=== PATIENT | male | born 1945 | race Two or more races ===

== ENCOUNTER 2020-03-23 09:21 | Emergency (ER) | payer MEDICARE, SELFPAY ==
[2020-03-23 09:47] VITALS: BP 147/80; PULSE 92; RESP 18; TEMP 36.6; O2SAT 99; BMI 24.2
--- NOTE | 2020-03-23 10:11 | ED_ITS ---
HPI - Back Pain/Injury General Chief Complaint: Back Pain/Injury <MILA Sanders - Last Filed: 03/23/20 11:22> Stated Complaint: COVID SYMPTOMS <MILA Sadners - Last Filed: 03/23/20 11:22> Time Seen by Provider: 03/23/20 09:42 <MILA Sanders - Last Filed: 03/23/20 11:22> Source: patient <MILA Sanders Last Filed: 03/23/20 11:22> Mode of arrival: ambulatory <MILA Sanders - Last Filed: 03/23/20 11:22> Limitations: language barrier <MILA Sanders Last Filed: 03/23/20 11:22> History of Present Illness HPI Narrative: 74 y/o male with history of osteoarthritis and chronic low back pain presents to the ER with worsening low back pain and upper back pain on the right for the last 3-4 days. The pain in his upper back is making it hard for him to sleep at night. He was told a long time ago that he has a mass on his back that needs to be removed, however this was never followed up because he had prostate surgery instead. He has been taking Tylenol and aspirin without improvement. He denies injury, denies weakness, numbness, incontinence. <MILA Sanders - Last Filed: 03/23/20 11:22> MD elicited complaint: back pain <MILA Sanders - Last Filed: 03/23/20 11:22> Pertinent past history: prior back pain <MILA Sanders - Last Filed: 03/23/20 11:22> Onset (ago): day(s) (4) <MILA Sanders - Last Filed: 03/23/20 11:22> Timing: constant <MILA Sanders - Last Filed: 03/23/20 11:22> Severity: moderate <MILA Sanders - Last Filed: 03/23/20 11:22> Similar Symptoms Previously: Yes <MILA Sanders - Last Filed: 03/23/20 11:22> Quality: aching <MILA Sanders - Last Filed: 03/23/20 11:22> Location: right lower back, right upper back and left lower back <MILA Sanders - Last Filed: 03/23/20 11:22> Radiation: none <MILA Sanders - Last Filed: 03/23/20 11:22> Exacerbating factors: movement and supine positioning <MILA Sanders - Last Filed: 03/23/20 11:22> Relieving factors: sitting upright <MILA Sanders - Last Filed: 03/23/20 11:22> Associated symptoms: arthralgias (chronically due to OA) <MILA Sanders - Last Filed: 03/23/20 11:22> Treatments prior to arrival: acetaminophen and ASA <MILA Sanders - Last Filed: 03/23/20 11:22> Work related injury: No <MILA Sanders - Last Filed: 03/23/20 11:22> Related Data Home Medications: Home Medications Medication Instructions Recorded Confirmed albuterol sulfate 2.5 mg INHALATION Q4-6H PRN 04/09/20 amlodipine 10 mg tablet 10 mg PO DAILY 04/09/20 aspirin 81 mg tablet,delayed 81 mg PO DAILY 04/09/20 release blood-glucose meter #1 ea 04/09/20 clotrimazole 1 % topical cream 1 appl TOPICAL BID 04/09/20 fluticasone 250 mcg-salmeterol 50 1 inh INHALATION BID 04/09/20 mcg/dose blistr powdr for inhalation fluticasone propionate 50 1 spray INTRANASAL BID 04/09/20 mcg/actuation nasal spray,suspension gabapentin 600 mg tablet 600 mg PO TID 04/09/20 glipizide 5 mg tablet 2.5 mg PO DAILY 04/09/20 ipratropium 20 mcg-albuterol 100 1 puff INHALATION Q4H 04/09/20 mcg/actuation mist for inhalation lancets 28 gauge #100 ea 04/09/20 metformin 500 mg tablet 500 mg PO BID 04/09/20 nabumetone 750 mg tablet 750 mg PO BID 04/09/20 omeprazole 20 mg capsule,delayed 20 mg PO DAILY 04/09/20 release tizanidine 2 mg capsule 2 mg PO Q8H PRN 04/09/20 tramadol 50 mg tablet 50 mg PO DAILY 04/09/20 trazodone 50 mg tablet 25 mg PO BEDTIME PRN 04/09/20 Previous Rx's Medication Instructions Recorded cyclobenzaprine 5 mg PO TID PRN #14 tab 03/23/20 lidocaine [Lidoderm] 1 patch TOPICAL DAILY #15 ea 03/23/20 naproxen 500 mg PO BID PRN #10 tab 03/23/20 oxybutynin chloride 5 mg tablet 5 mg PO BID 30 Days #60 tab 04/02/20 <MILA Sanders - Last Filed: 03/23/20 11:22> Allergies/Adverse Reactions: Allergies Allergy/AdvReac Type Severity Reaction Status Date / Time ciprofloxacin [Ciprofloxacin] Allergy Mild RASH Unverified 01/05/20 15:51 <MILA Sanders Last Filed: 03/23/20 11:22> Review of Systems Review of Systems: Constitutional: No Fever, No Chills Cardiovascular: No Chest Pain, No SOB, No Orthopnea, No Edema Respiratory: No Cough, No Sputum, No Wheezing, No dyspnea Gastrointestinal: No Nausea, No Vomiting, No Diarrhea, No abdominal Pain Genitourinary: No Dysuria, No Urinary Frequency, No Hematuria Musculoskeletal: + joint pain, + Myalgias Skin: No Skin Lesions, No rash Neuro: No Weakness, No Numbness, No Dizziness, No Headache Heme/Lymph: No Bruising, No Lymphadenopathy <MILA Sanders Last Filed: 03/23/20 11:22> [facility] Past Medical History Attestation statement: The following information was validated with the patient. <MILA Sanders Last Filed: 03/23/20 11:22> Medical History: Medical History (Updated 04/09/20 @ 14:02 by J Carlos Khan MD) Arthralgia Diabetes Lipoma of back Lower back pain Prostate disease <MILA Sanders Last Filed: 03/23/20 11:22> Surgical History: Surgical History History of penile implant History of prostate surgery <MILA Sanders Last Filed: 03/23/20 11:22> Family History Family History: Family History Mother History of esophageal cancer <MILA Sanders - Last Filed: 03/23/20 11:22> Physical Exam Vital Signs: Vital Signs: Last Vital Signs Temp 97.9 F 03/23/20 09:47 Pulse 92 03/23/20 09:47 Resp 18 03/23/20 09:47 BP 147/80 H 03/23/20 09:47 Pulse Ox 99 03/23/20 09:47 Body Mass Index 24.2 Appearance: Alert. Oriented X3. No acute distress. HEENT: normal inspection Neck: Normal inspection. Neck supple. CVS: Normal heart rate and rhythm. Pulses normal. Respiratory: No respiratory distress. Back: large 7cm mobile, soft tissue mass over right scapula, mildly tender. No erythema or skin changes. Mild bilateral lumbar soft tissue tenderness, ROM n ormal, no spinal tenderness. Skin: Skin warm and dry. Normal skin color. Normal skin turgor. No rashes. Extremities: No lower extremity edema. Neuro: Oriented X 3. No motor deficit. No sensory deficit. Steady gait <MILA Sanedrs - Last Filed: 03/23/20 11:22> Vital Signs: Last Vital Signs Temp 97.9 F 03/23/20 09:47 Pulse 92 03/23/20 09:47 Resp 18 03/23/20 09:47 BP 147/80 H 03/23/20 09:47 Pulse Ox 99 03/23/20 09:47 Body Mass Index 24.2 <Len Pena MD - Last Filed: 04/13/20 08:38> Course Course Course Narrative: 74 y/o male presenting with acute on chronic LBP and upper back pain on the right due to known lipoma. It hurts to lay down on it. We discussed referral to surgery for removal. As for his low back pain, there are no red flag symptoms and he has normal mobility on exam. Will give short course of NSAID, muscle relaxer and topical lidoderm. He agrees to f/u with his PCP for possible PT referral. Stable for discharge. <MILA Sanders - Last Filed: 03/23/20 11:22> I have reviewed the chart <Len Pena MD - Last Filed: 04/13/20 08:38> MDM - Back Pain/Injury Differential Diagnosis Differential diagnosis: Likely lumbar radiculopathy, sciatica and strain of lumbar region <MILA Sanders - Last Filed: 03/23/20 11:22> Medical Records Attestation: I reviewed the patient's medical records. <MILA Sanders - Last Filed: 03/23/20 11:22> Critical Care Time Critical Care Time Critical Care Time: No <MILA Sanders - Last Filed: 03/23/20 11:22> Discharge Plan Discharge Clinical Impression: Strain of lumbar region, Lipoma of back <MILA Sanders - Last Filed: 03/23/20 11:22> Patient Disposition: Home, Self-Care <MILA aSnders - Last Filed: 03/23/20 11:22> Instructions: Low Back Strain (ED), Lower Back Exercises (ED), Lipoma (ED) <MILA Sanders - Last Filed: 03/23/20 11:22> Additional Instructions: You have a large lipoma (benign fatty tissue tumor) on your back that is causing you pain. Recommending following up with General Surgery for removal. For your chronic low back pain - use ice and/or heat several times per day. Limit bending, lifting >10 lbs, and twisting movements. If your pain worsens or if you develop numbness, weakness, or incontinence come back to the ER for further evaluation. Follow up with your doctor next week. <MILA Sanders - Last Filed: 03/23/20 11:22> Prescriptions: New lidocaine [Lidoderm] 5 % adhesive patch,medicated 1 patch topical DAILY Qty: 15 RF: 0 naproxen 500 mg tablet 500 mg PO BID PRN (Reason: pain) Qty: 10 RF: 0 cyclobenzaprine 5 mg tablet 5 mg PO TID PRN (Reason: muscle spasm) Qty: 14 RF: 0 No Action oxybutynin chloride 5 mg tablet 5 mg PO BID 30 Days Qty: 60 RF: 6 (DME) lancets [TRUEplus Lancets] 28 gauge misc See Rx Instructions .ROUTE .MEDSUPPLY Qty: 100 RF: 0 albuterol sulfate 2.5 mg /3 mL (0.083 %) solution for nebulization 2.5 mg inhalation Q4-6H PRNRF: 0 tizanidine 2 mg capsule 2 mg PO Q8H PRNRF: 0 trazodone 50 mg tablet 25 mg PO BEDTIME PRNRF: 0 gabapentin 600 mg tablet 600 mg PO TID RF: 0 nabumetone 750 mg tablet 750 mg PO BID RF: 0 aspirin 81 mg tablet,delayed release (DR/EC) 81 mg PO DAILY RF: 0 omeprazole 20 mg capsule,delayed release(DR/EC) 20 mg PO DAILY RF: 0 amlodipine 10 mg tablet 10 mg PO DAILY RF: 0 glipizide 5 mg tablet 2.5 mg PO DAILY RF: 0 (DME) blood-glucose meter Kit See Rx Instructions .ROUTE .MEDSUPPLY Qty: 1 RF: 0 Combivent Respimat 20-100 mcg/actuation mist 1 puff inhalation Q4H RF: 0 fluticasone propionate [Flonase Allergy Relief] 50 mcg/actuation spray,suspension 1 spray intranasal BID RF: 0 fluticasone propion-salmeterol [Advair Diskus] 250-50 mcg/dose blister with device 1 inh inhalation BID RF: 0 metformin 500 mg tablet 500 mg PO BID RF: 0 tramadol 50 mg tablet 50 mg PO DAILY RF: 0 clotrimazole [Antifungal (clotrimazole)] 1 % cream 1 appl topical BID RF: 0 <MILA Sanders - Last Filed: 03/23/20 11:22> Referrals: J Carlos Khan MD [Physician] - 2 days (lipoma removal ) <MILA Sanders - Last Filed: 03/23/20 11:22> Interventions: ED Discharge Assessment Last Done: 03/23/20 10:51 <MILA Sanders - Last Filed: 03/23/20 11:22> Discharge Date/Time: 03/23/20 10:52 <MILA Sanders - Last Filed: 03/23/20 11:22> Print Language: Namibian <MILA Sanders - Last Filed: 03/23/20 11:22>
== END 2020-03-23 10:52 | disposition home or self-care (01) ==
PROVIDERS: Emergency Provider Emergency Medicine; PCP Internal Medicine
DX: S39.012A Strain of muscle, fascia and tendon of lower back, initial encounter (principal); D17.1 Benign lipomatous neoplasm of skin and subcutaneous tissue of trunk; X58.XXXA Exposure to other specified factors, initial encounter; Y93.9 Activity, unspecified; Y92.9 Unspecified place or not applicable; Y99.9 Unspecified external cause status; Z79.899 Other long term (current) drug therapy
CPT/HCPCS: 99283

== ENCOUNTER → 2020-04-09 13:26 | Outpatient (BNVA) | payer MEDICARE, SELFPAY | PROVIDERS: PCP Internal Medicine; Visit Provider Surgery | DX: D17.1 Benign lipomatous neoplasm of skin and subcutaneous tissue of trunk (principal) | CPT/HCPCS: 99202 ==

== ENCOUNTER 2020-04-30 15:06 | Emergency (ER) | payer MEDICARE, SELFPAY ==
[2020-04-30 18:51] VITALS: BP 152/95; PULSE 99; RESP 18; TEMP 36.6; O2SAT 98; BMI 25.8
--- NOTE | 2020-04-30 19:02 | ED.GENADULT ---
HPI - General Adult General Chief complaint: General Medical Stated complaint: body aches Time Seen by Provider: 04/30/20 18:49 Source: patient Mode of arrival: ambulatory Limitations: no limitations History of Present Illness HPI narrative: Patient presents to ED for generalized body aches, runny nose, and sore throat. Patient denies any coughing, chest pain, shortness of breath. Patient states some chills and night sweats. Patient states having symptoms for 2 days. Related Data Home Medications Medication Instructions Recorded Confirmed albuterol sulfate 2.5 mg INHALATION Q4-6H PRN 04/09/20 amlodipine 10 mg tablet 10 mg PO DAILY 04/09/20 aspirin 81 mg tablet,delayed 81 mg PO DAILY 04/09/20 release blood-glucose meter #1 ea 04/09/20 clotrimazole 1 % topical cream 1 appl TOPICAL BID 04/09/20 fluticasone 250 mcg-salmeterol 50 1 inh INHALATION BID 04/09/20 mcg/dose blistr powdr for inhalation fluticasone propionate 50 1 spray INTRANASAL BID 04/09/20 mcg/actuation nasal spray,suspension gabapentin 600 mg tablet 600 mg PO TID 04/09/20 glipizide 5 mg tablet 2.5 mg PO DAILY 04/09/20 ipratropium 20 mcg-albuterol 100 1 puff INHALATION Q4H 04/09/20 mcg/actuation mist for inhalation lancets 28 gauge #100 ea 04/09/20 metformin 500 mg tablet 500 mg PO BID 04/09/20 nabumetone 750 mg tablet 750 mg PO BID 04/09/20 omeprazole 20 mg capsule,delayed 20 mg PO DAILY 04/09/20 release tizanidine 2 mg capsule 2 mg PO Q8H PRN 04/09/20 tramadol 50 mg tablet 50 mg PO DAILY 04/09/20 trazodone 50 mg tablet 25 mg PO BEDTIME PRN 04/09/20 Previous Rx's Medication Instructions Recorded cyclobenzaprine 5 mg PO TID PRN #14 tab 03/23/20 lidocaine [Lidoderm] 1 patch TOPICAL DAILY #15 ea 03/23/20 naproxen 500 mg PO BID PRN #10 tab 03/23/20 oxybutynin chloride 5 mg tablet 5 mg PO BID 30 Days #60 tab 04/02/20 Allergies Allergy/AdvReac Type Severity Reaction Status Date / Time ciprofloxacin [Ciprofloxacin] Allergy Mild RASH Verified 04/30/20 18:50 Review of Systems Review of Systems: Yes all other systems are reviewed and are negative Constitutional: Constitutional: Reports as per HPI, Reports no additional constitutional complaints, Reports body ache(s), Reports chills, Reports fatigue, Reports headache(s) and Reports malaise Eyes: Eyes: Reports as per HPI and Reports no additional eye complaints ENT: Reports system reviewed and no additional complaints, except as documented, Reports as per HPI, Reports headache(s) and Reports nasal congestion Cardiovascular: Cardiovascular: Reports as per HPI, Reports no additional cardiovascular complaints, Denies chest pain, Denies chest pain at rest, Denies lightheadedness, Denies dyspnea, Denies dyspnea on exertion and Denies orthopnea Respiratory: Respiratory: Reports as per HPI, Reports no additional respiratory complaints, Denies dyspnea and Denies dyspnea on exertion Gastrointestinal: Gastrointestinal: Reports as per HPI and Reports no additional gastrointestinal complaints Musculoskeletal: Musculoskeletal: Reports no additional musculoskeletal complaints and Reports as per HPI Neurologic: Reports system reviewed and no additional complaints, except as documented, Reports as per HPI and Reports headache(s) Psychiatric: Psychiatric: Reports no additional psychiatric complaints and Reports as per HPI Endocrine: Endocrine: Reports fatigue PMFSH Past Medical History Medical History (Updated 04/30/20 @ 20:36 by MILA Rodríguez) Arthralgia Diabetes Lipoma of back Lower back pain Prostate disease Surgical History History of penile implant History of prostate surgery Family History Family History Mother History of esophageal cancer Social History Social History Advance Directives: No Advance Directives Information Provided: Yes Physical Exam Vital Signs: Vital Signs: Last Vital Signs Temp 97.8 F 04/30/20 20:00 Pulse 102 H 04/30/20 20:00 Resp 16 04/30/20 20:00 BP 148/82 H 04/30/20 20:00 Pulse Ox 97 04/30/20 20:00 Body Mass Index 25.8 Const: General: cooperative, healthy appearing, comfortable, no acute distress, well developed, alert, awake and Physically active Orientation/consciousness: patient oriented x3 HENMT: Head: Yes normal to inspection, Yes No palpable skull fracture present, Yes normocephalic, Yes atraumatic and No abrasion Eyes: General: appearance normal, both eyes and all related structures Neck: Neck: Yes normal visual inspection, Yes full ROM, Yes no lymphadenopathy, Yes no meningeal signs, Yes trachea midline, Yes supple and No tender Chest: Chest palpation & inspection: normal inspection of the chest and normal palpation of entire chest wall Resp: Effort & Inspection: normal respiratory effort, able to speak in complete sentences, normal respiratory pattern, no audible wheezes, respiratory effort not decreased, no grunting, not labored, no nasal flaring, no paradoxical thoraco-abdom movements, no pursed lip breathing, no respiratory distress, no retractions, no segmental paradox chest wall movement, no stridor, not tachypneic, no tracheal deviation, no use of accessory muscles, No prolonged expiratory phase and No symmetric chest movement Auscultation: clear to auscultation bilaterally Cardio: Jugular venous distension: no JVD Heart sounds: S1 normal heart sound present and S2 normal heart sound present GI: Inspection: Yes normal to inspection and No abdominal wall ecchymosis Palpation (GI): Soft to palpation, not firm, nontender, no guarding and not rigid : General: No CVA tenderness and Yes no CVA tenderness Back/Spine/Pelvis: Back: no CVA tenderness, No CVA tenderness and No back tenderness Skin: Other: Positive for lipoma and right upper back posterior right shoulder. Patient scheduled for surgery for next week for lipoma Neuro: General: patient oriented x3, no meningeal signs and CN's II-XI intact bilaterally Cranial nerves: Yes CN's II-XII intact bilaterally Extrem: General: Yes normal to inspection and Yes full ROM Psych: Appearance: grossly normal, well kempt and not disheveled Course Course Course Narrative: Patient is not in any distress. Patient will be swabbed for COVID-19, and rapid strep. No indication for chest x-ray. Patient lungs are clear and denies any chest pain or shortness of breath. Not suspect any cardiac etiology patient has symptoms of a viral syndrome. Once again patient states he had runny nose, body aches, chills, sore throat Reevaluation(s) Reevaluation #1: Patient is positive for the COVID-19 virus. Patient educated on quarantine. Patient presently not in any respiratory distress. Patient is safe for discharge Time: 20:33 Medical Decision Making MDM Narrative Medical decision making narrative: COVID-19 Lab Data Labs: Lab Results 04/30/20 Range/Units 19:32 Coronavirus (PCR) POSITIVE A (Negative) Influenza Type A (PCR) NEGATIVE (Negative) Influenza Type B (PCR) NEGATIVE (Negative) RSV RNA Qual (PCR) NEGATIVE (Negative) Discharge Plan Discharge Clinical Impression: COVID-19 Patient Disposition: Home, Self-Care Instructions: COVID-19 (Coronavirus Disease 2019) (ED) Additional Instructions: Return to the ED immediately for any chest pain, shortness of breath, weakness, swelling of lower extremities, calf pain, coughing of blood, slurred speech, headache, paralysis of extremities, or any other concerning symptoms. Recommend 14 days self-isolation. Prescriptions: No Action oxybutynin chloride 5 mg tablet 5 mg PO BID 30 Days Qty: 60 RF: 6 lidocaine [Lidoderm] 5 % adhesive patch,medicated 1 patch topical DAILY Qty: 15 RF: 0 naproxen 500 mg tablet 500 mg PO BID PRN (Reason: pain) Qty: 10 RF: 0 cyclobenzaprine 5 mg tablet 5 mg PO TID PRN (Reason: muscle spasm) Qty: 14 RF: 0 (DME) lancets [TRUEplus Lancets] 28 gauge misc See Rx Instructions .ROUTE .MEDSUPPLY Qty: 100 RF: 0 albuterol sulfate 2.5 mg /3 mL (0.083 %) solution for nebulization 2.5 mg inhalation Q4-6H PRNRF: 0 tizanidine 2 mg capsule 2 mg PO Q8H PRNRF: 0 trazodone 50 mg tablet 25 mg PO BEDTIME PRNRF: 0 gabapentin 600 mg tablet 600 mg PO TID RF: 0 nabumetone 750 mg tablet 750 mg PO BID RF: 0 aspirin 81 mg tablet,delayed release (DR/EC) 81 mg PO DAILY RF: 0 omeprazole 20 mg capsule,delayed release(DR/EC) 20 mg PO DAILY RF: 0 amlodipine 10 mg tablet 10 mg PO DAILY RF: 0 glipizide 5 mg tablet 2.5 mg PO DAILY RF: 0 (DME) blood-glucose meter Kit See Rx Instructions .ROUTE .MEDSUPPLY Qty: 1 RF: 0 Combivent Respimat 20-100 mcg/actuation mist 1 puff inhalation Q4H RF: 0 fluticasone propionate [Flonase Allergy Relief] 50 mcg/actuation spray,suspension 1 spray intranasal BID RF: 0 fluticasone propion-salmeterol [Advair Diskus] 250-50 mcg/dose blister with device 1 inh inhalation BID RF: 0 metformin 500 mg tablet 500 mg PO BID RF: 0 tramadol 50 mg tablet 50 mg PO DAILY RF: 0 clotrimazole [Antifungal (clotrimazole)] 1 % cream 1 appl topical BID RF: 0 Referrals: Praful Fajardo MD [Primary Care Provider] - 2 days (Positive COVID-19) Interventions: ED Discharge Assessment Last Done: 04/30/20 20:42 Discharge Date/Time: 04/30/20 20:44 Print Language: Marshallese
[2020-04-30 20:00] VITALS: BP 148/82; PULSE 102; RESP 16; TEMP 36.6; O2SAT 97
[2020-04-30] MEDS: Ibuprofen 800 MG TABLET PO (20:19)
[2020-04-30 20:24] LABS: Influenza A PCR NEGATIVE (Negative); Influenza B PCR NEGATIVE (Negative); Resp Syncy Virus RNA Qual PCR NEGATIVE (Negative); SARS COV2 PCR INHOUSE POSITIVE (Negative)
== END 2020-04-30 20:44 | disposition home or self-care (01) ==
PROVIDERS: Physician Assistant; Emergency Provider Emergency Medicine; PCP Internal Medicine
DX: U07.1 COVID-19 (principal); E11.9 Type 2 diabetes mellitus without complications
CPT/HCPCS: 0241U; 36415; 87071; 87880; 99283

== ENCOUNTER 2020-05-15 09:20 | Outpatient (REF) | payer MEDICARE, SELFPAY | END 2020-05-15 09:21 | disposition home or self-care (01) | LOC: HO.LAB 09:20 | PROVIDERS: Visit Provider Internal Medicine | DX: Z20.822 Contact with and (suspected) exposure to COVID-19 (principal) | CPT/HCPCS: 36415; C9803; U0003 ==

== ENCOUNTER 2020-05-29 07:57 | Day surgery (SDC) | payer MEDICARE, SELFPAY ==
[2020-05-22 16:19] VITALS: BMI 26.6
--- NOTE | 2020-05-28 10:18 | HO.ANESPROP2 ---
Documented by User: Oanh Valdes 05/28/20 10:20 HPI - Anesthesia Eval Consult details Narrative: 74yo M for Excision Back Lipoma Covid + 04/30/20. [facility] Problems Active Problems: All Active Problems (Updated 05/22/20 @ 15:36 by Evangelina Pagan) COVID-19 (Acute) Lipoma of back (Acute) Prostate disease (Acute) Lower back pain (Acute) Diabetes (Acute) Arthralgia (Acute) Past Medical History Medical History Arthralgia Asthma Depression Diabetes GERD (gastroesophageal reflux disease) High cholesterol History of prostate cancer HTN (hypertension) Lipoma of back Lower back pain Prostate disease Family History Family History Mother History of esophageal cancer Surgical History Surgical History History of cataract extraction History of penile implant History of prostate surgery Hx of colonoscopy Hx of cystoscopy Social History Social History Smoking Status: Former smoker Meds Allergies Allergy/AdvReac Type Severity Reaction Status Date / Time ciprofloxacin [Ciprofloxacin] Allergy Mild RASH Verified 05/22/20 15:39 Home Medications Medication Instructions Recorded Confirmed Type albuterol sulfate 2.5 mg INHALATION Q4-6H PRN 04/09/20 05/22/20 History amlodipine 10 mg tablet 10 mg PO DAILY 04/09/20 05/22/20 History aspirin 81 mg tablet,delayed 81 mg PO DAILY 04/09/20 05/22/20 History release blood-glucose meter #1 ea 04/09/20 History clotrimazole 1 % topical cream 1 appl TOPICAL BID 04/09/20 05/22/20 History fluticasone 250 mcg-salmeterol 50 1 inh INHALATION BID 04/09/20 05/22/20 History mcg/dose blistr powdr for inhalation fluticasone propionate 50 1 spray INTRANASAL BID 04/09/20 05/22/20 History mcg/actuation nasal spray,suspension gabapentin 600 mg tablet 600 mg PO TID 04/09/20 05/22/20 History glipizide 5 mg tablet 2.5 mg PO DAILY 04/09/20 05/22/20 History ipratropium 20 mcg-albuterol 100 1 puff INHALATION Q4H 04/09/20 05/22/20 History mcg/actuation mist for inhalation lancets 28 gauge #100 ea 04/09/20 History metformin 500 mg tablet 500 mg PO BID 04/09/20 05/22/20 History nabumetone 750 mg tablet 750 mg PO BID 04/09/20 05/22/20 History omeprazole 20 mg capsule,delayed 20 mg PO DAILY 04/09/20 05/22/20 History release tizanidine 2 mg capsule 2 mg PO Q8H PRN 04/09/20 05/22/20 History tramadol 50 mg tablet 50 mg PO DAILY 04/09/20 05/22/20 History trazodone 50 mg tablet 25 mg PO BEDTIME PRN 04/09/20 05/22/20 History Exam Exam Date and Time: May 28, 2020 1018 Height,Weight and Vital Signs: Height 5 ft 6 in Weight 74.843 kg Documented by User: Shanita Toth 05/29/20 07:54 [facility] Past Medical History Medical History Arthralgia Asthma Depression Diabetes GERD (gastroesophageal reflux disease) High cholesterol History of prostate cancer HTN (hypertension) Lipoma of back Lower back pain Prostate disease Family History Family History Mother History of esophageal cancer Surgical History Surgical History History of cataract extraction History of penile implant History of prostate surgery Hx of colonoscopy Hx of cystoscopy Social History Social History Smoking Status: Former smoker Meds Allergies Allergy/AdvReac Type Severity Reaction Status Date / Time ciprofloxacin [Ciprofloxacin] Allergy Mild RASH Verified 05/22/20 15:39 Home Medications Medication Instructions Recorded Confirmed Type albuterol sulfate 2.5 mg INHALATION Q4-6H PRN 04/09/20 05/22/20 History amlodipine 10 mg tablet 10 mg PO DAILY 04/09/20 05/22/20 History aspirin 81 mg tablet,delayed 81 mg PO DAILY 04/09/20 05/22/20 History release blood-glucose meter #1 ea 04/09/20 History clotrimazole 1 % topical cream 1 appl TOPICAL BID 04/09/20 05/22/20 History fluticasone 250 mcg-salmeterol 50 1 inh INHALATION BID 04/09/20 05/22/20 History mcg/dose blistr powdr for inhalation fluticasone propionate 50 1 spray INTRANASAL BID 04/09/20 05/22/20 History mcg/actuation nasal spray,suspension gabapentin 600 mg tablet 600 mg PO TID 04/09/20 05/22/20 History glipizide 5 mg tablet 2.5 mg PO DAILY 04/09/20 05/22/20 History ipratropium 20 mcg-albuterol 100 1 puff INHALATION Q4H 04/09/20 05/22/20 History mcg/actuation mist for inhalation lancets 28 gauge #100 ea 04/09/20 History metformin 500 mg tablet 500 mg PO BID 04/09/20 05/22/20 History nabumetone 750 mg tablet 750 mg PO BID 04/09/20 05/22/20 History omeprazole 20 mg capsule,delayed 20 mg PO DAILY 04/09/20 05/22/20 History release tizanidine 2 mg capsule 2 mg PO Q8H PRN 04/09/20 05/22/20 History tramadol 50 mg tablet 50 mg PO DAILY 04/09/20 05/22/20 History trazodone 50 mg tablet 25 mg PO BEDTIME PRN 04/09/20 05/22/20 History Exam Airway Mallampati Class: II TM Dist: >3cm Neck ROM: Full Assessment and Plan Assessment Anesthesia Assessment: Anesthesia Plan Discussed and Chart Reviewed Final Anesthetic Review NPO: Yes ASA Class: III Final Preanesthetic Review: No Changes in Pt Med Stat, Meds/Allgs Chart Reviewed, Consent Obtained/Reviewed and Anes Risks/Benef Reviewed Patient Risk: Intermediate Procedure Risk: Low Assessment/Block/Sedation in SS: Assess/Block/Sedation-SS Anesthetic Plan Anesthetic Plan: GA and MAC: Disposition: Standard PACU
--- NOTE | 2020-05-29 08:16 | MHC.SHP ---
Pre-Procedural Eval Section B Chief Complaint: lipoma of back Details of Present Illness: has mass on the right upper back Relevant Family History (Specify if Yes): No Relevant Social History: None Present Medications: see Short Stay Collaborative assessment Medical History: Significant History (DM, arthralgia) History of Previous Operations: No relevant previous surgery Allergies: Allergies Allergy/AdvReac Type Severity Reaction Status Date / Time ciprofloxacin [Ciprofloxacin] Allergy Mild RASH Verified 05/22/20 15:39 Review of Systems Sugical H&P ROS: Negative: Constitution, Cardiovascular, Respiratory, Neurological, Psychiatric, Hem-Onc, Allergic/Immunologic, Gastrointestinal, Genitourinary, Musculoskeletal, Integumentary, Endocrine and Eyes/Ears/Nose/Throat Exam Surgical H&P Exam: Normal: HEENT, Normal: Heart, Normal: Lungs, Normal: Extremities, Normal: Abdomen, Normal: Skin and Normal: Neurological Exam Comment: lipoma on the right upper back Plan Diagnosis/Plan: Unchanged I have reviewed the history and physical and performed a pertinent physical examination on my patient. No changes have occurred unless specified.
[2020-05-29 08:17] LABS: Glucose, Whole Blood 112 mg/dL (60-115)
[2020-05-29 08:24] VITALS: BP 177/87; PULSE 81; RESP 16; TEMP 36; O2SAT 97
--- NOTE | 2020-05-29 08:30 | HO.ANESPROP2 ---
[facility] Active Problems Active Problems: All Active Problems (Updated 05/28/20 @ 10:19 by Oanh Valdes) COVID-19 (Acute) Lipoma of back (Acute) Prostate disease (Acute) Lower back pain (Acute) Diabetes (Acute) Arthralgia (Acute) Past Medical History Medical History Arthralgia Asthma Depression Diabetes GERD (gastroesophageal reflux disease) High cholesterol History of prostate cancer HTN (hypertension) Lipoma of back Lower back pain Prostate disease Family History Family History Mother History of esophageal cancer Surgical History Surgical History History of cataract extraction History of penile implant History of prostate surgery Hx of colonoscopy Hx of cystoscopy Social History Social History Smoking Status: Former smoker Smoking Quit Date: > 30 yrs ago Advance Directives: No Advance Directives Information Provided: No Advance Directives on File: No Meds Allergies Allergy/AdvReac Type Severity Reaction Status Date / Time ciprofloxacin [Ciprofloxacin] Allergy Mild RASH Verified 05/22/20 15:39 Home Medications Medication Instructions Recorded Confirmed Type albuterol sulfate 2.5 mg INHALATION Q4-6H PRN 04/09/20 05/22/20 History amlodipine 10 mg tablet 10 mg PO DAILY 04/09/20 05/22/20 History aspirin 81 mg tablet,delayed 81 mg PO DAILY 04/09/20 05/22/20 History release blood-glucose meter #1 ea 04/09/20 History clotrimazole 1 % topical cream 1 appl TOPICAL BID 04/09/20 05/22/20 History fluticasone 250 mcg-salmeterol 50 1 inh INHALATION BID 04/09/20 05/22/20 History mcg/dose blistr powdr for inhalation fluticasone propionate 50 1 spray INTRANASAL BID 04/09/20 05/22/20 History mcg/actuation nasal spray,suspension gabapentin 600 mg tablet 600 mg PO TID 04/09/20 05/22/20 History glipizide 5 mg tablet 2.5 mg PO DAILY 04/09/20 05/22/20 History ipratropium 20 mcg-albuterol 100 1 puff INHALATION Q4H 04/09/20 05/22/20 History mcg/actuation mist for inhalation lancets 28 gauge #100 ea 04/09/20 History metformin 500 mg tablet 500 mg PO BID 04/09/20 05/22/20 History nabumetone 750 mg tablet 750 mg PO BID 04/09/20 05/22/20 History omeprazole 20 mg capsule,delayed 20 mg PO DAILY 04/09/20 05/22/20 History release tizanidine 2 mg capsule 2 mg PO Q8H PRN 04/09/20 05/22/20 History tramadol 50 mg tablet 50 mg PO DAILY 04/09/20 05/22/20 History trazodone 50 mg tablet 25 mg PO BEDTIME PRN 04/09/20 05/22/20 History Exam Exam Date and Time: May 29, 2020 0830 Height,Weight and Vital Signs: Height 5 ft 6 in Weight 74.843 kg Last Vital Signs Temp 96.8 F 05/29/20 08:24 Pulse 81 05/29/20 08:24 Resp 16 05/29/20 08:24 BP 177/87 H 05/29/20 08:24 Pulse Ox 97 05/29/20 08:24 Pertinent Lab Results Pertinent Lab Results: Laboratory Tests 05/29/20 08:13 POC Glucose 112 Airway Denture: Upper and Lower Assessment and Plan Assessment Anesthesia Assessment: Anesthesia Plan Discussed and Chart Reviewed Final Anesthetic Review NPO: Yes ASA Class: III Final Preanesthetic Review: No Changes in Pt Med Stat, Meds/Allgs Chart Reviewed, Consent Obtained/Reviewed and Anes Risks/Benef Reviewed Patient Risk: Intermediate Procedure Risk: Low Assessment/Block/Sedation in SS: Assess/Block/Sedation-SS Anesthetic Plan Anesthetic Plan: MAC: Disposition: Standard PACU
[2020-05-29] MEDS: Lactated Ringers 1,000 ML 100 ML IVCONT (08:37)
--- NOTE | 2020-05-29 09:20 | P.OP_ITS ---
Operative Note Operative Note Date of Service: 05/29/20 Narrative: PREOP DIAGNOSIS: LIPOMA, RIGHT UPPER BACK POSTOP DIAGNOSIS: LIPOMA, RIGHT UPPER BACK, PARTLY INTRAMUSCULAR PROCEDURE: EXCISION OF A LARGE PARTLY INTRAMUSCULAR LIPOMA, RIGHT UPPER BACK SURGEON: KATELIN CALERO MD 1ST SENIOR PRODUCT CONSULTANT: Bharti LAKHANI The patient is 74-year-old male with a lipomatous mass on the right upper back. This measured about 7-8 cm on examination in the office. In view of increasing size, he wanted to proceed with excision. He understood the technique of excision under anesthesia. He was aware of the risks, benefits, and alternatives. The patient was brought to the operating room. He was placed in left lateral decubitus position, tilted forward to expose the lipoma on the right upper back. He was in monitored anesthesia care. The area of the lipoma was prepped and draped in the usual sterile fashion. A surgical time-out was done. The patient received cefazolin 2 g IV preoperatively. I then made an incision on the skin overlying the lipoma using a blade 15 after infiltration with lidocaine 1%. I carried down the incision through the full- thickness of the skin using electrocautery. This was then carried down to the subcutaneous layer until was able to visualize the lipomatous tissue. I applied Allis clamps on the subcutaneous layer and the skin to lift this up off of the lipoma. I proceeded to then sharply dissect fibrous adhesions surrounding the lipoma from the subcutaneous layer and defined a plane of dissection using electrocautery as well as Metzenbaum scissors. We continued to sharply dissect the rest of the subcutaneous carpet layer of the lipoma in this fashion. I proceeded to dissect posteriorly to shave off the lipoma from the underlying fascia with sharp dissection again. Part of the lipoma entered the fascia into the muscular layer. We had to therefore separate this from the fibers of the latissimus muscle. The muscle fibers were therefore split in this area. We continued to dissect with electrocautery until the entire lipoma was completely and this was sent as specimen. The lipoma measured about 8 cm by 7 cm. I reapposed the split layers of the muscle fibers with Dexon 3-0 interrupted sutures. The deep subcutaneous layer was then reapposed with Dexon 3-0 interrupted sutures as well. Irrigation had been done prior to closure. The skin incision was closed with a running subcuticular Dexon 4-0 stitch. The area of the incision was then infiltrated with Marcaine 0.5% for postop analgesia. Dressings were applied and procedure was completed. The patient tolerated well. There were no complication noted. Initial and final counts of sponges and instruments were correct. Estimated blood loss was about 5 cc. The patient was then transferred to the recovery room with stable vital signs.
[2020-05-29 09:32] VITALS: BP 119/81; PULSE 68; RESP 16; TEMP 37; O2SAT 95
--- NOTE | 2020-05-29 09:41 | P.BOP_ITS ---
Brief Operative Note Date of Service: 05/29/20 Pre-op diagnosis: LIPOMA RIGHT UPPER BACK Post-op diagnosis: same Procedure: EXC OF LIPOMA Surgeon: J Carlos Khan MD Anesthesia: MAC and local [employer]: Carine Carreon Estimated blood loss (mL): 5 Pathology: other (LIPOMA) Condition: stable Disposition: PACU
[2020-05-29 09:46] VITALS: BP 152/93; PULSE 65; RESP 18; TEMP 37; O2SAT 97
--- NOTE | 2020-05-29 10:49 | PC.NURSE ---
Discharge instructions with the assistance of [facility] [place] [employer]. Patient has a paper RX for Percocet, the Tramadol RX was cancelled by Dr Khan
--- NOTE | 2020-05-29 12:05 | HO.POSTANES ---
Post Anesthesia Evaluation Post Anesthesia Evaluation Vital Signs: Vital Signs Temp Pulse Resp BP Pulse Ox 05/29/20 09:46 98.6 F 65 18 152/93 H 97 05/29/20 09:32 98.6 F 68 16 119/81 95 05/29/20 08:24 96.8 F 81 16 177/87 H 97 Anesthesia: Monitored Mental Status: Awake Pain Control: Satisfactory Nausea/Vomiting: None Hydration: Adequate Anesthesia-Related Issues: No Anes. Related Issues
== END 2020-05-29 10:50 | disposition home or self-care (01) ==
PROVIDERS: PCP Internal Medicine; Visit Provider Surgery
PROC: (CPT 21933; principal; 2020-05-29 09:10)
DX: D17.1 Benign lipomatous neoplasm of skin and subcutaneous tissue of trunk (principal); E11.9 Type 2 diabetes mellitus without complications; Z79.84 Long term (current) use of oral hypoglycemic drugs
CPT/HCPCS: 21933; 82947; 88304; J0690; J2405; J3010

== ENCOUNTER 2020-06-04 20:49 | Emergency (ER) | payer MEDICARE, SELFPAY ==
--- NOTE | 2020-06-04 | ECG_ITS ---
Test Reason : CP Blood Pressure : / mmHG Vent. Rate : 084 BPM Atrial Rate : 084 BPM P-R Int : 136 ms QRS Dur : 078 ms QT Int : 362 ms P-R-T Axes : 070 -05 -23 degrees QTc Int : 427 ms Normal sinus rhythm Nonspecific ST and T wave abnormality Abnormal ECG When compared with ECG of 12-MAY-2019 08:04, Nonspecific T wave abnormality, worse in Lateral leads Referred By: Generic ED Physician Electronically Signed By:Westley Monet
--- NOTE | ~2020-06-04 | XR_ITS ---
EXAMINATION: XR CHEST CLINICAL INFORMATION: Cough COMPARISON: 05/12/2019 TECHNIQUE: Frontal view of the chest was obtained. FINDINGS: The lungs are well expanded. Minimal linear left basilar atelectasis. No dense consolidation. No pneumothorax. No pleural effusion. The cardiomediastinal silhouette is within normal limits. XR/XR chest 1V IMPRESSION: Minimal linear left basilar atelectasis.
[2020-06-04 21:35] VITALS: BP 159/85; PULSE 86; RESP 18; TEMP 36.8; O2SAT 96; BMI 24.0
[2020-06-04 21:51] LABS: MANUAL DIFF FLAG NO
[2020-06-04 21:53] LABS: Basophils Percent Auto 0.2 % (0-2); Eosinophils Absolute Auto 0.4 X10*3/uL (0.0-0.4); Hematocrit 36.8 % (42-52); Hemoglobin 11.9 g/dl (14.0-18.0); Imm Gran Abs Auto 0.01 X10*3/uL (0.00-0.03); Imm Gran Pct Auto 0.2 % (0.0-0.4); Lymphocytes Absolute Auto 2.1 X10*3/uL (1.2-4.9); Lymphocytes Percent Auto 34.8 % (20-40); Mean Corpuscular HGB Conc 32.3 g/dl (31.0-36.0); Mean Corpuscular Hemoglobin 28.9 pg (27.0-33.0); Mean Corpuscular Volume 89.3 fL (80-98); Mean Platelet Volume 10.8 fL (9.4-12.4); Monocytes Absolute Auto 0.5 X10*3/uL (0.1-1.2); Neutrophils Percent Auto 49.8 % (45-73); Platelet Count 194 X10*3/uL (160-400); Red Blood Count 4.12 X10*6/uL (4.60-5.80); Red Cell Distribution Width 14.7 % (11.0-16.0)
[2020-06-04 22:21] LABS: Anion Gap 14 (12-20); Blood Urea Nitrogen 21 mg/dL (9-16); Calcium 9.9 mg/dL (8.4-10.2); Carbon Dioxide 26 mmol/L (22-29); Chloride 107 mmol/L (96-108); Creatinine Clr Calc Pharmacy 46.4; Estimated Glomerular Filt Rate > 60; Glucose Random 93 mg/dL (60-115); Potassium 4.4 mmol/L (3.3-5.1); Sodium 143 mmol/L (135-145)
[2020-06-04 22:26] LABS: Troponin-I High Sensitivity < 3.5 ng/L (<3.5-35.0)
--- NOTE | 2020-06-04 23:44 | ED_ITS ---
HPI - Chest Pain General Chief Complaint: Chest Pain Stated Complaint: Chest pain/cough Time Seen by Provider: 06/04/20 23:44 Source: patient Mode of arrival: ambulatory Limitations: no limitations History of Present Illness HPI narrative: Patient complaining of diffuse chest pain bilateral when he coughs for last 3 days also has pain in the back at the site where he has I and D done for sebaceous cyst last week. Patient denies any shortness of breath no wheezing no fever patient complaining of dry cough for last few days Related Data Home Medications Medication Instructions Recorded Confirmed albuterol sulfate 2.5 mg INHALATION Q4-6H PRN 04/09/20 05/22/20 amlodipine 10 mg tablet 10 mg PO DAILY 04/09/20 05/22/20 aspirin 81 mg tablet,delayed 81 mg PO DAILY 04/09/20 05/22/20 release blood-glucose meter #1 ea 04/09/20 clotrimazole 1 % topical cream 1 appl TOPICAL BID 04/09/20 05/22/20 fluticasone 250 mcg-salmeterol 50 1 inh INHALATION BID 04/09/20 05/22/20 mcg/dose blistr powdr for inhalation fluticasone propionate 50 1 spray INTRANASAL BID 04/09/20 05/22/20 mcg/actuation nasal spray,suspension gabapentin 600 mg tablet 600 mg PO TID 04/09/20 05/22/20 glipizide 5 mg tablet 2.5 mg PO DAILY 04/09/20 05/22/20 ipratropium 20 mcg-albuterol 100 1 puff INHALATION Q4H 04/09/20 05/22/20 mcg/actuation mist for inhalation lancets 28 gauge #100 ea 04/09/20 metformin 500 mg tablet 500 mg PO BID 04/09/20 05/22/20 nabumetone 750 mg tablet 750 mg PO BID 04/09/20 05/22/20 omeprazole 20 mg capsule,delayed 20 mg PO DAILY 04/09/20 05/22/20 release tizanidine 2 mg capsule 2 mg PO Q8H PRN 04/09/20 05/22/20 tramadol 50 mg tablet 50 mg PO DAILY 04/09/20 05/22/20 trazodone 50 mg tablet 25 mg PO BEDTIME PRN 04/09/20 05/22/20 Previous Rx's Medication Instructions Recorded cyclobenzaprine 5 mg PO TID PRN #14 tab 03/23/20 lidocaine [Lidoderm] 1 patch TOPICAL DAILY #15 ea 03/23/20 naproxen 500 mg PO BID PRN #10 tab 03/23/20 oxybutynin chloride 5 mg tablet 5 mg PO BID 30 Days #60 tab 04/02/20 oxycodone-acetaminophen [Percocet] 1 - 2 tab PO Q4-6H PRN #30 tab 05/29/20 tramadol 50 mg PO Q6H PRN #30 tab 05/29/20 benzonatate [Tessalon Perles] 100 mg PO TID PRN #20 cap 06/05/20 diclofenac sodium 50 mg PO BID #20 tab 06/05/20 Allergies Allergy/AdvReac Type Severity Reaction Status Date / Time ciprofloxacin [Ciprofloxacin] Allergy Mild RASH Verified 05/22/20 15:39 Review of Systems Review of Systems: Constitutional : No Weight loss, No Fever, No Chills ENT/Mouth : No sore throat, No Rhinorrhea Eyes: No Eye Pain, No Swelling Cardiovascular : No Chest Pain, no palpitations Respiratory : + Cough, No Sputum, no shortness of breath Gastrointestinal : no Nausea, No Vomiting, No Diarrhea, No abdominal Pain, no black stools Genitourinary : No Dysuria, No Urinary Frequency Musculoskeletal : No joint pain, No Myalgias, No Joint Swelling Skin : No Skin Lesions, No rash Neuro : No Weakness, No Numbness, No Dizziness, No Headache Psych : No Anxiety/Panic, No Depression Heme/Lymph: No Bruising, No Lymphadenopathy Endocrine : No Polyuria, No Polydipsia All other systems reviewed and are negative [facility] Past Medical History Medical History Arthralgia Asthma Depression Diabetes GERD (gastroesophageal reflux disease) High cholesterol History of prostate cancer HTN (hypertension) Lipoma of back Lower back pain Prostate disease Surgical History History of cataract extraction History of penile implant History of prostate surgery Hx of colonoscopy Hx of cystoscopy Family History Family History Mother History of esophageal cancer Social History Social History Smoking Status: Former smoker Advance Directives: No Physical Exam Vital Signs: Vital Signs: Last Vital Signs Temp 98.2 F 06/04/20 21:35 Pulse 86 06/04/20 21:35 Resp 18 06/04/20 21:35 BP 159/85 H 06/04/20 21:35 Pulse Ox 96 06/04/20 21:35 Body Mass Index 24.0 Appearance: Alert. Oriented X3. No acute distress. Eyes: Pupils equal, round and reactive to light. ENT: Pharynx normal. Neck: Normal inspection. Neck supple. CVS: Normal heart rate and rhythm. Pulses normal. Respiratory: No respiratory distress. Breath sounds normal. Abdomen: Soft and nontender. Bowel sounds are present, no mass palpable, no CVA tenderness Skin: Skin warm and dry. Normal skin color. Normal skin turgor. Healing surgical scar on the right upper back with no signs of infection Extremities: No lower extremity edema. Neuro: Oriented X 3. No motor deficit. No sensory deficit. MDM - Chest Pain MDM Narrative Medical decision making narrative: Patient clinically musculoskeletal pain troponin negative for any acute cardiac etiology EKG also normal patient on pain medication at home will discharge him on Tessalon and diclofenac sodium Lab Data Attestation: I reviewed the patient's lab results. Result diagrams: 06/04/20 21:47 06/04/20 21:47 Labs: Lab Results 06/04/20 06/04/20 06/04/20 Range/Units 21:47 21:47 21:47 WBC 6.0 (4.8-10.8) X10*3/uL RBC 4.12 L (4.60-5.80) X10*6/uL Hgb 11.9 L (14.0-18.0) g/dl Hct 36.8 L (42-52) % MCV 89.3 (80-98) fL MCH 28.9 (27.0-33.0) pg MCHC 32.3 (31.0-36.0) g/dl RDW 14.7 (11.0-16.0) % Plt Count 194 (160-400) X10*3/uL MPV 10.8 (9.4-12.4) fL Immature Gran % (Auto) 0.2 (0.0-0.4) % Neut % (Auto) 49.8 (45-73) % Lymph % (Auto) 34.8 (20-40) % [place] % (Auto) 9.0 (2-11) % Eos % (Auto) 6.0 H (0-4) % Baso % (Auto) 0.2 (0-2) % Lymph # (Auto) 2.1 (1.2-4.9) X10*3/uL [place] # (Auto) 0.5 (0.1-1.2) X10*3/uL Eos # (Auto) 0.4 (0.0-0.4) X10*3/uL Baso # (Auto) 0.0 (0.0-0.2) X10*3/uL Abs Immat Gran (auto) 0.01 (0.00-0.03) X10*3/uL Absolute Neuts (auto) 3.0 (2.0-8.3) X10*3/uL Absolute Nucleated RBC 0.000 (0.0-0.012) X10*3/uL Nucleated RBC % (auto) 0.0 (0.0-0.2) /100WBC Sodium 143 (135-145) mmol/L Potassium 4.4 (3.3-5.1) mmol/L Chloride 107 (96-108) mmol/L Carbon Dioxide 26 (22-29) mmol/L Anion Gap 14 (12-20) BUN 21 H (9-16) mg/dL Creatinine 1.15 (0.5-1.4) mg/dL Estim Creat Clear Calc 46.4 Estimated GFR > 60 Random Glucose 93 (60-115) mg/dL Calcium 9.9 (8.4-10.2) mg/dL Troponin I High Sens < 3.5 (<3.5-35.0) ng/L ECG Data ECG #1: Attestation: I personally reviewed and interpreted this ECG as follows: Interpretation: Normal sinus rhythm heart rate 84 beats per minute nonspecific ST T wave changes normal interval no acute ischemia Discharge Plan Discharge Clinical Impression: Musculoskeletal chest pain Patient Disposition: Home, Self-Care Instructions: Musculoskeletal Pain (ED) Additional Instructions: Take pain medication as advised. Meds for cough as prescribed. Follow with PCP if not better Prescriptions: New benzonatate [Tessalon Perles] 100 mg capsule 100 mg PO TID PRN (Reason: cough) Qty: 20 RF: 0 diclofenac sodium 50 mg tablet,delayed release (DR/EC) 50 mg PO BID Qty: 20 RF: 0 No Action oxybutynin chloride 5 mg tablet 5 mg PO BID 30 Days Qty: 60 RF: 6 tramadol 50 mg tablet 50 mg PO Q6H PRN (Reason: pain) Qty: 30 RF: 0 oxycodone-acetaminophen [Percocet] 5-325 mg tablet 1 - 2 tab PO Q4-6H PRN (Reason: pain) Qty: 30 RF: 0 lidocaine [Lidoderm] 5 % adhesive patch,medicated 1 patch topical DAILY Qty: 15 RF: 0 naproxen 500 mg tablet 500 mg PO BID PRN (Reason: pain) Qty: 10 RF: 0 cyclobenzaprine 5 mg tablet 5 mg PO TID PRN (Reason: muscle spasm) Qty: 14 RF: 0 (DME) lancets [TRUEplus Lancets] 28 gauge misc See Rx Instructions .ROUTE .MEDSUPPLY Qty: 100 RF: 0 albuterol sulfate 2.5 mg /3 mL (0.083 %) solution for nebulization 2.5 mg inhalation Q4-6H PRN (Reason: Wheezing) RF: 0 tizanidine 2 mg capsule 2 mg PO Q8H PRN (Reason: Pain) RF: 0 trazodone 50 mg tablet 25 mg PO BEDTIME PRN (Reason: Sleep) RF: 0 gabapentin 600 mg tablet 600 mg PO TID RF: 0 nabumetone 750 mg tablet 750 mg PO BID RF: 0 aspirin 81 mg tablet,delayed release (DR/EC) 81 mg PO DAILY RF: 0 omeprazole 20 mg capsule,delayed release(DR/EC) 20 mg PO DAILY RF: 0 amlodipine 10 mg tablet 10 mg PO DAILY RF: 0 glipizide 5 mg tablet 2.5 mg PO DAILY RF: 0 (DME) blood-glucose meter Kit See Rx Instructions .ROUTE .MEDSUPPLY Qty: 1 RF: 0 Combivent Respimat 20-100 mcg/actuation mist 1 puff inhalation Q4H RF: 0 fluticasone propionate [Flonase Allergy Relief] 50 mcg/actuation spray,suspension 1 spray intranasal BID RF: 0 fluticasone propion-salmeterol [Advair Diskus] 250-50 mcg/dose blister with device 1 inh inhalation BID RF: 0 metformin 500 mg tablet 500 mg PO BID RF: 0 tramadol 50 mg tablet 50 mg PO DAILY RF: 0 clotrimazole [Antifungal (clotrimazole)] 1 % cream 1 appl topical BID RF: 0 Print Language: Kinyarwanda
--- NOTE | 2020-06-04 23:52 | PC.NURSE ---
Pt motions to pain from his upper body/shoulder on the right side. pt has a incision with steri stripes intact no drainage. seen by dr angeles. waiting for staffing and scheduling coordinator to arrive to get a complete assessment of the pt. pt skin is warm and dry no s/s of resp distrss sat 97% on room air,.
[2020-06-05] MEDS: oxyCODONE HCl Immed Release 5 MG TABLET 10 MG PO (01:10)
[2020-06-05] MEDS: Benzonatate 100 MG CAPSULE 200 MG PO (01:10)
[2020-06-05 01:15] VITALS: BP 136/80; PULSE 80; RESP 18; O2SAT 97
== END 2020-06-05 01:21 | disposition home or self-care (01) ==
PROVIDERS: Emergency Provider Internal Medicine; PCP Internal Medicine
DX: R07.89 Other chest pain (principal); J45.909 Unspecified asthma, uncomplicated; E11.9 Type 2 diabetes mellitus without complications; I10 Essential (primary) hypertension; Z85.46 Personal history of malignant neoplasm of prostate; Z86.16 Personal history of COVID-19; Z79.899 Other long term (current) drug therapy; Z79.84 Long term (current) use of oral hypoglycemic drugs
CPT/HCPCS: 36415; 71045; 80048; 84484; 85025; 93005; 99283; 99284

== ENCOUNTER → 2020-06-13 08:58 | Outpatient (BNVA) | payer MEDICARE, SELFPAY | PROVIDERS: PCP Internal Medicine; Visit Provider Surgery | DX: D17.1 Benign lipomatous neoplasm of skin and subcutaneous tissue of trunk (principal) | CPT/HCPCS: 99212 ==

== ENCOUNTER 2020-10-20 18:56 | Emergency (ER) | payer MEDICARE, SELFPAY ==
--- NOTE | 2020-10-20 | ECG_ITS ---
Test Reason : DIZZINESS Blood Pressure : / mmHG Vent. Rate : 075 BPM Atrial Rate : 075 BPM P-R Int : 126 ms QRS Dur : 094 ms QT Int : 400 ms P-R-T Axes : 071 -07 -17 degrees QTc Int : 446 ms Normal sinus rhythm Normal ECG When compared with ECG of 04-JUN-2020 21:37, Nonspecific T wave abnormality no longer evident in Lateral leads Referred By: Generic ED Physician Electronically Signed By:HARRIET BUCKNER MD
--- NOTE | ~2020-10-20 | CT_ITS ---
STUDY PERFORMED: CTA of the Chest, abdomen, pelvis with contrast CLINICAL INDICATION: Aneurysm. Abnormal ultrasound. The report of abdomen ultrasound indicates back pain DESCRIPTION: CT angiography of the chest, abdomen and pelvis using CTA protocol with contrast was performed. 85 mL of Omnipaque 350 was administered. The images were reviewed and postprocessed with maximum intensity projections. DLP: 521 mGy-cm. COMPARISON: Report of CT from 2012 suggests aneurysm 3.1 cm FINDINGS: CHEST: Thoracic aorta: There is motion artifact at the root of the aorta. There is no thoracic aortic aneurysm or dissection. There is mild to moderate atherosclerotic irregularity. Great vessels: The vertebral arteries are patent. The common carotid arteries are patent. The visualized subclavian arteries are patent. There is artifact limiting assessment at the origin of the great vessels. Coronaries: Limited assessment. There is [place] coronary calcification. Pulmonary arteries: There is no central pulmonary embolus. The main pulmonary artery is normal caliber. Abdomen/pelvis Vascular: Mild to moderate calcified atheromatous disease of the aorta and branching vessels. Abdominal aorta: Slightly irregular distal abdominal aortic aneurysm with a maximum external diameter of 6.5 cm. This arises below the origin of the renal arteries and extends to the origin of the common iliac arteries. I estimate the aneurysm begins 4.3 cm below the origin of the renal arteries. The length of the aneurysm is approximately 8.2 cm from superior to inferior. There is no definite acute retroperitoneal hemorrhage. There is no obvious discontinuity of the abdominal aortic wall. 1. Mesenteric Arteries: The celiac axis and superior mesenteric artery are patent. It is difficult to determine if there is a minimally patent inferior mesenteric artery. 2. Renal Arteries: There are 2 patent right renal arteries. There is atherosclerotic irregularity of both renal arteries. There is a single patent left renal artery. 3. Infrarenal Abdominal Aorta :The infrarenal aorta between the aneurysm and the renal arteries is irregular with extensive plaque. The visceral portion of the aorta is irregular with plaque. 4. Common iliac arteries: The right common iliac artery measures at least 1.9 cm. There is peripheral thrombus within a right common iliac artery aneurysm. The left common iliac artery measures at least 1.3 cm. There is atherosclerotic irregularity including some eccentric noncalcified plaque. 5. Internal iliac arteries: The internal iliac arteries are patent on each side. There is at least mild and possibly moderate narrowing of the right proximal internal iliac artery. There is at least moderate narrowing of the left internal iliac artery.. 5. Right Lower Extremity: External iliac artery: There is irregularity of the right external iliac artery which is patent. The right common femoral artery is patent. There is mild plaque in the visualized superficial femoral artery and the profunda femoral is patent on the right 6. Left lower extremity: External iliac artery: No hemodynamically significant stenosis. Common femoral artery: The left external iliac artery is patent with atherosclerotic irregularity. Superficial femoral artery: The left superficial femoral artery is patent.The profunda femoral artery appears patent. Nonvascular: CHEST: Lung: No abnormality the trachea or mainstem bronchi. There is paraseptal and centrilobular emphysema. There are some thickened interlobular septa. There are some probably unchanged. Fissural nodules in the right lower lung. There is a small unchanged juxtapleural nodule in the posteromedial left lower lung. There is no honeycomb formation. Pleura: No pleural effusion or pneumothorax. Mediastinum: There are no enlarged mediastinal or hilar lymph nodes. No suspicious abnormality of the esophagus. Vascular: Please see section on CTA Chest Wall/Axilla: No axillary or internal mammary lymphadenopathy. ABDOMEN/PELVIS: Liver, Gallbladder, And Biliary Tree: Probable fatty change. There is a circumscribed low attenuating area just above the confluence of the hepatic veins which measures 2.1 cm. This likely represents a cyst and appears unchanged since 07/24/17. The gallbladder is decompressed. No biliary dilation. Pancreas: No suspicious abnormality. Spleen: There is a slightly irregular 1.7 cm low attenuating abnormality in the upper medial aspect of the spleen. This is likely unchanged since 07/24/17. Adrenal Glands: Mild bilateral thickening. No discrete mass. Kidneys And Ureters: There is fullness of the intrarenal collecting system bilaterally. There are some renal cysts which do not requiring further evaluation. The prominence of the intrarenal collecting system and ureter on the right is visualized to the level of the iliac vessels. Gastrointestinal Tract: No definite colonic wall thickening. The appendix is within normal limits. No small bowel dilation. Abdominal Wall: Eventration of the midline abdominal wall musculature. There is tubing associated with a penile prosthesis. Lymphovascular Structures And Fluid: There are no enlarged lymph nodes. There is no fringe peritoneal fluid. Bladder: No suspicious abnormality. Pelvic Viscera: Surgical clips suggest previous prostatectomy. Musculoskeletal: No acute or suspicious osseous abnormality. CT/CT angio chest IMPRESSION: There is a 6.3 cm slightly irregular infrarenal abdominal aortic aneurysm which extends the origin the common iliac arteries. Aneurysms of this size have a high risk of rupture. At the time of the study there is no evidence of a surrounding retroperitoneal hemorrhage. Atherosclerotic irregularity. 2 right renal arteries. Right common iliac artery aneurysm. There is some underlying emphysema. This critical result was discussed with Zohreh ZARAGOZA at 2321 on 10/20/20 and it was ascertained that the content and urgency of the report was understood at the time of direct communication.
--- NOTE | ~2020-10-20 | US_ITS ---
EXAMINATION: US ABDOMEN COMPLETE CLINICAL INFORMATION: Right upper quadrant and right back pain. COMPARISON: CT abdomen 06/12/2011 report, images not available for comparison. TECHNIQUE: Real-time imaging of the abdominal viscera. FINDINGS: PANCREAS: Obscured by bowel gas. ABDOMINAL AORTA: Aneurysmal dilatation of the mid aorta measuring 5.7 x [address] abdomen report distal abdominal aorta size of 3 x 3.1 cm. INFERIOR VENA CAVA: Visualized portions are normal. LIVER: Appears unremarkable. The liver is normal in size. The liver contour is normal. Parenchymal echogenicity is normal. No focal hepatic lesion. There is no intrahepatic biliary duct dilatation seen. GALLBLADDER: Gallbladder is contracted markedly limiting evaluation. No obvious shadowing gallstone is seen. Limited evaluation of wall thickening and pericholecystic fluid. COMMON BILE DUCT: Normal in caliber measuring 0.5 cm in diameter. RIGHT KIDNEY: Midpole 3.7 cm peripelvic cyst. Tiny upper pole cortical cyst. Fullness of the renal pelvis versus additional peripelvic cyst. No renal calculi. The kidney measures 11.3 cm in maximum dimension. LEFT KIDNEY: Midpole 2 cm cyst. Upper/midpole 1.8 cm cyst. No hydronephrosis. No renal calculi. The kidney measures 11.7 cm in maximum dimension. SPLEEN: A 1.8 cm cystic lesion. The spleen measures 10.6 cm in maximum dimension. FREE FLUID: None. US/US abdomen complete IMPRESSION: 1. Aneurysmal dilatation of the mid aorta measuring 5.7 x 6.2 cm. This represents an interval change from previous, with the prior CT abdomen reports document distal abdominal aorta measurement of 3 x 3.1 cm. (Images not available for comparison). Recommend further evaluation with follow up abdomen CTA evaluation. 2. Pancreas obscured by bowel gas. 3. Gallbladder is contracted limiting evaluation. No obvious gallstone seen. Consider follow up fasting ultrasound for further evaluation. 4. Bilateral renal cysts as detailed above. 5. A 1.8 cm splenic cystic lesion.
--- NOTE | 2020-10-20 19:00 | PC.NURSE ---
waiting for interpretor services to triage
[2020-10-20 19:05] VITALS: BP 166/83; PULSE 78; RESP 18; TEMP 36.7; O2SAT 96; BMI 24.2
--- NOTE | 2020-10-20 19:49 | PC.NURSE ---
PT TO ROOM #8 WITH C/O FALLING AND NECK PAIN NOT RELATED TO FALL. +NAUSEA. PT ARRIVES ALERT, RESPIRATIONS EASY, N/L. SKIN W/D. PT CHG INTO GOWN AND AWAITING MD'S EVAL. FAMILY WITH PT.
--- NOTE | 2020-10-20 19:51 | ED.GENADULT ---
HPI - General Adult General Chief complaint: General Medical Stated complaint: Multiple complaints Time Seen by Provider: 10/20/20 19:45 Source: patient and family Mode of arrival: ambulatory Limitations: language barrier History of Present Illness HPI narrative: 75-year-old male with past medical history of arthralgia, asthma, depression, diabetes non-insulin dependent, GERD, hypertension, hyperlipidemia, and history of prostate cancer presents with several days of ripping aching pain to the right shoulder and back. States that he can not get comfortable no matter what position he is in. He does not report any chest pain or pressure, palpitations, shortness of breath, abdominal distention, dysuria, hematuria, nausea, vomiting, diarrhea, constipation, or edema. Onset (ago): day(s) Location: back Severity: severe Severity scale (1-10): 9 Quality: aching and other ( Ripping) Pain Consistency: constant Relieving factors: none Exacerbating factors: movement Associated symptoms: denies other symptoms Treatments prior to arrival: none Related Data Home Medications Medication Instructions Recorded Confirmed albuterol sulfate 2.5 mg INHALATION Q4-6H PRN 04/09/20 05/22/20 amlodipine 10 mg tablet 10 mg PO DAILY 04/09/20 05/22/20 aspirin 81 mg tablet,delayed 81 mg PO DAILY 04/09/20 05/22/20 release blood-glucose meter #1 ea 04/09/20 clotrimazole 1 % topical cream 1 appl TOPICAL BID 04/09/20 05/22/20 fluticasone 250 mcg-salmeterol 50 1 inh INHALATION BID 04/09/20 05/22/20 mcg/dose blistr powdr for inhalation fluticasone propionate 50 1 spray INTRANASAL BID 04/09/20 05/22/20 mcg/actuation nasal spray,suspension gabapentin 600 mg tablet 600 mg PO TID 04/09/20 05/22/20 glipizide 5 mg tablet 2.5 mg PO DAILY 04/09/20 05/22/20 ipratropium 20 mcg-albuterol 100 1 puff INHALATION Q4H 04/09/20 05/22/20 mcg/actuation mist for inhalation lancets 28 gauge #100 ea 04/09/20 metformin 500 mg tablet 500 mg PO BID 04/09/20 05/22/20 nabumetone 750 mg tablet 750 mg PO BID 04/09/20 05/22/20 omeprazole 20 mg capsule,delayed 20 mg PO DAILY 04/09/20 05/22/20 release tizanidine 2 mg capsule 2 mg PO Q8H PRN 04/09/20 05/22/20 tramadol 50 mg tablet 50 mg PO DAILY 04/09/20 05/22/20 trazodone 50 mg tablet 25 mg PO BEDTIME PRN 04/09/20 05/22/20 Previous Rx's Medication Instructions Recorded cyclobenzaprine 5 mg PO TID PRN #14 tab 03/23/20 lidocaine [Lidoderm] 1 patch TOPICAL DAILY #15 ea 03/23/20 naproxen 500 mg PO BID PRN #10 tab 03/23/20 oxybutynin chloride 5 mg tablet 5 mg PO BID 30 Days #60 tab 04/02/20 oxycodone-acetaminophen [Percocet] 1 - 2 tab PO Q4-6H PRN #30 tab 05/29/20 tramadol 50 mg PO Q6H PRN #30 tab 05/29/20 benzonatate [Tessalon Perles] 100 mg PO TID PRN #20 cap 06/05/20 diclofenac sodium 50 mg PO BID #20 tab 06/05/20 Allergies Allergy/AdvReac Type Severity Reaction Status Date / Time ciprofloxacin [Ciprofloxacin] Allergy Mild RASH Verified 10/20/20 19:01 Review of Systems Review of Systems: Constitutional: No Fever, No Chills ENT/Mouth: No Ear Pain, No Hoarseness, No sore throat Eyes: No Eye Pain, No Swelling, No Redness, No Foreign Body Cardiovascular: No Chest Pain, No SOB Respiratory: No Cough, No Dyspnea Gastrointestinal: No Nausea, No Vomiting, No Diarrhea, No abdominal Pain Genitourinary: No Dysuria, No Hematuria Musculoskeletal: positive right shoulder and back pain, No Myalgias, No Joint Swelling Skin: No Skin lacerations, No rash Neuro: No Weakness, No Numbness, No Paresthesias, No Loss of Consciousness, No Dizziness, No Headache Psych: No Anxiety/Panic, No Depression Heme/Lymph: no easy bruising, no Lymphadenopathy Endocrine: No Polyuria, No Polydipsia Yes all other systems are reviewed and are negative PMFSH Past Medical History Attestation statement: The following information was validated with the patient. Source: old records reviewed Medical History Arthralgia Asthma Depression Diabetes GERD (gastroesophageal reflux disease) High cholesterol History of prostate cancer HTN (hypertension) Lipoma of back Lower back pain Prostate disease Surgical History History of cataract extraction History of penile implant History of prostate surgery Hx of colonoscopy Hx of cystoscopy Family History Family History Mother History of esophageal cancer Social History Social History Advance Directives: No Advance Directives Information Provided: No Physical Exam Vital Signs: Vital Signs: Last Vital Signs Temp 98.0 F 10/20/20 19:05 Pulse 81 10/20/20 20:00 Resp 16 10/20/20 20:00 BP 170/89 H 10/20/20 20:00 Pulse Ox 97 10/20/20 20:00 Body Mass Index 24.2 Appearance: Alert. Oriented X3. No acute distress. Eyes: Pupils equal, round and reactive to light. ENT: Pharynx normal. Neck: Normal inspection. Neck supple. CVS: Normal heart rate and rhythm. Pulses normal. Respiratory: No respiratory distress. Breath sounds normal. Abdomen: Soft and nontender. Skin: Skin warm and dry. Normal skin color. Normal skin turgor. Extremities: No lower extremity edema. Neuro: No motor deficit. No sensory deficit. Course Course Course Narrative: 75-year-old male presents with a ripping aching shoulder and back pain for several days. States that no matter what position he gets into he cannot get comfortable. Order for abdominal ultrasound at bedside. Will order labs. Abdominal ultrasound positive for aneurysm. Patient hesitant about IV start, patient and patient family was present during discussion, and the importance of having IV contrast for the CT study as I suspect AAA based on patient's symptoms. Patient is now agreeable to IV start. 11:22 p.m. radiology called regarding abnormal, infrarenal abdominal aneurysm. no hemorrage 11:[address] Campuzano returned tiger text, discussed case, plan is to refer to [facility]. 11:32 p.m. discussion with [facility], patient's blood pressure noted to be 170/89 with a map of 116, will order labetalol 5 mg IV push , with plan to give 5 more if blood pressure does not improve. 11:59 p.m. discussion with ED at [facility], accepting physician Dr. Cardoza Medical Decision Making MDM Narrative Medical decision making narrative: acute abdomen Differential Diagnosis Differential Diagnosis: CVA, AAA, cholecystitis Medical Records Medical records reviewed: Yes I reviewed the patient's medical records. Lab Data Lab results reviewed: Yes I reviewed the patient's lab results. Result diagrams: 10/20/20 20:20 10/20/20 20:20 Labs: Lab Results 10/20/20 10/20/20 10/20/20 Range/Units 20:07 20:20 20:20 WBC 6.9 (4.8-10.8) X10*3/uL RBC 4.33 L (4.60-5.80) X10*6/uL Hgb 12.6 L (14.0-18.0) g/dl Hct 38.4 L (42-52) % MCV 88.7 (80-98) fL MCH 29.1 (27.0-33.0) pg MCHC 32.8 (31.0-36.0) g/dl RDW 13.8 (11.0-16.0) % Plt Count 187 (160-400) X10*3/uL MPV 11.4 (9.4-12.4) fL Immature Gran % (Auto) 0.3 (0.0-0.4) % Neut % (Auto) 55.9 (45-73) % Lymph % (Auto) 32.9 (20-40) % Divide % (Auto) 7.1 (2-11) % Eos % (Auto) 3.5 (0-4) % Baso % (Auto) 0.3 (0-2) % Lymph # (Auto) 2.3 (1.2-4.9) X10*3/uL Divide # (Auto) 0.5 (0.1-1.2) X10*3/uL Eos # (Auto) 0.2 (0.0-0.4) X10*3/uL Baso # (Auto) 0.0 (0.0-0.2) X10*3/uL Abs Immat Gran (auto) 0.02 (0.00-0.03) X10*3/uL Absolute Neuts (auto) 3.9 (2.0-8.3) X10*3/uL Absolute Nucleated RBC 0.000 (0.0-0.012) X10*3/uL Nucleated RBC % (auto) 0.0 (0.0-0.2) /100WBC Smear Tech's Comments VERIFIED PT (9.9-13.0) SEC INR (0.9-1.1) APTT (24.1-38.0) SEC Sodium 142 (135-145) mmol/L Potassium 4.6 (3.3-5.1) mmol/L Chloride 110 H (96-108) mmol/L Carbon Dioxide 19 L (22-29) mmol/L Anion Gap 18 (12-20) BUN 19 H (9-16) mg/dL Creatinine 1.21 (0.5-1.4) mg/dL Estim Creat Clear Calc 46.8 Estimated GFR 58 Random Glucose 85 (60-115) mg/dL Calcium 9.7 (8.4-10.2) mg/dL Magnesium 1.7 (1.6-2.6) mg/dL Total Bilirubin 0.3 (0.0-1.0) mg/dL Direct Bilirubin < 0.2 (0.0-0.5) mg/dL AST 29 (5-37) U/L ALT 18 (0-40) U/L Alkaline Phosphatase 105 (39-117) U/L Troponin I High Sens (<3.5-35.0) ng/L Total Protein 7.8 (6.5-8.0) g/dL Albumin 4.3 (3.5-5.0) g/dL Lipase 69 (8-78) U/L Urine Color YELLOW Urine Appearance CLEAR Urine pH 6.0 (5.0-8.0) Ur Specific [place] <= 1.005 (1.005-1.025) Urine Protein NEG (NEG-TRACE) MG/DL Urine Glucose (UA) NEG (NEG) MG/DL Urine Ketones NEG (NEG) MG/DL Urine Blood NEG (NEG) Urine Nitrite NEG (NEG) Ur Leukocyte Esterase NEG (NEG) 10/20/20 10/20/20 Range/Units 20:20 21:16 WBC (4.8-10.8) X10*3/uL RBC (4.60-5.80) X10*6/uL Hgb (14.0-18.0) g/dl Hct (42-52) % MCV (80-98) fL MCH (27.0-33.0) pg MCHC (31.0-36.0) g/dl RDW (11.0-16.0) % Plt Count (160-400) X10*3/uL MPV (9.4-12.4) fL Immature Gran % (Auto) (0.0-0.4) % Neut % (Auto) (45-73) % Lymph % (Auto) (20-40) % Divide % (Auto) (2-11) % Eos % (Auto) (0-4) % Baso % (Auto) (0-2) % Lymph # (Auto) (1.2-4.9) X10*3/uL Divide # (Auto) (0.1-1.2) X10*3/uL Eos # (Auto) (0.0-0.4) X10*3/uL Baso # (Auto) (0.0-0.2) X10*3/uL Abs Immat Gran (auto) (0.00-0.03) X10*3/uL Absolute Neuts (auto) (2.0-8.3) X10*3/uL Absolute Nucleated RBC (0.0-0.012) X10*3/uL Nucleated RBC % (auto) (0.0-0.2) /100WBC Smear Tech's Comments PT 10.7 (9.9-13.0) SEC INR 0.9 (0.9-1.1) APTT 33.2 (24.1-38.0) SEC Sodium (135-145) mmol/L Potassium (3.3-5.1) mmol/L Chloride (96-108) mmol/L Carbon Dioxide (22-29) mmol/L Anion Gap (12-20) BUN (9-16) mg/dL Creatinine (0.5-1.4) mg/dL Estim Creat Clear Calc Estimated GFR Random Glucose (60-115) mg/dL Calcium (8.4-10.2) mg/dL Magnesium (1.6-2.6) mg/dL Total Bilirubin (0.0-1.0) mg/dL Direct Bilirubin (0.0-0.5) mg/dL AST (5-37) U/L ALT (0-40) U/L Alkaline Phosphatase (39-117) U/L Troponin I High Sens < 3.5 (<3.5-35.0) ng/L Total Protein (6.5-8.0) g/dL Albumin (3.5-5.0) g/dL Lipase (8-78) U/L Urine Color Urine Appearance Urine pH (5.0-8.0) Ur Specific [place] (1.005-1.025) Urine Protein (NEG-TRACE) MG/DL Urine Glucose (UA) (NEG) MG/DL Urine Ketones (NEG) MG/DL Urine Blood (NEG) Urine Nitrite (NEG) Ur Leukocyte Esterase (NEG) Imaging Data abdominal ultrasound: Attestation: I personally reviewed and interpreted this imaging study as follows: Radiologist's impression: EXAMINATION: US ABDOMEN COMPLETE CLINICAL INFORMATION: Right upper quadrant and right back pain. COMPARISON: CT abdomen 06/12/2011 report, images not available for comparison. TECHNIQUE: Real-time imaging of the abdominal viscera. FINDINGS: PANCREAS: Obscured by bowel gas. ABDOMINAL AORTA: Aneurysmal dilatation of the mid aorta measuring 5.7 x [address] abdomen report distal abdominal aorta size of 3 x 3.1 cm. INFERIOR VENA CAVA: Visualized portions are normal. LIVER: Appears unremarkable. The liver is normal in size. The liver contour is normal. Parenchymal echogenicity is normal. No focal hepatic lesion. There is no intrahepatic biliary duct dilatation seen. GALLBLADDER: Gallbladder is contracted markedly limiting evaluation. No obvious shadowing gallstone is seen. Limited evaluation of wall thickening and pericholecystic fluid. COMMON BILE DUCT: Normal in caliber measuring 0.5 cm in diameter. RIGHT KIDNEY: Midpole 3.7 cm peripelvic cyst. Tiny upper pole cortical cyst. Fullness of the renal pelvis versus additional peripelvic cyst. No renal calculi. The kidney measures 11.3 cm in maximum dimension. LEFT KIDNEY: Midpole 2 cm cyst. Upper/midpole 1.8 cm cyst. No hydronephrosis. No renal calculi. The kidney measures 11.7 cm in maximum dimension. SPLEEN: A 1.8 cm cystic lesion. The spleen measures 10.6 cm in maximum dimension. FREE FLUID: None. US/US abdomen complete IMPRESSION: 1. Aneurysmal dilatation of the mid aorta measuring 5.7 x 6.2 cm. This represents an interval change from previous, with the prior CT abdomen reports document distal abdominal aorta measurement of 3 x 3.1 cm. (Images not available for comparison). Recommend further evaluation with follow up abdomen CTA evaluation. 2. Pancreas obscured by bowel gas. 3. Gallbladder is contracted limiting evaluation. No obvious gallstone seen. Consider follow up fasting ultrasound for further evaluation. 4. Bilateral renal cysts as detailed above. 5. A 1.8 [address] splenic cystic lesion. CT chest abdomen pelvis aneurysm study: Attestation: I personally reviewed and interpreted this imaging study as follows: Radiologist's impression: STUDY PERFORMED: CTA of the Chest, abdomen, pelvis with contrast CLINICAL INDICATION: Aneurysm. Abnormal ultrasound. The report of abdomen ultrasound indicates back pain DESCRIPTION: CT angiography of the chest, abdomen and pelvis using CTA protocol with contrast was performed. 85 mL of Omnipaque 350 was administered. The images were reviewed and postprocessed with maximum intensity projections. DLP: 521 mGy-cm. COMPARISON: Report of CT from 2012 suggests aneurysm 3.1 cm FINDINGS: CHEST: Thoracic aorta: There is motion artifact at the root of the aorta. There is no thoracic aortic aneurysm or dissection. There is mild to moderate atherosclerotic irregularity. Great vessels: The vertebral arteries are patent. The common carotid arteries are patent. The visualized subclavian arteries are patent. There is artifact limiting assessment at the origin of the great vessels. Coronaries: Limited assessment. There is [place] coronary calcification. Pulmonary arteries: There is no central pulmonary embolus. The main pulmonary artery is normal caliber. Abdomen/pelvis Vascular: Mild to moderate calcified atheromatous disease of the aorta and branching vessels. Abdominal aorta: Slightly irregular distal abdominal aortic aneurysm with a maximum external diameter of 6.5 cm. This arises below the origin of the renal arteries and extends to the origin of the common iliac arteries. I estimate the aneurysm begins 4.3 cm below the origin of the renal arteries. The length of the aneurysm is approximately 8.2 cm from superior to inferior. There is no definite acute retroperitoneal hemorrhage. There is no obvious discontinuity of the abdominal aortic wall. 1. Mesenteric Arteries: The celiac axis and superior mesenteric artery are patent. It is difficult to determine if there is a minimally patent inferior mesenteric artery. 2. Renal Arteries: There are 2 patent right renal arteries. There is atherosclerotic irregularity of both renal arteries. There is a single patent left renal artery. 3. Infrarenal Abdominal Aorta :The infrarenal aorta between the aneurysm and the renal arteries is irregular with extensive plaque. The visceral portion of the aorta is irregular with plaque. 4. Common iliac arteries: The right common iliac artery measures at least 1.9 cm. There is peripheral thrombus within a right common iliac artery aneurysm. The left common iliac artery measures at least 1.3 cm. There is atherosclerotic irregularity including some eccentric noncalcified plaque. 5. Internal iliac arteries: The internal iliac arteries are patent on each side. There is at least mild and possibly moderate narrowing of the right proximal internal iliac artery. There is at least moderate narrowing of the left internal iliac artery.. 5. Right Lower Extremity: External iliac artery: There is irregularity of the right external iliac artery which is patent. The right common femoral artery is patent. There is mild plaque in the visualized superficial femoral artery and the profunda femoral is patent on the right 6. Left lower extremity: External iliac artery: No hemodynamically significant stenosis. Common femoral artery: The left external iliac artery is patent with atherosclerotic irregularity. Superficial femoral artery: The left superficial femoral artery is patent.The profunda femoral artery appears patent. Nonvascular: CHEST: Lung: No abnormality the trachea or mainstem bronchi. There is paraseptal and centrilobular emphysema. There are some thickened interlobular septa. There are some probably unchanged. Fissural nodules in the right lower lung. There is a small unchanged juxtapleural nodule in the posteromedial left lower lung. There is no honeycomb formation. Pleura: No pleural effusion or pneumothorax. Mediastinum: There are no enlarged mediastinal or hilar lymph nodes. No suspicious abnormality of the esophagus. Vascular: Please see section on CTA Chest Wall/Axilla: No axillary or internal mammary lymphadenopathy. ABDOMEN/PELVIS: Liver, Gallbladder, And Biliary Tree: Probable fatty change. There is a circumscribed low attenuating area just above the confluence of the hepatic veins which measures 2.1 cm. This likely represents a cyst and appears unchanged since 07/24/17. The gallbladder is decompressed. No biliary dilation. Pancreas: No suspicious abnormality. Spleen: There is a slightly irregular 1.7 cm low attenuating abnormality in the upper medial aspect of the spleen. This is likely unchanged since 07/24/17. Adrenal Glands: Mild bilateral thickening. No discrete mass. Kidneys And Ureters: There is fullness of the intrarenal collecting system bilaterally. There are some renal cysts which do not requiring further evaluation. The prominence of the intrarenal collecting system and ureter on the right is visualized to the level of the iliac vessels. Gastrointestinal Tract: No definite colonic wall thickening. The appendix is within normal limits. No small bowel dilation. Abdominal Wall: Eventration of the midline abdominal wall musculature. There is tubing associated with a penile prosthesis. Lymphovascular Structures And Fluid: There are no enlarged lymph nodes. There is no fringe peritoneal fluid. Bladder: No suspicious abnormality. Pelvic Viscera: Surgical clips suggest previous prostatectomy. Musculoskeletal: No acute or suspicious osseous abnormality. CT/CT angio chest IMPRESSION: There is a 6.3 cm slightly irregular infrarenal abdominal aortic aneurysm which extends the origin the common iliac arteries. Aneurysms of this size have a high risk of rupture. At the time of the study there is no evidence of a surrounding retroperitoneal hemorrhage. Atherosclerotic irregularity. 2 right renal arteries. Right common iliac artery aneurysm. There is some underlying emphysema. This critical result was discussed with Zohreh ZARAGOZA at 2321 on 10/20/20 and it was ascertained that the content and urgency of the report was understood at the time of direct communication. ECG Data Attestation: I personally reviewed and interpreted this ECG as follows: Prior ECG tracings: available for review Interpretation: Vent. rate 75 BPM GA interval 126 ms QRS duration 94 ms QT/QTc 400/446 ms P-R-T axes 71 -7 -17 Normal sinus rhythm Normal ECG When compared with ECG of 04-JUN-2020 21:37, Nonspecific T wave abnormality no longer evident in Lateral leads Critical Care Time Critical Care Time Critical Care Time: Yes Total Critical Care Time: 65 Attestation: I have personally provided critical care time exclusive of time spent on separately billable procedures. Time includes review of laboratory data, radiology results, discussion with consultants, and monitoring for potential decompensation. Interventions were performed as documented. Discharge Plan Discharge Clinical Impression: Aneurysm of abdominal aorta Qualifiers: Presence of rupture: without rupture Qualified Code(s): I71.4 - Abdominal aortic aneurysm, without rupture [facility] Pres[facility]: No Action oxybutynin chloride 5 mg tablet 5 mg PO BID 30 Days Qty: 60 RF: 6 tramadol 50 mg tablet 50 mg PO Q6H PRN (Reason: pain) Qty: 30 RF: 0 oxycodone-acetaminophen [Percocet] 5-325 mg tablet 1 - 2 tab PO Q4-6H PRN (Reason: pain) Qty: 30 RF: 0 benzonatate [Tessalon Perles] 100 mg capsule 100 mg PO TID PRN (Reason: cough) Qty: 20 RF: 0 diclofenac sodium 50 mg tablet,delayed release (DR/EC) 50 mg PO BID Qty: 20 RF: 0 lidocaine [Lidoderm] 5 % adhesive patch,medicated 1 patch topical DAILY Qty: 15 RF: 0 naproxen 500 mg tablet 500 mg PO BID PRN (Reason: pain) Qty: 10 RF: 0 cyclobenzaprine 5 mg tablet 5 mg PO TID PRN (Reason: muscle spasm) Qty: 14 RF: 0 (DME) lancets [TRUEplus Lancets] 28 gauge misc See Rx Instructions .ROUTE .MEDSUPPLY Qty: 100 RF: 0 albuterol sulfate 2.5 mg /3 mL (0.083 %) solution for nebulization 2.5 mg inhalation Q4-6H PRN (Reason: Wheezing) RF: 0 tizanidine 2 mg capsule 2 mg PO Q8H PRN (Reason: Pain) RF: 0 trazodone 50 mg tablet 25 mg PO BEDTIME PRN (Reason: Sleep) RF: 0 gabapentin 600 mg tablet 600 mg PO TID RF: 0 nabumetone 750 mg tablet 750 mg PO BID RF: 0 aspirin 81 mg tablet,delayed release (DR/EC) 81 mg PO DAILY RF: 0 omeprazole 20 mg capsule,delayed release(DR/EC) 20 mg PO DAILY RF: 0 amlodipine 10 mg tablet 10 mg PO DAILY RF: 0 glipizide 5 mg tablet 2.5 mg PO DAILY RF: 0 (DME) blood-glucose meter Kit See Rx Instructions .ROUTE .MEDSUPPLY Qty: 1 RF: 0 Combivent Respimat 20-100 mcg/actuation mist 1 puff inhalation Q4H RF: 0 fluticasone propionate [Flonase Allergy Relief] 50 mcg/actuation spray,suspension 1 spray intranasal BID RF: 0 fluticasone propion-salmeterol [Advair Diskus] 250-50 mcg/dose blister with device 1 inh inhalation BID RF: 0 metformin 500 mg tablet 500 mg PO BID RF: 0 tramadol 50 mg tablet 50 mg PO DAILY RF: 0 clotrimazole [Antifungal (clotrimazole)] 1 % cream 1 appl topical BID RF: 0
[2020-10-20 20:00] VITALS: BP 170/89; PULSE 81; RESP 16; O2SAT 97
[2020-10-20 20:29] LABS: Basophils Percent Auto 0.3 % (0-2); Imm Gran Abs Auto 0.02 X10*3/uL (0.00-0.03); Imm Gran Pct Auto 0.3 % (0.0-0.4); MANUAL DIFF FLAG SCAN; Mean Corpuscular HGB Conc 32.8 g/dl (31.0-36.0); Mean Corpuscular Hemoglobin 29.1 pg (27.0-33.0); PLT CLUMP 1; Red Cell Distribution Width 13.8 % (11.0-16.0); SCAN SMEAR FLAG 1
[2020-10-20 20:30] LABS: Eosinophils Absolute Auto 0.2 X10*3/uL (0.0-0.4); Eosinophils Percent Auto 3.5 % (0-4); Hematocrit 38.4 % (42-52); Hemoglobin 12.6 g/dl (14.0-18.0); Lymphocytes Absolute Auto 2.3 X10*3/uL (1.2-4.9); Lymphocytes Percent Auto 32.9 % (20-40); Mean Corpuscular Volume 88.7 fL (80-98); Mean Platelet Volume 11.4 fL (9.4-12.4); Monocytes Absolute Auto 0.5 X10*3/uL (0.1-1.2); Monocytes Percent Auto 7.1 % (2-11); Neutrophils Absolute Auto 3.9 X10*3/uL (2.0-8.3); Neutrophils Percent Auto 55.9 % (45-73); Platelet Count 187 X10*3/uL (160-400); Red Blood Count 4.33 X10*6/uL (4.60-5.80); White Blood Count 6.9 X10*3/uL (4.8-10.8)
--- NOTE | 2020-10-20 20:53 | PC.NURSE ---
PT RESTING IN STRETCHER, PA IN ROOM FOR RE-EVAL. PT REMAINS ALERT, RESPIRATIONS EASY, N/L. SKIN W/D. PT ON MONITOR. VS OBTAINED. PT AWAITING FOR FURTHER ORDERS.
[2020-10-20 20:58] LABS: Troponin-I High Sensitivity < 3.5 ng/L (<3.5-35.0)
[2020-10-20 21:05] LABS: Glucose Urine UA NEG (NEG); Leukocyte Esterase Urine NEG (NEG); Nitrite Urine NEG (NEG); Specific Gravity - Urine <= 1.005 (1.005-1.025); Urine Blood NEG (NEG); Urine Ketones NEG (NEG); Urine Protein NEG (NEG-TRACE)
[2020-10-20 21:15] VITALS: BP 178/97; PULSE 93; RESP 18; O2SAT 96
[2020-10-20] MEDS: 0.9 % Sodium Chloride 1,000 ML 999 ML IVCONT (21:16)
--- NOTE | 2020-10-20 21:19 | PC.NURSE ---
tolerated u/s well, skin pwd awaits CXR. no ectopy on monitor
[2020-10-20 21:23] LABS: Appearance Urine CLEAR; Color Urine YELLOW
[2020-10-20 21:34] LABS: Alanine Aminotransferase 18 U/L (0-40); Albumin Level 4.3 g/dL (3.5-5.0); Alkaline Phosphatase 105 U/L (39-117); Anion Gap 18 (12-20); Aspartate Amino Transferase 29 U/L (5-37); Bilirubin Direct < 0.2 mg/dL (0.0-0.5); Bilirubin Total 0.3 mg/dL (0.0-1.0); Blood Urea Nitrogen 19 mg/dL (9-16); Calcium 9.7 mg/dL (8.4-10.2); Carbon Dioxide 19 mmol/L (22-29); Chloride 110 mmol/L (96-108); Creatinine Clr Calc Pharmacy 46.8; Estimated Glomerular Filt Rate 58; Glucose Random 85 mg/dL (60-115); Lipase 69 U/L (8-78); Magnesium 1.7 mg/dL (1.6-2.6); Potassium 4.6 mmol/L (3.3-5.1); Sodium 142 mmol/L (135-145); Total Protein 7.8 g/dL (6.5-8.0)
[2020-10-20 21:35] LABS: SLIDE REVIEW VERIFIED
[2020-10-20 21:41] LABS: INTERNATIONAL NORM RATIO 0.9 (0.9-1.1); Prothrombin Time 10.7 SEC (9.9-13.0)
[2020-10-20 21:44] LABS: Partial Thromboplastin Time 33.2 SEC (24.1-38.0)
--- NOTE | 2020-10-20 21:52 | PC.NURSE ---
MULTIPLE ATTEMPTS MADE BY NURSES FOR IV PLACEMENT, PT IS A DIFFICULT STICK AND AWAITING CT.
[2020-10-20] MEDS: iohexoL 350 MG/ML 100 ML INFUS..BTL IV (22:50)
--- NOTE | 2020-10-20 23:45 | PC.NURSE ---
2ND 18G TO RIGHT FA WITHOUT DIFFICULTY. SITE INTACT.
[2020-10-20 23:50] VITALS: BP 184/108; PULSE 92; RESP 16; O2SAT 97
[2020-10-20 23:57] VITALS: BP 184/108; PULSE 98
[2020-10-20] MEDS: Labetalol HCL 100 MG/20 ML VIAL IVPUSH (23:57)
--- NOTE | 2020-10-20 23:58 | PC.NURSE ---
PT MEDICATED PER EMAR FOR HIGH BLOOD PRESSURE.
--- NOTE | 2020-10-21 00:02 | PC.NURSE ---
EMS NOTIFIED FOR TRANSPORT TO [facility].
[2020-10-21 00:14] VITALS: BP 175/104; PULSE 82
[2020-10-21] MEDS: Labetalol HCL 100 MG/20 ML VIAL IVPUSH (00:14)
--- NOTE | 2020-10-21 00:19 | PC.NURSE ---
2ND DOSE OF LABETALOL GIVEN TO PT FOR HIGH B/P. EMS HERE TO TRANSPORT PT TO [facility]. REPORT GIVEN TO MEDIC. 2 ATTEMPTS MADE TO CALL [facility] IN ED FOR REPORT AND UNABLE TO SPEAK WITH NURSING. PT LEFT ED IN NAD. BELONGINGS WITH PT AND FAMILY IS DRIVING SEPARATELY FOLLOWING EMS.
--- NOTE | 2020-10-21 00:29 | PC.NURSE ---
REPORT CALLED TO [facility].
== END 2020-10-21 00:38 | disposition short-term general hospital (02) ==
PROVIDERS: Nurse Practitioner Family; Emergency Provider Internal Medicine; PCP Internal Medicine
DX: I71.4 Abdominal aortic aneurysm, without rupture (principal); E11.9 Type 2 diabetes mellitus without complications; I10 Essential (primary) hypertension; J45.909 Unspecified asthma, uncomplicated; Z79.82 Long term (current) use of aspirin; Z79.84 Long term (current) use of oral hypoglycemic drugs; Z79.899 Other long term (current) drug therapy
CPT/HCPCS: 36415; 71275; 74174; 76700; 80048; 80076; 81003; 83690; 83735; 84484; 85025; 85610; 85730; 93005; 96361; 96374; 99285; 99291; Q9967

== ENCOUNTER 2020-11-19 08:50 | Outpatient (REF) | payer MEDICARE, SELFPAY ==
[2020-11-19 11:26] LABS: PSA,Total (Free>4and<10) < 0.05 ng/mL (0.00-4.00)
== END 2020-11-19 08:51 | disposition home or self-care (01) ==
LOC: HO.LAB 08:50
PROVIDERS: PCP Internal Medicine; Visit Provider Urology
DX: Z12.5 Encounter for screening for malignant neoplasm of prostate (principal); R97.20 Elevated prostate specific antigen [PSA]; C61 Malignant neoplasm of prostate
CPT/HCPCS: 36415; 84153

== ENCOUNTER → 2020-11-20 08:53 | Outpatient (BNVA) | payer MEDICARE, SELFPAY | PROVIDERS: PCP Internal Medicine; Visit Provider Urology | DX: C61 Malignant neoplasm of prostate (principal); N32.81 Overactive bladder | CPT/HCPCS: 51798; 99212 ==

== ENCOUNTER → 2020-11-21 09:48 | Outpatient (BNVA) | payer MEDICARE, SELFPAY | PROVIDERS: PCP Internal Medicine; Visit Provider Nurse Practitioner Family | DX: Z12.11 Encounter for screening for malignant neoplasm of colon (principal); K21.9 Gastro-esophageal reflux disease without esophagitis; K59.00 Constipation, unspecified | CPT/HCPCS: 99202 ==

== ENCOUNTER 2021-02-04 10:17 | Emergency (ER) | payer MEDICARE, SELFPAY | END 2021-02-04 11:45 | disposition left against medical advice (07) | PROVIDERS: Emergency Provider Emergency Medicine | DX: R07.89 Other chest pain (principal) ==

== ENCOUNTER 2021-03-25 09:29 | Emergency (ER) | payer MEDICARE, SELFPAY ==
--- NOTE | ~2021-03-25 | XR_ITS ---
EXAMINATION: XR FINGER, LEFT CLINICAL INFORMATION: Hip nail into index finger COMPARISON: None TECHNIQUE: Three views of the left second finger. FINDINGS: Bone alignment is normal. No fracture or dislocation is seen. The joint spaces are normal. The soft tissues are normal. There is mild arthritis at the first RESIDENTIAL joint. XR/XR finger LT min 2V IMPRESSION: No fracture or foreign body seen.
[2021-03-25 10:22] VITALS: BP 154/82; PULSE 75; RESP 18; TEMP 36.7; O2SAT 96; BMI 27.4
--- NOTE | 2021-03-25 10:55 | ECG_ITS ---
Test Reason : WEAKNESS Blood Pressure : / mmHG Vent. Rate : 073 BPM Atrial Rate : 073 BPM P-R Int : 126 ms QRS Dur : 094 ms QT Int : 412 ms P-R-T Axes : 069 -09 -17 degrees QTc Int : 453 ms Normal sinus rhythm Normal ECG When compared with ECG of 20-OCT-2020 19:29, Nonspecific T wave abnormality now evident in Lateral leads Referred By: Mason Barrett Electronically Signed By:Westley Monet
--- NOTE | 2021-03-25 10:57 | ED.GENADULT ---
HPI - General Adult General Chief complaint: General Medical Stated complaint: lightheaded/finger inj Time Seen by Provider: 03/25/21 10:49 Source: patient Mode of arrival: ambulatory Limitations: no limitations History of Present Illness HPI narrative: This is a 75 years old male presented ambulatory to the emergency department with 2 complain, lightheadedness and rt indefinger nail injury Yesterday with rusted nail. He denies any fever, chills, chest pain, shortness of breath any other systemic symptoms Onset (ago): day(s) (1) Location: upper extremity (left index) Severity: mild Relieving factors: none Exacerbating factors: none Associated symptoms: denies other symptoms Related Data Home Medications Medication Instructions Recorded Confirmed albuterol sulfate 2.5 mg INHALATION Q4-6H PRN 04/09/20 12/17/20 amlodipine 10 mg tablet 10 mg PO DAILY 04/09/20 12/17/20 aspirin 81 mg tablet,delayed 81 mg PO DAILY 04/09/20 12/17/20 release blood-glucose meter #1 ea 04/09/20 clotrimazole 1 % topical cream 1 appl TOPICAL BID 04/09/20 05/22/20 (Antifungal (clotrimazole)) fluticasone 250 mcg-salmeterol 50 1 inh INHALATION BID 04/09/20 12/17/20 mcg/dose blistr powdr for inhalation (Advair Diskus) fluticasone propionate 50 1 spray INTRANASAL BID 04/09/20 12/17/20 mcg/actuation nasal spray,suspension (Flonase Allergy Relief) gabapentin 600 mg tablet 600 mg PO TID 04/09/20 12/17/20 glipizide 5 mg tablet 2.5 mg PO DAILY 04/09/20 12/17/20 ipratropium 20 mcg-albuterol 100 1 puff INHALATION Q4H 04/09/20 12/17/20 mcg/actuation mist for inhalation (Combivent Respimat) lancets 28 gauge (TRUEplus Lancets) #100 ea 04/09/20 metformin 500 mg tablet 500 mg PO BID 04/09/20 12/17/20 nabumetone 750 mg tablet 750 mg PO BID 04/09/20 05/22/20 omeprazole 20 mg capsule,delayed 20 mg PO DAILY 04/09/20 12/17/20 release tizanidine 2 mg capsule 2 mg PO Q8H PRN 04/09/20 05/22/20 trazodone 50 mg tablet 25 mg PO BEDTIME PRN 04/09/20 12/17/20 Previous Rx's Medication Instructions Recorded cyclobenzaprine 5 mg tablet 5 mg PO TID PRN #14 tab 03/23/20 lidocaine 5 % topical patch 1 patch TOPICAL DAILY #15 ea 03/23/20 (Lidoderm) naproxen 500 mg tablet 500 mg PO BID PRN #10 tab 03/23/20 tramadol 50 mg tablet 50 mg PO Q6H PRN #30 tab 05/29/20 diclofenac sodium 50 mg 50 mg PO BID #20 tab 06/05/20 tablet,delayed release oxybutynin chloride 5 mg tablet 5 mg PO BID 30 Days #60 tab 11/06/20 bisacodyl 5 mg tablet,delayed 10 mg PO ONCE 1 Days #2 tab 11/21/20 release (Dulcolax (bisacodyl)) docusate sodium 100 mg capsule 100 mg PO BEDTIME #30 cap 11/21/20 polyethylene glycol 3350 17 238 g PO ONCE #238 g 11/21/20 gram/dose oral powder (Miralax) psyllium husk 0.52 gram capsule 0.52 g PO DAILY #30 cap 11/21/20 (Metamucil) mirabegron 25 mg tablet,extended 25 mg PO DAILY 30 Days #30 tab 01/07/21 release 24 hr (Myrbetriq) Allergies Allergy/AdvReac Type Severity Reaction Status Date / Time ciprofloxacin [Ciprofloxacin] Allergy Mild RASH Verified 11/21/20 09:58 Review of Systems Review of Systems: Yes all other systems are reviewed and are negative Constitutional: Constitutional: Reports no additional constitutional complaints ENT: Reports system reviewed and no additional complaints, except as documented Cardiovascular: Cardiovascular: Denies chest pain, Denies chest pain at rest, Denies chest pain with activity, Denies Epigastric Pain, Denies epigastric discomfort, Denies diaphoresis and Denies rapid heart rate Respiratory: Respiratory: Denies cough Gastrointestinal: Gastrointestinal: Denies diarrhea, Denies nausea and Denies vomiting PMFSH Past Medical History Medical History AAA (abdominal aortic aneurysm) Arthralgia Asthma Depression Diabetes GERD (gastroesophageal reflux disease) High cholesterol History of COVID-19 History of prostate cancer HTN (hypertension) Lipoma of back Lower back pain Prostate disease Surgical History History of cataract extraction History of penile implant History of prostate surgery Hx of colonoscopy Hx of cystoscopy S/P AAA (abdominal aortic aneurysm) repair S/P excision of lipoma Family History Family History Mother History of esophageal cancer Social History Social History Patient Tobacco Use Status: Tobacco use Unknown Advance Directives: No Advance Directives Information Provided: Yes Physical Exam Vital Signs: Vital Signs: Last Vital Signs Temp 98.1 F 03/25/21 10:22 Pulse 85 03/25/21 11:37 Resp 18 03/25/21 10:22 BP 162/81 H 03/25/21 11:37 Pulse Ox 96 03/25/21 10:22 BMI result Body Mass Index 27.4 Const: Other: He looks well, he is not toxic-appearing, not acute distress, comfortable in the stretcher General: cooperative Orientation/consciousness: oriented to person and patient oriented x3 HENMT: Other: Examination the head eyes ears nose throat within normal limit Face and sinus: Yes normal facial exam Neck: Neck: Yes normal visual inspection, Yes full ROM and Yes no lymphadenopathy Chest: Chest palpation & inspection: normal inspection of the chest Resp: Effort & Inspection: normal respiratory effort Auscultation: clear to auscultation bilaterally Cardio: Jugular venous distension: no JVD Rate: regular rate Rhythm: regular rhythm GI: Inspection: Yes normal to inspection Palpation (GI): Soft to palpation, not firm, nontender and no guarding Skin: General skin exam: no rashes or lesions noted Neuro: General: oriented to person, patient oriented x3 and gait normal Cranial nerves: Yes CN's II-XII intact bilaterally Course Reevaluation(s) Reevaluation #1: reexamined at this time,feels much better labs wnl/ekg OK, xray ok Medical Decision Making Lab Data Result diagrams: 03/25/21 11:11 03/25/21 11:11 Labs: Lab Results 03/25/21 03/25/21 03/25/21 Range/Units 11:11 11:11 11:11 WBC 5.4 (4.8-10.8) X10*3/uL RBC 4.07 L (4.60-5.80) X10*6/uL Hgb 11.3 L (14.0-18.0) g/dl Hct 35.0 L (42.0-52.0) % MCV 86.0 (80.0-98.0) fL MCH 27.8 (27.0-33.0) pg MCHC 32.3 (31.0-36.0) g/dl RDW 15.9 (11.0-16.0) % Plt Count 210 (160-400) X10*3/uL MPV 11.1 (9.4-12.4) fL Immature Gran % (Auto) 0.2 (0.0-0.4) % Neut % (Auto) 53.3 (45-73) % Lymph % (Auto) 34.0 (20-40) % [place] % (Auto) 9.5 (2-11) % Eos % (Auto) 2.6 (0-4) % Baso % (Auto) 0.4 (0-2) % Lymph # (Auto) 1.8 (1.2-4.9) X10*3/uL [place] # (Auto) 0.5 (0.1-1.2) X10*3/uL Eos # (Auto) 0.1 (0.0-0.4) X10*3/uL Baso # (Auto) 0.0 (0.0-0.2) X10*3/uL Abs Immat Gran (auto) 0.01 (0.00-0.03) X10*3/uL Absolute Neuts (auto) 2.9 (2.0-8.3) x10*3/uL Absolute Nucleated RBC 0.000 (0.0-0.012) X10*3/uL Nucleated RBC % (auto) 0.0 (0.0-0.2) /100WBC Sodium 144 (135-145) mmol/L Potassium 4.2 (3.3-5.1) mmol/L Chloride 109 H (96-108) mmol/L Carbon Dioxide 28 (22-29) mmol/L Anion Gap 11 L (12-20) BUN 19 H (9-16) mg/dL Creatinine 1.19 (0.5-1.4) mg/dL Estim Creat Clear Calc 51.6 Estimated GFR 59 POC Glucose (60-115) mg/dL Random Glucose 77 (60-115) mg/dL Calcium 9.7 (8.4-10.2) mg/dL Total Bilirubin 0.4 (0.0-1.0) mg/dL AST 18 (5-37) U/L ALT 15 (0-40) U/L Alkaline Phosphatase 106 (39-117) U/L Troponin I High Sens < 3.5 (<3.5-35.0) ng/L Total Protein 7.2 (6.5-8.0) g/dL Albumin 4.3 (3.5-5.0) g/dL 03/25/21 Range/Units 11:21 WBC (4.8-10.8) X10*3/uL RBC (4.60-5.80) X10*6/uL Hgb (14.0-18.0) g/dl Hct (42.0-52.0) % MCV (80.0-98.0) fL MCH (27.0-33.0) pg MCHC (31.0-36.0) g/dl RDW (11.0-16.0) % Plt Count (160-400) X10*3/uL MPV (9.4-12.4) fL Immature Gran % (Auto) (0.0-0.4) % Neut % (Auto) (45-73) % Lymph % (Auto) (20-40) % [place] % (Auto) (2-11) % Eos % (Auto) (0-4) % Baso % (Auto) (0-2) % Lymph # (Auto) (1.2-4.9) X10*3/uL [place] # (Auto) (0.1-1.2) X10*3/uL Eos # (Auto) (0.0-0.4) X10*3/uL Baso # (Auto) (0.0-0.2) X10*3/uL Abs Immat Gran (auto) (0.00-0.03) X10*3/uL Absolute Neuts (auto) (2.0-8.3) x10*3/uL Absolute Nucleated RBC (0.0-0.012) X10*3/uL Nucleated RBC % (auto) (0.0-0.2) /100WBC Sodium (135-145) mmol/L Potassium (3.3-5.1) mmol/L Chloride (96-108) mmol/L Carbon Dioxide (22-29) mmol/L Anion Gap (12-20) BUN (9-16) mg/dL Creatinine (0.5-1.4) mg/dL Estim Creat Clear Calc Estimated GFR POC Glucose 67 (60-115) mg/dL Random Glucose (60-115) mg/dL Calcium (8.4-10.2) mg/dL Total Bilirubin (0.0-1.0) mg/dL AST (5-37) U/L ALT (0-40) U/L Alkaline Phosphatase (39-117) U/L Troponin I High Sens (<3.5-35.0) ng/L Total Protein (6.5-8.0) g/dL Albumin (3.5-5.0) g/dL Imaging Data hand left: Radiologist's impression: EXAMINATION: XR FINGER, LEFT CLINICAL INFORMATION: Hip nail into index finger? COMPARISON: None? TECHNIQUE: Three views of the left second finger. FINDINGS: Bone alignment is normal. No fracture or dislocation is seen. The joint spaces are normal. The soft tissues are normal. There is mild arthritis at the first CUSTODIAL joint.? XR/XR finger LT min 2V IMPRESSION: No fracture or foreign body seen. ? Dictated By: Shanda Henriquez MD Signed By: <Electronically signed by Shanda Henriquez MD in OV> 03/25/21 1057 DD/ 1045 TD/TT:? Assistant Center Manager: MARGY ECG Data Attestation: I personally reviewed and interpreted this ECG as follows: Pacemaker model: NSR 73 no ischemic changes Discharge Plan Discharge Clinical Impression: Finger pain, left, Light-headedness Patient Disposition: Home, Self-Care Additional Instructions: follow up with your Primary Care Doctor return if worse Prescriptions: No Action oxybutynin chloride 5 mg tablet 5 mg PO BID 30 Days Qty: 60 RF: 6 Myrbetriq 25 mg tablet extended release 24 hr 25 mg PO DAILY 30 Days Qty: 30 RF: 1 tramadol 50 mg tablet 50 mg PO Q6H PRN (Reason: pain) Qty: 30 RF: 0 diclofenac sodium 50 mg tablet,delayed release (DR/EC) 50 mg PO BID Qty: 20 RF: 0 lidocaine [Lidoderm] 5 % adhesive patch,medicated 1 patch topical DAILY Qty: 15 RF: 0 naproxen 500 mg tablet 500 mg PO BID PRN (Reason: pain) Qty: 10 RF: 0 cyclobenzaprine 5 mg tablet 5 mg PO TID PRN (Reason: muscle spasm) Qty: 14 RF: 0 (DME) lancets [TRUEplus Lancets] 28 gauge misc See Rx Instructions .ROUTE .MEDSUPPLY Qty: 100 RF: 0 albuterol sulfate 2.5 mg /3 mL (0.083 %) solution for nebulization 2.5 mg inhalation Q4-6H PRN (Reason: Wheezing) RF: 0 tizanidine 2 mg capsule 2 mg PO Q8H PRN (Reason: Pain) RF: 0 trazodone 50 mg tablet 25 mg PO BEDTIME PRN (Reason: Sleep) RF: 0 gabapentin 600 mg tablet 600 mg PO TID RF: 0 nabumetone 750 mg tablet 750 mg PO BID RF: 0 aspirin 81 mg tablet,delayed release (DR/EC) 81 mg PO DAILY RF: 0 omeprazole 20 mg capsule,delayed release(DR/EC) 20 mg PO DAILY RF: 0 amlodipine 10 mg tablet 10 mg PO DAILY RF: 0 glipizide 5 mg tablet 2.5 mg PO DAILY RF: 0 (DME) blood-glucose meter Kit See Rx Instructions .ROUTE .MEDSUPPLY Qty: 1 RF: 0 Combivent Respimat 20-100 mcg/actuation mist 1 puff inhalation Q4H RF: 0 fluticasone propionate [Flonase Allergy Relief] 50 mcg/actuation spray,suspension 1 spray intranasal BID RF: 0 fluticasone propion-salmeterol [Advair Diskus] 250-50 mcg/dose blister with device 1 inh inhalation BID RF: 0 metformin 500 mg tablet 500 mg PO BID RF: 0 clotrimazole [Antifungal (clotrimazole)] 1 % cream 1 appl topical BID RF: 0 bisacodyl [Dulcolax (bisacodyl)] 5 mg tablet,delayed release (DR/EC) 10 mg PO ONCE 1 Days Qty: 2 RF: 0 polyethylene glycol 3350 [Miralax] 17 gram/dose powder 238 g PO ONCE Qty: 238 RF: 0 docusate sodium 100 mg capsule 100 mg PO BEDTIME Qty: 30 RF: 3 psyllium husk [Metamucil] 0.52 gram capsule 0.52 g PO DAILY Qty: 30 RF: 4 Referrals: Praful Fajardo MD [Primary Care Provider] - 2 days
[2021-03-25 11:07] VITALS: BP 153/87; PULSE 75
[2021-03-25] MEDS: 0.9 % Sodium Chloride 1,000 ML 999 ML IVCONT (11:13)
[2021-03-25 11:17] LABS: MANUAL DIFF FLAG NO
[2021-03-25 11:18] LABS: Basophils Percent Auto 0.4 % (0-2); Eosinophils Absolute Auto 0.1 X10*3/uL (0.0-0.4); Eosinophils Percent Auto 2.6 % (0-4); Hemoglobin 11.3 g/dl (14.0-18.0); Imm Gran Abs Auto 0.01 X10*3/uL (0.00-0.03); Imm Gran Pct Auto 0.2 % (0.0-0.4); Lymphocytes Absolute Auto 1.8 X10*3/uL (1.2-4.9); Mean Corpuscular HGB Conc 32.3 g/dl (31.0-36.0); Mean Corpuscular Hemoglobin 27.8 pg (27.0-33.0); Mean Platelet Volume 11.1 fL (9.4-12.4); Monocytes Absolute Auto 0.5 X10*3/uL (0.1-1.2); Monocytes Percent Auto 9.5 % (2-11); Neutrophils Absolute Auto 2.9 x10*3/uL (2.0-8.3); Neutrophils Percent Auto 53.3 % (45-73); Platelet Count 210 X10*3/uL (160-400); Red Blood Count 4.07 X10*6/uL (4.60-5.80); Red Cell Distribution Width 15.9 % (11.0-16.0); White Blood Count 5.4 X10*3/uL (4.8-10.8)
[2021-03-25 11:24] LABS: Glucose, Whole Blood 67 mg/dL (60-115)
[2021-03-25 11:33] LABS: Alanine Aminotransferase 15 U/L (0-40); Albumin Level 4.3 g/dL (3.5-5.0); Alkaline Phosphatase 106 U/L (39-117); Anion Gap 11 (12-20); Aspartate Amino Transferase 18 U/L (5-37); Bilirubin Total 0.4 mg/dL (0.0-1.0); Blood Urea Nitrogen 19 mg/dL (9-16); Calcium 9.7 mg/dL (8.4-10.2); Carbon Dioxide 28 mmol/L (22-29); Chloride 109 mmol/L (96-108); Creatinine Clr Calc Pharmacy 51.6; Estimated Glomerular Filt Rate 59; Glucose Random 77 mg/dL (60-115); Potassium 4.2 mmol/L (3.3-5.1); Sodium 144 mmol/L (135-145); Total Protein 7.2 g/dL (6.5-8.0)
[2021-03-25 11:36] VITALS: BP 150/84; PULSE 78
[2021-03-25 11:37] VITALS: BP 153/83; BP 162/81; PULSE 80; PULSE 85
[2021-03-25 11:39] LABS: Troponin-I High Sensitivity < 3.5 ng/L (<3.5-35.0)
[2021-03-25] MEDS: Diphth,Pertus(ACell),Tet Adult 0.5 ML SYRINGE IM (12:42)
== END 2021-03-25 12:44 | disposition home or self-care (01) ==
PROVIDERS: Emergency Provider Emergency Medicine; PCP Internal Medicine
DX: R42 Dizziness and giddiness (principal); M79.645 Pain in left finger(s)
CPT/HCPCS: 36415; 73140; 80053; 82947; 84484; 85025; 90471; 90715; 93005; 96360; 99284

== ENCOUNTER → 2021-05-09 09:07 | Outpatient (BNVA) | payer MEDICARE, SELFPAY | PROVIDERS: PCP Internal Medicine; Visit Provider Surgery Vascular Surgery | DX: I71.4 Abdominal aortic aneurysm, without rupture (principal) | CPT/HCPCS: 99202 ==

== ENCOUNTER 2021-05-24 07:07 | Outpatient (REF) | payer MEDICARE, SELFPAY ==
--- NOTE | ~2021-05-24 | CT_ITS ---
EXAMINATION: CT ANGIOGRAM ABDOMEN AND PELVIS CLINICAL INFORMATION: Abdominal aortic aneurysm without rupture. COMPARISON: CTA chest abdomen and pelvis 10/20/2020. CTA chest 08/06/2013. TECHNIQUE: Multiple axial images were obtained through the abdomen and pelvis following the administration of 80 mL of Omnipaque 350 intravenous contrast. Images were reviewed on a dedicated 3-D workstation. This CT examination was performed using dose optimization techniques as appropriate, variously including the following: *Automated exposure control *Adjustment of mA and/or kV according to patient size (this includes techniques or standardized protocols for targeted exams where dose is matched to indication/reason for exam; i.e. extremities or head) *Use of iterative reconstruction technique DLP: 238 mGy-cm. FINDINGS: VASCULAR: The patient is status post aortobiiliac stent graft repair of the infrarenal abdominal aortic aneurysm. There is mild kinking of the stent graft just below the renal arteries where the opacified lumen measures approximately 1.8 x 1.0 cm (8, 266/790) with good opacification of the stent graft distally. There is no evidence of endoleak. The excluded aneurysm sac measures approximately 6.4 x 6.0 cm, measured at a similar level on the prior pre intervention exam, this is not significantly changed. The celiac artery, SMA and renal arteries arise via the superior fenestrated portion of the stent graft and appear to be patent. The SANDEE appears to fill via collaterals. The iliac limbs are patent. The left hypogastric artery is mildly aneurysmal proximally measuring up to 8 mm, similar to prior. The external iliac arteries are patent. Visualized common femoral arteries and visualized proximal profunda femoral arteries and suprafemoral arteries are patent. NONVASCULAR: LUNG BASES: Motion artifact degrades image quality in the lungs. Atelectasis and scarring in the lung bases. 5 mm pleural-based nodule in the right lower lobe and 2 adjacent nodules in the right middle lobe are stable dating back to 2013 suggesting benign etiology. LIVER, GALLBLADDER, AND BILIARY TREE: The liver is normal in size, shape, and attenuation. No focal hepatic lesion or biliary ductal dilatation is present. A cyst in the dome of the liver is changed dating back to 2013. The gallbladder is unremarkable with no evidence of radiopaque gallstones, gallbladder wall thickening, or obvious pericholecystic inflammatory changes. PANCREAS: Unremarkable. SPLEEN: A low-attenuation lesion in the spleen measures 1.8 cm is unchanged, likely benign. ADRENAL GLANDS: Mild thickening of the left adrenal gland is unchanged, no discrete nodularity. KIDNEYS AND URETERS: There is new mild renal cortical thinning and decreased attenuation in the lower pole of the right kidney. 3.2 cm parapelvic cyst on the right and an exophytic 2 cm cyst on the left. Prominent extrarenal pelvis on the right. No clear hydronephrosis. No renal calculi. BLADDER: Unremarkable. GASTROINTESTINAL TRACT: The small and large bowel are unremarkable. The appendix is unremarkable. ABDOMINAL WALL: No significant hernia is appreciated. LYMPH NODES: Normal. PELVIC VISCERA: Penile prosthesis with bulb and tubing in place. Postsurgical changes related to prior prostatectomy. OSSEOUS STRUCTURES: No destructive bony lesions. A sclerotic focus in the right L3 vertebral body is unchanged, likely representing a bone island. CT/CT angio abdomen pelvis IMPRESSION: Status post aortobiiliac stent graft repair of the infrarenal abdominal aortic aneurysm. No evidence of endoleak. The excluded aneurysm sac is stable in size compared with the preprocedure imaging. Mild kinking of the stent graft just below the renal arteries with the lumen measuring 1.8 x 1.0 cm on axial imaging. There is excellent opacification of the stent graft distally. New mild renal cortical thinning in the lower pole of the right kidney with decreased parenchymal enhancement, this may be due to occlusion of a small accessory renal artery. Small pulmonary nodules in the lung bases, these are stable dating back to 2013 suggesting benign etiology. Stable renal cysts, low-attenuation lesion in the spleen and hepatic cysts. Fleischner guidelines were followed.
--- NOTE | ~2021-05-24 | MR_ITS ---
EXAMINATION: MR BRAIN WITHOUT CONTRAST CLINICAL INFORMATION: 75-year-old with gait abnormalities. Ataxic gait. COMPARISON: 07/09/2018 CT angiogram. TECHNIQUE: Multiplanar multisequence MR imaging of the brain was done. FINDINGS: Brain Volume: [id number] generalized diffuse brain parenchymal volume loss is noted slightly more prominent than on the previous CT. Structural: No malformations. Brain and Meninges: There are numerous patchy and confluent regions of FLAIR/T2 signal hyperintensity within the subcortical and deeper white matter of both cerebral hemispheres with confluent periventricular T2 hyperintensity, likely reflecting chronic ischemic microangiopathy as suspected on the previous CT. Difficult to determine whether this is advanced since the previous CT due to differences in modalities. DWI sequence demonstrates no restricted diffusion. Specifically, there is no evidence for acute or subacute cerebral ischemia. No evidence for hemorrhage, hemosiderin staining or abnormal mineral deposition. No extra-axial fluid collections, space-occupying process or mass effect. Note is also made of a small zone of encephalomalacia involving the left temporal pole which is seen retrospectively on the previous CT, possibly reflecting remote trauma. Ventricles and Subarachnoid Spaces: The ventricular system and subarachnoid spaces are consistent with generalized volume loss, without hydrocephalus. This appears slightly more prominent than on the previous exam within the limitations of the comparison. Orbital Structures: Right-sided lens extraction noted. Otherwise, the visualized orbital structures are grossly unremarkable within the limitations of the study. Vascular: Signal voids are noted in the visualized major intracranial vessels. Sinuses and Osseous Structures: Minimal retained secretions in the right mastoid noted. Minor mucosal thickening in the ethmoid complex. Osseous marrow signal intensity appears within normal limits. MR/MR head/brain wo con IMPRESSION: 1. 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 2. Small focus of left temporal pole encephalomalacia unchanged from previous CT, possibly secondary to remote trauma. Correlate with patient's clinical history. 3. Cjdg-yo-[id number] generalized diffuse brain parenchymal volume loss somewhat progressed from previous CT with associated third and lateral ventriculomegaly without definite hydrocephalus. No disproportionate cerebellar volume loss.
[2021-05-24 07:59] LABS: Blood Urea Nitrogen 24 mg/dL (9-16); Estimated Glomerular Filt Rate 48
[2021-05-24] MEDS: iohexoL 350 MG/ML 100 ML INFUS..BTL IV (11:54)
== END 2021-05-24 07:08 | disposition home or self-care (01) ==
LOC: HO.MRI 07:07
PROVIDERS: Surgery Vascular Surgery; PCP Internal Medicine; Visit Provider Internal Medicine
DX: I71.4 Abdominal aortic aneurysm, without rupture (principal); R26.0 Ataxic gait; R26.89 Other abnormalities of gait and mobility
CPT/HCPCS: 36415; 70551; 74174; 82565; 84520; Q9967

== ENCOUNTER → 2021-06-06 09:33 | Outpatient (BNVA) | payer MEDICARE, SELFPAY | PROVIDERS: PCP Internal Medicine; Visit Provider Surgery Vascular Surgery | DX: I71.4 Abdominal aortic aneurysm, without rupture (principal); Z98.890 Other specified postprocedural states | CPT/HCPCS: 99212 ==

== ENCOUNTER 2021-07-20 10:57 | Emergency (ER) | payer MEDICARE, SELFPAY ==
[2021-07-20 11:01] VITALS: BP 137/92; PULSE 88; RESP 17; TEMP 36.7; O2SAT 95; BMI 24.2
--- NOTE | 2021-07-20 11:48 | ED.GENADULT ---
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 No new medications, products, lotions. No itching. Patient also noted several painful lesions in the mouth. Also c/o low back pain x several days. No radiation of pain. No numbness or tingling in the extremities with the exception of the patient's known diabetic neuropathy. No bowel or bladder incontinence. No urinary symptoms. No fevers or chills. No injury or trauma Related Data Home Medications Medication Instructions Recorded Confirmed albuterol sulfate 2.5 mg INHALATION Q4-6H PRN 04/09/20 12/17/20 amlodipine 10 mg tablet 10 mg PO DAILY 04/09/20 12/17/20 aspirin 81 mg tablet,delayed 81 mg PO DAILY 04/09/20 12/17/20 release blood-glucose meter #1 ea 04/09/20 clotrimazole 1 % topical cream 1 appl TOPICAL BID 04/09/20 05/22/20 (Antifungal (clotrimazole)) fluticasone 250 mcg-salmeterol 50 1 inh INHALATION BID 04/09/20 12/17/20 mcg/dose blistr powdr for inhalation (Advair Diskus) fluticasone propionate 50 1 spray INTRANASAL BID 04/09/20 12/17/20 mcg/actuation nasal spray,suspension (Flonase Allergy Relief) gabapentin 600 mg tablet 600 mg PO TID 04/09/20 12/17/20 glipizide 5 mg tablet 2.5 mg PO DAILY 04/09/20 12/17/20 ipratropium 20 mcg-albuterol 100 1 puff INHALATION Q4H 04/09/20 12/17/20 mcg/actuation mist for inhalation (Combivent Respimat) lancets 28 gauge (TRUEplus Lancets) #100 ea 04/09/20 metformin 500 mg tablet 500 mg PO BID 04/09/20 12/17/20 nabumetone 750 mg tablet 750 mg PO BID 04/09/20 05/22/20 omeprazole 20 mg capsule,delayed 20 mg PO DAILY 04/09/20 12/17/20 release tizanidine 2 mg capsule 2 mg PO Q8H PRN 04/09/20 05/22/20 trazodone 50 mg tablet 25 mg PO BEDTIME PRN 04/09/20 12/17/20 glipizide 5 mg tablet, extended 5 mg PO DAILY 05/09/21 release 24 hr metformin 500 mg tablet,extended 1,000 mg PO BID 05/09/21 release 24 hr blood sugar diagnostic (OneTouch #10 ea 06/06/21 Ultra Test) lancets ([employer]Touch UltraSoft #100 ea 06/06/21 Lancets) latanoprost 0.005 % eye drops 1 drp OPHTHALMIC (EYE) QPM 06/06/21 Previous Rx's Medication Instructions Recorded cyclobenzaprine 5 mg tablet 5 mg PO TID PRN #14 tab 03/23/20 lidocaine 5 % topical patch 1 patch TOPICAL DAILY #15 ea 03/23/20 (Lidoderm) naproxen 500 mg tablet 500 mg PO BID PRN #10 tab 03/23/20 tramadol 50 mg tablet 50 mg PO Q6H PRN #30 tab 05/29/20 diclofenac sodium 50 mg 50 mg PO BID #20 tab 06/05/20 tablet,delayed release bisacodyl 5 mg tablet,delayed 10 mg PO ONCE 1 Days #2 tab 11/21/20 release (Dulcolax (bisacodyl)) polyethylene glycol 3350 17 238 g PO ONCE #238 g 11/21/20 gram/dose oral powder (Miralax) psyllium husk 0.52 gram capsule 0.52 g PO DAILY #30 cap 11/21/20 (Metamucil) mirabegron 25 mg tablet,extended 25 mg PO DAILY 30 Days #30 tab 01/07/21 release 24 hr (Myrbetriq) docusate sodium 100 mg capsule 100 mg PO BEDTIME #30 cap 05/13/21 oxybutynin chloride 5 mg tablet 5 mg PO BID 30 Days #60 tab 06/11/21 tramadol 50 mg tablet 50 mg PO Q8H PRN #10 tab 07/20/21 valacyclovir 1 gram tablet 1,000 mg PO BID #14 tab 07/20/21 (Valtrex) Allergies Allergy/AdvReac Type Severity Reaction Status Date / Time ciprofloxacin [Ciprofloxacin] Allergy Mild RASH Verified 06/06/21 09:37 Review of Systems Review of Systems: Yes all other systems are reviewed and are negative Constitutional: Constitutional: Reports no additional constitutional complaints, Denies body ache(s), Denies chills, Denies fever(s), Denies headache(s) and Denies weakness Eyes: Eyes: Reports no additional eye complaints and Denies change in vision ENT: Reports system reviewed and no additional complaints, except as documented, Denies dizziness, Denies headache(s), Denies nasal congestion, Denies nasal discharge and Denies neck pain Cardiovascular: Cardiovascular: Reports no additional cardiovascular complaints, Denies chest pain, Denies leg edema and Denies dyspnea Respiratory: Respiratory: Reports no additional respiratory complaints, Denies cough and Denies dyspnea Gastrointestinal: Gastrointestinal: Reports no additional gastrointestinal complaints, Denies abdominal pain, Denies diarrhea, Denies nausea and Denies vomiting Genitourinary: Genitourinary: Denies urinary incontinence Musculoskeletal: Musculoskeletal: Reports no additional musculoskeletal complaints, Reports back pain, Denies arthralgias, Denies joint swelling, Denies neck pain, Denies numbness and Denies tingling Integumentary/Breasts: Skin/Breast: Reports system reviewed and no additional complaints, except as docu and Reports rash Neurologic: Reports system reviewed and no additional complaints, except as documented, Denies dizziness, Denies headache(s), Denies numbness, Denies tingling and Denies weakness PMFSH Past Medical History Attestation statement: The following information was validated with the patient. Source: old records reviewed and nursing notes reviewed Medical History AAA (abdominal aortic aneurysm) Arthralgia Asthma Depression Diabetes GERD (gastroesophageal reflux disease) High cholesterol History of COVID-19 History of prostate cancer HTN (hypertension) Lipoma of back Lower back pain Prostate disease Surgical History History of cataract extraction History of penile implant History of prostate surgery Hx of colonoscopy Hx of cystoscopy S/P AAA (abdominal aortic aneurysm) repair S/P excision of lipoma Family History Family History Mother History of esophageal cancer Social History Social History Patient Tobacco Use Status: Tobacco use Unknown Advance Directives: Yes Advance Directives Information Provided: No Advance Directives on File: No Physical Exam ED Vital Signs: Vital Signs - 24 hr 07/20/21 11:01 Temperature 98.1 F Pulse Rate 88 Respiratory Rate 17 Blood Pressure 137/92 H Pulse Oximetry 95 BMI result Body Mass Index 24.2 Const General: cooperative, healthy appearing and comfortable Orientation/consciousness: patient oriented x3 Limitations: language barrier HENMT Other: Head: Yes normal to inspection Ears: hearing grossly normal bilaterally General nose exam: Normal external nose present Face and sinus: Yes normal facial exam Mouth: Normal oral and palatal mucosa present Teeth and gingiva: dentition normal Throat: Yes posterior oropharynx normal and Yes tonsils normal Eyes General: appearance normal, both eyes and all related structures Pupils: Equal, round and reactive pupils present Neck Neck: Yes normal visual inspection, Yes full ROM and Yes no lymphadenopathy Chest Chest palpation & inspection: normal inspection of the chest Resp Effort & Inspection: normal respiratory effort Auscultation: clear to auscultation bilaterally Cardio Rate: regular rate Rhythm: regular rhythm Peripheral pulses: Peripheral pulses 2+ throughout General: Yes no CVA tenderness Back/Spine/Pelvis Other: Unable to elicit any tenderness on exam. No midline tenderness, step-offs deformities. Full range of motion. No pain with straight leg raise Back: no CVA tenderness Thoracic/Lumbar Spine: thoracic and lumbar spine normal to inspection Skin General skin exam: no rashes or lesions noted Neuro General: patient oriented x3 and moves all extremities Cranial nerves: Yes Equal, round and reactive pupils present Cognition (Neuro): normal cognition Gait exam (Neuro): Normal gait present Motor exam (neuro): 5/5 motor strength present throughout Sensory Exam: Normal double simultaneous stimulation for sensation Course Course Course Narrative: 75-year-old male here with reports of burning, painful rash noted around the mouth for the last 3 days with no new exposures. Patient also reports several lesions within the mouth. On exam there is some chelation noted around the corners of the mouth, erythema painful rash noted over the lower aspect of the face with no obvious lesions or urticarial appearance. Pinpoint lesions noted over the oropharynx and posterior pharynx. No evidence of strep pharyngitis. No lymphadenopathy. No weeping or drainage consistent with impetigo. ? Herpetic cause. Will treat with course of Valtrex. Recommend patient increase oral zinc intake. Patient also complaining of atraumatic low back pain for several days. Unable to elicit pain on exam. Normal neuro. No red flag symptoms or deficits. UA shows no signs of infection. Likely musculoskeletal. Recommend heat or ice, gentle stretching, follow-up with primary care for continued symptoms. Reviewed worrisome signs and symptoms of when to return to the emergency department. Comfortable discharge home. -patient requesting pain medication for home. He tells me he has taken tramadol before and he would like this. We discussed use of narcotics especially in elderly patients. Patient tells me he has tolerated it well before. Medical Decision Making Medical Records Medical records reviewed: Yes I reviewed the patient's medical records. Lab Data Lab results reviewed: Yes I reviewed the patient's lab results. Labs: Lab Results 07/20/21 Range/Units 11:49 Urine Color YELLOW Urine Appearance CLEAR Urine pH 6.0 (5.0-8.0) Ur Specific [place] >= 1.030 H (1.005-1.025) Urine Protein 1+ H (NEG-TRACE) MG/DL Urine Glucose (UA) NEG (NEG) MG/DL Urine Ketones 15 (NEG) MG/DL Urine Blood NEG (NEG) Urine Nitrite NEG (NEG) Ur Leukocyte Esterase NEG (NEG) Urine RBC 0 (0) /HPF Urine WBC 0 (0-4) /HPF Ur Squamous Epith Cells TRACE /LPF Urine Bacteria NONE /LPF Urine Mucus TRACE /LPF Discharge Plan Discharge Clinical Impression: Lower back pain, Facial rash, Oral lesion Patient Disposition: Home, Self-Care Instructions: Acute Rash (ED), Acute Low Back Pain (ED) Additional Instructions: Urine shows no signs of infection For the back please apply heat or ice. Gentle stretching. Continue medicated patches. We are concerned that the rash may be from a viral cause. Therefore we are starting oral Valtrex. Please follow-up with the primary care doctor next week for re-evaluation. Take an oral zinc tablet daily You also have a lesion on the roof of your mouth. This needs to be evaluated by the primary care doctor as soon as possible. Prescriptions: New valacyclovir [Valtrex] 1 gram tablet 1,000 mg PO BID Qty: 14 0RF tramadol 50 mg tablet 50 mg PO Q8H PRN (Reason: pain) Qty: 10 0RF No Action Myrbetriq 25 mg tablet extended release 24 hr 25 mg PO DAILY 30 Days Qty: 30 1RF docusate sodium 100 mg capsule 100 mg PO BEDTIME Qty: 30 3RF Rx Instructions: Gonzales 1 capsula todas las noches. oxybutynin chloride 5 mg tablet 5 mg PO BID 30 Days Qty: 60 6RF tramadol 50 mg tablet 50 mg PO Q6H PRN (Reason: pain) Qty: 30 0RF Rx Instructions: 1-2 tabs PO Q6 hours PRN for pain diclofenac sodium 50 mg tablet,delayed release (DR/EC) 50 mg PO BID Qty: 20 0RF lidocaine [Lidoderm] 5 % adhesive patch,medicated 1 patch topical DAILY Qty: 15 0RF Rx Instructions: leave on most painful area for up to 12 hrs naproxen 500 mg tablet 500 mg PO BID PRN (Reason: pain) Qty: 10 0RF cyclobenzaprine 5 mg tablet 5 mg PO TID PRN (Reason: muscle spasm) Qty: 14 0RF (DME) lancets [TRUEplus Lancets] 28 gauge misc See Rx Instructions .ROUTE .MEDSUPPLY Qty: 100 0RF Rx Instructions: As directed albuterol sulfate 2.5 mg /3 mL (0.083 %) solution for nebulization 2.5 mg inhalation Q4-6H PRN (Reason: Wheezing) 0RF tizanidine 2 mg capsule 2 mg PO Q8H PRN (Reason: Pain) 0RF trazodone 50 mg tablet 25 mg PO BEDTIME PRN (Reason: Sleep) 0RF gabapentin 600 mg tablet 600 mg PO TID 0RF nabumetone 750 mg tablet 750 mg PO BID 0RF aspirin 81 mg tablet,delayed release (DR/EC) 81 mg PO DAILY 0RF omeprazole 20 mg capsule,delayed release(DR/EC) 20 mg PO DAILY 0RF amlodipine 10 mg tablet 10 mg PO DAILY 0RF glipizide 5 mg tablet 2.5 mg PO DAILY 0RF (DME) blood-glucose meter Kit See Rx Instructions .ROUTE .MEDSUPPLY Qty: 1 0RF Rx Instructions: As directed Combivent Respimat 20-100 mcg/actuation mist 1 puff inhalation Q4H 0RF fluticasone propionate [Flonase Allergy Relief] 50 mcg/actuation spray,suspension 1 spray intranasal BID 0RF Rx Instructions: administer into each nostril fluticasone propion-salmeterol [Advair Diskus] 250-50 mcg/dose blister with device 1 inh inhalation BID 0RF metformin 500 mg tablet 500 mg PO BID 0RF clotrimazole [Antifungal (clotrimazole)] 1 % cream 1 appl topical BID 0RF bisacodyl [Dulcolax (bisacodyl)] 5 mg tablet,delayed release (DR/EC) 10 mg PO ONCE 1 Days Qty: 2 0RF Rx Instructions: take 2 tabs at noon the day before your colonoscopy polyethylene glycol 3350 [Miralax] 17 gram/dose powder 238 g PO ONCE Qty: 238 0RF Rx Instructions: As directed by gastroenterology department at [facility] psyllium husk [Metamucil] 0.52 gram capsule 0.52 g PO DAILY Qty: 30 4RF Rx Instructions: Gonzales 1 tableta al mediodia con un vaso de agua lleno. metformin 500 mg tablet extended release 24 hr 1,000 mg PO BID 0RF glipizide 5 mg tablet extended release 24hr 5 mg PO DAILY 0RF (DME) lancets [OneTouch UltraSoft Lancets] Misc See Rx Instructions ea Not Applicable TID Qty: 100 0RF Rx Instructions: As directed (DME) OneTouch Ultra Test Strip See Rx Instructions ea Not Applicable TID Qty: 10 0RF Rx Instructions: As directed latanoprost 0.005 % drops 1 drp ophthalmic (eye) QPM 0RF Referrals: Praful Fajardo MD [Primary Care Provider] - 1 week Print Language: Lithuanian
[2021-07-20 11:54] LABS: Appearance Urine CLEAR; Color Urine YELLOW; Glucose Urine UA NEG (NEG); Leukocyte Esterase Urine NEG (NEG); Nitrite Urine NEG (NEG); Specific Gravity - Urine >= 1.030 (1.005-1.025); UACC Culture Trigger NO; Urine Blood NEG (NEG); Urine Ketones 15 MG/DL (NEG); Urine Protein 1+ MG/DL (NEG-TRACE)
[2021-07-20 12:01] LABS: Mucus Urine TRACE /LPF; RBC Urine 0 /HPF (0); Squamous Epithelial Cell Urine TRACE /LPF; WBC Urine 0 /HPF (0-4)
== END 2021-07-20 12:29 | disposition home or self-care (01) ==
PROVIDERS: Nurse Practitioner Family; Emergency Provider Emergency Medicine; PCP Internal Medicine
DX: M54.50 Low back pain, unspecified (principal); R21 Rash and other nonspecific skin eruption; K13.70 Unspecified lesions of oral mucosa; I10 Essential (primary) hypertension; E11.9 Type 2 diabetes mellitus without complications
CPT/HCPCS: 81001; 99283

== ENCOUNTER 2021-10-03 00:56 | Emergency (ER) | payer MEDICARE, SELFPAY ==
[2021-10-03 01:26] VITALS: BP 168/87; PULSE 94; RESP 18; TEMP 36.7; O2SAT 94; BMI 22.6
--- NOTE | 2021-10-03 02:48 | ED_ITS ---
HPI - General Adult General Chief complaint: General Medical Stated complaint: neck pain x4 days Time Seen by Provider: 10/03/21 02:42 Source: patient Mode of arrival: ambulatory Limitations: no limitations History of Present Illness HPI narrative: Patient comes to the emergency room complaining of right shoulder pain, right neck pain. Patient states it has been going on for 4 days, taking ibuprofen with no relief. Patient states that whenever he turns his head towards the right it hurts quite a bit. Patient denies any injury. Patient denies neck stiffness or chest pain. No headache. Related Data Home Medications Medication Instructions Recorded Confirmed albuterol sulfate 2.5 mg inhalation Q4-6H PRN 04/09/20 12/17/20 Wheezing amlodipine 10 mg tablet 10 mg PO DAILY 04/09/20 12/17/20 aspirin 81 mg tablet,delayed 81 mg PO DAILY 04/09/20 12/17/20 release blood-glucose meter #1 ea 04/09/20 clotrimazole 1 % topical cream 1 appl topical BID 04/09/20 05/22/20 (Antifungal (clotrimazole)) fluticasone 250 mcg-salmeterol 50 1 inh inhalation BID 04/09/20 12/17/20 mcg/dose blistr powdr for inhalation (Advair Diskus) fluticasone propionate 50 1 spray intranasal BID 04/09/20 12/17/20 mcg/actuation nasal spray,suspension (Flonase Allergy Relief) gabapentin 600 mg tablet 600 mg PO TID 04/09/20 12/17/20 glipizide 5 mg tablet 2.5 mg PO DAILY 04/09/20 12/17/20 ipratropium 20 mcg-albuterol 100 1 puff inhalation Q4H 04/09/20 12/17/20 mcg/actuation mist for inhalation (Combivent Respimat) lancets 28 gauge (TRUEplus Lancets) #100 ea 04/09/20 metformin 500 mg tablet 500 mg PO BID 04/09/20 12/17/20 nabumetone 750 mg tablet 750 mg PO BID 04/09/20 05/22/20 omeprazole 20 mg capsule,delayed 20 mg PO DAILY 04/09/20 12/17/20 release tizanidine 2 mg capsule 2 mg PO Q8H PRN Pain 04/09/20 05/22/20 trazodone 50 mg tablet 25 mg PO BEDTIME PRN Sleep 04/09/20 12/17/20 glipizide 5 mg tablet, extended 5 mg PO DAILY 05/09/21 release 24 hr metformin 500 mg tablet,extended 1,000 mg PO BID 05/09/21 release 24 hr blood sugar diagnostic (OneTouch #10 ea 06/06/21 Ultra Test) lancets (OneTouch UltraSoft #100 ea 06/06/21 Lancets) latanoprost 0.005 % eye drops 1 drp ophthalmic (eye) QPM 06/06/21 Previous Rx's Medication Instructions Recorded cyclobenzaprine 5 mg tablet 5 mg PO TID PRN muscle spasm #14 03/23/20 tabs lidocaine 5 % topical patch 1 patch topical DAILY #15 ea 03/23/20 (Lidoderm) naproxen 500 mg tablet 500 mg PO BID PRN pain #10 tabs 03/23/20 tramadol 50 mg tablet 50 mg PO Q6H PRN pain #30 tabs 05/29/20 diclofenac sodium 50 mg 50 mg PO BID #20 tabs 06/05/20 tablet,delayed release bisacodyl 5 mg tablet,delayed 10 mg PO ONCE 1 day #2 tabs 11/21/20 release (Dulcolax (bisacodyl)) polyethylene glycol 3350 17 238 g PO ONCE #238 grams 11/21/20 gram/dose oral powder (Miralax) psyllium husk 0.52 gram capsule 0.52 g PO DAILY #30 caps 11/21/20 (Metamucil) mirabegron 25 mg tablet,extended 25 mg PO DAILY 30 days #30 tabs 01/07/21 release 24 hr (Myrbetriq) docusate sodium 100 mg capsule 100 mg PO BEDTIME #30 caps 05/13/21 oxybutynin chloride 5 mg tablet 5 mg PO BID 30 days #60 tabs 06/11/21 tramadol 50 mg tablet 50 mg PO Q8H PRN pain #10 tabs 07/20/21 valacyclovir 1 gram tablet 1,000 mg PO BID #14 tabs 07/20/21 (Valtrex) diazepam 2 mg tablet (Valium) 2 mg PO BID PRN muscle pain #5 tabs 10/03/21 Allergies Allergy/AdvReac Type Severity Reaction Status Date / Time ciprofloxacin [Ciprofloxacin] Allergy Mild RASH Verified 06/06/21 09:37 Review of Systems Review of Systems: Constitutional : No Weight loss, No Fever, No Chills, No Night Sweats, No Fatigue, No Malaise ENT/Mouth : No Hearing loss, No Ear Pain, No Nasal Congestion, No Sinus Pain, No Hoarseness, No sore throat, No Rhinorrhea, No Swallowing Difficulty Eyes: No Eye Pain, No Swelling, No Redness, No Foreign Body, No Discharge, No Vision Changes Cardiovascular : No Chest Pain, No SOB, No Dyspnea on Exertion, No Orthopnea, No Edema, No Palpitations Respiratory : No Cough, No Sputum, No Wheezing, No Smoke Exposure, No Dyspnea Gastrointestinal : No Nausea, No Vomiting, No Diarrhea, No Constipation, No abdominal Pain, No Hematochezia, No Melena Genitourinary : no irregular bleeding, No Dysuria, No Urinary Frequency, No Hematuria, No Urinary Incontinence, No Urgency, No Flank Pain, No Urinary Flow Changes, No Hesitancy Musculoskeletal : No joint pain, complaining right neck pain extending towards the right shoulder down to the scapula, worsened by movement Skin : No Skin Lesions, No rash Neuro : No Weakness, No Numbness, No Paresthesias, No Loss of Consciousness, No Dizziness, No Headache Psych : No Anxiety/Panic, No Depression, No SI/HI/AH/VH, No Social Issues, Heme/Lymph: No Bruising, No Bleeding,No Lymphadenopathy Endocrine : No Polyuria, No Polydipsia, No Temperature Intolerance PMFSH Past Medical History Medical History AAA (abdominal aortic aneurysm) Asthma Depression GERD (gastroesophageal reflux disease) High cholesterol History of COVID-19 History of prostate cancer HTN (hypertension) Surgical History History of cataract extraction History of penile implant History of prostate surgery Hx of colonoscopy Hx of cystoscopy S/P AAA (abdominal aortic aneurysm) repair S/P excision of lipoma Family History Family History Mother History of esophageal cancer Social History Social History Patient Tobacco Use Status: Tobacco use Unknown Advance Directives: No Advance Directives Information Provided: Yes Physical Exam ED Vital Signs: Vital Signs - 24 hr 10/03/21 01:26 10/03/21 03:08 Temperature 98.1 F Pulse Rate 94 Respiratory Rate 18 16 Blood Pressure 168/87 H Pulse Oximetry 94 Oxygen Delivery Method Room Air BMI result Body Mass Index 22.6 Const Other: Appearance: Alert. Oriented X3. No acute distress. Eyes: Pupils equal, round and reactive to light. ENT: Pharynx normal. Neck: Normal inspection. Neck supple. No lymph nodes noted. No crepitus, patient can flex and extend the neck, patient has trouble rotating the head towards the right due to pain on the right side of the neck CVS: Normal heart rate and rhythm. Pulses normal. Normal S1 and S2 Respiratory: No respiratory distress. Breath sounds normal. No Wheezing. No rales Abdomen: Soft and nontender. No rigidity. No distention. Musculoskeletal: Pain to palpation over the right sternocleidal mastoid muscle and trapezius muscle right side. Palpable spasms Skin: Skin warm and dry. Normal skin color. Normal skin turgor. Extremities: No lower extremity edema. No Lacerations. No Rash Neuro: Oriented X 3. No motor deficit. No sensory deficit. Moving all extremities. No slurred speech. CN 2 through 12 grossly intact Psych: calm, cooperative, normal affect Course Course Course Narrative: I discussed with the patient he has muscle spasms. Patient given IM Dilaudid 0.5 mg, patient has history of AAA, pain, in the meantime will avoid NSAIDs. Also, patient received 2 mg of Valium. After the medication, patient states that he feels much better. Patient now moving his head and neck in all directions with no pain. The ready for discharge. Patient instructed to light head/neck exercises Discharge Plan Discharge Clinical Impression: Acute torticollis Patient Disposition: Home, Self-Care Instructions: Spasmodic Torticollis (ED) Additional Instructions: Please follow-up with your primary care physician tomorrow. If you have any worsening or new symptoms, please return to the emergency room or call 911 Prescriptions: New diazepam [Valium] 2 mg tablet 2 mg PO BID PRN (Reason: muscle pain) Qty: 5 0RF No Action Myrbetriq 25 mg tablet extended release 24 hr 25 mg PO DAILY 30 Days Qty: 30 1RF docusate sodium 100 mg capsule 100 mg PO BEDTIME Qty: 30 3RF Rx Instructions: Gonzales 1 capsula todas las noches. oxybutynin chloride 5 mg tablet 5 mg PO BID 30 Days Qty: 60 6RF tramadol 50 mg tablet 50 mg PO Q6H PRN (Reason: pain) Qty: 30 0RF Rx Instructions: 1-2 tabs PO Q6 hours PRN for pain diclofenac sodium 50 mg tablet,delayed release (DR/EC) 50 mg PO BID Qty: 20 0RF lidocaine [Lidoderm] 5 % adhesive patch,medicated 1 patch topical DAILY Qty: 15 0RF Rx Instructions: leave on most painful area for up to 12 hrs naproxen 500 mg tablet 500 mg PO BID PRN (Reason: pain) Qty: 10 0RF cyclobenzaprine 5 mg tablet 5 mg PO TID PRN (Reason: muscle spasm) Qty: 14 0RF valacyclovir [Valtrex] 1 gram tablet 1,000 mg PO BID Qty: 14 0RF tramadol 50 mg tablet 50 mg PO Q8H PRN (Reason: pain) Qty: 10 0RF (DME) lancets [TRUEplus Lancets] 28 gauge misc See Rx Instructions .ROUTE .MEDSUPPLY Qty: 100 Rx Instructions: As directed albuterol sulfate 2.5 mg /3 mL (0.083 %) solution for nebulization 2.5 mg inhalation Q4-6H PRN (Reason: Wheezing) tizanidine 2 mg capsule 2 mg PO Q8H PRN (Reason: Pain) trazodone 50 mg tablet 25 mg PO BEDTIME PRN (Reason: Sleep) gabapentin 600 mg tablet 600 mg PO TID nabumetone 750 mg tablet 750 mg PO BID aspirin 81 mg tablet,delayed release (DR/EC) 81 mg PO DAILY omeprazole 20 mg capsule,delayed release(DR/EC) 20 mg PO DAILY amlodipine 10 mg tablet 10 mg PO DAILY glipizide 5 mg tablet 2.5 mg PO DAILY (DME) blood-glucose meter Kit See Rx Instructions .ROUTE .MEDSUPPLY Qty: 1 Rx Instructions: As directed Combivent Respimat 20-100 mcg/actuation mist 1 puff inhalation Q4H fluticasone propionate [Flonase Allergy Relief] 50 mcg/actuation spray,suspension 1 spray intranasal BID Rx Instructions: administer into each nostril fluticasone propion-salmeterol [Advair Diskus] 250-50 mcg/dose blister with device 1 inh inhalation BID metformin 500 mg tablet 500 mg PO BID clotrimazole [Antifungal (clotrimazole)] 1 % cream 1 appl topical BID bisacodyl [Dulcolax (bisacodyl)] 5 mg tablet,delayed release (DR/EC) 10 mg PO ONCE 1 Days Qty: 2 0RF Rx Instructions: take 2 tabs at noon the day before your colonoscopy polyethylene glycol 3350 [Miralax] 17 gram/dose powder 238 g PO ONCE Qty: 238 0RF Rx Instructions: As directed by gastroenterology department at [facility] psyllium husk [Metamucil] 0.52 gram capsule 0.52 g PO DAILY Qty: 30 4RF Rx Instructions: Gonzales 1 tableta al mediodia con un vaso de agua lleno. metformin 500 mg tablet extended release 24 hr 1,000 mg PO BID glipizide 5 mg tablet extended release 24hr 5 mg PO DAILY (DME) lancets [OneTouch UltraSoft Lancets] Misc See Rx Instructions Not Applicable TID Qty: 100 Rx Instructions: As directed (DME) OneTouch Ultra Test Strip See Rx Instructions Not Applicable TID Qty: 10 Rx Instructions: As directed latanoprost 0.005 % drops 1 drp ophthalmic (eye) QPM
[2021-10-03 03:08] VITALS: RESP 16
[2021-10-03] MEDS: HYDROmorphone HCl 0.5 MG/0.5 ML SYRINGE IM (03:08)
[2021-10-03] MEDS: diazePAM 2 MG TABLET PO (03:08)
[2021-10-03 04:00] VITALS: RESP 16
== END 2021-10-03 04:08 | disposition home or self-care (01) ==
PROVIDERS: Emergency Provider Emergency Medicine; PCP Internal Medicine
DX: M43.6 Torticollis (principal); M54.2 Cervicalgia; I10 Essential (primary) hypertension; E78.5 Hyperlipidemia, unspecified; Z85.46 Personal history of malignant neoplasm of prostate
CPT/HCPCS: 96372; 99283; 99284; J1170

== ENCOUNTER 2021-10-08 10:43 | Emergency (ER) | payer MEDICARE, SELFPAY ==
--- NOTE | ~2021-10-08 | CT_ITS ---
EXAMINATION: CT ABDOMEN AND PELVIS WITHOUT CONTRAST CLINICAL INFORMATION: Back pain. History of abdominal aortic aneurysm. COMPARISON: CT abdomen from 05/24/2021. TECHNIQUE: Multidetector volumetric imaging was performed from the superior aspect of the liver through the pubic symphysis. Sagittal and coronal reformatted images were obtained on the technologist's workstation. This CT examination was performed using dose optimization techniques as appropriate, variously including the following: *Automated exposure control *Adjustment of mA and/or kV according to patient size (this includes techniques or standardized protocols for targeted exams where dose is matched to indication/reason for exam; i.e. extremities or head) *Use of iterative reconstruction technique DLP: 648 mGy-cm FINDINGS: LUNG BASES: No acute findings in either lung base compared to 05/24/2021. No pulmonary consolidation or pleural effusion. LIVER: The liver has normal size, shape, and attenuation. Again noted is a cyst of the liver. No suspicious hepatic lesion. GALLBLADDER AND BILIARY TREE: Gallbladder is without radiopaque stones, wall thickening or pericholecystic fluid. No dilated bile ducts. PANCREAS: Normal. No edema, pancreatic ductal dilatation or mass. SPLEEN: Normal size. 1.7 cm simple cyst of the superior spleen is unchanged. ADRENAL GLANDS: Normal. KIDNEYS AND URETERS: No nephrolithiasis or hydronephrosis. Simple peripelvic cyst of the right kidney and simple cortical cysts of the left kidney. No renal imaging follow-up is recommended for simple cysts. The cortical atrophy of the lower pole of the right kidney was better depicted on the contrast-enhanced images from 05/24/2021. The ureters are unremarkable. BLADDER: Normal. No calculi or wall thickening. BOWEL AND PERITONEUM: Stomach is unremarkable. No dilated loops of bowel. The appendix is normal. No inflammatory change or obstruction along the gastrointestinal tract. No overt bowel wall thickening or mesenteric fat stranding. No ascites or pneumoperitoneum. ABDOMINAL WALL: No significant findings in the abdominal wall. A fluid-filled reservoir for a penile prosthesis projects just deep to the lower abdominal wall. VASCULATURE: Aortobiiliac stent graft in place. The excluded aneurysm sac of the abdominal aorta measures up to 6 cm transverse and 5.6 cm AP (6 x 6.4 cm on 05/24/2021). No evidence of inflammation in the surrounding para-aortic fat. No retroperitoneal hemorrhage. 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 LYMPH NODES: No pathologic sized lymph nodes in the abdomen or pelvis. No inguinal lymphadenopathy. PELVIC VISCERA: Surgical clips from prior prostatectomy in the lower pelvis. No pelvic free fluid. SKELETAL: No suspicious osseous lesions. Bone island of the L3 vertebral body. At L4-L5, there is disc bulge, facet arthropathy and chronic central canal stenosis and left worse than right neural foraminal stenosis. Mild osteoarthritis of the hips. CT/CT abdomen pelvis wo con IMPRESSION: * No acute imaging abnormalities in the abdomen or pelvis compared to 05/24/2021. * No noncontrast imaging findings of complications from aortobiiliac stent graft repair. The excluded aneurysm sac of the infrarenal aorta measures up to 6 x 5.6 cm (6 x 6.4 cm on 05/24/2021).
[2021-10-08 10:54] VITALS: BP 187/99; PULSE 83; RESP 20; TEMP 36.6; O2SAT 100; BMI 22.6
[2021-10-08 12:00] VITALS: BP 145/73; PULSE 81; RESP 18; TEMP 37.2; O2SAT 93
--- NOTE | 2021-10-08 12:04 | ED.GENADULT ---
HPI - General Adult General Chief complaint: Extremity Problem Stated complaint: shoulder pain, difficulty walking Time Seen by Provider: 10/08/21 10:53 Source: patient and sign language interpreter Mode of arrival: ambulatory History of Present Illness HPI narrative: 76-year-old male with significant past medical history of diabetes, hypertension, AAA, prostate disease who presents with complaints neck pain/right upper extremity pain as well entire back pain and complaints of the pain going into his lower legs without fevers denies nausea, vomiting, diarrhea states that he has urinary difficulty of baseline due to his prostate and otherwise denies shortness of breath, chest pain, palpitations. Related Data Home Medications Medication Instructions Recorded Confirmed albuterol sulfate 2.5 mg inhalation Q4-6H PRN 04/09/20 12/17/20 Wheezing amlodipine 10 mg tablet 10 mg PO DAILY 04/09/20 12/17/20 aspirin 81 mg tablet,delayed 81 mg PO DAILY 04/09/20 12/17/20 release blood-glucose meter #1 ea 04/09/20 clotrimazole 1 % topical cream 1 appl topical BID 04/09/20 05/22/20 (Antifungal (clotrimazole)) fluticasone 250 mcg-salmeterol 50 1 inh inhalation BID 04/09/20 12/17/20 mcg/dose blistr powdr for inhalation (Advair Diskus) fluticasone propionate 50 1 spray intranasal BID 04/09/20 12/17/20 mcg/actuation nasal spray,suspension (Flonase Allergy Relief) gabapentin 600 mg tablet 600 mg PO TID 04/09/20 12/17/20 glipizide 5 mg tablet 2.5 mg PO DAILY 04/09/20 12/17/20 ipratropium 20 mcg-albuterol 100 1 puff inhalation Q4H 04/09/20 12/17/20 mcg/actuation mist for inhalation (Combivent Respimat) lancets 28 gauge (TRUEplus Lancets) #100 ea 04/09/20 metformin 500 mg tablet 500 mg PO BID 04/09/20 12/17/20 nabumetone 750 mg tablet 750 mg PO BID 04/09/20 05/22/20 omeprazole 20 mg capsule,delayed 20 mg PO DAILY 04/09/20 12/17/20 release tizanidine 2 mg capsule 2 mg PO Q8H PRN Pain 04/09/20 05/22/20 trazodone 50 mg tablet 25 mg PO BEDTIME PRN Sleep 04/09/20 12/17/20 glipizide 5 mg tablet, extended 5 mg PO DAILY 05/09/21 release 24 hr metformin 500 mg tablet,extended 1,000 mg PO BID 05/09/21 release 24 hr blood sugar diagnostic (OneTouch #10 ea 06/06/21 Ultra Test) lancets (OneTouch UltraSoft #100 ea 06/06/21 Lancets) latanoprost 0.005 % eye drops 1 drp ophthalmic (eye) QPM 06/06/21 Previous Rx's Medication Instructions Recorded cyclobenzaprine 5 mg tablet 5 mg PO TID PRN muscle spasm #14 03/23/20 tabs lidocaine 5 % topical patch 1 patch topical DAILY #15 ea 03/23/20 (Lidoderm) naproxen 500 mg tablet 500 mg PO BID PRN pain #10 tabs 03/23/20 tramadol 50 mg tablet 50 mg PO Q6H PRN pain #30 tabs 05/29/20 diclofenac sodium 50 mg 50 mg PO BID #20 tabs 06/05/20 tablet,delayed release bisacodyl 5 mg tablet,delayed 10 mg PO ONCE 1 day #2 tabs 11/21/20 release (Dulcolax (bisacodyl)) polyethylene glycol 3350 17 238 g PO ONCE #238 grams 11/21/20 gram/dose oral powder (Miralax) psyllium husk 0.52 gram capsule 0.52 g PO DAILY #30 caps 11/21/20 (Metamucil) mirabegron 25 mg tablet,extended 25 mg PO DAILY 30 days #30 tabs 01/07/21 release 24 hr (Myrbetriq) docusate sodium 100 mg capsule 100 mg PO BEDTIME #30 caps 05/13/21 oxybutynin chloride 5 mg tablet 5 mg PO BID 30 days #60 tabs 06/11/21 tramadol 50 mg tablet 50 mg PO Q8H PRN pain #10 tabs 07/20/21 valacyclovir 1 gram tablet 1,000 mg PO BID #14 tabs 07/20/21 (Valtrex) diazepam 2 mg tablet (Valium) 2 mg PO BID PRN muscle pain #5 tabs 10/03/21 cyclobenzaprine 5 mg tablet 5 mg PO BEDTIME PRN muscle spasm 3 10/08/21 days #3 tabs Allergies Allergy/AdvReac Type Severity Reaction Status Date / Time ciprofloxacin [Ciprofloxacin] Allergy Mild RASH Verified 10/08/21 10:54 Review of Systems Review of Systems: Pertinent positives and negatives as stated in HPI 10 point review of systems is otherwise negative. [facility] Past Medical History Source: nursing notes reviewed Medical History AAA (abdominal aortic aneurysm) Asthma Depression GERD (gastroesophageal reflux disease) High cholesterol History of COVID-19 History of prostate cancer HTN (hypertension) Surgical History History of cataract extraction History of penile implant History of prostate surgery Hx of colonoscopy Hx of cystoscopy S/P AAA (abdominal aortic aneurysm) repair S/P excision of lipoma Family History Family History Mother History of esophageal cancer Social History Social History Patient Tobacco Use Status: Tobacco use Unknown Advance Directives: No Advance Directives Information Provided: No Physical Exam ED Vital Signs: Vital Signs - 24 hr 10/08/21 10:54 10/08/21 12:00 10/08/21 14:13 Temperature 97.9 F 99.0 F Pulse Rate 83 81 86 Respiratory Rate 20 18 16 Blood Pressure 187/99 H 145/73 H 157/80 H Pulse Oximetry 100 93 96 Oxygen Delivery Method Room Air Room Air Room Air BMI result Body Mass Index 22.6 VITAL SIGNS: Reviewed. GENERAL: Well developed, well nourished, in no acute distress. HEAD: Normocephalic/atraumatic EYES: PERRLA, EOMI EARS: Ext canals without abnormality OROPHARYNX: no oral lesions noted, posterior pharynx clear LUNGS: Normal breath sounds. No adventitious sounds or accessory muscle use. SpO2<100> CARDIOVASCULAR: Regular rate and rhythm without noted murmurs ABDOMEN: Soft, non-tender, non-distended with bowel sounds. BACK: no midline vertebral tenderness or step-offs noted. MUSCULOSKELETAL: No tenderness, deformities, or effusions noted on gross inspection. EXTREMITIES: No cyanosis, clubbing or edema. SKIN: Inspection of the skin reveals no rashes NEUROLOGIC: Alert and oriented x 4. Strength and sensation to light touch were grossly intact x 4 , symmetrical strength noted 5/5. Course Course Course Narrative: 76-year-old male with history and clinical presentation concerning for the more concerning possibilities spinal lesions given history of prostate cancer and/ or AAA complications but patient is otherwise hemodynamically stable. Will obtain basic labs as well as imaging studies. Review of all investigations otherwise without acute findings and CT scan does not reveal any concerning features of the abdominal aorta nor of the vertebral bodies. Patient was given all results and discharged home in stable condition with complete resolution of his discomfort. Medical Decision Making Lab Data Result diagrams: 10/08/21 12:54 10/08/21 12:54 Labs: Lab Results 10/08/21 10/08/21 Range/Units 12:54 12:54 WBC 10.1 (4.8-10.8) X10*3/uL RBC 4.24 L (4.60-5.80) X10*6/uL Hgb 12.0 L (14.0-18.0) g/dl Hct 37.4 L (42.0-52.0) % MCV 88.2 (80.0-98.0) fL MCH 28.3 (27.0-33.0) pg MCHC 32.1 (31.0-36.0) g/dl RDW 14.4 (11.0-16.0) % Plt Count 277 D (160-400) X10*3/uL MPV 10.6 (9.4-12.4) fL Immature Gran % (Auto) 0.3 (0.0-0.4) % Neut % (Auto) 73.8 H (45-73) % Lymph % (Auto) 17.4 L (20-40) % [place] % (Auto) 6.8 (2-11) % Eos % (Auto) 1.4 (0-4) % Baso % (Auto) 0.3 (0-2) % Lymph # (Auto) 1.8 (1.2-4.9) X10*3/uL [place] # (Auto) 0.7 (0.1-1.2) X10*3/uL Eos # (Auto) 0.1 (0.0-0.4) X10*3/uL Baso # (Auto) 0.0 (0.0-0.2) X10*3/uL Abs Immat Gran (auto) 0.03 (0.00-0.03) X10*3/uL Absolute Neuts (auto) 7.4 (2.0-8.3) x10*3/uL Absolute Nucleated RBC 0.000 (0.0-0.012) X10*3/uL Nucleated RBC % (auto) 0.0 (0.0-0.2) /100WBC Sodium 139 (135-145) mmol/L Potassium 4.8 (3.3-5.1) mmol/L Chloride 105 (96-108) mmol/L Carbon Dioxide 25 (22-29) mmol/L Anion Gap 14 (12-20) BUN 15 (9-16) mg/dL Creatinine 1.16 (0.5-1.4) mg/dL Estim Creat Clear Calc 47.9 Estimated GFR > 60 Random Glucose 102 (60-115) mg/dL Calcium 9.6 (8.4-10.2) mg/dL Total Bilirubin 0.3 (0.0-1.0) mg/dL AST 12 (5-37) U/L ALT 14 (0-40) U/L Alkaline Phosphatase 131 H D (39-117) U/L Total Protein 7.5 (6.5-8.0) g/dL Albumin 4.3 (3.5-5.0) g/dL Discharge Plan Discharge Clinical Impression: Arthralgia Patient Disposition: Home, Self-Care Instructions: Arthralgia (ED) Additional Instructions: 1. Tylenol 1000 mg, por v?a oral, cada 6 horas seg?n sea necesario para controlar el dolor. No exceda los 4000 mg dentro de las 24 horas. 2. Ibuprofeno 400 mg, por v?a oral con leche o alimentos, cada 6 horas seg?n sea necesario para controlar el dolor. 3. Parche de lidoca?na, se debe aplicar en el ?georgette de m?xima sensibilidad tabitha se indica en el empaque exterior. 4. Ravi un seguimiento con feliz proveedor de atenci?n primaria en los pr?ximos 2 a 3 d?as llamando al consultorio y solicitando antoine ruth. Regrese a la talia de emergencias si los s?ntomas empeoran. Prescriptions: New cyclobenzaprine 5 mg tablet 5 mg PO BEDTIME PRN (Reason: muscle spasm) 3 Days Qty: 3 0RF No Action Myrbetriq 25 mg tablet extended release 24 hr 25 mg PO DAILY 30 Days Qty: 30 1RF docusate sodium 100 mg capsule 100 mg PO BEDTIME Qty: 30 3RF Rx Instructions: Gonzales 1 capsula todas las noches. oxybutynin chloride 5 mg tablet 5 mg PO BID 30 Days Qty: 60 6RF tramadol 50 mg tablet 50 mg PO Q6H PRN (Reason: pain) Qty: 30 0RF Rx Instructions: 1-2 tabs PO Q6 hours PRN for pain diclofenac sodium 50 mg tablet,delayed release (DR/EC) 50 mg PO BID Qty: 20 0RF lidocaine [Lidoderm] 5 % adhesive patch,medicated 1 patch topical DAILY Qty: 15 0RF Rx Instructions: leave on most painful area for up to 12 hrs naproxen 500 mg tablet 500 mg PO BID PRN (Reason: pain) Qty: 10 0RF cyclobenzaprine 5 mg tablet 5 mg PO TID PRN (Reason: muscle spasm) Qty: 14 0RF valacyclovir [Valtrex] 1 gram tablet 1,000 mg PO BID Qty: 14 0RF tramadol 50 mg tablet 50 mg PO Q8H PRN (Reason: pain) Qty: 10 0RF diazepam [Valium] 2 mg tablet 2 mg PO BID PRN (Reason: muscle pain) Qty: 5 0RF (DME) lancets [TRUEplus Lancets] 28 gauge misc See Rx Instructions .ROUTE .MEDSUPPLY Qty: 100 Rx Instructions: As directed albuterol sulfate 2.5 mg /3 mL (0.083 %) solution for nebulization 2.5 mg inhalation Q4-6H PRN (Reason: Wheezing) tizanidine 2 mg capsule 2 mg PO Q8H PRN (Reason: Pain) trazodone 50 mg tablet 25 mg PO BEDTIME PRN (Reason: Sleep) gabapentin 600 mg tablet 600 mg PO TID nabumetone 750 mg tablet 750 mg PO BID aspirin 81 mg tablet,delayed release (DR/EC) 81 mg PO DAILY omeprazole 20 mg capsule,delayed release(DR/EC) 20 mg PO DAILY amlodipine 10 mg tablet 10 mg PO DAILY glipizide 5 mg tablet 2.5 mg PO DAILY (DME) blood-glucose meter Kit See Rx Instructions .ROUTE .MEDSUPPLY Qty: 1 Rx Instructions: As directed Combivent Respimat 20-100 mcg/actuation mist 1 puff inhalation Q4H fluticasone propionate [Flonase Allergy Relief] 50 mcg/actuation spray,suspension 1 spray intranasal BID Rx Instructions: administer into each nostril fluticasone propion-salmeterol [Advair Diskus] 250-50 mcg/dose blister with device 1 inh inhalation BID metformin 500 mg tablet 500 mg PO BID clotrimazole [Antifungal (clotrimazole)] 1 % cream 1 appl topical BID bisacodyl [Dulcolax (bisacodyl)] 5 mg tablet,delayed release (DR/EC) 10 mg PO ONCE 1 Days Qty: 2 0RF Rx Instructions: take 2 tabs at noon the day before your colonoscopy polyethylene glycol 3350 [Miralax] 17 gram/dose powder 238 g PO ONCE Qty: 238 0RF Rx Instructions: As directed by gastroenterology department at [facility] psyllium husk [Metamucil] 0.52 gram capsule 0.52 g PO DAILY Qty: 30 4RF Rx Instructions: Gonzales 1 tableta al mediodia con un vaso de agua lleno. metformin 500 mg tablet extended release 24 hr 1,000 mg PO BID glipizide 5 mg tablet extended release 24hr 5 mg PO DAILY (DME) lancets [OneTouch UltraSoft Lancets] Misc See Rx Instructions Not Applicable TID Qty: 100 Rx Instructions: As directed (DME) OneTouch Ultra Test Strip See Rx Instructions Not Applicable TID Qty: 10 Rx Instructions: As directed latanoprost 0.005 % drops 1 drp ophthalmic (eye) QPM Referrals: Praful Fajardo MD [Primary Care Provider] - Print Language: Malay
[2021-10-08] MEDS: Acetaminophen 325 MG TABLET 975 MG PO (12:37)
[2021-10-08] MEDS: Ketorolac Tromethamine 15 MG/ML VIAL IM (12:37)
[2021-10-08] MEDS: Lidocaine 4 % Patch ADH..PATCH 1 PATCH TRANSDERMA (12:38)
[2021-10-08 12:58] LABS: MANUAL DIFF FLAG NO
[2021-10-08 13:05] LABS: Basophils Percent Auto 0.3 % (0-2); Eosinophils Absolute Auto 0.1 X10*3/uL (0.0-0.4); Eosinophils Percent Auto 1.4 % (0-4); Hematocrit 37.4 % (42.0-52.0); Imm Gran Abs Auto 0.03 X10*3/uL (0.00-0.03); Imm Gran Pct Auto 0.3 % (0.0-0.4); Lymphocytes Absolute Auto 1.8 X10*3/uL (1.2-4.9); Lymphocytes Percent Auto 17.4 % (20-40); Mean Corpuscular HGB Conc 32.1 g/dl (31.0-36.0); Mean Corpuscular Hemoglobin 28.3 pg (27.0-33.0); Mean Corpuscular Volume 88.2 fL (80.0-98.0); Mean Platelet Volume 10.6 fL (9.4-12.4); Monocytes Absolute Auto 0.7 X10*3/uL (0.1-1.2); Monocytes Percent Auto 6.8 % (2-11); Neutrophils Absolute Auto 7.4 x10*3/uL (2.0-8.3); Neutrophils Percent Auto 73.8 % (45-73); Platelet Count 277 X10*3/uL (160-400); Red Blood Count 4.24 X10*6/uL (4.60-5.80); Red Cell Distribution Width 14.4 % (11.0-16.0); White Blood Count 10.1 X10*3/uL (4.8-10.8)
[2021-10-08 13:21] LABS: Alanine Aminotransferase 14 U/L (0-40); Albumin Level 4.3 g/dL (3.5-5.0); Alkaline Phosphatase 131 U/L (39-117); Anion Gap 14 (12-20); Aspartate Amino Transferase 12 U/L (5-37); Bilirubin Total 0.3 mg/dL (0.0-1.0); Blood Urea Nitrogen 15 mg/dL (9-16); Calcium 9.6 mg/dL (8.4-10.2); Carbon Dioxide 25 mmol/L (22-29); Chloride 105 mmol/L (96-108); Creatinine Clr Calc Pharmacy 47.9; Estimated Glomerular Filt Rate > 60; Glucose Random 102 mg/dL (60-115); Potassium 4.8 mmol/L (3.3-5.1); Sodium 139 mmol/L (135-145); Total Protein 7.5 g/dL (6.5-8.0)
[2021-10-08 14:13] VITALS: BP 157/80; PULSE 86; RESP 16; O2SAT 96
== END 2021-10-08 15:00 | disposition home or self-care (01) ==
PROVIDERS: Emergency Provider Student in an Organized Health Care Education/Training Program; PCP Internal Medicine
DX: M54.50 Low back pain, unspecified (principal); R10.9 Unspecified abdominal pain; R26.2 Difficulty in walking, not elsewhere classified; M25.511 Pain in right shoulder; Z79.899 Other long term (current) drug therapy
CPT/HCPCS: 36415; 74176; 80053; 85025; 96372; 99284; J1885

== ENCOUNTER 2021-11-05 10:11 | Emergency (ER) | payer MEDICARE, SELFPAY ==
[2021-11-05 12:44] VITALS: BP 118/79; PULSE 76; RESP 16; TEMP 36.4; O2SAT 95; BMI 25.0
--- NOTE | 2021-11-05 14:41 | ED_ITS ---
HPI - Ear Problem General Chief complaint: Ear Problems Stated complaint: ear pain/neck pain Time Seen by Provider: 11/05/21 14:29 Source: patient Mode of arrival: ambulatory Limitations: no limitations History of Present Illness MD Complaint: ear pain Location: left ear Duration: constant Severity: moderate Relieving factors: nothing Exacerbating factors: palpation Discharge from ear: no Associated symptoms ear: external ear tenderness Treatment prior to arrival: none Related Data Home Medications Medication Instructions Recorded Confirmed albuterol sulfate 2.5 mg/3 mL 2.5 mg inhalation Q4-6H PRN 04/09/20 12/17/20 (0.083 %) solution for nebulization Wheezing amlodipine 10 mg tablet 10 mg PO DAILY 04/09/20 12/17/20 aspirin 81 mg tablet,delayed 81 mg PO DAILY 04/09/20 12/17/20 release blood-glucose meter #1 ea 04/09/20 clotrimazole 1 % topical cream 1 appl topical BID 04/09/20 05/22/20 (Antifungal (clotrimazole)) fluticasone 250 mcg-salmeterol 50 1 inh inhalation BID 04/09/20 12/17/20 mcg/dose blistr powdr for inhalation (Advair Diskus) fluticasone propionate 50 1 spray intranasal BID 04/09/20 12/17/20 mcg/actuation nasal spray,suspension (Flonase Allergy Relief) gabapentin 600 mg tablet 600 mg PO TID 04/09/20 12/17/20 glipizide 5 mg tablet 2.5 mg PO DAILY 04/09/20 12/17/20 ipratropium 20 mcg-albuterol 100 1 puff inhalation Q4H 04/09/20 12/17/20 mcg/actuation mist for inhalation (Combivent Respimat) lancets 28 gauge (TRUEplus Lancets) #100 ea 04/09/20 metformin 500 mg tablet 500 mg PO BID 04/09/20 12/17/20 nabumetone 750 mg tablet 750 mg PO BID 04/09/20 05/22/20 omeprazole 20 mg capsule,delayed 20 mg PO DAILY 04/09/20 12/17/20 release tizanidine 2 mg capsule 2 mg PO Q8H PRN Pain 04/09/20 05/22/20 trazodone 50 mg tablet 25 mg PO BEDTIME PRN Sleep 04/09/20 12/17/20 glipizide 5 mg tablet, extended 5 mg PO DAILY 05/09/21 release 24 hr metformin 500 mg tablet,extended 1,000 mg PO BID 05/09/21 release 24 hr blood sugar diagnostic (OneTouch #10 ea 06/06/21 Ultra Test strips) lancets (OneTouch UltraSoft #100 ea 06/06/21 Lancets) latanoprost 0.005 % eye drops 1 drp ophthalmic (eye) QPM 06/06/21 Previous Rx's Medication Instructions Recorded cyclobenzaprine 5 mg tablet 5 mg PO TID PRN muscle spasm #14 03/23/20 tabs lidocaine 5 % topical patch 1 patch topical DAILY #15 ea 03/23/20 (Lidoderm) naproxen 500 mg tablet 500 mg PO BID PRN pain #10 tabs 03/23/20 tramadol 50 mg tablet 50 mg PO Q6H PRN pain #30 tabs 05/29/20 diclofenac sodium 50 mg 50 mg PO BID #20 tabs 06/05/20 tablet,delayed release bisacodyl 5 mg tablet,delayed 10 mg PO ONCE 1 day #2 tabs 11/21/20 release (Dulcolax (bisacodyl)) polyethylene glycol 3350 17 238 g PO ONCE #238 grams 11/21/20 gram/dose oral powder (Miralax) psyllium husk 0.52 gram capsule 0.52 g PO DAILY #30 caps 11/21/20 (Metamucil) mirabegron 25 mg tablet,extended 25 mg PO DAILY 30 days #30 tabs 01/07/21 release 24 hr (Myrbetriq) docusate sodium 100 mg capsule 100 mg PO BEDTIME #30 caps 05/13/21 oxybutynin chloride 5 mg tablet 5 mg PO BID 30 days #60 tabs 06/11/21 tramadol 50 mg tablet 50 mg PO Q8H PRN pain #10 tabs 07/20/21 valacyclovir 1 gram tablet 1,000 mg PO BID #14 tabs 07/20/21 (Valtrex) diazepam 2 mg tablet (Valium) 2 mg PO BID PRN muscle pain #5 tabs 10/03/21 cyclobenzaprine 5 mg tablet 5 mg PO BEDTIME PRN muscle spasm 3 10/08/21 days #3 tabs [id number] 3.5 4 drp otic (ear) left Q8H Otitis 11/05/21 mg/mL-10,000 unit/mL-1 % ear externa 10 days #10 mL solution Allergies Allergy/AdvReac Type Severity Reaction Status Date / Time ciprofloxacin [Ciprofloxacin] Allergy Mild RASH Verified 10/08/21 10:54 Review of Systems Review of Systems: Constitutional : No Weight loss, No Fever, No Chills, No Night Sweats, No Fatigue, No Malaise ENT/Mouth : No Hearing loss, + Ear Pain, No Nasal Congestion, No Sinus Pain, No Hoarseness, No sore throat, No Rhinorrhea, No Swallowing Difficulty Eyes: No Eye Pain, No Swelling, No Redness, No Foreign Body, No Discharge, No Vision Changes Cardiovascular : No Chest Pain, No SOB, No Dyspnea on Exertion, No Orthopnea, No Edema, No Palpitations Respiratory : No Cough, No Sputum, No Wheezing, No Smoke Exposure, No Dyspnea Gastrointestinal : No Nausea, No Vomiting, No Diarrhea, No Constipation, No abdominal Pain, No Hematochezia, No Melena Genitourinary : no irregular bleeding, No Dysuria, No Urinary Frequency, No Hematuria, No Urinary Incontinence, No Urgency, No Flank Pain, No Urinary Flow Changes, No Hesitancy Musculoskeletal : No joint pain, No Myalgias, No Joint Swelling Skin : No Skin Lesions, No rash Neuro : No Weakness, No Numbness, No Paresthesias, No Loss of Consciousness, No Dizziness, No Headache Psych : No Anxiety/Panic, No Depression, No SI/HI/AH/VH, No Social Issues, Heme/Lymph: No Bruising, No Bleeding,No Lymphadenopathy Endocrine : No Polyuria, No Polydipsia, No Temperature Intolerance Yes all other systems are reviewed and are negative PMFSH Past Medical History Attestation statement: The following information was validated with the patient. Source: old records reviewed and nursing notes reviewed Medical History AAA (abdominal aortic aneurysm) Arthralgia Asthma Depression Diabetes GERD (gastroesophageal reflux disease) High cholesterol History of COVID-19 History of prostate cancer HTN (hypertension) Lipoma of back Lower back pain Prostate disease Surgical History History of cataract extraction History of penile implant History of prostate surgery Hx of colonoscopy Hx of cystoscopy S/P AAA (abdominal aortic aneurysm) repair S/P excision of lipoma Family History Family History Mother History of esophageal cancer Social History Social History Patient Tobacco Use Status: Tobacco use Unknown Advance Directives: No Advance Directives Information Provided: Yes Physical Exam Vital Signs: Vital Signs: Last Vital Signs Temp 97.6 F 11/05/21 12:44 Pulse 76 11/05/21 12:44 Resp 16 11/05/21 12:44 BP 118/79 11/05/21 12:44 Pulse Ox 95 11/05/21 12:44 O2 Del Method 11/05/21 12:44 BMI result Body Mass Index 25.0 vital signs have been reviewed as normal and appeared to be correct. Blood pressure normal. Heart rate normal. Respiration rate normal. Temperature normal. Oxygen saturation normal. Appearance: Alert. Oriented X3. No acute distress. Head: Normal external exam. Normocephalic. Atraumatic. Eyes: PERRLA. EOMI. Conjunctiva and sclera normal. Eyelids normal. ENT: Right external ear canal within normal limits. Left external ear canal erythematous with scratch newell consistent with otitis externa. Tenderness to palpation to the left pinna and tragus on manipulation. Tympanic membranes are intact not perforated. TM's Normal. Pharynx normal. Uvula midline. Moist mucous membranes. No lesions/ulcerations or masses noted on the tongue. Normal voice. No trismus noted. No drooling noted. No muffled voice noted. Neck: Normal inspection. Neck supple. FROM. No adenopathy. Thyroid Normal. No meningeal signs. CVS: Normal heart rate and rhythm. Heart sound normal. Pulses normal throughout. No murmurs/rales/gallops. Respiratory: No respiratory distress. Painless inspiration. Breath sounds normal. No wheezes/rales/rhonchi noted. Chest nontender. No accessory muscle usage noted or decreased air movement noted. No signs of trauma. Back: Full range of motion noted. Nontender. Skin: Skin warm and dry. Normal skin color. Normal skin turgor. No rashes/lesions/lacerations noted. Extremities: Extremities exhibit normal range of motion and nontender. Neuro: Oriented X 3. No motor deficit. No sensory deficit. Reflexes normal. Normal steady gait. No focal neuro deficits noted. CN's II-XII intact bilaterally? Vascular: + radial pulses/+ 2 distal pedal pulses/+2 dorsalis pedis b/l. Normal cap refill. No cyanosis noted to upper extremity nails and lower extremity toes nails. Course Course Course Narrative: Patient left-sided otitis externa. Tympanic membranes are intact not perforated. No otitis media noted. Not consistent with mastoiditis. Will DC home with antibiotics and symptomatic treatment instructions return if any new or worsening symptoms follow up with primary care provider. [facility] - Ear Medical Records Attestation: I reviewed the patient's medical records. Discharge Plan Discharge Clinical Impression: Otitis externa Patient Disposition: Home, Self-Care Instructions: Otitis Externa (ED) Prescriptions: New lgzyeodc-mnvsdzqvo-RR 3.5-10,000-1 mg/mL-unit/mL-% solution 4 drp otic (ear) left Q8H 10 Days Qty: 10 1RF No Action Myrbetriq 25 mg tablet extended release 24 hr 25 mg PO DAILY 30 Days Qty: 30 1RF docusate sodium 100 mg capsule 100 mg PO BEDTIME Qty: 30 3RF Rx Instructions: Gonzales 1 capsula todas las noches. oxybutynin chloride 5 mg tablet 5 mg PO BID 30 Days Qty: 60 6RF tramadol 50 mg tablet 50 mg PO Q6H PRN (Reason: pain) Qty: 30 0RF Rx Instructions: 1-2 tabs PO Q6 hours PRN for pain diclofenac sodium 50 mg tablet,delayed release (DR/EC) 50 mg PO BID Qty: 20 0RF lidocaine [Lidoderm] 5 % adhesive patch,medicated 1 patch topical DAILY Qty: 15 0RF Rx Instructions: leave on most painful area for up to 12 hrs naproxen 500 mg tablet 500 mg PO BID PRN (Reason: pain) Qty: 10 0RF cyclobenzaprine 5 mg tablet 5 mg PO TID PRN (Reason: muscle spasm) Qty: 14 0RF valacyclovir [Valtrex] 1 gram tablet 1,000 mg PO BID Qty: 14 0RF tramadol 50 mg tablet 50 mg PO Q8H PRN (Reason: pain) Qty: 10 0RF diazepam [Valium] 2 mg tablet 2 mg PO BID PRN (Reason: muscle pain) Qty: 5 0RF cyclobenzaprine 5 mg tablet 5 mg PO BEDTIME PRN (Reason: muscle spasm) 3 Days Qty: 3 0RF (DME) lancets [TRUEplus Lancets] 28 gauge misc See Rx Instructions .ROUTE .MEDSUPPLY Qty: 100 Rx Instructions: As directed albuterol sulfate 2.5 mg /3 mL (0.083 %) solution for nebulization 2.5 mg inhalation Q4-6H PRN (Reason: Wheezing) tizanidine 2 mg capsule 2 mg PO Q8H PRN (Reason: Pain) trazodone 50 mg tablet 25 mg PO BEDTIME PRN (Reason: Sleep) gabapentin 600 mg tablet 600 mg PO TID nabumetone 750 mg tablet 750 mg PO BID aspirin 81 mg tablet,delayed release (DR/EC) 81 mg PO DAILY omeprazole 20 mg capsule,delayed release(DR/EC) 20 mg PO DAILY amlodipine 10 mg tablet 10 mg PO DAILY glipizide 5 mg tablet 2.5 mg PO DAILY (DME) blood-glucose meter Kit See Rx Instructions .ROUTE .MEDSUPPLY Qty: 1 Rx Instructions: As directed Combivent Respimat 20-100 mcg/actuation mist 1 puff inhalation Q4H fluticasone propionate [Flonase Allergy Relief] 50 mcg/actuation spray,suspension 1 spray intranasal BID Rx Instructions: administer into each nostril fluticasone propion-salmeterol [Advair Diskus] 250-50 mcg/dose blister with device 1 inh inhalation BID metformin 500 mg tablet 500 mg PO BID clotrimazole [Antifungal (clotrimazole)] 1 % cream 1 appl topical BID bisacodyl [Dulcolax (bisacodyl)] 5 mg tablet,delayed release (DR/EC) 10 mg PO ONCE 1 Days Qty: 2 0RF Rx Instructions: take 2 tabs at noon the day before your colonoscopy polyethylene glycol 3350 [Miralax] 17 gram/dose powder 238 g PO ONCE Qty: 238 0RF Rx Instructions: As directed by gastroenterology department at [facility] psyllium husk [Metamucil] 0.52 gram capsule 0.52 g PO DAILY Qty: 30 4RF Rx Instructions: Gonzales 1 tableta al mediodia con un vaso de agua lleno. metformin 500 mg tablet extended release 24 hr 1,000 mg PO BID glipizide 5 mg tablet extended release 24hr 5 mg PO DAILY (DME) lancets [OneTouch UltraSoft Lancets] Misc See Rx Instructions Not Applicable TID Qty: 100 Rx Instructions: As directed (DME) OneTouch Ultra Test Strip See Rx Instructions Not Applicable TID Qty: 10 Rx Instructions: As directed latanoprost 0.005 % drops 1 drp ophthalmic (eye) QPM Referrals: Praful Fajardo MD [Primary Care Provider] - 1 week Print Language: [place]
== END 2021-11-05 15:36 | disposition home or self-care (01) ==
PROVIDERS: Emergency Provider Emergency Medicine; PCP Internal Medicine
DX: H60.92 Unspecified otitis externa, left ear (principal); H92.02 Otalgia, left ear; E11.9 Type 2 diabetes mellitus without complications; I10 Essential (primary) hypertension; E78.5 Hyperlipidemia, unspecified; Z79.84 Long term (current) use of oral hypoglycemic drugs
CPT/HCPCS: 99282; 99283

== ENCOUNTER 2022-02-12 09:33 | Outpatient (REF) | payer MEDICARE, SELFPAY ==
[2022-02-12 11:03] LABS: PSA,Total (Free>4and<10) < 0.05 ng/mL (0.00-4.00)
== END 2022-02-12 09:34 | disposition home or self-care (01) ==
LOC: HO.LAB 09:33
PROVIDERS: PCP Internal Medicine; Visit Provider Urology
DX: C61 Malignant neoplasm of prostate (principal); N52.9 Male erectile dysfunction, unspecified; N32.81 Overactive bladder; Z12.5 Encounter for screening for malignant neoplasm of prostate; Z79.899 Other long term (current) drug therapy
CPT/HCPCS: 36415; 51798; 84153; 99212

== ENCOUNTER 2022-02-26 10:19 | Emergency (ER) | payer MEDICARE, SELFPAY ==
--- NOTE | ~2022-02-26 | CT_ITS ---
EXAMINATION: CT ABDOMEN AND PELVIS WITHOUT CONTRAST CLINICAL INFORMATION: Back pain/flank pain. Rule out mass, aortic enlargement COMPARISON: 10/08/2021 TECHNIQUE: Multidetector volumetric imaging was performed from the lung bases through the pubic symphysis. Sagittal and coronal reformatted images were obtained on the technologist workstation. This CT examination was performed using dose optimization techniques as appropriate, variously including the following: *Automated exposure control *Adjustment of mA and/or kV according to patient size (this includes techniques or standardized protocols for targeted exams where dose is matched to indication/reason for exam; i.e. extremities or head) *Use of iterative reconstruction technique FINDINGS: The lack of intravenous contrast limits evaluation of the solid visceral organs including the liver, spleen, pancreas, and kidneys. LUNG BASES: Coronary artery calcifications are present. Normal heart size. Atelectasis at the lung bases. LIVER, GALLBLADDER, AND BILIARY TREE: Unchanged cyst centrally in the liver near the dome. No suspicious or concerning liver lesion. Gallbladder and biliary tree are normal. PANCREAS: Limited non-contrast evaluation is normal. No rosemarie-pancreatic fluid. SPLEEN: Unchanged low-density lesion posteriorly in the spleen. ADRENAL GLANDS: Diffuse adrenal thickening unchanged. KIDNEYS AND URETERS: Again seen is a right renal parapelvic cyst. Water density left renal cysts are present as well. GASTROINTESTINAL TRACT: Small bowel and colon are non-dilated. No bowel wall thickening. No pericolonic inflammatory changes to suggest colitis or diverticulitis. ABDOMINAL WALL: Diastases of the rectus abdominis and a small fat-containing umbilical hernia. LYMPH NODES: No pathologically enlarged lymph nodes in the abdomen or pelvis. VASCULAR: There is an infrarenal abdominal aortic aneurysm with an aortobiiliac stent graft in place. The aorta measures 5 x 5.7 cm smaller than on the prior study 10/08/2021. No IV contrast was administered to assess for opacification or endoleak. BLADDER: Unremarkable. PELVIC VISCERA: Prostate surgically absent. There is a reservoir from a penile prosthesis in the left anterior pelvis. OSSEOUS STRUCTURES: No acute or suspicious osseous abnormalities. CT/CT abdomen pelvis wo IV con IMPRESSION: No acute CT findings. Decreased size of infrarenal abdominal aortic aneurysm status post aortobiiliac stent graft.
--- NOTE | ~2022-02-26 | XR_ITS ---
EXAMINATION: XR CHEST CLINICAL INFORMATION: Cough. Difficulty breathing COMPARISON: None TECHNIQUE: 2 views of the chest were obtained. FINDINGS: Lungs hyperaerated but grossly clear. Heart and pulmonary vessels normal. No congestive change. Kyphosis of the thoracic spine with mild spondylitic change. There is degenerative change in both shoulder joints. XR/XR chest 2V IMPRESSION: No active disease.
--- NOTE | ~2022-02-26 | XR_ITS ---
EXAMINATION: XR LUMBOSACRAL SPINE CLINICAL INFORMATION: Back pain COMPARISON: None TECHNIQUE: Three views of the lumbosacral spine. FINDINGS: No fracture or destructive process. There is mild spondylitic change in the upper and mid lumbar spine. There is facet degenerative change L5-S1. There is an aortoiliac stent graft noted. There are metallic clips overlying the prostate. Apparent penile prosthesis. Proximal aortic stent. XR/XR lumbar spine 2-3V IMPRESSION: No acute findings in the lumbar spine.
[2022-02-26 11:56] VITALS: BP 163/93; PULSE 73; RESP 16; TEMP 36.6; O2SAT 97; BMI 24.2
--- NOTE | 2022-02-26 11:59 | ED_ITS ---
HPI - General Adult General Chief complaint: Back Pain/Injury <MILA Rodríguez - Last Filed: 03/03/22 15:17> Stated complaint: Back Pain No Injury <MILA Rodríguez - Last Filed: 03/03/22 15:17> Time Seen by Provider: 02/26/22 12:25 <MILA Rodríguez - Last Filed: 03/03/22 15:17> History of Present Illness HPI narrative: Patient complains of left-sided back pain radiating down the left leg that became worse when he was bending and lifting to move a tire, this happened several days ago and he now is experiencing pain shooting down the left leg with some tingling all the way to his toes, there is no change to bowel or bladder there is no incontinence no dysuria no constipation, there is no muscle weakness no problem walking and no loss of sensation <MILA Khan - Last Filed: 02/26/22 16:49> Related Data Home medications: Home Medications Medication Instructions Recorded Confirmed albuterol sulfate 2.5 mg/3 mL 2.5 mg inhalation Q4-6H PRN 04/09/20 12/17/20 (0.083 %) solution for nebulization Wheezing amlodipine 10 mg tablet 10 mg PO DAILY 04/09/20 12/17/20 aspirin 81 mg tablet,delayed 81 mg PO DAILY 04/09/20 12/17/20 release blood-glucose meter #1 ea 04/09/20 clotrimazole 1 % topical cream 1 appl topical BID 04/09/20 05/22/20 (Antifungal (clotrimazole)) fluticasone 250 mcg-salmeterol 50 1 inh inhalation BID 04/09/20 12/17/20 mcg/dose blistr powdr for inhalation (Advair Diskus) fluticasone propionate 50 1 spray intranasal BID 04/09/20 12/17/20 mcg/actuation nasal spray,suspension (Flonase Allergy Relief) gabapentin 600 mg tablet 600 mg PO TID 04/09/20 12/17/20 glipizide 5 mg tablet 2.5 mg PO DAILY 04/09/20 12/17/20 ipratropium 20 mcg-albuterol 100 1 puff inhalation Q4H 04/09/20 12/17/20 mcg/actuation mist for inhalation (Combivent Respimat) lancets 28 gauge (TRUEplus Lancets) #100 ea 04/09/20 metformin 500 mg tablet 500 mg PO BID 04/09/20 12/17/20 nabumetone 750 mg tablet 750 mg PO BID 04/09/20 05/22/20 omeprazole 20 mg capsule,delayed 20 mg PO DAILY 04/09/20 12/17/20 release tizanidine 2 mg capsule 2 mg PO Q8H PRN Pain 04/09/20 05/22/20 trazodone 50 mg tablet 25 mg PO BEDTIME PRN Sleep 04/09/20 12/17/20 glipizide 5 mg tablet, extended 5 mg PO DAILY 05/09/21 release 24 hr metformin 500 mg tablet,extended 1,000 mg PO BID 05/09/21 release 24 hr blood sugar diagnostic (OneTouch #10 ea 06/06/21 Ultra Test strips) lancets (OneTouch UltraSoft #100 ea 06/06/21 Lancets) latanoprost 0.005 % eye drops 1 drp ophthalmic (eye) QPM 06/06/21 clotrimazole-betamethasone 1 appl topical Q12H PRN 02/12/22 %-0.05 % topical cream trazodone 100 mg tablet 100 mg PO QPM 02/12/22 Previous Rx's Medication Instructions Recorded cyclobenzaprine 5 mg tablet 5 mg PO TID PRN muscle spasm #14 03/23/20 tabs lidocaine 5 % topical patch 1 patch topical DAILY #15 ea 03/23/20 (Lidoderm) naproxen 500 mg tablet 500 mg PO BID PRN pain #10 tabs 03/23/20 tramadol 50 mg tablet 50 mg PO Q6H PRN pain #30 tabs 05/29/20 diclofenac sodium 50 mg 50 mg PO BID #20 tabs 06/05/20 tablet,delayed release psyllium husk 0.52 gram capsule 0.52 g PO DAILY #30 caps 11/21/20 (Metamucil) mirabegron 25 mg tablet,extended 25 mg PO DAILY 30 days #30 tabs 01/07/21 release 24 hr (Myrbetriq) docusate sodium 100 mg capsule 100 mg PO BEDTIME #30 caps 05/13/21 oxybutynin chloride 5 mg tablet 5 mg PO BID 30 days #60 tabs 06/11/21 tramadol 50 mg tablet 50 mg PO Q8H PRN pain #10 tabs 07/20/21 valacyclovir 1 gram tablet 1,000 mg PO BID #14 tabs 07/20/21 (Valtrex) diazepam 2 mg tablet (Valium) 2 mg PO BID PRN muscle pain #5 tabs 10/03/21 cyclobenzaprine 5 mg tablet 5 mg PO BEDTIME PRN muscle spasm 3 10/08/21 days #3 tabs hgaubszj-himxovumj-horvisnuq 3.5 4 drp otic (ear) left Q8H Otitis 11/05/21 mg/mL-10,000 unit/mL-1 % ear externa 10 days #10 mL solution bisacodyl 5 mg tablet,delayed 10 mg PO ONCE 1 day #2 tabs 01/30/22 release (Dulcolax (bisacodyl)) polyethylene glycol 3350 17 238 g PO ONCE #238 grams 01/30/22 gram/dose oral powder (Miralax) acetaminophen 500 mg tablet 1,000 mg PO QID PRN pain #30 tabs 02/26/22 oxycodone 5 mg tablet 5 mg PO Q6H PRN pain #14 tabs 02/26/22 <MIAL Rodríguez - Last Filed: 03/03/22 15:17> Allergies/adverse reactions: Allergies Allergy/AdvReac Type Severity Reaction Status Date / Time ciprofloxacin [Ciprofloxacin] Allergy Mild RASH Verified 02/12/22 15:41 <MILA Rodríguez - Last Filed: 03/03/22 15:17> Review of Systems Review of Systems: Positive for for back pain after lifting Negatives are no fever no chills no dizziness no weakness no headache no head injury no neck pain no numbness weakness or tingling no chest pain no shortness of breath abdominal pain no nausea vomiting or diarrhea no changes to bowel or bladder no incontinence no constipation no burning with urination no frequency no skin rashes no extremity injuries <MILA Khan - Last Filed: 02/26/22 16:49> Yes all other systems are reviewed and are negative <MILA Khan - Last Filed: 02/26/22 16:49> PMFSH Past Medical History Source: nursing notes reviewed <MILA Khan - Last Filed: 02/26/22 16:49> Medical History: Medical History AAA (abdominal aortic aneurysm) Arthralgia Asthma Depression Diabetes GERD (gastroesophageal reflux disease) High cholesterol History of COVID-19 History of prostate cancer HTN (hypertension) Lipoma of back Lower back pain Prostate disease <MILA Rodríguez - Last Filed: 03/03/22 15:17> Surgical History: Surgical History History of cataract extraction History of penile implant History of prostate surgery Hx of colonoscopy Hx of cystoscopy S/P AAA (abdominal aortic aneurysm) repair S/P excision of lipoma <MILA Rodríguez - Last Filed: 03/03/22 15:17> Family History Family History: Family History Mother History of esophageal cancer <MILA Rodríguez - Last Filed: 03/03/22 15:17> Social History Social History: Social History Patient Tobacco Use Status: Tobacco use Unknown Advance Directives: No <MILA Rodríguez - Last Filed: 03/03/22 15:17> Physical Exam ED Vital Signs: Vital Signs - 24 hr 02/26/22 11:56 Temperature 97.9 F Pulse Rate 73 Respiratory Rate 16 Blood Pressure 163/93 H Pulse Oximetry 97 Oxygen Delivery Method Room Air BMI result Body Mass Index 24.2 <MILA Rodríguez - Last Filed: 03/03/22 15:17> Vital Signs - 24 hr 02/26/22 11:56 Temperature 97.9 F Pulse Rate 73 Respiratory Rate 16 Blood Pressure 163/93 H Pulse Oximetry 97 Oxygen Delivery Method Room Air BMI result Body Mass Index 24.2 <MILA Khan - Last Filed: 02/26/22 16:49> General appearance no distress seated comfortably in the chair Head is normocephalic atraumatic Neck is supple nontender Chest clear to auscultation bilateral full symmetric breath sounds Heart no murmur Abdomen soft nontender The back had left-sided lower lumbar tenderness, pain is easily reproduced with moving and changing position, skin is normal no redness no rash no wounds no swelling, no CVA tenderness and no focal bony tenderness Extremities is full range of motion x4 Neuro gait and balance are normal, interaction both comprehension and expression are normal, motor is 5/5 x4 and sensation in both feet is intact and symmetrical <MILA Khan - Last Filed: 02/26/22 16:49> Course Course Course Narrative: rapid medical screening done. Patient presents for left-sided lower back pain radiating down leg without any urinary symptoms. Patient denies any abdominal pain nausea vomiting fever or chills. UA and lumbar spine ordered. Vital signs stabl Was neot. <MILA Rodríguez Last Filed: 03/03/22 15:17> rapid medical screening done. Patient presents for left-sided lower back pain radiating down leg without any urinary symptoms. Patient denies any abdominal pain nausea vomiting fever or chills. UA and lumbar spine ordered. Vital signs stabl Was neot. Patient was evaluated for his back pain which included a CT scan to make sure no compression fracture, no aortic abnormality, no mass The CT scan did show a stent in place in the aorta from a prior repair and it was smaller in size than prior to the repair Chest x-ray was normal, no acute findings on lumbar spine x-ray Patient ambulated easily and was discharged home diagnosis back strain <MILA Khan - Last Filed: 02/26/22 16:49> Medical Decision Making Lab Data Labs: Lab Results 02/26/22 Range/Units 12:15 Urine Color Yellow Urine Appearance Clear Urine pH 5.0 (5.0-9.0) Ur Specific [place] >= 1.030 H (1.005-1.025) Urine Protein 100 (2+) H (Neg-Trace) mg/dL Urine Glucose (UA) Negative (Negative) mg/dL Urine Ketones Trace (Negative) mg/dL Urine Blood Negative (Negative) Urine Nitrite Negative (Negative) Ur Leukocyte Esterase Negative (Negative) Urine RBC 0-2 (0-2) /HPF Urine WBC 0-5 (0-5) /HPF Ur Squamous Epith Cells 0-2 (0-2) /HPF Urine Bacteria None Seen (None Seen) Hyaline Casts 0-2 (0-2) /LPF <MILA Rodríguez Last Filed: 03/03/22 15:17> Lab Results 02/26/22 Range/Units 12:15 Urine Color Yellow Urine Appearance Clear Urine pH 5.0 (5.0-9.0) Ur Specific [place] >= 1.030 H (1.005-1.025) Urine Protein 100 (2+) H (Neg-Trace) mg/dL Urine Glucose (UA) Negative (Negative) mg/dL Urine Ketones Trace (Negative) mg/dL Urine Blood Negative (Negative) Urine Nitrite Negative (Negative) Ur Leukocyte Esterase Negative (Negative) Urine RBC 0-2 (0-2) /HPF Urine WBC 0-5 (0-5) /HPF Ur Squamous Epith Cells 0-2 (0-2) /HPF Urine Bacteria None Seen (None Seen) Hyaline Casts 0-2 (0-2) /LPF <MILA Khan - Last Filed: 02/26/22 16:49> Discharge Plan Discharge Clinical Impression: Back pain <MILA Rodríguez - Last Filed: 03/03/22 15:17> Patient Disposition: Home, Self-Care <MILA Rodríguez - Last Filed: 03/03/22 15:17> Additional Instructions: Chest x-ray normal, CT scan with no dangerous findings, no cancer We will treat pain with Tylenol and Motrin Follow with primary doctor <MILA Rodríguez - Last Filed: 03/03/22 15:17> Prescriptions: New oxycodone 5 mg tablet 5 mg PO Q6H PRN (Reason: pain) Qty: 14 0RF Rx Instructions: Partial Fill upon patient request. acetaminophen 500 mg tablet 1,000 mg PO QID PRN (Reason: pain) Qty: 30 0RF No Action Myrbetriq 25 mg tablet extended release 24 hr 25 mg PO DAILY 30 Days Qty: 30 1RF docusate sodium 100 mg capsule 100 mg PO BEDTIME Qty: 30 3RF Rx Instructions: [place] 1 capsula todas las noches. oxybutynin chloride 5 mg tablet 5 mg PO BID 30 Days Qty: 60 6RF bisacodyl [Dulcolax (bisacodyl)] 5 mg tablet,delayed release (DR/EC) 10 mg PO ONCE 1 Days Qty: 2 0RF Rx Instructions: take 2 tabs at noon the day before your colonoscopy polyethylene glycol 3350 [Miralax] 17 gram/dose powder 238 g PO ONCE Qty: 238 0RF Rx Instructions: As directed by gastroenterology department at [facility] tramadol 50 mg tablet 50 mg PO Q6H PRN (Reason: pain) Qty: 30 0RF Rx Instructions: 1-2 tabs PO Q6 hours PRN for pain diclofenac sodium 50 mg tablet,delayed release (DR/EC) 50 mg PO BID Qty: 20 0RF lidocaine [Lidoderm] 5 % adhesive patch,medicated 1 patch topical DAILY Qty: 15 0RF Rx Instructions: leave on most painful area for up to 12 hrs naproxen 500 mg tablet 500 mg PO BID PRN (Reason: pain) Qty: 10 0RF cyclobenzaprine 5 mg tablet 5 mg PO TID PRN (Reason: muscle spasm) Qty: 14 0RF valacyclovir [Valtrex] 1 gram tablet 1,000 mg PO BID Qty: 14 0RF tramadol 50 mg tablet 50 mg PO Q8H PRN (Reason: pain) Qty: 10 0RF diazepam [Valium] 2 mg tablet 2 mg PO BID PRN (Reason: muscle pain) Qty: 5 0RF cyclobenzaprine 5 mg tablet 5 mg PO BEDTIME PRN (Reason: muscle spasm) 3 Days Qty: 3 0RF ncuqruap-ezmalruhw-RM 3.5-10,000-1 mg/mL-unit/mL-% solution 4 drp otic (ear) left Q8H 10 Days Qty: 10 1RF (DME) lancets [TRUEplus Lancets] 28 gauge misc See Rx Instructions .ROUTE .MEDSUPPLY Qty: 100 Rx Instructions: As directed albuterol sulfate 2.5 mg /3 mL (0.083 %) solution for nebulization 2.5 mg inhalation Q4-6H PRN (Reason: Wheezing) tizanidine 2 mg capsule 2 mg PO Q8H PRN (Reason: Pain) trazodone 50 mg tablet 25 mg PO BEDTIME PRN (Reason: Sleep) gabapentin 600 mg tablet 600 mg PO TID nabumetone 750 mg tablet 750 mg PO BID aspirin 81 mg tablet,delayed release (DR/EC) 81 mg PO DAILY omeprazole 20 mg capsule,delayed release(DR/EC) 20 mg PO DAILY amlodipine 10 mg tablet 10 mg PO DAILY glipizide 5 mg tablet 2.5 mg PO DAILY (DME) blood-glucose meter Kit See Rx Instructions .ROUTE .MEDSUPPLY Qty: 1 Rx Instructions: As directed Combivent Respimat 20-100 mcg/actuation mist 1 puff inhalation Q4H fluticasone propionate [Flonase Allergy Relief] 50 mcg/actuation spray,suspension 1 spray intranasal BID Rx Instructions: administer into each nostril fluticasone propion-salmeterol [Advair Diskus] 250-50 mcg/dose blister with device 1 inh inhalation BID metformin 500 mg tablet 500 mg PO BID clotrimazole [Antifungal (clotrimazole)] 1 % cream 1 appl topical BID psyllium husk [Metamucil] 0.52 gram capsule 0.52 g PO DAILY Qty: 30 4RF Rx Instructions: [place] 1 tableta al mediodia con un vaso de agua lleno. metformin 500 mg tablet extended release 24 hr 1,000 mg PO BID glipizide 5 mg tablet extended release 24hr 5 mg PO DAILY (DME) lancets [OneTouch UltraSoft Lancets] Misc See Rx Instructions Not Applicable TID Qty: 100 Rx Instructions: As directed (DME) OneTouch Ultra Test Strip See Rx Instructions Not Applicable TID Qty: 10 Rx Instructions: As directed latanoprost 0.005 % drops 1 drp ophthalmic (eye) QPM clotrimazole-betamethasone 1-0.05 % cream topical Q12H PRN trazodone 100 mg tablet 100 mg PO QPM <MILA Rodríguez - Last Filed: 03/03/22 15:17> Interventions: ED Discharge Assessment Last Done: 02/26/22 16:56 <MILA Rodríguez - Last Filed: 03/03/22 15:17> Discharge Date/Time: 02/26/22 16:58 <MILA Rodríguez - Last Filed: 03/03/22 15:17>
[2022-02-26 12:22] LABS: Appearance Urine Clear; Color Urine Yellow; Glucose Urine UA Negative (Negative); Leukocyte Esterase Urine Negative (Negative); Nitrite Urine Negative (Negative); Specific Gravity - Urine >= 1.030 (1.005-1.025); UMIC TRIGGER UACC YES; Urine Blood Negative (Negative); Urine Ketones Trace mg/dL (Negative); Urine Protein 100 (2+) mg/dL (Neg-Trace)
[2022-02-26 12:26] LABS: Bacteria Urine None Seen (None Seen); Hyaline Casts Urine 0-2 /LPF (0-2); RBC Urine 0-2 /HPF (0-2); Squamous Epithelial Cell Urine 0-2 /HPF (0-2); WBC Urine 0-5 /HPF (0-5)
== END 2022-02-26 16:58 | disposition home or self-care (01) ==
PROVIDERS: Physician Assistant; Emergency Provider Emergency Medicine; PCP Internal Medicine
DX: M54.50 Low back pain, unspecified (principal); M79.605 Pain in left leg; R07.89 Other chest pain; Z79.899 Other long term (current) drug therapy
CPT/HCPCS: 71046; 72100; 74176; 81001; 99283; 99284

== ENCOUNTER 2022-04-15 23:52 | Emergency (ER) | payer MEDICARE, SELFPAY ==
--- NOTE | 2022-04-15 | ECG_ITS ---
Test Reason : CHEST PAIN Blood Pressure : / mmHG Vent. Rate : 076 BPM Atrial Rate : 076 BPM P-R Int : 136 ms QRS Dur : 080 ms QT Int : 402 ms P-R-T Axes : 078 001 -41 degrees QTc Int : 452 ms Normal sinus rhythm Nonspecific T wave abnormality Abnormal ECG When compared with ECG of 25-MAR-2021 11:30, No significant change was found Referred By: Generic ED Physician Electronically Signed By:HARRIET BUCKNER MD
--- NOTE | ~2022-04-15 | XR_ITS ---
EXAMINATION: XR CHEST CLINICAL INFORMATION: Chest pain COMPARISON: 02/26/2022 TECHNIQUE: Frontal view of the chest was obtained. FINDINGS: Lung volumes are symmetric. No focal consolidation is seen. No evidence of pneumothorax, pleural effusion, or pulmonary edema. The cardiomediastinal contour is unremarkable. No acute osseous findings are seen. XR/XR chest 1V IMPRESSION: No acute cardiopulmonary findings.
[2022-04-15 23:56] VITALS: BP 177/102; PULSE 83; RESP 18; TEMP 36.4; O2SAT 98; BMI 24.2
[2022-04-16 00:16] LABS: MANUAL DIFF FLAG NO
[2022-04-16 00:18] LABS: Basophils Percent Auto 0.4 % (0-2); Eosinophils Absolute Auto 0.3 X10*3/uL (0.0-0.4); Eosinophils Percent Auto 4.4 % (0-4); Hematocrit 39.3 % (42.0-52.0); Hemoglobin 12.7 g/dl (14.0-18.0); Imm Gran Abs Auto 0.02 X10*3/uL (0.00-0.03); Imm Gran Pct Auto 0.3 % (0.0-0.4); Lymphocytes Absolute Auto 2.8 X10*3/uL (1.2-4.9); Lymphocytes Percent Auto 36.6 % (20-40); Mean Corpuscular HGB Conc 32.3 g/dl (31.0-36.0); Mean Corpuscular Hemoglobin 28.4 pg (27.0-33.0); Mean Corpuscular Volume 87.9 fL (80.0-98.0); Mean Platelet Volume 11.1 fL (9.4-12.4); Monocytes Absolute Auto 0.5 X10*3/uL (0.1-1.2); Monocytes Percent Auto 6.8 % (2-11); Neutrophils Absolute Auto 3.9 x10*3/uL (2.0-8.3); Neutrophils Percent Auto 51.5 % (45-73); Platelet Count 196 X10*3/uL (160-400); Red Blood Count 4.47 X10*6/uL (4.60-5.80); Red Cell Distribution Width 14.6 % (11.0-16.0); White Blood Count 7.5 X10*3/uL (4.8-10.8)
--- NOTE | 2022-04-16 00:18 | MHC.EDTECH ---
pt placed on night monitor. ekg and labs done and sent in triage.
--- NOTE | 2022-04-16 00:32 | ED_ITS ---
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 Pain is localized to the mid chest and both rib sides pain was described as dull aching pain started 2 days ago since 09:00 o'clock about 2 hours ago pain is becoming more intense and more constant, pain is moderate is about 5/10 now, no relieving factor, no aggravating factor, no shortness of breath, no fever, no chills. Patient had a history of ACS that require stent placed in the past. Related Data Home Medications Medication Instructions Recorded Confirmed albuterol sulfate 2.5 mg/3 mL 2.5 mg inhalation Q4-6H PRN 04/09/20 12/17/20 (0.083 %) solution for nebulization Wheezing amlodipine 10 mg tablet 10 mg PO DAILY 04/09/20 12/17/20 aspirin 81 mg tablet,delayed 81 mg PO DAILY 04/09/20 12/17/20 release blood-glucose meter #1 ea 04/09/20 clotrimazole 1 % topical cream 1 appl topical BID 04/09/20 05/22/20 (Antifungal (clotrimazole)) fluticasone 250 mcg-salmeterol 50 1 inh inhalation BID 04/09/20 12/17/20 mcg/dose blistr powdr for inhalation (Advair Diskus) fluticasone propionate 50 1 spray intranasal BID 04/09/20 12/17/20 mcg/actuation nasal spray,suspension (Flonase Allergy Relief) gabapentin 600 mg tablet 600 mg PO TID 04/09/20 12/17/20 glipizide 5 mg tablet 2.5 mg PO DAILY 04/09/20 12/17/20 ipratropium 20 mcg-albuterol 100 1 puff inhalation Q4H 04/09/20 12/17/20 mcg/actuation mist for inhalation (Combivent Respimat) lancets 28 gauge (TRUEplus Lancets) #100 ea 04/09/20 metformin 500 mg tablet 500 mg PO BID 04/09/20 12/17/20 nabumetone 750 mg tablet 750 mg PO BID 04/09/20 05/22/20 omeprazole 20 mg capsule,delayed 20 mg PO DAILY 04/09/20 12/17/20 release tizanidine 2 mg capsule 2 mg PO Q8H PRN Pain 04/09/20 05/22/20 trazodone 50 mg tablet 25 mg PO BEDTIME PRN Sleep 04/09/20 12/17/20 glipizide 5 mg tablet, extended 5 mg PO DAILY 05/09/21 release 24 hr metformin 500 mg tablet,extended 1,000 mg PO BID 05/09/21 release 24 hr blood sugar diagnostic (OneTouch #10 ea 06/06/21 Ultra Test strips) lancets (OneTouch UltraSoft #100 ea 06/06/21 Lancets) latanoprost 0.005 % eye drops 1 drp ophthalmic (eye) QPM 06/06/21 clotrimazole-betamethasone 1 appl topical Q12H PRN 02/12/22 %-0.05 % topical cream trazodone 100 mg tablet 100 mg PO QPM 02/12/22 Previous Rx's Medication Instructions Recorded cyclobenzaprine 5 mg tablet 5 mg PO TID PRN muscle spasm #14 03/23/20 tabs lidocaine 5 % topical patch 1 patch topical DAILY #15 ea 03/23/20 (Lidoderm) naproxen 500 mg tablet 500 mg PO BID PRN pain #10 tabs 03/23/20 tramadol 50 mg tablet 50 mg PO Q6H PRN pain #30 tabs 05/29/20 diclofenac sodium 50 mg 50 mg PO BID #20 tabs 06/05/20 tablet,delayed release psyllium husk 0.52 gram capsule 0.52 g PO DAILY #30 caps 11/21/20 (Metamucil) mirabegron 25 mg tablet,extended 25 mg PO DAILY 30 days #30 tabs 01/07/21 release 24 hr (Myrbetriq) docusate sodium 100 mg capsule 100 mg PO BEDTIME #30 caps 05/13/21 oxybutynin chloride 5 mg tablet 5 mg PO BID 30 days #60 tabs 06/11/21 tramadol 50 mg tablet 50 mg PO Q8H PRN pain #10 tabs 07/20/21 valacyclovir 1 gram tablet 1,000 mg PO BID #14 tabs 07/20/21 (Valtrex) diazepam 2 mg tablet (Valium) 2 mg PO BID PRN muscle pain #5 tabs 10/03/21 cyclobenzaprine 5 mg tablet 5 mg PO BEDTIME PRN muscle spasm 3 10/08/21 days #3 tabs qxssbohu-xipvnhjiu-pfhvdugmj 3.5 4 drp otic (ear) left Q8H Otitis 11/05/21 mg/mL-10,000 unit/mL-1 % ear externa 10 days #10 mL solution bisacodyl 5 mg tablet,delayed 10 mg PO ONCE 1 day #2 tabs 01/30/22 release (Dulcolax (bisacodyl)) polyethylene glycol 3350 17 238 g PO ONCE #238 grams 01/30/22 gram/dose oral powder (Miralax) acetaminophen 500 mg tablet 1,000 mg PO QID PRN pain #30 tabs 02/26/22 oxycodone 5 mg tablet 5 mg PO Q6H PRN pain #14 tabs 02/26/22 Allergies Allergy/AdvReac Type Severity Reaction Status Date / Time ciprofloxacin [Ciprofloxacin] Allergy Mild RASH Verified 02/12/22 15:41 Review of Systems Review of Systems: all other systems are reviewed and are negative Constitutional: Reports as per HPI and Reports no additional constitutional complaints Eyes: Reports as per HPI and Reports no additional eye complaints Reports system reviewed and no additional complaints, except as documented Cardiovascular: Reports as per HPI and Reports no additional cardiovascular co mplaints Respiratory: Reports as per HPI and Reports no additional respiratory complaints Gastrointestinal: Reports as per HPI and Reports no additional gastrointestinal complaints Genitourinary: Reports no additional female genitourinary complaints Musculoskeletal: Reports no additional musculoskeletal complaints Skin/Breast: Reports system reviewed and no additional complaints, except as docu Psychiatric: Reports no additional psychiatric complaints Endocrine: Reports no additional endocrine complaints Hematologic/Lymphatic: Reports no additional hematologic/lymphatic complaints Allergic/Immunologic: Reports no additional allergic/immunologic complaints Reports system reviewed and no additional complaints, except as documented and Reports Abnormal speech present [facility] Past Medical History Medical History AAA (abdominal aortic aneurysm) Arthralgia Asthma Depression Diabetes GERD (gastroesophageal reflux disease) High cholesterol History of COVID-19 History of prostate cancer HTN (hypertension) Lipoma of back Lower back pain Prostate disease Surgical History History of cataract extraction History of penile implant History of prostate surgery Hx of colonoscopy Hx of cystoscopy S/P AAA (abdominal aortic aneurysm) repair S/P excision of lipoma Family History Family History Mother History of esophageal cancer Social History Social History Patient Tobacco Use Status: Tobacco use Unknown Advance Directives: No Advance Directives Information Provided: Yes Physical Exam Vital Signs: Vital Signs: Last Vital Signs Temp 98.6 F 04/16/22 04:18 Pulse 81 04/16/22 04:18 Resp 12 04/16/22 04:18 BP 167/93 H 04/16/22 04:18 Pulse Ox 95 04/16/22 04:18 O2 Del Method 04/16/22 04:18 BMI result Body Mass Index 24.2 vital signs have been reviewed as appeared to be correct. Blood pressure normal. Heart rate normal. Respiration rate normal. Temperature normal. Oxygen saturation normal. Appearance: Alert. Oriented X3. No acute distress. Head: Normal external exam. Normocephalic. Atraumatic. No Cisneros signs noted. No raccoon eyes noted Eyes: PERRLA. EOMI. Conjunctiva and sclera normal. Eyelids normal. ENT: TM's Normal. Pharynx normal. Uvula midline. Moist mucous membranes. No trismus noted. No drooling noted. No muffled voice noted. Neck: Normal inspection. Neck supple. FROM. No adenopathy. Thyroid Normal. No meningeal signs. No neck mass noted. CVS: Normal heart rate and rhythm. Heart sound normal. No murmurs noted. Pulses normal throughout. Respiratory: No respiratory distress. Painless inspiration. Breath sounds normal. No wheezes/rales/rhonchi noted. Chest nontender. No accessory muscle usage noted or decreased air movement noted. Abdomen: Soft and nontender. Bowel sounds normal in all 4 quadrants. No distention noted. No organomegaly noted. No visible injury noted. Back: No CVA tenderness. Full range of motion noted. Skin: Skin warm and dry. Normal skin color. Normal skin turgor. No rashes/lesions/lacerations noted. Extremities: No lower extremity edema. Extremities exhibit normal range of motion. Extremities nontender. Neuro: Oriented X 3. Cranial nerve exam: II-XII are grossly intact No motor deficit. No sensory deficit. Reflexes normal. Course Course Course Narrative: 76-year-old male came in for evaluation of chest pain for 3 days that started to get worse 3 hours before arrival, patient had elevated troponin with delta change confirming non-STEMI, EKG nonspecific ST-T changes and flattening of the T-wave in the lateral leads. patient still feels bilateral ribs pain and mid chest burning sensation, the case discussed with Dr. Dunne at [facility] who accepted the patient at [facility] for transfer. Patient was given aspirin, nitroglycerin, metoprolol, heparin drip. Will arrange for transportation to [facility]. aspirin/ nitro/metoprolol/ heparin drip /Transfer to cardiac floor at [facility]. Medications Administered Discontinued Medications Generic Name Dose Route Start Last Admin Trade Name Freq PRN Reason Stop Dose Admin Acetaminophen 650 mg 04/16/22 00:37 04/16/22 01:09 Acetaminophen 325 Mg Tablet PO 04/16/22 00:38 650 mg ONCE ONE Administration Aspirin 81 mg 04/16/22 01:04 04/16/22 01:09 Aspirin Enteric Coated 81 Mg Tablet. PO 04/16/22 01:05 81 mg ONCE ONE Administration Nitroglycerin 0.5 inch 04/16/22 01:04 04/16/22 01:09 Nitroglycerin 2 % Oint 1 Gm Packet TRANSDERMA 04/16/22 01:05 0.5 inch ONCE ONE Administration Medical Decision Making Differential Diagnosis Differential Diagnoses: The differential diagnosis associated with the presentation includes ( ST elevation SD, non STEMI, gastritis.) Lab Data MDM Lab Attestation statement: I reviewed the patient's lab results. Result Diagrams: 04/16/22 00:11 04/16/22 00:11 Labs: Lab Results 04/16/22 04/16/22 04/16/22 Range/Units 00:11 00:11 00:11 WBC 7.5 (4.8-10.8) X10*3/uL RBC 4.47 L (4.60-5.80) X10*6/uL Hgb 12.7 L (14.0-18.0) g/dl Hct 39.3 L (42.0-52.0) % MCV 87.9 (80.0-98.0) fL MCH 28.4 (27.0-33.0) pg MCHC 32.3 (31.0-36.0) g/dl RDW 14.6 (11.0-16.0) % Plt Count 196 D (160-400) X10*3/uL MPV 11.1 (9.4-12.4) fL Immature Gran % (Auto) 0.3 (0.0-0.4) % Neut % (Auto) 51.5 (45-73) % Lymph % (Auto) 36.6 (20-40) % [place] % (Auto) 6.8 (2-11) % Eos % (Auto) 4.4 H (0-4) % Baso % (Auto) 0.4 (0-2) % Lymph # (Auto) 2.8 (1.2-4.9) X10*3/uL [place] # (Auto) 0.5 (0.1-1.2) X10*3/uL Eos # (Auto) 0.3 (0.0-0.4) X10*3/uL Baso # (Auto) 0.0 (0.0-0.2) X10*3/uL Abs Immat Gran (auto) 0.02 (0.00-0.03) X10*3/uL Absolute Neuts (auto) 3.9 (2.0-8.3) x10*3/uL Absolute Nucleated RBC 0.000 (0.0-0.012) X10*3/uL Nucleated RBC % (auto) 0.0 (0.0-0.2) /100WBC Sodium 140 (135-145) mmol/L Potassium 3.9 (3.3-5.1) mmol/L Chloride 105 (96-108) mmol/L Carbon Dioxide 24 (22-29) mmol/L Anion Gap 15 (12-20) BUN 18 H (9-16) mg/dL Creatinine 1.29 (0.5-1.4) mg/dL Estim Creat Clear Calc 43.2 Estimated GFR 54 Random Glucose 156 H D (60-115) mg/dL Calcium 10.1 (8.4-10.2) mg/dL Total Bilirubin 0.4 (0.0-1.0) mg/dL AST 17 D (5-37) U/L ALT 14 (0-40) U/L Alkaline Phosphatase 110 (39-117) U/L Troponin I High Sens 333.9 H* D (<3.5-35.0) ng/L Total Protein 7.9 (6.5-8.0) g/dL Albumin 4.5 (3.5-5.0) g/dL Influenza Type A (PCR) (Negative) Influenza Type B (PCR) (Negative) RSV RNA Qual (PCR) (Negative) SARS-CoV-2 RNA (RT-PCR) (Negative) 04/16/22 04/16/22 Range/Units 00:11 03:16 WBC (4.8-10.8) X10*3/uL RBC (4.60-5.80) X10*6/uL Hgb (14.0-18.0) g/dl Hct (42.0-52.0) % MCV (80.0-98.0) fL MCH (27.0-33.0) pg MCHC (31.0-36.0) g/dl RDW (11.0-16.0) % Plt Count (160-400) X10*3/uL MPV (9.4-12.4) fL Immature Gran % (Auto) (0.0-0.4) % Neut % (Auto) (45-73) % Lymph % (Auto) (20-40) % [place] % (Auto) (2-11) % Eos % (Auto) (0-4) % Baso % (Auto) (0-2) % Lymph # (Auto) (1.2-4.9) X10*3/uL [place] # (Auto) (0.1-1.2) X10*3/uL Eos # (Auto) (0.0-0.4) X10*3/uL Baso # (Auto) (0.0-0.2) X10*3/uL Abs Immat Gran (auto) (0.00-0.03) X10*3/uL Absolute Neuts (auto) (2.0-8.3) x10*3/uL Absolute Nucleated RBC (0.0-0.012) X10*3/uL Nucleated RBC % (auto) (0.0-0.2) /100WBC Sodium (135-145) mmol/L Potassium (3.3-5.1) mmol/L Chloride (96-108) mmol/L Carbon Dioxide (22-29) mmol/L Anion Gap (12-20) BUN (9-16) mg/dL Creatinine (0.5-1.4) mg/dL Estim Creat Clear Calc Estimated GFR Random Glucose (60-115) mg/dL Calcium (8.4-10.2) mg/dL Total Bilirubin (0.0-1.0) mg/dL AST (5-37) U/L ALT (0-40) U/L Alkaline Phosphatase (39-117) U/L Troponin I High Sens 487.6 H* (<3.5-35.0) ng/L Total Protein (6.5-8.0) g/dL Albumin (3.5-5.0) g/dL Influenza Type A (PCR) NEGATIVE (Negative) Influenza Type B (PCR) NEGATIVE (Negative) RSV RNA Qual (PCR) NEGATIVE (Negative) SARS-CoV-2 RNA (RT-PCR) NEGATIVE (Negative) Independent Interpretation I performed an independent interpretation of an: EKG ( normal sinus rhythm at 76 beats per minutes, normal intervals, nonspecific ST-T changes.) and Plain X-Ray ( No acute pathology.) Radiology Impression Discussion of test interpretation with radiology: I have reviewed the radiologist's reading. Critical Care Time Critical Care Time Critical Care Time: Yes Total Critical Care Time: 60 Attestation: I spent 60 minutes providing critical care service to the patient, this including time spent at the bedside to evaluate the patient, reassess the patient, monitoring vital signs, review labs, and radiographic studies, counseling the patient/family, discussing the case with consultants, disposition the patient. Discharge Plan Discharge Clinical Impression: Acute non-ST elevation myocardial infarction (NSTEMI) Patient Disposition: [facility] Hospital Transfer Details: [facility] Prescriptions: No Action Myrbetriq 25 mg tablet extended release 24 hr 25 mg PO DAILY 30 Days Qty: 30 1RF docusate sodium 100 mg capsule 100 mg PO BEDTIME Qty: 30 3RF Rx Instructions: Gonzales 1 capsula todas las noches. oxybutynin chloride 5 mg tablet 5 mg PO BID 30 Days Qty: 60 6RF bisacodyl [Dulcolax (bisacodyl)] 5 mg tablet,delayed release (DR/EC) 10 mg PO ONCE 1 Days Qty: 2 0RF Rx Instructions: take 2 tabs at noon the day before your colonoscopy polyethylene glycol 3350 [Miralax] 17 gram/dose powder 238 g PO ONCE Qty: 238 0RF Rx Instructions: As directed by gastroenterology department at [facility] tramadol 50 mg tablet 50 mg PO Q6H PRN (Reason: pain) Qty: 30 0RF Rx Instructions: 1-2 tabs PO Q6 hours PRN for pain diclofenac sodium 50 mg tablet,delayed release (DR/EC) 50 mg PO BID Qty: 20 0RF lidocaine [Lidoderm] 5 % adhesive patch,medicated 1 patch topical DAILY Qty: 15 0RF Rx Instructions: leave on most painful area for up to 12 hrs naproxen 500 mg tablet 500 mg PO BID PRN (Reason: pain) Qty: 10 0RF cyclobenzaprine 5 mg tablet 5 mg PO TID PRN (Reason: muscle spasm) Qty: 14 0RF valacyclovir [Valtrex] 1 gram tablet 1,000 mg PO BID Qty: 14 0RF tramadol 50 mg tablet 50 mg PO Q8H PRN (Reason: pain) Qty: 10 0RF diazepam [Valium] 2 mg tablet 2 mg PO BID PRN (Reason: muscle pain) Qty: 5 0RF cyclobenzaprine 5 mg tablet 5 mg PO BEDTIME PRN (Reason: muscle spasm) 3 Days Qty: 3 0RF qbwhurmo-oalwvfxvh-NL 3.5-10,000-1 mg/mL-unit/mL-% solution 4 drp otic (ear) left Q8H 10 Days Qty: 10 1RF oxycodone 5 mg tablet 5 mg PO Q6H PRN (Reason: pain) Qty: 14 0RF Rx Instructions: Partial Fill upon patient request. acetaminophen 500 mg tablet 1,000 mg PO QID PRN (Reason: pain) Qty: 30 0RF (DME) lancets [TRUEplus Lancets] 28 gauge misc See Rx Instructions .ROUTE .MEDSUPPLY Qty: 100 Rx Instructions: As directed albuterol sulfate 2.5 mg /3 mL (0.083 %) solution for nebulization 2.5 mg inhalation Q4-6H PRN (Reason: Wheezing) tizanidine 2 mg capsule 2 mg PO Q8H PRN (Reason: Pain) trazodone 50 mg tablet 25 mg PO BEDTIME PRN (Reason: Sleep) gabapentin 600 mg tablet 600 mg PO TID nabumetone 750 mg tablet 750 mg PO BID aspirin 81 mg tablet,delayed release (DR/EC) 81 mg PO DAILY omeprazole 20 mg capsule,delayed release(DR/EC) 20 mg PO DAILY amlodipine 10 mg tablet 10 mg PO DAILY glipizide 5 mg tablet 2.5 mg PO DAILY (DME) blood-glucose meter Kit See Rx Instructions .ROUTE .MEDSUPPLY Qty: 1 Rx Instructions: As directed Combivent Respimat 20-100 mcg/actuation mist 1 puff inhalation Q4H fluticasone propionate [Flonase Allergy Relief] 50 mcg/actuation spray,suspension 1 spray intranasal BID Rx Instructions: administer into each nostril fluticasone propion-salmeterol [Advair Diskus] 250-50 mcg/dose blister with d evice 1 inh inhalation BID metformin 500 mg tablet 500 mg PO BID clotrimazole [Antifungal (clotrimazole)] 1 % cream 1 appl topical BID psyllium husk [Metamucil] 0.52 gram capsule 0.52 g PO DAILY Qty: 30 4RF Rx Instructions: Gonzales 1 tableta al mediodia con un vaso de agua lleno. metformin 500 mg tablet extended release 24 hr 1,000 mg PO BID glipizide 5 mg tablet extended release 24hr 5 mg PO DAILY (DME) lancets [OneTouch UltraSoft Lancets] Misc See Rx Instructions Not Applicable TID Qty: 100 Rx Instructions: As directed (DME) OneTouch Ultra Test Strip See Rx Instructions Not Applicable TID Qty: 10 Rx Instructions: As directed latanoprost 0.005 % drops 1 drp ophthalmic (eye) QPM clotrimazole-betamethasone 1-0.05 % cream topical Q12H PRN trazodone 100 mg tablet 100 mg PO QPM
--- NOTE | 2022-04-16 00:35 | PC.NURSE ---
Pt placed on quality assurance monitor final, states he has 8/10 chest pain. MD at bedside
[2022-04-16 00:37] LABS: Alanine Aminotransferase 14 U/L (0-40); Albumin Level 4.5 g/dL (3.5-5.0); Alkaline Phosphatase 110 U/L (39-117); Anion Gap 15 (12-20); Aspartate Amino Transferase 17 U/L (5-37); Bilirubin Total 0.4 mg/dL (0.0-1.0); Blood Urea Nitrogen 18 mg/dL (9-16); Calcium 10.1 mg/dL (8.4-10.2); Carbon Dioxide 24 mmol/L (22-29); Chloride 105 mmol/L (96-108); Creatinine Clr Calc Pharmacy 43.2; Estimated Glomerular Filt Rate 54; Glucose Random 156 mg/dL (60-115); Potassium 3.9 mmol/L (3.3-5.1); Sodium 140 mmol/L (135-145); Total Protein 7.9 g/dL (6.5-8.0)
[2022-04-16 00:53] LABS: Influenza A PCR NEGATIVE (Negative); Influenza B PCR NEGATIVE (Negative); Resp Syncy Virus RNA Qual PCR NEGATIVE (Negative); SARS COV2 PCR INHOUSE NEGATIVE (Negative)
[2022-04-16 00:54] LABS: Troponin-I High Sensitivity 333.9 ng/L (<3.5-35.0)
[2022-04-16 01:00] VITALS: BP 160/88; PULSE 78; RESP 17; TEMP 37; O2SAT 95
[2022-04-16] MEDS: Nitroglycerin 2 % Oint 1 GM Packet 0.5 INCH TRANSDERMA (01:09)
[2022-04-16] MEDS: Aspirin Enteric Coated 81 MG TABLET.DR PO (01:09)
[2022-04-16] MEDS: Acetaminophen 325 MG TABLET 650 MG PO (01:09)
[2022-04-16 02:04] VITALS: BP 155/92; PULSE 67; RESP 18; O2SAT 95
[2022-04-16 03:51] LABS: Troponin-I High Sensitivity 487.6 ng/L (<3.5-35.0)
--- NOTE | 2022-04-16 04:10 | MHC.EDTECH ---
Call out to [facility] transfer line @[phone]
[2022-04-16 04:18] VITALS: BP 167/93; PULSE 81; RESP 12; TEMP 37; O2SAT 95
--- NOTE | 2022-04-16 04:29 | MHC.EDTECH ---
[facility] room assignment M5 ROOM 110 Nurse to Nurse to Nurse [phone] Accepting
[2022-04-16] MEDS: Metoprolol Tartrate 25 MG TABLET PO (04:31)
[2022-04-16 04:39] LABS: INTERNATIONAL NORM RATIO 0.9 (0.9-1.1); Prothrombin Time 10.8 SEC (10.0-13.1)
[2022-04-16 04:42] LABS: PTT Heparin Drip 30.1 SEC (53-77.9)
[2022-04-16] MEDS: Heparin Sodium,Porcine/1/2NS 25,000 UNIT/250 ML IV.SOLN 8.17 UNIT IVCONT (04:59)
[2022-04-16 05:23] VITALS: BP 165/96; PULSE 70; RESP 18; TEMP 36.9; O2SAT 95
== END 2022-04-16 05:44 | disposition short-term general hospital (02) ==
PROVIDERS: Emergency Provider Emergency Medicine; PCP Internal Medicine
DX: I21.4 Non-ST elevation (NSTEMI) myocardial infarction (principal); R07.89 Other chest pain; Z20.822 Contact with and (suspected) exposure to COVID-19; Z79.899 Other long term (current) drug therapy
CPT/HCPCS: 0241U; 36415; 71045; 80053; 84484; 85025; 85610; 85730; 93005; 96365; 99285

== ENCOUNTER 2022-05-21 10:22 | Outpatient (REF) | payer OTHER, SELFPAY ==
--- NOTE | ~2022-05-21 | CT_ITS ---
EXAMINATION: CT ANGIOGRAM ABDOMEN AND PELVIS CLINICAL INFORMATION: Abdominal aortic aneurysm without rupture. COMPARISON: CT abdomen/pelvis 02/26/2022 and 10/08/[address] angiogram abdomen 05/24/2021. TECHNIQUE: Multiple axial images were obtained through the abdomen and pelvis both before as well as following the administration of 100 mL of Omnipaque 350 intravenous contrast. Delayed scanning to detect an endoleak was not performed. Additional 2-D coronal and sagittal reformatted images and axial 3-D maximum intensity projection MIP images are generated on the CT workstation. This CT examination was performed using dose optimization techniques as appropriate, variously including the following: *Automated exposure control *Adjustment of mA and/or kV according to patient size (this includes techniques or standardized protocols for targeted exams where dose is matched to indication/reason for exam; i.e. extremities or head) *Use of iterative reconstruction technique DLP: 332 mGy-cm VASCULAR FINDINGS: Again seen is an aortobi-iliac stent graft for treatment of an abdominal aortic aneurysm. Since the prior study, maximal sac diameters have decreased from 5.8 x 5.3 cm to 5.3 x 5.6 cm. No endoleak is seen on the arterial phase images. Delayed images for better evaluation of an endoleak were not obtained. The celiac and SMA are patent. Single renal arteries are present bilaterally with a left origin renal artery stenosis present with a mild area of stenosis at the origin of the right renal artery. The SANDEE origin is not patent but branches fill via collaterals. On the right, the stented common iliac artery appears normal measuring 1.1 cm. 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 The external iliac artery shows minimal disease without stenosis. The common femoral artery demonstrates posterior plaque. The femoral bifurcation is patent. On the left, the stent ends in the common iliac artery which measures 1.4 cm. The internal iliac origin is stenotic with poststenotic dilatation. The proximal portion of the internal iliac artery has an unusual appearance that could be secondary to a dissection. Appearances are unchanged when compared to the prior CT angiogram on 05/24/2021. NONVASCULAR FINDINGS: LUNG BASES: Coronary artery calcification not well appreciated on this study. Normal heart size. Minimal atelectasis at the lung bases. LIVER, GALLBLADDER, AND BILIARY TREE: Unchanged cyst centrally in the liver near the dome. No suspicious or concerning liver lesion. Gallbladder and biliary tree are normal. PANCREAS: No significant abnormality is seen. SPLEEN: Unchanged low-density lesion posteriorly in the spleen. ADRENAL GLANDS: Diffuse adrenal thickening unchanged. KIDNEYS AND URETERS: Again bilateral Bosniak class I renal cysts, both parapelvic and cortical. These need no additional imaging or follow-up GASTROINTESTINAL TRACT: Small bowel and colon are non-dilated. No bowel wall thickening. No pericolonic inflammatory changes to suggest colitis or diverticulitis. The appendix is normal. ABDOMINAL WALL: Diastasis of the rectus abdominis and a small fat-containing umbilical hernia. LYMPH NODES: No pathologically enlarged lymph nodes in the abdomen or pelvis. BLADDER: Almost empty. No stones seen. PELVIC VISCERA: Prostate surgically absent. There is a reservoir from a penile prosthesis in the left anterior pelvis again seen. OSSEOUS STRUCTURES: No acute or suspicious osseous abnormalities. Some minimal degenerative changes are seen in the lower thoracic spine. CT/CT angio abdomen pelvis IMPRESSION: 1. Infrarenal abdominal aortic aneurysm treated with aortobiiliac stent graft. No endoleak is seen. Aneurysm sac has decreased in size slightly. 2. Incidental note made of bilateral renal artery stenoses, benign hepatic cyst, prostatectomy changes and penile prosthesis reservoir.
[2022-05-21 15:49] LABS: Creatinine POC 0.9 mg/dL (0.5-1.4); GFR POC 60
== END 2022-05-21 10:23 | disposition home or self-care (01) ==
LOC: HO.CT 10:22
PROVIDERS: PCP Internal Medicine; Visit Provider Surgery Vascular Surgery
DX: I71.40 Abdominal aortic aneurysm, without rupture, unspecified (principal)
CPT/HCPCS: 74174; 82565

== ENCOUNTER → 2022-06-12 09:20 | Outpatient (BNVA) | payer OTHER, SELFPAY | PROVIDERS: PCP Internal Medicine; Visit Provider Surgery Vascular Surgery | DX: I71.40 Abdominal aortic aneurysm, without rupture, unspecified (principal) | CPT/HCPCS: 99212 ==

== ENCOUNTER 2022-08-07 09:02 | Outpatient (REF) | payer OTHER, SELFPAY ==
[2022-08-07 15:43] LABS: Prostate Specific Antigen < 0.10 ng/mL (<0.05-4.0)
== END 2022-08-07 09:03 | disposition home or self-care (01) ==
LOC: HO.LAB 09:02
PROVIDERS: PCP Internal Medicine; Visit Provider Urology
DX: Z12.5 Encounter for screening for malignant neoplasm of prostate (principal); C61 Malignant neoplasm of prostate
CPT/HCPCS: 36415; 84153

== ENCOUNTER 2022-08-11 21:39 | Emergency (ER) | payer OTHER, SELFPAY ==
--- NOTE | 2022-08-11 | ECG_ITS ---
Test Reason : CHEST PAIN Blood Pressure : / mmHG Vent. Rate : 077 BPM Atrial Rate : 077 BPM P-R Int : 120 ms QRS Dur : 092 ms QT Int : 388 ms P-R-T Axes : 075 006 -67 degrees QTc Int : 439 ms Normal sinus rhythm Septal infarct , age undetermined ST & T wave abnormality, consider inferior ischemia Abnormal ECG When compared with ECG of 16-APR-2022 00:00, No significant changes seen Referred By: Generic ED Physician Electronically Signed By:Westley Monet
[2022-08-11 21:53] VITALS: BP 165/97; PULSE 83; RESP 20; TEMP 36.8; O2SAT 99; BMI 23.1
[2022-08-11 22:25] LABS: MANUAL DIFF FLAG NO
[2022-08-11 22:26] LABS: Basophils Percent Auto 0.1 % (0-2); Eosinophils Absolute Auto 0.2 X10*3/uL (0.0-0.4); Eosinophils Percent Auto 2.1 % (0-4); Hemoglobin 11.8 g/dl (14.0-18.0); Imm Gran Abs Auto 0.02 X10*3/uL (0.00-0.03); Imm Gran Pct Auto 0.2 % (0.0-0.4); Lymphocytes Absolute Auto 1.5 X10*3/uL (1.2-4.9); Lymphocytes Percent Auto 16.8 % (20-40); Mean Corpuscular HGB Conc 31.9 g/dl (31.0-36.0); Mean Corpuscular Volume 87.7 fL (80.0-98.0); Mean Platelet Volume 11.3 fL (9.4-12.4); Monocytes Absolute Auto 0.6 X10*3/uL (0.1-1.2); Monocytes Percent Auto 7.1 % (2-11); Neutrophils Absolute Auto 6.4 x10*3/uL (2.0-8.3); Neutrophils Percent Auto 73.7 % (45-73); Platelet Count 202 X10*3/uL (160-400); Red Blood Count 4.22 X10*6/uL (4.60-5.80); Red Cell Distribution Width 16.6 % (11.0-16.0); White Blood Count 8.6 X10*3/uL (4.8-10.8)
[2022-08-11 22:41] LABS: Anion Gap 14 (12-20); Blood Urea Nitrogen 17 mg/dL (9-16); Calcium 9.9 mg/dL (8.4-10.2); Carbon Dioxide 22 mmol/L (22-29); Chloride 110 mmol/L (96-108); Creatinine Clr Calc Pharmacy 46.9; Estimated Glomerular Filt Rate 59; Glucose Random 90 mg/dL (60-115); Sodium 142 mmol/L (135-145)
[2022-08-12 02:17] VITALS: BP 149/84; PULSE 82; RESP 17; TEMP 37.2; O2SAT 95
--- NOTE | 2022-08-12 02:46 | ED_ITS ---
HPI - Nausea/Vomiting/Diarrhea General Chief complaint: Nausea/Vomiting/Diarrhea Stated complaint: diarrhea,body aches Time Seen by Provider: 08/12/22 02:45 Source: patient Mode of arrival: ambulatory Limitations: no limitations History of Present Illness HPI Narrative: Patient presents with diarrhea for 5 days, no fever, no blood. No one else sick at home, no recent exposures, patient had diarrhea after eating [place] fried rice. MD elicited complaint: diarrhea Onset (ago): day(s) Exacerbating factors: eating Related Data Home Medications Medication Instructions Recorded Confirmed albuterol sulfate 2.5 mg/3 mL 2.5 mg inhalation Q4-6H PRN 04/09/20 12/17/20 (0.083 %) solution for nebulization Wheezing amlodipine 10 mg tablet 10 mg PO DAILY 04/09/20 12/17/20 aspirin 81 mg tablet,delayed 81 mg PO DAILY 04/09/20 12/17/20 release blood-glucose meter #1 ea 04/09/20 clotrimazole 1 % topical cream 1 appl topical BID 04/09/20 05/22/20 (Antifungal (clotrimazole)) fluticasone 250 mcg-salmeterol 50 1 inh inhalation BID 04/09/20 12/17/20 mcg/dose blistr powdr for inhalation (Advair Diskus) fluticasone propionate 50 1 spray intranasal BID 04/09/20 12/17/20 mcg/actuation nasal spray,suspension (Flonase Allergy Relief) gabapentin 600 mg tablet 600 mg PO TID 04/09/20 12/17/20 glipizide 5 mg tablet 2.5 mg PO DAILY 04/09/20 12/17/20 ipratropium 20 mcg-albuterol 100 1 puff inhalation Q4H 04/09/20 12/17/20 mcg/actuation mist for inhalation (Combivent Respimat) lancets 28 gauge (TRUEplus Lancets) #100 ea 04/09/20 metformin 500 mg tablet 500 mg PO BID 04/09/20 12/17/20 nabumetone 750 mg tablet 750 mg PO BID 04/09/20 05/22/20 omeprazole 20 mg capsule,delayed 20 mg PO DAILY 04/09/20 12/17/20 release tizanidine 2 mg capsule 2 mg PO Q8H PRN Pain 04/09/20 05/22/20 trazodone 50 mg tablet 25 mg PO BEDTIME PRN Sleep 04/09/20 12/17/20 glipizide 5 mg tablet, extended 5 mg PO DAILY 05/09/21 release 24 hr metformin 500 mg tablet,extended 1,000 mg PO BID 05/09/21 release 24 hr blood sugar diagnostic (OneTouch #10 ea 06/06/21 Ultra Test strips) lancets (OneTouch UltraSoft #100 ea 06/06/21 Lancets) latanoprost 0.005 % eye drops 1 drp ophthalmic (eye) QPM 06/06/21 clotrimazole-betamethasone 1 appl topical Q12H PRN 02/12/22 %-0.05 % topical cream trazodone 100 mg tablet 100 mg PO QPM 02/12/22 Previous Rx's Medication Instructions Recorded cyclobenzaprine 5 mg tablet 5 mg PO TID PRN muscle spasm #14 03/23/20 tabs lidocaine 5 % topical patch 1 patch topical DAILY #15 ea 03/23/20 (Lidoderm) naproxen 500 mg tablet 500 mg PO BID PRN pain #10 tabs 03/23/20 tramadol 50 mg tablet 50 mg PO Q6H PRN pain #30 tabs 05/29/20 diclofenac sodium 50 mg 50 mg PO BID #20 tabs 06/05/20 tablet,delayed release psyllium husk 0.52 gram capsule 0.52 g PO DAILY #30 caps 11/21/20 (Metamucil) mirabegron 25 mg tablet,extended 25 mg PO DAILY 30 days #30 tabs 01/07/21 release 24 hr (Myrbetriq) docusate sodium 100 mg capsule 100 mg PO BEDTIME #30 caps 05/13/21 oxybutynin chloride 5 mg tablet 5 mg PO BID 30 days #60 tabs 06/11/21 tramadol 50 mg tablet 50 mg PO Q8H PRN pain #10 tabs 07/20/21 valacyclovir 1 gram tablet 1,000 mg PO BID #14 tabs 07/20/21 (Valtrex) diazepam 2 mg tablet (Valium) 2 mg PO BID PRN muscle pain #5 tabs 10/03/21 cyclobenzaprine 5 mg tablet 5 mg PO BEDTIME PRN muscle spasm 3 10/08/21 days #3 tabs tedfufhw-eiklqvhhd-rzswtzoxy 3.5 4 drp otic (ear) left Q8H Otitis 11/05/21 mg/mL-10,000 unit/mL-1 % ear externa 10 days #10 mL solution bisacodyl 5 mg tablet,delayed 10 mg PO ONCE 1 day #2 tabs 01/30/22 release (Dulcolax (bisacodyl)) polyethylene glycol 3350 17 238 g PO ONCE #238 grams 01/30/22 gram/dose oral powder (Miralax) acetaminophen 500 mg tablet 1,000 mg PO QID PRN pain #30 tabs 02/26/22 oxycodone 5 mg tablet 5 mg PO Q6H PRN pain #14 tabs 02/26/22 loperamide 2 mg capsule 2 mg PO QID PRN loose stool #14 08/12/22 caps Allergies Allergy/AdvReac Type Severity Reaction Status Date / Time ciprofloxacin [Ciprofloxacin] Allergy Mild RASH Verified 06/12/22 09:28 Review of Systems Review of Systems: Yes all other systems are reviewed and are negative Gastrointestinal: Gastrointestinal: Reports diarrhea Neurologic: Denies Sensory deficit (Neuro) [facility] Past Medical History Medical History AAA (abdominal aortic aneurysm) Arthralgia Asthma Depression Diabetes GERD (gastroesophageal reflux disease) High cholesterol History of COVID-19 History of prostate cancer HTN (hypertension) Lipoma of back Lower back pain Prostate disease Surgical History History of cataract extraction History of penile implant History of prostate surgery Hx of colonoscopy Hx of cystoscopy S/P AAA (abdominal aortic aneurysm) repair S/P excision of lipoma Family History Family History Mother History of esophageal cancer Social History Social History Patient Tobacco Use Status: Tobacco use Unknown Advance Directives: No Advance Directives Information Provided: Yes Physical Exam Vital Signs: Vital Signs: Last Vital Signs Temp 98.2 F 08/12/22 03:28 Pulse 83 08/12/22 03:28 Resp 13 08/12/22 03:28 BP 152/77 H 08/12/22 03:28 Pulse Ox 98 08/12/22 03:28 O2 Del Method Room Air 08/12/22 03:28 BMI result Body Mass Index 23.1 Const: General: healthy appearing Nutritional Appearance: average body habitus Orientation/consciousness: oriented to person and patient oriented x3 Limitations: no limitations HEENT: Head: Yes normal to inspection Ears: external ears normal General nose exam: Normal external nose present Mouth: Normal oral and palatal mucosa present and oropharynx normal Throat: Yes posterior oropharynx normal Eyes: General: appearance normal, both eyes and all related structures Neck: Other: supple Neck: Yes normal visual inspection Chest: Chest palpation & inspection: normal inspection of the chest Resp: Auscultation: clear to auscultation bilaterally Cardio: Jugular venous distension: no JVD Rate: regular rate Rhythm: regular rhythm Heart sounds: S1 normal heart sound present and S2 normal heart sound present GI: Inspection: Yes normal to inspection Palpation (GI): Soft to palpation, nontender and No hepatosplenomegaly present Auscultation: normal bowel so unds : General: Yes no CVA tenderness Back/Spine/Pelvis: Back: no CVA tenderness Skin: General skin exam: no rashes or lesions noted Neuro: General: oriented to person and patient oriented x3 Cranial nerves: Yes CN's II-XII intact bilaterally Motor exam (neuro): 5/5 motor strength present throughout Sensory Exam: No Sensory deficit (Neuro) Extrem: General: Yes normal to inspection Psych: Appearance: grossly normal Course Reevaluation(s) Reevaluation #1: patient well appearing with normal labs will dc home on loperamide Time: 04:28 Medications Administered Discontinued Medications Generic Name Dose Route Start Last Admin Trade Name Freq PRN Reason Stop Dose Admin Loperamide HCl 2 mg 08/12/22 02:53 08/12/22 03:30 Loperamide Hcl 2 Mg Capsule PO 08/12/22 02:54 2 mg ONCE ONE Administration Medical Decision Making Differential Diagnosis Differential Diagnoses: The differential diagnosis associated with the presentation includes (diarrhea, enteritis, dehydration) Admission/Observation Consideration of admission/observation: Escalation of care including admission/observation considered (In a 76yo with severe diarrhea and abdominal pain, admission was considered upon arrival) Lab Data MDM Lab Attestation statement: I reviewed the patient's lab results. 08/11/22 22:21 04/24/23 22:21 Labs: Lab Results 08/11/22 08/11/22 Range/Units 22:21 22:21 WBC 8.6 (4.8-10.8) X10*3/uL RBC 4.22 L (4.60-5.80) X10*6/uL Hgb 11.8 L (14.0-18.0) g/dl Hct 37.0 L (42.0-52.0) % MCV 87.7 (80.0-98.0) fL MCH 28.0 (27.0-33.0) pg MCHC 31.9 (31.0-36.0) g/dl RDW 16.6 H (11.0-16.0) % Plt Count 202 (160-400) X10*3/uL MPV 11.3 (9.4-12.4) fL Immature Gran % (Auto) 0.2 (0.0-0.4) % Neut % (Auto) 73.7 H (45-73) % Lymph % (Auto) 16.8 L (20-40) % [place] % (Auto) 7.1 (2-11) % Eos % (Auto) 2.1 (0-4) % Baso % (Auto) 0.1 (0-2) % Lymph # (Auto) 1.5 (1.2-4.9) X10*3/uL [place] # (Auto) 0.6 (0.1-1.2) X10*3/uL Eos # (Auto) 0.2 (0.0-0.4) X10*3/uL Baso # (Auto) 0.0 (0.0-0.2) X10*3/uL Abs Immat Gran (auto) 0.02 (0.00-0.03) X10*3/uL Absolute Neuts (auto) 6.4 (2.0-8.3) x10*3/uL Absolute Nucleated RBC 0.000 (0.0-0.012) X10*3/uL Nucleated RBC % (auto) 0.0 (0.0-0.2) /100WBC Sodium 142 (135-145) mmol/L Potassium 4.0 (3.3-5.1) mmol/L Chloride 110 H (96-108) mmol/L Carbon Dioxide 22 (22-29) mmol/L Anion Gap 14 (12-20) BUN 17 H (9-16) mg/dL Creatinine 1.19 (0.5-1.4) mg/dL Estim Creat Clear Calc 46.9 Estimated GFR 59 Random Glucose 90 (60-115) mg/dL Calcium 9.9 (8.4-10.2) mg/dL Discharge Plan Discharge Clinical Impression: Diarrhea, Enteritis Patient Disposition: Home, Self-Care Instructions: Acute Diarrhea (ED), Enteritis (ED) Prescriptions: New loperamide 2 mg capsule 2 mg PO QID PRN (Reason: loose stool) Qty: 14 0RF No Action Myrbetriq 25 mg tablet extended release 24 hr 25 mg PO DAILY 30 Days Qty: 30 1RF docusate sodium 100 mg capsule 100 mg PO BEDTIME Qty: 30 3RF Rx Instructions: Gonzales 1 capsula todas las noches. oxybutynin chloride 5 mg tablet 5 mg PO BID 30 Days Qty: 60 6RF bisacodyl [Dulcolax (bisacodyl)] 5 mg tablet,delayed release (DR/EC) 10 mg PO ONCE 1 Days Qty: 2 0RF Rx Instructions: take 2 tabs at noon the day before your colonoscopy polyethylene glycol 3350 [Miralax] 17 gram/dose powder 238 g PO ONCE Qty: 238 0RF Rx Instructions: As directed by gastroenterology department at [facility] tramadol 50 mg tablet 50 mg PO Q6H PRN (Reason: pain) Qty: 30 0RF Rx Instructions: 1-2 tabs PO Q6 hours PRN for pain diclofenac sodium 50 mg tablet,delayed release (DR/EC) 50 mg PO BID Qty: 20 0RF lidocaine [Lidoderm] 5 % adhesive patch,medicated 1 patch topical DAILY Qty: 15 0RF Rx Instructions: leave on most painful area for up to 12 hrs naproxen 500 mg tablet 500 mg PO BID PRN (Reason: pain) Qty: 10 0RF cyclobenzaprine 5 mg tablet 5 mg PO TID PRN (Reason: muscle spasm) Qty: 14 0RF valacyclovir [Valtrex] 1 gram tablet 1,000 mg PO BID Qty: 14 0RF tramadol 50 mg tablet 50 mg PO Q8H PRN (Reason: pain) Qty: 10 0RF diazepam [Valium] 2 mg tablet 2 mg PO BID PRN (Reason: muscle pain) Qty: 5 0RF cyclobenzaprine 5 mg tablet 5 mg PO BEDTIME PRN (Reason: muscle spasm) 3 Days Qty: 3 0RF rtoicxus-kdlkpewmt-BR 3.5-10,000-1 mg/mL-unit/mL-% solution 4 drp otic (ear) left Q8H 10 Days Qty: 10 1RF oxycodone 5 mg tablet 5 mg PO Q6H PRN (Reason: pain) Qty: 14 0RF Rx Instructions: Partial Fill upon patient request. acetaminophen 500 mg tablet 1,000 mg PO QID PRN (Reason: pain) Qty: 30 0RF (DME) lancets [TRUEplus Lancets] 28 gauge misc See Rx Instructions .ROUTE .MEDSUPPLY Qty: 100 Rx Instructions: As directed albuterol sulfate 2.5 mg /3 mL (0.083 %) solution for nebulization 2.5 mg inhalation Q4-6H PRN (Reason: Wheezing) tizanidine 2 mg capsule 2 mg PO Q8H PRN (Reason: Pain) trazodone 50 mg tablet 25 mg PO BEDTIME PRN (Reason: Sleep) gabapentin 600 mg tablet 600 mg PO TID nabumetone 750 mg tablet 750 mg PO BID aspirin 81 mg tablet,delayed release (DR/EC) 81 mg PO DAILY omeprazole 20 mg capsule,delayed release(DR/EC) 20 mg PO DAILY amlodipine 10 mg tablet 10 mg PO DAILY glipizide 5 mg tablet 2.5 mg PO DAILY (DME) blood-glucose meter Kit See Rx Instructions .ROUTE .MEDSUPPLY Qty: 1 Rx Instructions: As directed Combivent Respimat 20-100 mcg/actuation mist 1 puff inhalation Q4H fluticasone propionate [Flonase Allergy Relief] 50 mcg/actuation spray,suspension 1 spray intranasal BID Rx Instructions: administer into each nostril fluticasone propion-salmeterol [Advair Diskus] 250-50 mcg/dose blister with device 1 inh inhalation BID metformin 500 mg tablet 500 mg PO BID clotrimazole [Antifungal (clotrimazole)] 1 % cream 1 appl topical BID psyllium husk [Metamucil] 0.52 gram capsule 0.52 g PO DAILY Qty: 30 4RF Rx Instructions: Gonzales 1 tableta al mediodia con un vaso de agua l[place]o. metformin 500 mg tablet extended release 24 hr 1,000 mg PO BID glipizide 5 mg tablet extended release 24hr 5 mg PO DAILY (DME) lancets [OneTouch UltraSoft Lancets] Misc See Rx Instructions Not Applicable TID Qty: 100 Rx Instructions: As directed (DME) OneTouch Ultra Test Strip See Rx Instructions Not Applicable TID Qty: 10 Rx Instructions: As directed latanoprost 0.005 % drops 1 drp ophthalmic (eye) QPM clotrimazole-betamethasone 1-0.05 % cream topical Q12H PRN trazodone 100 mg tablet 100 mg PO QPM Referrals: Praful Fajardo MD [Primary Care Provider] - 5 days
[2022-08-12 03:28] VITALS: BP 152/77; PULSE 83; RESP 13; TEMP 36.8; O2SAT 98
[2022-08-12] MEDS: Loperamide HCl 2 MG CAPSULE PO (03:30)
--- NOTE | 2022-08-12 03:33 | PC.NURSE ---
pt medicated per mar, pt reposition in bed and urinal placed at bedside. Will continue to monitor.
--- NOTE | 2022-08-12 05:52 | PC.NURSE ---
pt a&o, no sob or chest pain, provider into assess pt, pt medicated per mar, pt no longer have any episodes of diarrhea, reviewed discharge instructions, pt verbalized understanding, pt escorted to lobby to await ride home, son is picking him up
== END 2022-08-12 06:00 | disposition home or self-care (01) ==
PROVIDERS: Emergency Provider Emergency Medicine; PCP Internal Medicine
DX: K52.9 Noninfective gastroenteritis and colitis, unspecified (principal); R11.2 Nausea with vomiting, unspecified; E11.9 Type 2 diabetes mellitus without complications; Z79.84 Long term (current) use of oral hypoglycemic drugs; Z79.899 Other long term (current) drug therapy
CPT/HCPCS: 36415; 80048; 85025; 93005; 99283; 99285

== ENCOUNTER → 2022-08-13 15:43 | Outpatient (BNVA) | payer OTHER, SELFPAY | PROVIDERS: PCP Internal Medicine; Visit Provider Urology | DX: N52.9 Male erectile dysfunction, unspecified (principal); N32.81 Overactive bladder; C61 Malignant neoplasm of prostate | CPT/HCPCS: 99212 ==

== ENCOUNTER 2022-09-11 20:05 | Emergency (ER) | payer OTHER, SELFPAY ==
--- NOTE | ~2022-09-11 | CT_ITS ---
EXAMINATION: CT ANGIOGRAM OF THE CHEST WITH AND WITHOUT CONTRAST (CT PULMONARY ANGIOGRAM FOR PE) CLINICAL INFORMATION: Reason for Exam cp + dimer COMPARISON: CTA chest 10/20/2020. TECHNIQUE: Prior to contrast administration, noncontrast localization images were obtained. Subsequently, multidetector volumetric imaging was performed from the thoracic inlet to below the diaphragms following the administration of 80 mL Omnipaque 350 intravenous contrast. No contrast reaction reported Sagittal, coronal, and MIP oblique sagittal reformatted images were obtained on the CT workstation, uploaded to PACS, and reviewed. This CT examination was performed using dose optimization techniques as appropriate, variously including the following: *Automated exposure control *Adjustment of mA and/or kV according to patient size (this includes techniques or standardized protocols for targeted exams where dose is matched to indication/reason for exam; i.e. extremities or head) *Use of iterative reconstruction technique Total exam dose-length product 197 mGy-cm FINDINGS: QUALITY OF STUDY/CONTRAST BOLUS: Satisfactory. PULMONARY ARTERIES: No pulmonary emboli. THORACIC AORTA: Motion artifact at the root of the aorta. No aneurysm. Atherosclerotic disease. LUNG: Emphysematous changes, more prominent in the right apex. No focal consolidation or groundglass disease. Central airways are patent. Platelike opacities in the left lung base, favored to represent subsegmental atelectasis or scarring. A cluster of pulmonary nodules in the left upper lobe measuring up to 0.6 cm (7:150) are new compared to 10/20/2020. Multiple additional solid pulmonary nodules are not convincingly changed compared to 10/20/2020, for example a 0.4 cm pulmonary nodule in the right upper lobe (7:126), a 0.4 cm pulmonary nodule in the right middle lobe (7:302), and a 0.8 cm pulmonary nodule in the left upper lobe (7:192). PLEURA: No pleural effusion or pneumothorax. MEDIASTINUM: Mild cardiomegaly, unchanged. No pericardial effusion. No hilar or mediastinal lymphadenopathy. No evidence of septal bowing or right heart strain. CORONARY ARTERY CALCIFICATION: Coronary artery calcifications are noted. CHEST WALL/AXILLA: No axillary or internal mammary lymphadenopathy. OSSEOUS STRUCTURES: No acute or suspicious osseous abnormality. UPPER ABDOMEN: Nonspecific focal hypoattenuation in the upper right kidney, measuring higher than simple fluid in attenuation. Simple cyst in the hepatic dome (5:45). Stable water density cyst in the upper spleen. Partially imaged abdominal aortic stent graft. Redemonstration of the small intrapancreatic lipoma in the tail (8:45). No reflux of contrast into the hepatic veins to suggest elevated right heart pressures. CT/CT angio chest PE protocol IMPRESSION: 1. No evidence of pulmonary embolism or increased right-sided heart pressures. 2. New cluster of pulmonary nodules in the left upper lobe, could be infectious/inflammatory in nature. Recommend a short-term follow-up chest CT to rule out malignancy. 3. Multiple additional pulmonary nodules are not convincingly changed compared to 10/20/2020. 4. Nonspecific focal hypoattenuation in the upper pole of the right kidney, measuring higher than simple fluid in attenuation. Further evaluation with a dedicated renal ultrasound is recommended. VTE: negative
--- NOTE | ~2022-09-11 | XR_ITS ---
EXAMINATION: XR CHEST CLINICAL INFORMATION: Chest pain COMPARISON: Chest x-ray 04/16/2022 TECHNIQUE: 2 views of the chest were obtained. FINDINGS: No significant abnormality is noted involving the heart, lungs, mediastinum, bony thorax or soft tissues. Stents in the coronary artery. Surgical clips in the upper abdomen. XR/XR chest 2V IMPRESSION: Unremarkable examination.
--- NOTE | 2022-09-11 20:14 | ECG_ITS ---
Test Reason : chest pain Blood Pressure : / mmHG Vent. Rate : 073 BPM Atrial Rate : 073 BPM P-R Int : 132 ms QRS Dur : 086 ms QT Int : 398 ms P-R-T Axes : 059 -12 -37 degrees QTc Int : 438 ms Normal sinus rhythm Nonspecific ST abnormality Abnormal ECG When compared with ECG of 11-AUG-2022 22:13, No significant changes seen Referred By: Denia Shearer Electronically Signed By:LEO GARCIA
--- NOTE | 2022-09-11 20:17 | ED.CHESTPAIN ---
HPI - Chest Pain General Chief Complaint: Chest Pain Stated Complaint: chest pain left shoulder pain Time Seen by Provider: 09/11/22 22:32 Source: patient Mode of arrival: ambulatory Limitations: no limitations History of Present Illness HPI narrative: 77-year-old male history of aortic abdominal aneurysm with repair, diabetes, hypertension, hyperlipidemia, overactive bladder and prostate cancer presenting to the emergency department for evaluation of chest pain for the past 2 days, tells me feels like he may have lump on his chest however, denies trauma. Patient reports chest pain is intermittent in nature, substernal, with radiation to left upper extremity. He tells me that nothing makes it better or worse. He reports he has had heart issues in the past and he is worried that he is having heart issues. Describes the pain as dull and aching. Patient denies fevers, chills, shortness of breath, nausea, vomiting, abdominal pain, headache, vision changes, dizziness and weakness. Related Data Home Medications Medication Instructions Recorded Confirmed albuterol sulfate 2.5 mg/3 mL 2.5 mg inhalation Q4-6H PRN 04/09/20 08/13/22 (0.083 %) solution for nebulization Wheezing amlodipine 10 mg tablet 10 mg PO DAILY 04/09/20 08/13/22 aspirin 81 mg tablet,delayed 81 mg PO DAILY 04/09/20 08/13/22 release blood-glucose meter #1 ea 04/09/20 08/13/22 clotrimazole 1 % topical cream 1 appl topical BID 04/09/20 08/13/22 (Antifungal (clotrimazole)) fluticasone 250 mcg-salmeterol 50 1 inh inhalation BID 04/09/20 08/13/22 mcg/dose blistr powdr for inhalation (Advair Diskus) fluticasone propionate 50 1 spray intranasal BID 04/09/20 08/13/22 mcg/actuation nasal spray,suspension (Flonase Allergy Relief) gabapentin 600 mg tablet 600 mg PO TID 04/09/20 08/13/22 glipizide 5 mg tablet 2.5 mg PO DAILY 04/09/20 08/13/22 ipratropium 20 mcg-albuterol 100 1 puff inhalation Q4H 04/09/20 08/13/22 mcg/actuation mist for inhalation (Combivent Respimat) lancets 28 gauge (TRUEplus Lancets) #100 ea 04/09/20 08/13/22 metformin 500 mg tablet 500 mg PO BID 04/09/20 08/13/22 nabumetone 750 mg tablet 750 mg PO BID 04/09/20 08/13/22 omeprazole 20 mg capsule,delayed 20 mg PO DAILY 04/09/20 08/13/22 release tizanidine 2 mg capsule 2 mg PO Q8H PRN Pain 04/09/20 08/13/22 trazodone 50 mg tablet 25 mg PO BEDTIME PRN Sleep 04/09/20 08/13/22 glipizide 5 mg tablet, extended 5 mg PO DAILY 05/09/21 08/13/22 release 24 hr metformin 500 mg tablet,extended 1,000 mg PO BID 05/09/21 08/13/22 release 24 hr blood sugar diagnostic (OneTouch #10 ea 06/06/21 08/13/22 Ultra Test strips) lancets (RapidMinerTouch UltraSoft #100 ea 06/06/21 08/13/22 Lancets) latanoprost 0.005 % eye drops 1 drp ophthalmic (eye) QPM 06/06/21 08/13/22 clotrimazole-betamethasone 1 appl topical Q12H PRN 02/12/22 08/13/22 %-0.05 % topical cream Previous Rx's Medication Instructions Recorded cyclobenzaprine 5 mg tablet 5 mg PO TID PRN muscle spasm #14 03/23/20 tabs lidocaine 5 % topical patch 1 patch topical DAILY #15 ea 03/23/20 (Lidoderm) naproxen 500 mg tablet 500 mg PO BID PRN pain #10 tabs 03/23/20 diclofenac sodium 50 mg 50 mg PO BID #20 tabs 06/05/20 tablet,delayed release psyllium husk 0.52 gram capsule 0.52 g PO DAILY #30 caps 11/21/20 (Metamucil) docusate sodium 100 mg capsule 100 mg PO BEDTIME #30 caps 05/13/21 tramadol 50 mg tablet 50 mg PO Q8H PRN pain #10 tabs 07/20/21 valacyclovir 1 gram tablet 1,000 mg PO BID #14 tabs 07/20/21 (Valtrex) diazepam 2 mg tablet (Valium) 2 mg PO BID PRN muscle pain #5 tabs 10/03/21 cyclobenzaprine 5 mg tablet 5 mg PO BEDTIME PRN muscle spasm 3 10/08/21 days #3 tabs pmesxyju-vhdqnjhno-dfftrlkvy 3.5 4 drp otic (ear) left Q8H Otitis 11/05/21 mg/mL-10,000 unit/mL-1 % ear externa 10 days #10 mL solution bisacodyl 5 mg tablet,delayed 10 mg PO ONCE 1 day #2 tabs 01/30/22 release (Dulcolax (bisacodyl)) polyethylene glycol 3350 17 238 g PO ONCE #238 grams 01/30/22 gram/dose oral powder (Miralax) acetaminophen 500 mg tablet 1,000 mg PO QID PRN pain #30 tabs 02/26/22 oxycodone 5 mg tablet 5 mg PO Q6H PRN pain #14 tabs 02/26/22 loperamide 2 mg capsule 2 mg PO QID PRN loose stool #14 08/12/22 caps mirabegron 50 mg tablet,extended 50 mg PO DAILY 30 days #30 tabs 08/13/22 release 24 hr acetaminophen 325 mg tablet 650 mg PO Q6H PRN fever or pain 09/12/22 (Tylenol) #14 tabs Allergies Allergy/AdvReac Type Severity Reaction Status Date / Time ciprofloxacin [Ciprofloxacin] Allergy Mild RASH Verified 06/12/22 09:28 Review of Systems Review of Systems: Constitutional : No Weight loss, No Fever, No Chills, No Fatigue, No Malaise ENT/Mouth : No sore throat, No Rhinorrhea Eyes: No Eye Pain, No Swelling, No Redness Cardiovascular : + Chest Pain, No SOB, No Dyspnea on Exertion, No Orthopnea, No Edema, No Palpitations Respiratory : No Cough, No Sputum, No Wheezing Gastrointestinal : No Nausea, No Vomiting, No Diarrhea, No Constipation, No abdominal Pain, No Hematochezia, No Melena Genitourinary : No Dysuria, No Urinary Frequency, No Hematuria, Musculoskeletal : No joint pain, No Myalgias, No Joint Swelling Skin : No Skin Lesions, No rash Neuro : No Weakness, No Numbness, No Dizziness, No Headache Psych : No Anxiety/Panic, No Depression All other systems reviewed and are negative Yes all other systems are reviewed and are negative [facility] Past Medical History Attestation statement: The following information was validated with the patient. Source: old records reviewed and nursing notes reviewed Medical History AAA (abdominal aortic aneurysm) Arthralgia Asthma Depression Diabetes GERD (gastroesophageal reflux disease) High cholesterol History of COVID-19 History of prostate cancer HTN (hypertension) Lipoma of back Lower back pain Prostate disease Surgical History History of cataract extraction History of penile implant History of prostate surgery Hx of colonoscopy Hx of cystoscopy S/P AAA (abdominal aortic aneurysm) repair S/P excision of lipoma Family History Family History Mother History of esophageal cancer Social History Social History Alcohol intake: never Patient Tobacco Use Status: Tobacco use Unknown Smoked in Last 30 Days: No Use of substances other than those prescribed or required for medical reasons: No Advance Directives: No Advance Directives Information Provided: No Physical Exam Vital Signs: Vital Signs: Last Vital Signs Temp 99.9 F 09/11/22 22:55 Pulse 75 09/11/22 22:55 Resp 14 09/11/22 22:55 BP 153/78 H 09/11/22 22:55 Pulse Ox 98 09/11/22 22:55 O2 Del Method Room Air 09/11/22 22:55 BMI result Body Mass Index 20.7 vss Appearance: Alert.? Oriented X3.? No acute distress.? Head: Normocephalic, atraumatic, no step-offs or deformities Eyes: Pupils equal, round and reactive to light.? ENT: Pharynx normal.? Neck: Normal inspection.? Neck supple.? CVS: Normal heart rate and rhythm.? Pulses normal.? Tenderness to palpation to anterior chest wall Respiratory: No respiratory distress.? Breath sounds normal.? Abdomen: Soft and nontender.? Skin: Skin warm and dry.? Normal skin color.? Normal skin turgor.? Extremities: No lower extremity edema.? No calf ttp. 5/5 strength to bilateral upper and lower extremities Neuro: Oriented X 3.? No motor deficit.? No sensory deficit. CN 2-12 intact Course Course Course Narrative: This is a rapid medical exam. Defer additional HPI, ROS, PE eat prior provider. 77-year-old male with history of AAA with repair, diabetes, HTN presents to the ER with complaints of central chest pain with radiation down left arm which began 2 days ago. Will check EKG, labs, CXR VSS Reevaluation(s) Reevaluation #1: Patient's CBC unremarkable and appears to be at baseline. Chemistry with slightly elevated potassium 5.2 will give 5 gm of Lokelma. No other electrolyte abnormalities requiring intervention. Although patient's BUN is slightly elevated at 24 this is likely secondary to poor p.o. intake and dehydration and he is tolerating p.o. fluids encourage hydration. Patient's troponin negative x2 within nonischemic EKG. D-dimer was elevated which prompted me to order CTA of the chest which was unremarkable the MARÍA negative no evidence of pulmonary embolism or increased right heart strain. New cluster of pulmonary nodules in the left upper lobe. Likely inflammatory, I do not suspect infection. Multiple additional pulmonary nodules are noted. Patient educated on these findings peer at this time patient to be discharged home he is feeling much better. Educated patient on diagnosis and treatment plan, answered all question, patient verbalizes understanding. At this time patient will be discharged home, advised to return with new or worsening symptoms. Educated on worrisome signs and symptoms and when to return. At this time I feel comfortable discharge home. Time: 01:14 Medications Administered Discontinued Medications Generic Name Dose Route Start Last Admin Trade Name Ana Laura PRN Reason Stop Dose Admin Iohexol 65 ml 09/12/22 00:32 09/12/22 00:32 Iohexol 350 Mg/Ml 100 Ml Infus..Btl IV 09/12/22 00:33 65 ml ONCE ONE Administration Medical Decision Making Medical Decision Making [facility] Narrative: 2233 77-year-old male presents with complaints of substernal chest pain, with radiation down left arm which began 2 days ago. Physical exam benign. Likely noncardiac related chest pain likely costochondritis. Low suspicion for ACS. Unlikely that this is PE, pneumonia, dissection, aortic aneurysm rupture Plan labs, urine, imaging, EKG. Differential Diagnosis Differential Diagnoses: The differential diagnosis associated with the presentation includes Likely noncardiac related chest pain likely costochondritis. Low suspicion for ACS. Unlikely that this is PE, pneumonia, dissection, aortic aneurysm rupture Admission/Observation Consideration of admission/observation: Escalation of care including admission/observation considered Unlikely Lab Data MDM Lab Attestation statement: I reviewed the patient's lab results. 09/11/22 20:30 09/11/22 20:27 Labs: Lab Results 09/11/22 09/11/22 09/11/22 Range/Units 20:27 20:27 20:30 WBC 7.9 (4.8-10.8) X10*3/uL RBC 3.73 L (4.60-5.80) X10*6/uL Hgb 10.5 L (14.0-18.0) g/dl Hct 33.0 L (42.0-52.0) % MCV 88.5 (80.0-98.0) fL MCH 28.2 (27.0-33.0) pg MCHC 31.8 (31.0-36.0) g/dl RDW 16.1 H (11.0-16.0) % Plt Count 194 (160-400) X10*3/uL MPV 11.7 (9.4-12.4) fL Immature Gran % (Auto) 0.1 (0.0-0.4) % Neut % (Auto) 53.9 (45-73) % Lymph % (Auto) 32.5 (20-40) % [place] % (Auto) 9.3 (2-11) % Eos % (Auto) 3.8 (0-4) % Baso % (Auto) 0.4 (0-2) % Lymph # (Auto) 2.6 (1.2-4.9) X10*3/uL [place] # (Auto) 0.7 (0.1-1.2) X10*3/uL Eos # (Auto) 0.3 (0.0-0.4) X10*3/uL Baso # (Auto) 0.0 (0.0-0.2) X10*3/uL Abs Immat Gran (auto) 0.01 (0.00-0.03) X10*3/uL Absolute Neuts (auto) 4.3 (2.0-8.3) x10*3/uL Absolute Nucleated RBC 0.000 (0.0-0.012) X10*3/uL Nucleated RBC % (auto) 0.0 (0.0-0.2) /100WBC PT 11.2 (10.0-13.1) SEC INR 1.0 (0.9-1.1) D-Dimer High Sensitivty 440 NG/ML Sodium 144 (135-145) mmol/L Potassium 5.2 H D (3.3-5.1) mmol/L Chloride 110 H (96-108) mmol/L Carbon Dioxide 25 (22-29) mmol/L Anion Gap 14 (12-20) BUN 24 H (9-16) mg/dL Creatinine 1.36 (0.5-1.4) mg/dL Estim Creat Clear Calc 36.7 Estimated GFR 51 Random Glucose 78 (60-115) mg/dL Calcium 9.9 (8.4-10.2) mg/dL Total Bilirubin 0.3 (0.0-1.0) mg/dL Direct Bilirubin 0.1 (0.0-0.5) mg/dL AST 14 (5-37) U/L ALT 15 (0-40) U/L Alkaline Phosphatase 111 (39-117) U/L Troponin I High Sens (<3.5-35.0) ng/L Total Protein 6.9 (6.5-8.0) g/dL Albumin 4.1 (3.5-5.0) g/dL 09/11/09/11/ Range/Units 20:30 23:01 WBC (4.8-10.8) X10*3/uL RBC (4.60-5.80) X10*6/uL Hgb (14.0-18.0) g/dl Hct (42.0-52.0) % MCV (80.0-98.0) fL MCH (27.0-33.0) pg MCHC (31.0-36.0) g/dl RDW (11.0-16.0) % Plt Count (160-400) X10*3/uL MPV (9.4-12.4) fL Immature Gran % (Auto) (0.0-0.4) % Neut % (Auto) (45-73) % Lymph % (Auto) (20-40) % [place] % (Auto) (2-11) % Eos % (Auto) (0-4) % Baso % (Auto) (0-2) % Lymph # (Auto) (1.2-4.9) X10*3/uL [place] # (Auto) (0.1-1.2) X10*3/uL Eos # (Auto) (0.0-0.4) X10*3/uL Baso # (Auto) (0.0-0.2) X10*3/uL Abs Immat Gran (auto) (0.00-0.03) X10*3/uL Absolute Neuts (auto) (2.0-8.3) x10*3/uL Absolute Nucleated RBC (0.0-0.012) X10*3/uL Nucleated RBC % (auto) (0.0-0.2) /100WBC PT (10.0-13.1) SEC INR (0.9-1.1) D-Dimer High Sensitivty NG/ML Sodium (135-145) mmol/L Potassium (3.3-5.1) mmol/L Chloride (96-108) mmol/L Carbon Dioxide (22-29) mmol/L Anion Gap (12-20) BUN (9-16) mg/dL Creatinine (0.5-1.4) mg/dL Estim Creat Clear Calc Estimated GFR Random Glucose (60-115) mg/dL Calcium (8.4-10.2) mg/dL Total Bilirubin (0.0-1.0) mg/dL Direct Bilirubin (0.0-0.5) mg/dL AST (5-37) U/L ALT (0-40) U/L Alkaline Phosphatase (39-117) U/L Troponin I High Sens 3.6 3.7 (<3.5-35.0) ng/L Total Protein (6.5-8.0) g/dL Albumin (3.5-5.0) g/dL Independent Interpretation I performed an independent interpretation of an: EKG (Ventricular rate of 73, WI normal, QRS normal, QT/QTC normal. EKG with normal sinus rhythm ST elevations or inversions concerning for ischemia.), Plain X-Ray (XR/XR chest 2V IMPRESSION: Unremarkable examination.) and CT Scan ( CT/CT angio chest PE protocol IMPRESSION: 1. No evidence of pulmonary embolism or increased right-sided heart pressures. 2. New cluster of pulmonary nodules in the left upper lobe, could be infectious/inflammatory in nature. Recommend a short-term follow-up chest CT to rule out malignancy. 3. Mu) Radiology Impression Discussion of test interpretation with radiology: I have reviewed the radiologist's reading. Core Measures AMI core measures followed: Yes Measure exclusions: not indicated Critical Care Time Critical Care Time Critical Care Time: No Discharge Plan Discharge Clinical Impression: Costochondritis, Chest pain Patient Disposition: Home, Self-Care Instructions: Costochondritis (ED) Additional Instructions: Take your medications as prescribed. If you were prescribed antibiotics today, it is important that you take your medication to their entirety, do not skip any doses, do not finish them early. Follow-up with your primary care provider this week. Return to the emergency department with new or worsening symptoms. Such as fevers, chills, chest pain, shortness of breath, nausea, vomiting, dizziness, headache, vision changes, lethargy In case of emergency call 911 CT/CT angio chest PE protocol IMPRESSION: 1.? No evidence of pulmonary embolism or increased right-sided heart pressures. 2.? New cluster of pulmonary nodules in the left upper lobe, could be infectious/inflammatory in nature. Recommend a short-term follow-up chest CT to rule out malignancy. 3.? Multiple additional pulmonary nodules are not convincingly changed compared to 10/20/2020. 4.? Nonspecific focal hypoattenuation in the upper pole of the right kidney, measuring higher than simple fluid in attenuation. Further evaluation with a dedicated renal ultrasound is recommended. ? VTE: negative Prescriptions: New acetaminophen [Tylenol] 325 mg tablet 650 mg PO Q6H PRN (Reason: fever or pain) Qty: 14 0RF No Action docusate sodium 100 mg capsule 100 mg PO BEDTIME Qty: 30 3RF Rx Instructions: Gonzales 1 capsula todas las noches. bisacodyl [Dulcolax (bisacodyl)] 5 mg tablet,delayed release (DR/EC) 10 mg PO ONCE 1 Days Qty: 2 0RF Rx Instructions: take 2 tabs at noon the day before your colonoscopy polyethylene glycol 3350 [Miralax] 17 gram/dose powder 238 g PO ONCE Qty: 238 0RF Rx Instructions: As directed by gastroenterology department at [facility] diclofenac sodium 50 mg tablet,delayed release (DR/EC) 50 mg PO BID Qty: 20 0RF lidocaine [Lidoderm] 5 % adhesive patch,medicated 1 patch topical DAILY Qty: 15 0RF Rx Instructions: leave on most painful area for up to 12 hrs naproxen 500 mg tablet 500 mg PO BID PRN (Reason: pain) Qty: 10 0RF cyclobenzaprine 5 mg tablet 5 mg PO TID PRN (Reason: muscle spasm) Qty: 14 0RF valacyclovir [Valtrex] 1 gram tablet 1,000 mg PO BID Qty: 14 0RF tramadol 50 mg tablet 50 mg PO Q8H PRN (Reason: pain) Qty: 10 0RF diazepam [Valium] 2 mg tablet 2 mg PO BID PRN (Reason: muscle pain) Qty: 5 0RF cyclobenzaprine 5 mg tablet 5 mg PO BEDTIME PRN (Reason: muscle spasm) 3 Days Qty: 3 0RF [id number] 3.5-10,000-1 mg/mL-unit/mL-% solution 4 drp otic (ear) left Q8H 10 Days Qty: 10 1RF oxycodone 5 mg tablet 5 mg PO Q6H PRN (Reason: pain) Qty: 14 0RF Rx Instructions: Partial Fill upon patient request. acetaminophen 500 mg tablet 1,000 mg PO QID PRN (Reason: pain) Qty: 30 0RF loperamide 2 mg capsule 2 mg PO QID PRN (Reason: loose stool) Qty: 14 0RF (DME) lancets [TRUEplus Lancets] 28 gauge misc See Rx Instructions .ROUTE .MEDSUPPLY Qty: 100 Rx Instructions: As directed albuterol sulfate 2.5 mg /3 mL (0.083 %) solution for nebulization 2.5 mg inhalation Q4-6H PRN (Reason: Wheezing) tizanidine 2 mg capsule 2 mg PO Q8H PRN (Reason: Pain) trazodone 50 mg tablet 25 mg PO BEDTIME PRN (Reason: Sleep) gabapentin 600 mg tablet 600 mg PO TID nabumetone 750 mg tablet 750 mg PO BID aspirin 81 mg tablet,delayed release (DR/EC) 81 mg PO DAILY omeprazole 20 mg capsule,delayed release(DR/EC) 20 mg PO DAILY amlodipine 10 mg tablet 10 mg PO DAILY glipizide 5 mg tablet 2.5 mg PO DAILY (DME) blood-glucose meter Kit See Rx Instructions .ROUTE .MEDSUPPLY Qty: 1 Rx Instructions: As directed Combivent Respimat 20-100 mcg/actuation mist 1 puff inhalation Q4H fluticasone propionate [Flonase Allergy Relief] 50 mcg/actuation spray,suspension 1 spray intranasal BID Rx Instructions: administer into each nostril fluticasone propion-salmeterol [Advair Diskus] 250-50 mcg/dose blister with device 1 inh inhalation BID metformin 500 mg tablet 500 mg PO BID clotrimazole [Antifungal (clotrimazole)] 1 % cream 1 appl topical BID psyllium husk [Metamucil] 0.52 gram capsule 0.52 g PO DAILY Qty: 30 4RF Rx Instructions: Gonzales 1 tableta al mediodia con un vaso de agua lleno. metformin 500 mg tablet extended release 24 hr 1,000 mg PO BID glipizide 5 mg tablet extended release 24hr 5 mg PO DAILY (DME) lancets [OneTouch UltraSoft Lancets] Misc See Rx Instructions Not Applicable TID Qty: 100 Rx Instructions: As directed (DME) OneTouch Ultra Test Strip See Rx Instructions Not Applicable TID Qty: 10 Rx Instructions: As directed latanoprost 0.005 % drops 1 drp ophthalmic (eye) QPM Myrbetriq 50 mg tablet extended release 24 hr 50 mg PO DAILY 30 Days Qty: 30 1RF clotrimazole-betamethasone 1-0.05 % cream topical Q12H PRN Referrals: Praful Fajardo MD [Primary Care Provider] - 2 days [facility] [place]Provider Group] - 2 days Stand Alone Forms: Work/School Release
[2022-09-11 20:18] VITALS: BP 165/86; PULSE 77; RESP 18; TEMP 36.8; O2SAT 98; BMI 20.7
[2022-09-11 20:39] LABS: MANUAL DIFF FLAG NO
[2022-09-11 20:43] LABS: Basophils Percent Auto 0.4 % (0-2); Eosinophils Absolute Auto 0.3 X10*3/uL (0.0-0.4); Eosinophils Percent Auto 3.8 % (0-4); Hemoglobin 10.5 g/dl (14.0-18.0); Imm Gran Abs Auto 0.01 X10*3/uL (0.00-0.03); Imm Gran Pct Auto 0.1 % (0.0-0.4); Lymphocytes Absolute Auto 2.6 X10*3/uL (1.2-4.9); Lymphocytes Percent Auto 32.5 % (20-40); Mean Corpuscular HGB Conc 31.8 g/dl (31.0-36.0); Mean Corpuscular Hemoglobin 28.2 pg (27.0-33.0); Mean Corpuscular Volume 88.5 fL (80.0-98.0); Mean Platelet Volume 11.7 fL (9.4-12.4); Monocytes Absolute Auto 0.7 X10*3/uL (0.1-1.2); Monocytes Percent Auto 9.3 % (2-11); Neutrophils Absolute Auto 4.3 x10*3/uL (2.0-8.3); Neutrophils Percent Auto 53.9 % (45-73); Platelet Count 194 X10*3/uL (160-400); Red Blood Count 3.73 X10*6/uL (4.60-5.80); Red Cell Distribution Width 16.1 % (11.0-16.0); White Blood Count 7.9 X10*3/uL (4.8-10.8)
[2022-09-11 20:57] LABS: Alanine Aminotransferase 15 U/L (0-40); Albumin Level 4.1 g/dL (3.5-5.0); Alkaline Phosphatase 111 U/L (39-117); Anion Gap 14 (12-20); Aspartate Amino Transferase 14 U/L (5-37); Bilirubin Direct 0.1 mg/dL (0.0-0.5); Bilirubin Total 0.3 mg/dL (0.0-1.0); Blood Urea Nitrogen 24 mg/dL (9-16); Calcium 9.9 mg/dL (8.4-10.2); Carbon Dioxide 25 mmol/L (22-29); Chloride 110 mmol/L (96-108); Creatinine Clr Calc Pharmacy 36.7; Estimated Glomerular Filt Rate 51; Glucose Random 78 mg/dL (60-115); Potassium 5.2 mmol/L (3.3-5.1); Sodium 144 mmol/L (135-145); Total Protein 6.9 g/dL (6.5-8.0)
[2022-09-11 20:59] LABS: Prothrombin Time 11.2 SEC (10.0-13.1)
[2022-09-11 21:05] LABS: Troponin-I High Sensitivity 3.6 ng/L (<3.5-35.0)
[2022-09-11 22:55] VITALS: BP 153/78; PULSE 75; RESP 14; TEMP 37.7; O2SAT 98
[2022-09-11 22:59] LABS: D Dimer High Sensitivity 440 NG/ML
[2022-09-11 23:32] LABS: Troponin-I High Sensitivity 3.7 ng/L (<3.5-35.0)
[2022-09-12] MEDS: iohexoL 350 MG/ML 100 ML INFUS..BTL 65 ML IV (00:32)
--- NOTE | 2022-09-12 00:33 | PC.NURSE ---
pt assessed, denies any chest pain. vss
[2022-09-12] MEDS: Sodium Zirconium Cyclosilicate 5 GM POWD.PACK PO (01:26)
== END 2022-09-12 01:43 | disposition home or self-care (01) ==
PROVIDERS: Nurse Practitioner Family; Physician Assistant; Emergency Provider Emergency Medicine; PCP Internal Medicine
DX: R07.89 Other chest pain (principal); M94.0 Chondrocostal junction syndrome [Tietze]; M79.602 Pain in left arm; Z79.899 Other long term (current) drug therapy
CPT/HCPCS: 36415; 71046; 71275; 80048; 80076; 84484; 85025; 85379; 85610; 93005; 99284; Q9967

== ENCOUNTER → 2022-10-14 08:29 | Outpatient (BNVA) | payer OTHER, SELFPAY | PROVIDERS: Visit Provider Urology | DX: C61 Malignant neoplasm of prostate (principal); N32.81 Overactive bladder; N52.9 Male erectile dysfunction, unspecified | CPT/HCPCS: 51798; 99212 ==

== ENCOUNTER 2022-10-16 09:12 | Outpatient (REF) | payer OTHER, SELFPAY ==
--- NOTE | ~2022-10-16 | US_ITS ---
EXAMINATION: US RETROPERITONEAL LIMITED (RENAL ONLY) CLINICAL INFORMATION: Abnormal CT of kidney. COMPARISON: CT angiogram abdomen and pelvis 05/21/2022. Ultrasound abdomen complete 10/20/2020. X-ray abdomen KUB 07/12/2012. TECHNIQUE: Real-time imaging of the kidneys. FINDINGS: RIGHT KIDNEY: 10.6 x 5.0 x 6.0 cm (SAG x AP x TRV). The kidney is normal in size, contour, and echogenicity. Renal cortical thickness is normal. No renal calculi or hydronephrosis. Midpole parapelvic cyst measures 4.3 x 2.9 x 2.3 cm. Midpole cyst measures 0.8 x 0.6 x 0.6 cm. LEFT KIDNEY: 10.8 x 5.8 x 5.1 cm (SAG x AP x TRV). The kidney is normal in size, contour, and echogenicity. Renal cortical thickness is normal. No hydronephrosis. Upper to midpole cyst measures 2.4 x 2.0 x 2.1 cm. Lower pole cyst measures 2.2 x 1.4 x 1.8 cm. Lower pole nonobstructing calculus measures 3 mm. Midpole nonobstructing calculus measures 3 mm. US/US renal BI IMPRESSION: Bilateral renal cysts. No suspicious features. Nonobstructing left renal calculi. No hydronephrosis.
== END 2022-10-16 09:13 | disposition home or self-care (01) ==
LOC: HO.US 09:12
PROVIDERS: PCP Internal Medicine; Visit Provider Internal Medicine
DX: R93.429 Abnormal radiologic findings on diagnostic imaging of unspecified kidney (principal)
CPT/HCPCS: 76775

== ENCOUNTER 2022-10-31 10:44 | Outpatient (AMB) | payer OTHER, SELFPAY ==
--- NOTE | 2022-10-31 10:49 | A.OFFVIS_ITS ---
Intake Vital Signs 10/31/22 10:51 Height 5 ft 6 in BP 130/72 Blood Pressure Location Rt brachial Position Sitting Pulse 60 Pulse Source Pulse Oximeter Pulse Oximetry (%) 99 Oxygen Delivery Method Room Air Intake Visit Reasons: Pulmonary Nodules Intake Note: Álvaro is a new pt who presents today to discuss a stain on his lungs. Chest CTA 09/11/22 and chest x-ray 05/21/22. Pt denies coughing and wheezing. Pt used to smoke cigars but quit about 40 years ago. Allergies ciprofloxacin [Ciprofloxacin] Allergy (Mild, Verified 10/31/22 10:54) RASH HPI Pulmonary Nodules HPI Details 77-year-old gentleman, former 30 pack-year smoker, quit 40 years prior with underlying pulmonary nodules initially not on CT scan from 2020 referred for follow-up on his pulmonary nodules. Patient did have a follow-up CT chest in August of 2022 showing minimal changes from his prior CT chest, but group of new nodules that appear to be inflammatory infectious in etiology. Patient denies dyspnea on exertion. He has been using Combivent as needed less than once a day. Patient does have remote history of asthma. He is supposed bone Advair, however he has not required to use it. He denies family history of lung disease. [facility]LY [facility] Medical History AAA (abdominal aortic aneurysm) Arthralgia Asthma Depression Diabetes GERD (gastroesophageal reflux disease) High cholesterol History of COVID-19 History of prostate cancer HTN (hypertension) Lipoma of back Lower back pain Prostate disease Surgical History History of cataract extraction History of penile implant History of prostate surgery Hx of colonoscopy Hx of cystoscopy S/P AAA (abdominal aortic aneurysm) repair S/P excision of lipoma Family History Mother History of esophageal cancer Social History (Updated 10/31/22 @ 11:03 by Dahlia Mcnulty [facility]) Alcohol intake: never Patient Tobacco Use Status: Former Tobacco user Tobacco use type: Cigar Review of Systems Const Denies daytime sleepiness, Denies excessive sweating, Denies fatigue, Denies fever(s), Denies lethargy, Denies malaise, Denies night sweats, Denies snoring and Denies weight loss Eyes Denies blurry vision and Denies itchy eyes ENT Denies nasal congestion, Denies post nasal drip, Denies sinus pain, Denies sinus pressure and Denies other ( Thrush) Card Denies chest pain, Denies pedal edema, Denies dyspnea, Denies orthopnea and Denies paroxysmal nocturnal dyspnea Resp Denies cough, Denies hemoptysis, Denies excessive phlegm production, Denies dyspnea, Denies snoring and Denies wheezing GI Denies abdominal pain and Denies heartburn Musc Denies myalgias, Denies arthralgias and Denies joint swelling Skin/Breast Denies rash Neuro Denies memory loss and Denies seizure-like activity Psych Denies abnormal sleep pattern, Denies anxiety and Denies memory loss Endo Denies excessive sweating, Denies fatigue and Denies heat intolerance Andrew/Lymph Denies easy bruising Aller/Immun Denies itchy eyes, Denies seasonal rhinorrhea and Denies wheezing Physical Exam Vital Signs: Last Vital Signs Pulse 60 10/31/22 10:51 BP 130/72 10/31/22 10:51 Pulse Ox 99 10/31/22 10:51 Oxygen Delivery Method Room Air 10/31/22 10:51 Const General: no acute distress and alert Nutritional Appearance: not obese Orientation/consciousness: Other orientation findings ( oriented) HEENT Head: Yes atraumatic Eyes General: appearance normal, both eyes and all related structures Sclerae: sclerae normal EOM: EOMs intact bilaterally Neck Neck: Yes supple Lymphatic: no lymphadenopathy noted Resp Effort & Inspection: normal respiratory effort and no use of accessory muscles Auscultation: clear to auscultation bilaterally Cardio Rate: regular rate Rhythm: regular rhythm Heart sounds: no gallops, no murmurs and no rubs Skin General skin exam: other ( warm) Extrem General: No clubbing, No cyanosis and No edema Assessment & Plan Assessment & Plan (1) Asthma-COPD overlap syndrome: Code(s): J44.9 - Chronic obstructive pulmonary disease, unspecified Plan: Likely underlying asthma/COPD overlap syndrome now with reasonable control on as needed Combivent. Will continue current regimen and obtain full PFT for further evaluation. (2) Pulmonary nodules: Code(s): R91.8 - Other nonspecific abnormal finding of lung field Plan: Pulmonary nodules stable on follow-up CT chest for approximately 24 months, but with new nodules noted. Will repeat CT chest in 6 months. Orders: Orders CT chest wo IV con 05/03/23 R91.8 - Other nonspecific abnormal finding of lung field PFT pulmonary function test Today J44.9 - Chronic obstructive pulmonary disease, unspecified Coding Level of Care Code New Pt Level 4 (32042) Diagnoses Asthma-COPD overlap syndrome J44.9 Pulmonary nodules R91.8
[2022-10-31 10:51] VITALS: BP 130/72; PULSE 60; O2SAT 99
== END 2022-10-31 11:19 | disposition home or self-care (01) ==
PROVIDERS: PCP Internal Medicine; Visit Provider Internal Medicine Pulmonary Disease
DX: J44.9 Chronic obstructive pulmonary disease, unspecified (principal); R91.8 Other nonspecific abnormal finding of lung field
CPT/HCPCS: 99204

== ENCOUNTER → 2022-10-31 10:44 | Outpatient (BNVA) | payer OTHER, SELFPAY | PROVIDERS: PCP Internal Medicine; Visit Provider Internal Medicine Pulmonary Disease | DX: R91.8 Other nonspecific abnormal finding of lung field (principal); J44.9 Chronic obstructive pulmonary disease, unspecified | CPT/HCPCS: 99202 ==

== ENCOUNTER 2022-11-06 08:03 | Outpatient (REF) | payer OTHER, SELFPAY ==
--- NOTE | 2022-11-06 09:01 | PFT_ITS ---
FLOWS: 1. FEV1 65% of predicted at 1.68 L. 2. FVC 80% of predicted at 2.76 L. 3. FEV1 to FVC ratio of 0.61. 4. Positive bronchodilator response. LUNG VOLUMES: 1. Total lung capacity 77% of predicted at 4.87 L. 2. Residual volume 91% of predicted at 2.19 L. 3. Slow vital capacity 69% of predicted at 2.67 L. 4. Expiratory reserve volume 79% of predicted at 0.73 L. 5. Diffusion capacity is moderately decreased, diffusion capacity at just to be in mildly decreased after correction for alveolar ventilation. IMPRESSION: Moderate obstructive ventilatory defect with positive bronchodilator response. Decreased diffusion capacity suggests emphysema. MD FRANSISCA Paniagua/MODL / [phone]
== END 2022-11-06 08:04 | disposition home or self-care (01) ==
LOC: HO.RESP 08:03
PROVIDERS: PCP Internal Medicine; Referring Provider Internal Medicine; Visit Provider Internal Medicine
DX: J44.9 Chronic obstructive pulmonary disease, unspecified (principal)
CPT/HCPCS: 94010; 94727; 94729

== ENCOUNTER → 2022-11-06 09:01 | Outpatient (BNV) | payer OTHER, SELFPAY | PROVIDERS: PCP Internal Medicine; Visit Provider Internal Medicine Pulmonary Disease | DX: J44.9 Chronic obstructive pulmonary disease, unspecified (principal); R91.8 Other nonspecific abnormal finding of lung field | CPT/HCPCS: 94060; 94727; 94729 ==

== ENCOUNTER → 2022-12-24 08:57 | Outpatient (BNV) | payer OTHER, SELFPAY | PROVIDERS: PCP Internal Medicine; Visit Provider Internal Medicine Medical Oncology | DX: D64.9 Anemia, unspecified (principal); N18.30 Chronic kidney disease, stage 3 unspecified | CPT/HCPCS: 99204; 99213 ==

== ENCOUNTER 2023-02-03 09:49 | Outpatient (REF) | payer OTHER, SELFPAY ==
--- NOTE | ~2023-02-03 | CT_ITS ---
EXAMINATION: CT ABDOMEN AND PELVIS WITHOUT AND WITH CONTRAST CLINICAL INFORMATION: Weight loss. COMPARISON: CTA abdomen and pelvis dated 05/21/2022. TECHNIQUE: Multidetector volumetric imaging was performed of the abdomen and pelvis before and after the IV administration of 85 mL of Omnipaque 350 intravenous contrast. Sagittal and coronal reformatted images were obtained on the technologist's workstation. This CT examination was performed using dose optimization techniques as appropriate, variously including the following: *Automated exposure control *Adjustment of mA and/or kV according to patient size (this includes techniques or standardized protocols for targeted exams where dose is matched to indication/reason for exam; i.e. extremities or head) *Use of iterative reconstruction technique DLP: 563 mGy-cm FINDINGS: LUNG BASES: Within the right middle lobe (9:327), there are 5 mm and 4 mm noncalcified nodules. These are stable from 07/24/2017, and they are considered benign. There is bibasilar focal linear scar/subsegmental atelectasis. There are marked coronary artery atherosclerotic calcifications. LIVER, GALLBLADDER, AND BILIARY TREE: The liver is normal in size, shape, and attenuation. Within hepatic segment 4A (8:30), a 2.6 cm cyst is seen, with postcontrast Hounsfield value of 15.8 units. No focal hepatic lesion or biliary ductal dilatation is present. There are minimal layering gallstones, with no evidence of radiopaque gallstones, gallbladder wall thickening, or obvious pericholecystic inflammatory changes. PANCREAS: Unremarkable SPLEEN: Unremarkable ADRENAL GLANDS: Unremarkable KIDNEYS AND URETERS: The kidneys are normal in size, shape, and attenuation. No hydronephrosis, hydroureter, or calculi seen. There are benign, simple low-attenuation bilateral renal cysts, which require no imaging follow-up. No perinephric stranding. BLADDER: Unremarkable. GASTROINTESTINAL TRACT: The small and large bowel are unremarkable. The appendix is unremarkable. ABDOMINAL WALL: No significant hernia is appreciated. LYMPH NODES: Normal VASCULAR: There is an abdominal aortic aneurysm measuring 5.9 x 5.6 cm (8:99). This is mildly increased from dimensions of 5.6 x 5.2 cm on 05/21/2022 (11:38). There are aortic and bilateral iliac stent grafts. A type I endoleak is suspected adjacent to the proximal iliac graft margins (8:83). PELVIC VISCERA: The prostate gland and seminal vesicles are normal. OSSEOUS STRUCTURES: There is a sclerotic bone island within the L3 vertebral body, unchanged from 10/20/2020. There is multi-level thoracolumbar spondylosis. No acute or aggressive osseous finding is noted. CT/CT abdomen pelvis wo/w IV con IMPRESSION: 1. There is minimal cholelithiasis. 2. No abdominopelvic mass, free fluid or lymphadenopathy is seen. 3. There is no bowel obstruction, free intraperitoneal air or abscess. No appendicitis or diverticulitis is seen. 4. No urinary calculus or obstruction is seen. 5. A type I endoleak is suspected adjacent to the proximal iliac graft margins. There is mild interim increase in the patient's abdominal aortic aneurysm by 4 mm. Continued imaging surveillance may be indicated. 6. No acute or aggressive osseous finding is noted. Fleischner guidelines were followed.
[2023-02-04 07:10] LABS: Creatinine POC 0.8 mg/dL (0.5-1.4); GFR POC 60
== END 2023-02-03 09:50 | disposition home or self-care (01) ==
LOC: HO.CT 09:49
PROVIDERS: PCP Internal Medicine; Visit Provider Internal Medicine
DX: R63.4 Abnormal weight loss (principal); R70.0 Elevated erythrocyte sedimentation rate
CPT/HCPCS: 74178; 82565

== ENCOUNTER 2023-02-26 10:37 | Outpatient (REF) | payer OTHER, SELFPAY ==
[2023-02-26 11:57] LABS: Alanine Aminotransferase 12 U/L (0-40); Albumin Level 4.1 g/dL (3.5-5.0); Alkaline Phosphatase 100 U/L (39-117); Anion Gap 13 (12-20); Aspartate Amino Transferase 14 U/L (5-37); Bilirubin Direct 0.1 mg/dL (0.0-0.5); Bilirubin Total 0.3 mg/dL (0.0-1.0); Blood Urea Nitrogen 22 mg/dL (9-16); Calcium 9.9 mg/dL (8.4-10.2); Carbon Dioxide 27 mmol/L (22-29); Chloride 110 mmol/L (96-108); Estimated Glomerular Filt Rate 51; Glucose Random 105 mg/dL (60-115); Potassium 4.7 mmol/L (3.3-5.1); Sodium 145 mmol/L (135-145); Total Protein 7.3 g/dL (6.5-8.0)
[2023-02-26 11:58] LABS: Cholesterol 113 mg/dL (<200); HDL Cholesterol 43 mg/dL (>40); LDL Cholesterol Calculated 57 mg/dL (<100); Triglycerides 68 mg/dL (<150)
[2023-02-26 13:08] LABS: Reflex LDLD? No
== END 2023-02-26 10:38 | disposition home or self-care (01) ==
LOC: HO.HHCL 10:37
PROVIDERS: Visit Provider Internal Medicine
DX: I10 Essential (primary) hypertension (principal)
CPT/HCPCS: 36415; 80048; 80061; 80076

== ENCOUNTER 2023-03-19 10:19 | Outpatient (AMB) | payer OTHER, SELFPAY ==
--- NOTE | 2023-03-19 10:15 | MHC.OFFVIS ---
Intake Vital Signs 03/19/23 10:17 Height 5 ft 6 in Weight 147 lb BMI 23.7 Intake Visit Reasons: 1 year CTA fu 05/21/22 Intake Note: pt here for 1 year CTA fu 02/03/2023 Financial Adviser Required: Yes Financial Adviser Name: arsen ames Information Interpreted: non-clinical & clinical Allergies ciprofloxacin [Ciprofloxacin] Allergy (Mild, Verified 03/19/23 10:18) RASH HPI 1 year CTA fu 05/21/22 HPI Details Very pleasant 77-year-old gentleman presents for routine surveillance follow-up regarding aortic aneurysm. He had undergone endovascular repair at [facility]. He reports no significant interval changes. He continues to do is surveillance follow-up with us secondary to insurance changes. He now presents for follow-up with surveillance CT angiogram. [facility] Medical History AAA (abdominal aortic aneurysm) History of COVID-19 History of prostate cancer GERD (gastroesophageal reflux disease) Depression Asthma High cholesterol HTN (hypertension) Lipoma of back Lower back pain Prostate disease Diabetes Arthralgia Surgical History S/P AAA (abdominal aortic aneurysm) repair S/P excision of lipoma History of cataract extraction Hx of colonoscopy Hx of cystoscopy History of penile implant History of prostate surgery Family History Mother History of esophageal cancer Social History Household Members: Significant Other Alcohol intake: never Patient Tobacco Use Status: Former Tobacco user Tobacco use type: Cigar service: No Current occupational status: retired Review of Systems Const All systems reviewed & are unremarkable except as noted in HPI and below Reports no additional complaints ENT Reports Normal hearing present Card Denies chest pain, Denies chest pain at rest, Denies chest pain with activity and Denies pedal edema Resp Denies cough GI Denies abdominal pain Musc Denies abnormal gait, Denies muscle cramps and Denies radiating pain into limb Skin/Breast Denies skin ulcer and Denies wounds Neuro Reports Normal hearing present and Denies abnormal gait Psych Reports no additional complaints Physical Exam Vital Signs: BMI result Body Mass Index 23.7 Const General: cooperative, healthy appearing and comfortable Orientation/consciousness: oriented to person, oriented to place and oriented to time HEENT Head: Yes normal to inspection Neck Neck: Yes normal visual inspection Carotids: no bruits Chest Chest palpation & inspection: normal inspection of the chest Resp Effort & Inspection: normal respiratory effort and able to speak in complete sentences Auscultation: clear to auscultation bilaterally, no crackles, no rales, no rhonchi and no wheezes Cardio Rate: regular rate Rhythm: regular rhythm Heart sounds: S1 normal heart sound present and S2 normal heart sound present Bruits: no carotid bruits Peripheral pulses: Peripheral pulses 2+ throughout GI Inspection: Yes normal to inspection Skin Wounds: no wounds Hair: normal Neuro General: oriented to person, oriented to place and oriented to time Cranial nerves: Yes CN's II-XII intact bilaterally and Yes Normal hearing present Cognition (Neuro): normal cognition Motor exam (neuro): 5/5 motor strength present throughout Extrem Other: venous exam: No significant superficial varicosities or spider telangiectasias, minimal edema General: No clubbing, No cyanosis and No edema Psych Appearance: grossly normal Mental Status: mental status grossly normal Speech and movement: Normal speech and movement present Results Reviewed Results Reviewed: CT angiogram dated 02/03/2023 demonstrates question of a type 1 endoleak adjacent to the proximal iliac graft margins. 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 There is a small increase in sac size approximately 4 mm. Written report and images were reviewed. Assessment & Plan Assessment & Plan (1) AAA (abdominal aortic aneurysm) without rupture: Comment: 10/26/2020 - EVAR performed at [facility] (Dr. Cardoza) Code(s): I71.4 - Abdominal aortic aneurysm, without rupture Qualifiers: Abdominal aorta location: infrarenal aorta Qualified Code(s): I71.43 - Infrarenal abdominal aortic aneurysm, without rupture Plan: In short patient appears to be doing relatively well status post aortic endograft. There is a question of an endoleak. I do believe this appears to be more of a type 2. Typically he would be on our annual surveillance protocol but I have reduced it to 6 months to reassess his sac size and status of this endoleak. This was discussed in detail with the patient. He is in agreement. Thank you for allowing us to assist in his care. The patient had an opportunity to ask questions regarding the treatment plan. All questions were answered. Imaging studies, laboratory studies and physical exam results were discussed and reviewed in detail. No major barriers to understanding were identified. The patient expressed understanding and agreement with the above treatment plan. The patient is aware they should contact our office by phone for worsening of the current condition or the appearance of new symptoms. Thank you for allowing me to participate in the vascular care of this patient. If you have any questions or concerns regarding the treatment for the above condition please do not hesitate to contact me. The office telephone contact is [phone]. This note is constructed using voice recognition software. While every effort has been made to ensure accuracy, dust mill operator errors may have been included. Thank you for allowing me to participate in the care of your patient. Yours sincerely, Jorge Campuzano MD, FACS, R.P.V.I. Orders: Orders Blood Urea Nitrogen 6 Months I71.43 - Infrarenal abdominal aortic aneurysm, without rupture Creatinine 6 Months I71.43 - Infrarenal abdominal aortic aneurysm, without rupture CT angio abdomen pelvis 6 Months I71.43 - Infrarenal abdominal aortic aneurysm, without rupture Coding Level of Care Code Est Pt Level 4 (77545) Diagnoses Infrarenal abdominal aortic aneurysm (AAA) without rupture I71.43 Abdominal aorta location: infrarenal aorta
[2023-03-19 10:17] VITALS: BMI 23.7
== END 2023-03-19 10:31 | disposition home or self-care (01) ==
PROVIDERS: PCP Internal Medicine; Visit Provider Surgery Vascular Surgery
DX: I71.43 Infrarenal abdominal aortic aneurysm, without rupture (principal)
CPT/HCPCS: 99214

== ENCOUNTER → 2023-03-19 10:23 | Outpatient (BNVA) | payer OTHER, SELFPAY | PROVIDERS: PCP Internal Medicine; Visit Provider Surgery Vascular Surgery | DX: I71.43 Infrarenal abdominal aortic aneurysm, without rupture (principal) | CPT/HCPCS: 99212 ==

== ENCOUNTER 2023-04-22 07:38 | Outpatient (REF) | payer OTHER, SELFPAY ==
--- NOTE | ~2023-04-22 | CT_ITS ---
EXAMINATION: CT CHEST WITHOUT CONTRAST CLINICAL INFORMATION: Pulmonary nodules. COMPARISON: CT angiogram chest 09/12/2022. TECHNIQUE: Multidetector volumetric CT imaging of the chest was done. Axial MIP volume rendering provided. Sagittal and coronal reformatted images were obtained. This CT examination was performed using dose optimization techniques as appropriate, variously including the following: *Automated exposure control *Adjustment of mA and/or kV according to patient size (this includes techniques or standardized protocols for targeted exams where dose is matched to indication/reason for exam; i.e. extremities or head) *Use of iterative reconstruction technique DLP: 102 mGy-cm FINDINGS: LUNGS: Again noted are emphysematous changes, most prominent in the right apex. Some fibrotic changes with subpleural reticulation and honeycombing are present at the apices, most prominent on the right (7:119), unchanged from prior. Linear scarring is again seen at the left lung base. The previously seen cluster of pulmonary nodules in the left upper lobe are unchanged with the largest nodular density measuring about 5 mm (7:128-143). Multiple other solid pulmonary nodules are not convincingly changed compared to 09/12/2022. Robertson images of all have been saved. For example, a 5 mm ovoid nodule in the right middle lobe is unchanged (7:321 compare prior 7:302). MEDIASTINUM: The mediastinum is normal. CORONARY ARTERY CALCIFICATION: Moderate. PLEURA: There is no pleural effusion. No pleural mass or thickening. AXILLA: No lymphadenopathy. UPPER ABDOMEN: An abdominal aortic stent graft is partially visualized. OSSEOUS STRUCTURES: Mild degenerative changes are present in the spine. No bony destructive lesions. CT/CT chest wo IV con IMPRESSION: 1. Multiple pulmonary nodules are unchanged when compared to 09/12/2022. 2. Underlying emphysematous changes with some fibrotic changes at the apices, unchanged. 3. Moderate coronary artery calcifications. 4. Partially visualized abdominal aortic stent graft. Fleischner guidelines were followed.
== END 2023-04-22 07:39 | disposition home or self-care (01) ==
LOC: HO.CT 07:38
PROVIDERS: PCP Internal Medicine; Visit Provider Internal Medicine Pulmonary Disease
DX: R91.8 Other nonspecific abnormal finding of lung field (principal)
CPT/HCPCS: 71250

== ENCOUNTER 2023-05-14 09:52 | Outpatient (AMB) | payer OTHER, SELFPAY ==
--- NOTE | 2023-05-14 10:07 | MHC.OFFVIS ---
Intake Vital Signs 05/14/23 10:08 Weight 142 lb 3.17 oz BP 132/72 Blood Pressure Location Rt brachial Position Sitting Pulse 67 Pulse Source Pulse Oximeter Pulse Oximetry (%) 97 Oxygen Delivery Method Room Air Intake Visit Reasons: Pulmonary Nodules Allergies ciprofloxacin [Ciprofloxacin] Allergy (Mild, Verified 05/14/23 10:09) RASH Medication List - Last Reconciled 05/14/23 by Luz Funez LPN acetaminophen (Tylenol) 650 mg (2 x 325 mg) PO Q6H PRN albuterol sulfate 2.5 mg inhalation Q4-6H PRN amlodipine 10 mg PO DAILY aspirin 81 mg PO DAILY blood sugar diagnostic ([employer] Ultra Test strips) As directed blood-glucose meter As directed clotrimazole-betamethasone 1-0.05 % 1 appl topical Q12H PRN fluticasone propion-salmeterol 250-50 mcg/dose (Advair Diskus) 1 inh inhalation BID fluticasone propionate 50 mcg/actuation (Flonase Allergy Relief) 1 spray intranasal BID gabapentin 600 mg PO TID glipizide ER 5 mg PO DAILY ipratropium-albuterol 20-100 mcg/actuation (Combivent Respimat) 1 puff inhalation Q4H lancets (TRUEplus Lancets) As directed lancets ([employer] UltraSoft Lancets) As directed latanoprost 0.005% 1 drp ophthalmic (eye) QPM lidocaine 5% (Lidoderm) 1 patch topical DAILY metformin ER 1,000 mg PO BID omeprazole 20 mg PO DAILY psyllium husk (Metamucil) 0.52 grams PO DAILY trazodone 25 mg PO BEDTIME PRN valacyclovir (Valtrex) 1,000 mg PO BID HPI Pulmonary Nodules HPI Details 77-year-old gentleman, former 30 pack-year smoker, quit 40 years prior now followed for COPD and new pulmonary nodules. He had a follow-up CT chest in 6 months after his prior scan that showed stability of previously newly noted nodules. Patient has been using Advair and Combivent with good control of his underlying symptoms. He denies recent exacerbations. FORMERLY [facility] Medical History AAA (abdominal aortic aneurysm) History of COVID-19 History of prostate cancer GERD (gastroesophageal reflux disease) Depression Asthma High cholesterol HTN (hypertension) Lipoma of back Lower back pain Prostate disease Diabetes Arthralgia Surgical History S/P AAA (abdominal aortic aneurysm) repair S/P excision of lipoma History of cataract extraction Hx of colonoscopy Hx of cystoscopy History of penile implant History of prostate surgery Family History Mother History of esophageal cancer Social History Household Members: Significant Other Alcohol intake: never Patient Tobacco Use Status: Former Tobacco user Tobacco use type: Cigar service: No Current occupational status: retired Review of Systems Const Denies daytime sleepiness, Denies excessive sweating, Denies fatigue, Denies fever(s), Denies lethargy, Denies malaise, Denies night sweats, Denies snoring and Denies weight loss Eyes Denies blurry vision and Denies itchy eyes ENT Denies nasal congestion, Denies post nasal drip, Denies sinus pain, Denies sinus pressure and Denies other ( Thrush) Card Denies chest pain, Denies pedal edema, Denies dyspnea, Denies orthopnea and Denies paroxysmal nocturnal dyspnea Resp Denies cough, Denies hemoptysis, Denies excessive phlegm production, Denies dyspnea, Denies snoring and Denies wheezing GI Denies abdominal pain and Denies heartburn Musc Denies myalgias, Denies arthralgias and Denies joint swelling Skin/Breast Denies rash Neuro Denies memory loss and Denies seizure-like activity Psych Denies abnormal sleep pattern, Denies anxiety and Denies memory loss Endo Denies excessive sweating, Denies fatigue and Denies heat intolerance Andrew/Lymph Denies easy bruising Aller/Immun Denies itchy eyes, Denies seasonal rhinorrhea and Denies wheezing Physical Exam Vital Signs: Last Vital Signs Pulse 67 05/14/23 10:08 BP 132/72 05/14/23 10:08 Pulse Ox 97 05/14/23 10:08 Oxygen Delivery Method Room Air 05/14/23 10:08 Const General: no acute distress and alert Nutritional Appearance: not obese Orientation/consciousness: Other orientation findings ( oriented) HEENT Head: Yes atraumatic Eyes General: appearance normal, both eyes and all related structures Sclerae: sclerae normal EOM: EOMs intact bilaterally Neck Neck: Yes supple Lymphatic: no lymphadenopathy noted Resp Effort & Inspection: normal respiratory effort and no use of accessory muscles Auscultation: clear to auscultation bilaterally Cardio Rate: regular rate Rhythm: regular rhythm Heart sounds: no gallops, no murmurs and no rubs Skin General skin exam: other ( warm) Extrem General: No clubbing, No cyanosis and No edema Assessment & Plan Assessment & Plan (1) Asthma-COPD overlap syndrome: Code(s): J44.9 - Chronic obstructive pulmonary disease, unspecified Plan: Well controlled on Advair and Combivent. Continue current regimen. (2) Pulmonary nodules: Code(s): R91.8 - Other nonspecific abnormal finding of lung field Plan: Results of six-month follow-up CT chest reviewed, stable pulmonary nodules. Will repeat CT chest in 12 months. Orders: Orders CT chest wo IV con 04/24/24 R91.8 - Other nonspecific abnormal finding of lung field Coding Level of Care Code Est Pt Level 4 (55396) Diagnoses Asthma-COPD overlap syndrome J44.9 Pulmonary nodules R91.8
[2023-05-14 10:08] VITALS: BP 132/72; PULSE 67; O2SAT 97
== END 2023-05-14 10:13 | disposition home or self-care (01) ==
PROVIDERS: PCP Internal Medicine; Visit Provider Internal Medicine Pulmonary Disease
DX: J44.9 Chronic obstructive pulmonary disease, unspecified (principal); R91.8 Other nonspecific abnormal finding of lung field
CPT/HCPCS: 99214

== ENCOUNTER → 2023-05-14 09:52 | Outpatient (BNVA) | payer OTHER, SELFPAY | PROVIDERS: PCP Internal Medicine; Visit Provider Internal Medicine Pulmonary Disease | DX: R91.8 Other nonspecific abnormal finding of lung field (principal); J44.9 Chronic obstructive pulmonary disease, unspecified | CPT/HCPCS: 99212 ==

== ENCOUNTER 2023-06-17 08:56 | Outpatient (AMB) | payer OTHER, SELFPAY ==
--- NOTE | 2023-06-17 09:13 | A.OFFVIS_ITS ---
Intake Intake Visit Reasons: 6m/PVR Intake Note: Patient presents today for a follow-up Meds- None Allergies to Antibiotic- Cipro Blood Thinner- Aspirin Post Void Residual: 6ml Pattient stated he leaks after he emptyes his bladder. Senior Pastor Required: Yes Accompanied by: Self / Same As Patient Allergies ciprofloxacin [Ciprofloxacin] Allergy (Mild, Verified 06/17/23 10:12) RASH HPI HPI Comments History of Present Illness Details Álvaro is a very pleasant male. He is a patient of Dr. Gail Mcfarland. 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 and mildly elevated postvoid residual Background diabetes PFSH Medical History AAA (abdominal aortic aneurysm) History of COVID-19 History of prostate cancer GERD (gastroesophageal reflux disease) Depression Asthma High cholesterol HTN (hypertension) Lipoma of back Lower back pain Prostate disease Diabetes Arthralgia Surgical History S/P AAA (abdominal aortic aneurysm) repair S/P excision of lipoma History of cataract extraction Hx of colonoscopy Hx of cystoscopy History of penile implant History of prostate surgery Family History Mother History of esophageal cancer Social History Household Members: Significant Other Alcohol intake: never Patient Tobacco Use Status: Former Tobacco user Tobacco use type: Cigar service: No Current occupational status: retired Review of Systems Const Denies chills and Denies fever(s) Card Reports no additional complaints and Denies syncope Resp Denies cough GI Denies abdominal pain and Denies heartburn Reports as per HPI and Denies change in libido Neuro Denies syncope Psych Denies change in libido Endo Denies change in libido Physical Exam Const General: cooperative, healthy appearing, comfortable and no acute distress Orientation/consciousness: patient oriented x3 HEENT Face and sinus: Yes normal facial exam Mouth: moist mucous membranes Neck Neck: Yes normal visual inspection, Yes full ROM and Yes trachea midline Chest Chest palpation & inspection: normal inspection of the chest Resp Effort & Inspection: normal respiratory effort, able to speak in complete sentences and no respiratory distress GI Inspection: Yes normal to inspection Back/Spine/Pelvis Cervical Spine: normal cervical lordosis Thoracic/Lumbar Spine: thoracic and lumbar spine normal to inspection Skin General skin exam: no rashes or lesions noted Neuro General: patient oriented x3, gait normal, tone normal and moves all extremities Extrem General: Yes normal to inspection and Yes capillary refill normal Assessment & Plan Assessment & Plan (1) Prostate cancer: Code(s): C61 - Malignant neoplasm of prostate (2) Overactive bladder: Code(s): N32.81 - Overactive bladder Plan Two month follow-up tele Orders: Orders AMB Post Void Residual by ultrasound Today R33.9 - Retention of urine, unspecified Medications: New fesoterodine ER 8 mg PO DAILY 30 days 30 tabs 1RF N32.81 - Overactive bladder mirabegron ER 25 mg PO DAILY 90 days 90 tabs 1RF N32.81 - Overactive bladder Patient Instructions: Imaging studies, laboratory and physical exam results were discussed and reviewed in detail. No major barriers to patient understanding were identified. An opportunity to ask questions regarding the treatment plan was provided. All questions were answered. The patient expressed understanding and agreement with the above treatment plan. The patient is aware they should contact our office by phone for worsening of their current condition or the appearance of new urologic symptoms. Compliance is encouraged with any medications and followup testing that is ordered. It is a privilege to participate in the urologic care of your patient. If you have any questions or concerns regarding treatment for the above conditions, or other urologic issues, please do not hesitate to contact me. The office telephone contact is [phone]. This note is constructed using voice recognition software. While every effort has been made to ensure accuracy speech pathologist assistant errors may have been included. Yours sincerely, Dr Santy Carrasquillo MD, [facility] - Urology Providers of Expert, Compassionate Care for the Genitourinary System Coding Level of Care Code Est Pt Level 4 (79539) Diagnoses Prostate cancer C61 Overactive bladder N32.81
== END 2023-06-17 09:56 | disposition home or self-care (01) ==
PROVIDERS: PCP Internal Medicine; Visit Provider Urology
DX: C61 Malignant neoplasm of prostate (principal); N32.81 Overactive bladder
CPT/HCPCS: 99214

== ENCOUNTER → 2023-06-17 08:56 | Outpatient (BNVA) | payer OTHER, SELFPAY | PROVIDERS: PCP Internal Medicine; Visit Provider Urology | DX: C61 Malignant neoplasm of prostate (principal); N32.81 Overactive bladder | CPT/HCPCS: 99212 ==

== ENCOUNTER 2023-09-04 09:13 | Outpatient (REF) | payer OTHER, SELFPAY ==
[2023-09-04 10:28] LABS: Blood Urea Nitrogen 18 mg/dL (9-16); Estimated Glomerular Filt Rate 58
== END 2023-09-04 09:14 | disposition home or self-care (01) ==
LOC: HO.LAB 09:13
PROVIDERS: PCP Internal Medicine; Visit Provider Surgery Vascular Surgery
DX: I71.43 Infrarenal abdominal aortic aneurysm, without rupture (principal)
CPT/HCPCS: 36415; 82565; 84520

== ENCOUNTER 2023-09-17 09:28 | Outpatient (REF) | payer OTHER, SELFPAY ==
[2023-09-17 11:21] LABS: Blood Urea Nitrogen 19 mg/dL (9-16); Estimated Glomerular Filt Rate 58
== END 2023-09-17 09:29 | disposition home or self-care (01) ==
LOC: HO.LAB 09:28
PROVIDERS: Visit Provider Internal Medicine Cardiovascular Disease
DX: I71.40 Abdominal aortic aneurysm, without rupture, unspecified (principal)
CPT/HCPCS: 36415; 82565; 84520

== ENCOUNTER 2023-09-18 08:27 | Outpatient (AMB) | payer OTHER, SELFPAY ==
--- NOTE | 2023-09-18 08:50 | A.OFFVIS_ITS ---
Intake Visit Reasons: 2M Med Review(Toviaz/Myrbetriq) Intake Note: Patient is Present for PVR/ Urology Med: Fesoterodine, Myrbetriq Antibiotic Allergy: Cipro Blood Thinner: Aspirin Last PVR: 6ml Todays PVR: 27ml Allergies ciprofloxacin [Ciprofloxacin] Allergy (Mild, Verified 09/18/23 08:52) RASH HPI Comments Details: Álvaro is a very pleasant male. He is a patient of Dr. Fajardo. 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 and mildly elevated postvoid residual Background diabetes PFSH Medical History AAA (abdominal aortic aneurysm) History of COVID-19 History of prostate cancer GERD (gastroesophageal reflux disease) Depression Asthma High cholesterol HTN (hypertension) Lipoma of back Lower back pain Prostate disease Diabetes Arthralgia Surgical History S/P AAA (abdominal aortic aneurysm) repair S/P excision of lipoma History of cataract extraction Hx of colonoscopy Hx of cystoscopy History of penile implant History of prostate surgery Family History Mother History of esophageal cancer Social History Household Members: Significant Other Alcohol intake: never Patient Tobacco Use Status: Former Tobacco user Tobacco use type: Cigar service: No Current occupational status: retired Review of Systems Const Denies chills and Denies fever(s) Card Reports no additional complaints and Denies syncope Resp Denies cough GI Denies abdominal pain and Denies heartburn Reports as per HPI and Denies change in libido Neuro Denies syncope Psych Denies change in libido Endo Denies change in libido Physical Exam Const General: cooperative, healthy appearing, comfortable and no acute distress Orientation/consciousness: patient oriented x3 HEENT Face and sinus: Yes normal facial exam Mouth: moist mucous membranes Neck Neck: Yes normal visual inspection, Yes full ROM and Yes trachea midline Chest Chest palpation & inspection: normal inspection of the chest Resp Effort & Inspection: normal respiratory effort, able to speak in complete sentences and no respiratory distress GI Inspection: Yes normal to inspection Back/Spine/Pelvis Cervical Spine: normal cervical lordosis Thoracic/Lumbar Spine: thoracic and lumbar spine normal to inspection Skin General skin exam: no rashes or lesions noted Neuro General: patient oriented x3, gait normal, tone normal and moves all extremities Extrem General: Yes normal to inspection and Yes capillary refill normal Office Procedures Post Void Residual Post Residual Void Post Void Residual (PVR): 27 25151-[id number] Void Residual by ultrasound Assessment & Plan Assessment & Plan (1) Prostate cancer: Code(s): C61 - Malignant neoplasm of prostate Category: Medical (2) Overactive bladder: Code(s): N32.81 - Overactive bladder Category: Medical Plan Six-month follow-up Orders: Orders AMB Post Void Residual by ultrasound 09/18/23 N32.81 - Overactive bladder Patient Instructions: Imaging studies, laboratory and physical exam results were discussed and reviewed in detail. No major barriers to patient understanding were identified. An opportunity to ask questions regarding the treatment plan was provided. All questions were answered. The patient expressed understanding and agreement with the above treatment plan. The patient is aware they should contact our office by phone for worsening of their current condition or the appearance of new urologic symptoms. Compliance is encouraged with any medications and followup testing that is ordered. It is a privilege to participate in the urologic care of your patient. If you have any questions or concerns regarding treatment for the above conditions, or other urologic issues, please do not hesitate to contact me. The office telephone contact is [phone]. This note is constructed using voice recognition software. While every effort has been made to ensure accuracy top dyeing machine tender errors may have been included. Yours sincerely, Dr Santy Carrasquillo MD, [facility] - Urology Providers of Expert, Compassionate Care for the Genitourinary System Coding Level of Care Code Est Pt Level 3 (77177) Diagnoses Prostate cancer C61 Overactive bladder N32.81 CPT Codes Post Residual Void - PVR CPT Code: 99185-Lqks Void Residual by ultrasound ([id number])
== END 2023-09-18 09:47 | disposition home or self-care (01) ==
PROVIDERS: PCP Internal Medicine; Visit Provider Urology
DX: C61 Malignant neoplasm of prostate (principal); N32.81 Overactive bladder
CPT/HCPCS: 99213

== ENCOUNTER → 2023-09-18 08:27 | Outpatient (BNVA) | payer OTHER, SELFPAY | PROVIDERS: PCP Internal Medicine; Visit Provider Urology | DX: C61 Malignant neoplasm of prostate (principal); N32.81 Overactive bladder; N52.9 Male erectile dysfunction, unspecified | CPT/HCPCS: 51798; 99212 ==

== ENCOUNTER 2023-12-23 10:35 | Emergency (ER) | payer OTHER, SELFPAY ==
[2023-12-23 10:44] VITALS: BP 145/79; PULSE 63; RESP 18; TEMP 36.1; O2SAT 97; BMI 23.1
--- NOTE | 2023-12-23 11:08 | ED_ITS ---
HPI - Skin/Abscess/Foreign Bdy General Chief complaint: Skin/Abscess/Foreign Body Stated complaint: face rash Time Seen by Provider: 12/23/23 11:08 Source: patient and RN notes reviewed Mode of arrival: ambulatory Limitations: no limitations History of Present Illness ED Provider: Coco Valladares PA-C HPI narrative: This is a 78-year-old male, with a history of diabetes, who presents emergency department with complaints of facial rash x5 days. Patient states that he is unsure if this was caused by a razor that he was using however states that the rash is very itchy. He denies any swelling, difficulty breathing or swallowing. Denies taking any medications prior to his arrival today. Denies any chest pain or shortness for breath. Denies any fevers or chills. He has been applying topical Aquaphor which has provided him with some relief. No other complaints or concerns at this time. MD complaint: rash Location: face Quality: pruritic Pain Consistency: constant Exacerbating factors: none Context: none Associated symptoms: denies other symptoms Related Data Home Medications ?Medication ?Instructions ?Recorded ?Confirmed albuterol sulfate 2.5 mg/3 mL 2.5 mg inhalation Q4-6H PRN 04/09/20 06/17/23 (0.083 %) solution for nebulization Wheezing amlodipine 10 mg tablet 10 mg PO DAILY 04/09/20 06/17/23 aspirin 81 mg tablet,delayed 81 mg PO DAILY 04/09/20 06/17/23 release blood-glucose meter #1 ea 04/09/20 06/17/23 fluticasone 250 mcg-salmeterol 50 1 inh inhalation BID 04/09/20 06/17/23 mcg/dose blistr powdr for inhalation (Advair Diskus) fluticasone propionate 50 1 spray intranasal BID 04/09/20 06/17/23 mcg/actuation nasal spray,suspension (Flonase Allergy Relief) gabapentin 600 mg tablet 600 mg PO TID 04/09/20 06/17/23 ipratropium 20 mcg-albuterol 100 1 puff inhalation Q4H 04/09/20 06/17/23 mcg/actuation mist for inhalation (Combivent Respimat) lancets 28 gauge (TRUEplus Lancets) #100 ea 12/21/20 02/28/24 omeprazole 20 mg capsule,delayed 20 mg PO DAILY 04/09/20 06/17/23 release trazodone 50 mg tablet 25 mg PO BEDTIME PRN Sleep 04/09/20 06/17/23 glipizide 5 mg tablet, extended 5 mg PO DAILY 05/09/21 06/17/23 release 24 hr metformin 500 mg tablet,extended 1,000 mg PO BID 05/09/21 06/17/23 release 24 hr blood sugar diagnostic (OneTouch #10 ea 06/06/21 06/17/23 Ultra Test strips) lancets (OneTouch UltraSoft #100 ea 06/06/21 06/17/23 Lancets) latanoprost 0.005 % eye drops 1 drp ophthalmic (eye) QPM 06/06/21 06/17/23 clotrimazole-betamethasone 1 1 appl topical Q12H PRN Rash 02/12/22 06/17/23 %-0.05 % topical cream amlodipine 5 mg tablet 5 mg PO QAM 09/18/23 atorvastatin 80 mg tablet 80 mg PO QPM 09/18/23 carvedilol 12.5 mg tablet 12.5 mg PO 09/18/23 lancets 30 gauge (OneTouch #100 ea 09/18/23 UltraSoft 2 Lancet) multivitamin 1 tab PO QAM 09/18/23 ticagrelor 90 mg tablet (Brilinta) 90 mg PO QAM 09/18/23 Previous Rx's ?Medication ?Instructions ?Recorded lidocaine 5 % topical patch 1 patch topical DAILY #15 ea 03/23/20 (Lidoderm) psyllium husk 0.52 gram capsule 0.52 g PO DAILY #30 caps 11/21/20 (Metamucil) valacyclovir 1 gram tablet 1,000 mg PO BID #14 tabs 07/20/21 (Valtrex) acetaminophen 325 mg tablet 650 mg (2 x 325 mg) PO Q6H PRN 09/12/22 (Tylenol) fever or pain #14 tabs fesoterodine 8 mg tablet,extended 8 mg PO DAILY 90 days #90 tabs 09/18/23 release 24 hr mirabegron 50 mg tablet,extended 50 mg PO DAILY 90 days #90 tabs 09/18/23 release 24 hr prednisone 20 mg tablet 20 mg PO DAILY 5 days #5 tabs 12/23/23 Allergies Allergy/AdvReac Type Severity Reaction Status Date / Time ciprofloxacin [Ciprofloxacin] Allergy Mild RASH Verified 12/23/23 10:45 Review of Systems Review of Systems: Yes all other systems are reviewed and are negative Constitutional: Constitutional: Reports as per HPI [facility] Past Medical History Medical History AAA (abdominal aortic aneurysm) History of COVID-19 History of prostate cancer GERD (gastroesophageal reflux disease) Depression Asthma High cholesterol HTN (hypertension) Lipoma of back Lower back pain Prostate disease Diabetes Arthralgia Surgical History S/P AAA (abdominal aortic aneurysm) repair S/P excision of lipoma History of cataract extraction Hx of colonoscopy Hx of cystoscopy History of penile implant History of prostate surgery Family History Family History Mother History of esophageal cancer Social History Social History Household Members: Significant Other Alcohol intake: never Patient Tobacco Use Status: Former Tobacco user Tobacco use type: Cigar Advance Directives: No Advance Directives Information Provided: No service: No Current occupational status: retired Physical Exam Vital Signs: Vital Signs: Last Vital Signs Temp 97 F 12/23/23 11:19 Pulse 63 12/23/23 11:19 Resp 16 12/23/23 11:19 BP 145/79 H 12/23/23 11:19 Pulse Ox 97 12/23/23 11:19 O2 Del Method Room Air 12/23/23 11:19 BMI result Body Mass Index 23.1 Const: General: cooperative, comfortable and no acute distress Orientation/consciousness: patient oriented x3 Limitations: no limitations HEENT: Head: Yes normal to inspection, Yes normocephalic and Yes atraumatic Ears: hearing grossly normal bilaterally General nose exam: Normal external nose present Face and sinus: Yes normal facial exam Mouth: Normal oral and palatal mucosa present, oropharynx normal and moist mucous membranes Throat: Yes posterior oropharynx normal Eyes: General: appearance normal, both eyes and all related structures Eyelids: Yes eyelids normal Conjunctivae: conjunctivae normal Sclerae: sclerae normal Pupils: Equal, round and reactive pupils present EOM: EOMs intact bilaterally Neck: Neck: Yes normal visual inspection, Yes full ROM and Yes no lympha denopathy Lymphatic: no lymphadenopathy noted Chest: Chest palpation & inspection: normal inspection of the chest Resp: Effort & Inspection: normal respiratory effort and able to speak in complete sentences Auscultation: clear to auscultation bilaterally, no crackles, no rales, no rhonchi and no wheezes Cardio: Rate: regular rate Rhythm: regular rhythm Heart sounds: S1 normal heart sound present and S2 normal heart sound present GI: Inspection: Yes normal to inspection Skin: Other: Chin with mildly erythematous, macular papular rash, no periorbital swelling. Speaking in full sentences under no acute distress. General skin exam: no rashes or lesions noted Trauma: no lacerations or abrasions Wounds: no wounds Neuro: General: patient oriented x3 and moves all extremities Cranial nerves: Yes Equal, round and reactive pupils present Extrem: General: Yes normal to inspection Right upper extremity: normal to inspection Left upper extremity: normal to inspection Right lower extremity: normal to inspection Left lower extremity: normal to inspection Medical Decision Making Medical Decision Making MDM Narrative: This is a 78-year-old male who presents emergency department with complaints of facial rash for the last 5 days. On arrival, vital signs within normal limits. Patient would like his blood sugar checked he did not check this this morning. Blood glucose 97. DDX including contact dermatitis, cellulitis, atopic dermatitis, follliculitis. Presentation appears to be a atopic/allergic dermatitis presentation given rash is itchy in nature. His lungs are clear to auscultation bilaterally. He has no difficulty breathing, or swallowing. Will treat with a small course of prednisone. Advised that prednisone will increase his blood glucose level and to monitor closely. Given strict return precautions. He understands and agrees with plan. Patient stable for discharge Differential Diagnosis Differential Diagnoses: The differential diagnosis associated with the presentation includes See above Admission/Observation Consideration of admission/observation: Escalation of care including admission/observation considered Lab Data [facility] Lab Attestation statement: I reviewed the patient's lab results. Labs: Lab Results 12/23/23 Range/Units 11:16 POC Glucose 97 (60-115) mg/dL Radiology Impression Discussion of test interpretation with radiology: I have reviewed the radiologist's reading. External Record Review External record reviewed: Inpatient record, Office record, Outpatient record, Prior outpatient labs, Prior outpatient radiology, Primary care record and Outside ED record Discharge Plan Discharge Clinical Impression: Rash Patient Disposition: Home, Self-Care Instructions: Contact Dermatitis (ED), Acute Rash (ED) Additional Instructions: You were seen in the emergency department due to a rash. It is unclear what caused this rash, it may be a type of an allergic reaction. Please keep area cllean and dry. You may use vaseline to the area as needed. Please take prednisone as prescribed. Please be advised that your blood glucose may increase while taking this medication therefore it is very important that you check your glucose level more often. If any new or worsening symptoms occur, including difficulty breathing, swallowing, worsening rash, please return for re-evaluation. Prescriptions: New prednisone 20 mg tablet 20 mg PO DAILY 5 Days Qty: 5 0RF No Action lidocaine [Lidoderm] 5 % adhesive patch,medicated 1 patch topical DAILY Qty: 15 0RF Rx Instructions: leave on most painful area for up to 12 hrs valacyclovir [Valtrex] 1 gram tablet 1,000 mg PO BID Qty: 14 0RF acetaminophen [Tylenol] 325 mg tablet 650 mg PO Q6H PRN (Reason: fever or pain) Qty: 14 0RF (DME) lancets [TRUEplus Lancets] 28 gauge misc See Rx Instructions .ROUTE .MEDSUPPLY Qty: 100 Rx Instructions: As directed albuterol sulfate 2.5 mg /3 mL (0.083 %) solution for nebulization 2.5 mg inhalation Q4-6H PRN (Reason: Wheezing) trazodone 50 mg tablet 25 mg PO BEDTIME PRN (Reason: Sleep) gabapentin 600 mg tablet 600 mg PO TID aspirin 81 mg tablet,delayed release (DR/EC) 81 mg PO DAILY omeprazole 20 mg capsule,delayed release(DR/EC) 20 mg PO DAILY amlodipine 10 mg tablet 10 mg PO DAILY (DME) blood-glucose meter Kit See Rx Instructions .ROUTE .MEDSUPPLY Qty: 1 Rx Instructions: As directed Combivent Respimat 20-100 mcg/actuation mist 1 puff inhalation Q4H fluticasone propionate [Flonase Allergy Relief] 50 mcg/actuation spray,suspension 1 spray intranasal BID Rx Instructions: administer into each nostril fluticasone propion-salmeterol [Advair Diskus] 250-50 mcg/dose blister with device 1 inh inhalation BID psyllium husk [Metamucil] 0.52 gram capsule 0.52 g PO DAILY Qty: 30 4RF Rx Instructions: Gonzales 1 tableta al mediodia con un vaso de agua lleno. metformin 500 mg tablet extended release 24 hr 1,000 mg PO BID glipizide 5 mg tablet extended release 24hr 5 mg PO DAILY (DME) lancets [OneTouch UltraSoft Lancets] Misc See Rx Instructions Not Applicable TID Qty: 100 Rx Instructions: As directed (DME) OneTouch Ultra Test Strip See Rx Instructions Not Applicable TID Qty: 10 Rx Instructions: As directed latanoprost 0.005 % drops 1 drp ophthalmic (eye) QPM clotrimazole-betamethasone 1-0.05 % cream 1 appl topical Q12H PRN (Reason: Rash) fesoterodine 8 mg tablet extended release 24 hr 8 mg PO DAILY 90 Days Qty: 90 1RF mirabegron 50 mg tablet extended release 24 hr 50 mg PO DAILY 90 Days Qty: 90 1RF multivitamin Tablet 1 tab PO QAM atorvastatin 80 mg tablet 80 mg PO QPM carvedilol 12.5 mg tablet 12.5 mg PO amlodipine 5 mg tablet 5 mg PO QAM Brilinta 90 mg tablet 90 mg PO QAM (DME) lancets [OneTouch UltraSoft 2 Lancet] 30 gauge misc See Rx Instructions .ROUTE QID Qty: 100 Rx Instructions: As directed Interventions: ED Discharge Assessment Last Done: 12/23/23 11:19 Discharge Date/Time: 12/23/23 11:20 Print Language: Mexican
[2023-12-23 11:19] VITALS: BP 145/79; PULSE 63; RESP 16; TEMP 36.1; O2SAT 97
[2023-12-23 11:20] LABS: Glucose, Whole Blood 97 mg/dL (60-115)
== END 2023-12-23 11:20 | disposition home or self-care (01) ==
PROVIDERS: Emergency Provider Emergency Medicine
DX: R21 Rash and other nonspecific skin eruption (principal); E11.9 Type 2 diabetes mellitus without complications; I10 Essential (primary) hypertension; I71.40 Abdominal aortic aneurysm, without rupture, unspecified
CPT/HCPCS: 82947; 99282

== ENCOUNTER 2024-02-02 11:55 | Outpatient (REF) | payer OTHER, SELFPAY ==
[2024-02-02 14:34] LABS: Alanine Aminotransferase 14 U/L (0-40); Albumin Level 4.2 g/dL (3.5-5.0); Alkaline Phosphatase 108 U/L (39-117); Anion Gap 12 (12-20); Aspartate Amino Transferase 14 U/L (5-37); Bilirubin Total 0.3 mg/dL (0.0-1.0); Blood Urea Nitrogen 19 mg/dL (9-16); Carbon Dioxide 28 mmol/L (22-29); Chloride 111 mmol/L (96-108); Cholesterol 120 mg/dL (<200); Estimated Glomerular Filt Rate 49; Glucose Random 108 mg/dL (60-115); HDL Cholesterol 41 mg/dL (>40); LDL Cholesterol Calculated 67 mg/dL (<100); Potassium 4.6 mmol/L (3.3-5.1); Sodium 146 mmol/L (135-145); Total Protein 7.3 g/dL (6.5-8.0); Triglycerides 60 mg/dL (<150)
== END 2024-02-02 11:56 | disposition home or self-care (01) ==
LOC: HO.HHCL 11:55
PROVIDERS: Visit Provider Internal Medicine
DX: E11.9 Type 2 diabetes mellitus without complications (principal); I10 Essential (primary) hypertension; R63.4 Abnormal weight loss
CPT/HCPCS: 36415; 80053; 80061; 84443

== ENCOUNTER 2024-03-02 11:15 | Outpatient (AMB) | payer OTHER, SELFPAY ==
--- NOTE | 2024-03-02 11:31 | MHC.OFFVIS ---
Intake Visit Reasons: 6m/PVR Intake Note: Patient is present for Med Review Urology Med: Fesoterodine, Myrbetriq Antibiotic Allergy: Cipro Blood Thinner: Aspirin Last PSA: 08/07/2022- <0.10 Last PVR:27ML Raw Stock Machine Loader Required: Yes Raw Stock Machine Loader Language: Press Operator Meat Services: Raw Stock Machine Loader Present Accompanied by: Self / Same As Patient Allergies ciprofloxacin [Ciprofloxacin] Allergy (Mild, Verified 03/10/24 14:11) RASH HPI Comments Details: Álvaro is a very pleasant male. He is a patient of Dr. Fajardo. 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 Uzbek Translation provided by qualified lead medical technologist PVR 30 cc Has been on combination Myrbetriq with Toviaz Still with urinary urgency and frequency Discussed Botox Would like to proceed Prostate cancer initial therapy prostatectomy Doing well with control urination PSA 11/07 < 0.1, 02/08 <0.1, 08/10 <0.1 Continue with surveillance Erectile dysfunction Penile implant Functional Overactive bladder Prior treatment with anticholinergic and dry mouth side effect - oxybutynin Continue with combination therapy Myrbetriq 50 mg and Toviaz Has small anastomotic stricture that is known about and mildly elevated postvoid residual Background diabetes PFSH Medical History AAA (abdominal aortic aneurysm) History of COVID-19 History of prostate cancer GERD (gastroesophageal reflux disease) Depression Asthma High cholesterol HTN (hypertension) Lipoma of back Lower back pain Prostate disease Diabetes Arthralgia Surgical History S/P AAA (abdominal aortic aneurysm) repair S/P excision of lipoma History of cataract extraction Hx of colonoscopy Hx of cystoscopy History of penile implant History of prostate surgery Family History Mother History of esophageal cancer Social History Household Members: Significant Other Alcohol intake: never Patient Tobacco Use Status: Former Tobacco user Tobacco use type: Cigar service: No Current occupational status: retired Review of Systems Const Denies chills and Denies fever(s) Card Reports no additional complaints and Denies syncope Resp Denies cough GI Denies abdominal pain and Denies heartburn Reports as per HPI and Denies change in libido Neuro Denies syncope Psych Denies change in libido Endo Denies change in libido Physical Exam Const General: cooperative, healthy appearing, comfortable and no acute distress Orientation/consciousness: patient oriented x3 HEENT Face and sinus: Yes normal facial exam Mouth: moist mucous membranes Neck Neck: Yes normal visual inspection, Yes full ROM and Yes trachea midline Chest Chest palpation & inspection: normal inspection of the chest Resp Effort & Inspection: normal respiratory effort, able to speak in complete sentences and no respiratory distress GI Inspection: Yes normal to inspection Back/Spine/Pelvis Cervical Spine: normal cervical lordosis Thoracic/Lumbar Spine: thoracic and lumbar spine normal to inspection Skin General skin exam: no rashes or lesions noted Neuro General: patient oriented x3, gait normal, tone normal and moves all extremities Extrem General: Yes normal to inspection and Yes capillary refill normal Assessment & Plan Assessment & Plan (1) Prostate cancer: Code(s): C61 - Malignant neoplasm of prostate Category: Medical (2) Overactive bladder: Code(s): N32.81 - Overactive bladder Category: Medical (3) Erectile dysfunction: Code(s): N52.9 - Male erectile dysfunction, unspecified Category: Medical Plan Risks, benefits and alternatives to therapy were discussed. These include but are not limited to infection, bleeding, damage to local organs and tissues, need for further interventions. Anesthetic risks regarding cardiac arrhythmia, blood clots, and potential mortality were discussed. The patient understands the typical recovery time and the outpatient nature of the procedure. After consideration of these risks the patient gives full informed consent and they wish to move ahead with the procedure. Cystoscopy with Botox injection Patient Instructions: Imaging studies, laboratory and physical exam results were discussed and reviewed in detail. No major barriers to patient understanding were identified. An opportunity to ask questions regarding the treatment plan was provided. All questions were answered. The patient expressed understanding and agreement with the above treatment plan. The patient is aware they should contact our office by phone for worsening of their current condition or the appearance of new urologic symptoms. Compliance is encouraged with any medications and followup testing that is ordered. It is a privilege to participate in the urologic care of your patient. If you have any questions or concerns regarding treatment for the above conditions, or other urologic issues, please do not hesitate to contact me. The office telephone contact is [phone]. This note is constructed using voice recognition software. While every effort has been made to ensure accuracy manufacturing plant technician errors may have been included. Yours sincerely, Dr Santy Carrasquillo MD, [facility] - Urology Providers of Expert, Compassionate Care for the Genitourinary System Coding Level of Care Code Est Pt Level 4 (76927) Diagnoses Prostate cancer C61 Overactive bladder N32.81 Erectile dysfunction N52.9
== END 2024-03-02 12:02 | disposition home or self-care (01) ==
PROVIDERS: PCP Internal Medicine; Visit Provider Urology
DX: C61 Malignant neoplasm of prostate (principal); N32.81 Overactive bladder; N52.9 Male erectile dysfunction, unspecified
CPT/HCPCS: 99214

== ENCOUNTER → 2024-03-02 11:15 | Outpatient (BNVA) | payer OTHER, SELFPAY | PROVIDERS: PCP Internal Medicine; Visit Provider Urology | DX: C61 Malignant neoplasm of prostate (principal); N52.9 Male erectile dysfunction, unspecified; N32.81 Overactive bladder | CPT/HCPCS: 99212 ==

== ENCOUNTER 2024-04-06 15:26 | Outpatient (REF) | payer OTHER, SELFPAY ==
[2024-04-06 15:40] LABS: MANUAL DIFF FLAG NO
[2024-04-06 16:58] LABS: Basophils Percent Auto 0.3 % (0-2); Eosinophils Absolute Auto 0.3 X10*3/uL (0.0-0.4); Eosinophils Percent Auto 4.1 % (0-4); Hematocrit 33.4 % (42.0-52.0); Hemoglobin 10.9 g/dl (14.0-18.0); Imm Gran Abs Auto 0.02 X10*3/uL (0.00-0.03); Imm Gran Pct Auto 0.3 % (0.0-0.4); Lymphocytes Absolute Auto 1.7 X10*3/uL (1.2-4.9); Lymphocytes Percent Auto 24.4 % (20-40); Mean Corpuscular HGB Conc 32.6 g/dl (31.0-36.0); Mean Corpuscular Hemoglobin 28.2 pg (27.0-33.0); Mean Corpuscular Volume 86.3 fL (80.0-98.0); Monocytes Absolute Auto 0.6 X10*3/uL (0.1-1.2); Monocytes Percent Auto 8.7 % (2-11); Neutrophils Absolute Auto 4.3 x10*3/uL (2.0-8.3); Neutrophils Percent Auto 62.2 % (45-73); Platelet Count 210 X10*3/uL (160-400); Red Blood Count 3.87 X10*6/uL (4.60-5.80); Red Cell Distribution Width 15.9 % (11.0-16.0); White Blood Count 6.9 X10*3/uL (4.8-10.8)
[2024-04-06 17:47] LABS: Folate 8.7 ng/mL (> or = 4.0); Vitamin B12 262 pg/mL (200-900)
[2024-04-06 17:52] LABS: Anion Gap 11 (12-20); Blood Urea Nitrogen 26 mg/dL (9-16); Calcium 10.4 mg/dL (8.4-10.2); Carbon Dioxide 27 mmol/L (22-29); Chloride 107 mmol/L (96-108); Estimated Glomerular Filt Rate 32; Glucose Random 89 mg/dL (60-115); Potassium 4.4 mmol/L (3.3-5.1); Sodium 141 mmol/L (135-145)
[2024-04-06 17:57] LABS: TSH reflex Free T4 1.54 uIU/mL (0.32-4.0)
[2024-04-07 04:13] LABS: Syphilis Screen Reactive (Nonreactive)
[2024-04-19 09:17] LABS: RPR Quantitative Reactive 1:1 (Nonreactive); T.Pallidum Particle Agg Test Reactive (Nonreactive)
== END 2024-04-06 15:27 | disposition home or self-care (01) ==
LOC: HO.LAB 15:26
PROVIDERS: PCP Internal Medicine; Visit Provider Psychiatry & Neurology Neurology
DX: G30.9 Alzheimer's disease, unspecified (principal)
CPT/HCPCS: 36415; 80048; 82607; 82746; 84443; 85025; 86592; 86780

== ENCOUNTER 2024-04-15 14:05 | Outpatient (REF) | payer OTHER, SELFPAY ==
--- NOTE | ~2024-04-15 | CT_ITS ---
CLINICAL HISTORY: R91.8 - Other nonspecific abnormal finding of lung field CT chest without IV contrast. COMPARISON: CT chest dated 04/22/23 at 07:55 EST FINDINGS: Visualized thyroid is unremarkable. No supraclavicular or axillary lymphadenopathy. Ascending aorta and main pulmonary artery are normal in caliber. Small pericardial effusion. Coronary artery calcifications and/or stents present within the LAD, circumflex and RCA. Normal esophagus. Multiple normal-sized mediastinal lymph nodes. Cholelithiasis present within the gallbladder. No pericholecystic inflammatory changes. Partially visualized stent/graft along the upper abdominal aorta. Stent present within the likely SMA extending through an ill-defined masslike region. Partially visualized moderate right hydronephrosis. No pleural effusion. No consolidation. Mild upper lobe predominant subpleural interalobular septal thickening with likely small amount of honeycombing anteriorly in the upper lobes, [id number]-left. Mild paraseptal emphysema at the lung apices. Trachea and central airways are clear. No significant bronchial wall thickening. No bronchiectasis. Linear scarring along the posterior left lower lobe, similar to prior imaging. Small bilateral pulmonary nodules redemonstrated. For example right lower lobe 4 mm pulmonary nodule (series 5, image 339), stable. Left lower lobe 6 mm pulmonary nodule (series 5, image 493), previously measured 5 mm. Left upper lobe subpleural cluster of pulmonary nodules measuring up to 3 mm (series 5, image 146), less well-defined from prior imaging. Right upper lobe subpleural 3 mm pulmonary nodule (series 5, image 222), stable. Right middle lobe 3 mm pulmonary nodule (series 5, image 311), stable. Right middle lobe 4 mm pulmonary nodule (series 5, image 354), stable. Mild spondylosis. No acute fracture or suspicious bone lesion. IMPRESSION: 1. Stable appearance of multiple bilateral pulmonary nodules measuring up to 6 mm in the left lower lobe. No new pulmonary nodule identified. 2. Apical predominant emphysema with mild subpleural fibrosis, similar to prior imaging. 3. Coronary artery atherosclerosis. 4. Partially visualized upper abdominal aortic stent and likely SMA stent extending through masslike opacity within the midabdomen. This was outside the field of view on prior imaging. Recommend correlation with clinical history and prior imaging of the abdomen if available. If none available, recommend CT of the abdomen and pelvis with contrast for further characterization. This document has been electronically signed by: Hesham Mcarthur MD on 04/18/2024 14:22:24
== END 2024-04-15 14:06 | disposition home or self-care (01) ==
LOC: HO.CT 14:05
PROVIDERS: PCP Internal Medicine; Visit Provider Internal Medicine Pulmonary Disease
DX: R91.8 Other nonspecific abnormal finding of lung field (principal)
CPT/HCPCS: 71250

== ENCOUNTER → 2024-04-15 14:07 | Outpatient (BNV) | payer OTHER, SELFPAY | PROVIDERS: PCP Internal Medicine; Visit Provider Radiology Diagnostic Radiology | DX: R91.8 Other nonspecific abnormal finding of lung field (principal) | CPT/HCPCS: 71250 ==

== ENCOUNTER 2024-06-02 07:45 | Outpatient (REF) | payer OTHER, SELFPAY ==
--- NOTE | ~2024-06-02 | CT_ITS ---
EXAMINATION: CT HEAD WITHOUT IV CONTRAST HISTORY: Alzheimer's dementia. TECHNIQUE: Unenhanced helical CT of the head was performed per standard departmental protocol. Coronal and sagittal reformats of the head were also evaluated. One or more of the following techniques was used for dose reduction: Automated exposure control, adjustment of the mA and/or kV according to patient size, use of iterative reconstruction technique. DLP: 652 mGy-cm COMPARISON: Comparison is made with the prior examination dated 07/04/2018. FINDINGS: BRAIN: There is diffuse prominence of the ventricular system and cortical sulci, consistent with atrophy. Periventricular and subcortical white matter hypodensities are noted which are nonspecific, but often seen in the setting of small vessel ischemic disease. Again seen is a small focus of encephalomalacia in the anterior aspect of the left temporal lobe and cystoscopy with an old infarct or other sequela of prior trauma. There is no mass effect or midline shift. No intra- or extra-axial fluid collections are identified. SINUSES: The visualized paranasal sinuses are clear. The mastoid air cells and middle ear cavities are well pneumatized. ORBITS: The visualized orbits are unremarkable. BONES/SOFT TISSUES: The extracranial soft tissues are unremarkable. The calvarium is intact. No suspicious lytic or sclerotic lesions. CT/CT head/brain wo IV con IMPRESSION: No acute intracranial abnormality. Electronically signed by: Edu Sidhu MD 06/02/2024 08:30 AM [facility]
--- OUTSIDE RECORDS SUMMARY | 2024-06-02 07:47 | XMS_ITS | Encounter Summary ---
Author Organization [employer] Address [address] [facility] [address] [place] [address] Care Team Providers Care Pilot Captain Name Role Phone Praful Robles MD Primary Care Provide r Reason for Visit * Reason Onset Date Comments Nurse Triage 09/03/2023 Encounter Details Date Type Department Care Team ([facility] st Contact Info) Description 09/03/2023 Telephone [facility] [address] [place], [place] [phone] Praful Robles MD [address] [place], [place] [phone] Nurse Triage Social History Tobacco Use Types Packs/Day Years Used Date Smoking Tobacco: Never Passive Smoke Exposure: Never Smokeless Tobacco: Never Alcohol Use Standard Drinks/Week Comments Not Currently 0 (1 standard drink = 0.6 oz pur e alcohol) Housing Stability Answer Date Recorded What is your housing situation today? I have housing today, but I am worried about losing housing in the future 02/04/[address] you li ve. Do you have problems with any of the following? None of the above 02/04/2023 Food Insecurity Answer Date Recorded Within the past 12 months, y ou worried that your food would run out before you got money to buy more: Never True 02/04/2023 Within the past 12 months,th e food you bought just didn't last and you didn't have enough money to get more: Never True Transportation Answer Date Recorded In the past 12 months, has l ack of transportation kept you from medical appts, meetings, work or from getting things needed for daily living? No 02/04/2023 Utilities Answer Date Recorded In the past 12 months, has t he electric, gas, oil or water company threatened to shut off services in your home? No 02/04/2023 Depression Answer Date Recorded Patient Health Questionnaire-2 Score 0 04/29/2022 Sex and Gender Information Value Date Recorded Sex Assigned at Male 02/17/2022 10:16 AM EDT Legal Sex Male 10:16 AM EDT Gender Identity Male 02/17/2022 10:16 AM EDT Sexual Orientation Choose not to disclose 2021 10:16 AM EDT documented as of this encounter Miscellaneous Notes * Telephone Encounter - Aicha Covington RN - 09/03/2023 2:34 PM EDT Called back [facility] nurse [phone] RE: Pt. Depression and occasional sadness. Pt. Has not been sleeping well at night which has made him more drowsy during day and pt. Also states that he gets full quicker when he eats so his appetite has decreased a little. Nurse id not concerned and states that pt. Does not have any suicidal ideations or thoughts of self harm but she did a PHQ questionnaire today and it was a little elevated in the score so she wanted PCP to be aware. [facility] nurse statesthat pt. Does have a RX. For Trazadone 50mg 1/2 tablet at bedtime that pt. States he takes. I did notify [facility] nurse that pt. Does have upcoming appt with PCP on 10/01/23. I called pt. Via [employer] spanish interpreter/translator [phone] Leatha. No answer. Manager Plan left message on pt. Voice mail to please call back [facility] nurses at [phone]. Manager Plan called back x2. Call rang and then went to voicemail again. Manager Plan left second message. Will send this note to [place] [facility] nurses to check in with pt. Protocol Used: Depression (Adult) Pt. Has Hx. Of Depression. * Telephone Encounter - Nader Mcfarland - 09/03/2023 1:46 PM EDT Symptoms: Depression, Lethargic (Tired), Loss of Appetite, Sleeping Difficulty Outcome: Schedule an urgent appointment (within 4 hours) or talk to a nurse or provider soon Reason: Getting worse The caller accepted this outcome documented in this encounter Plan of Treatment Upcoming Encounters Date Type Department Care Team (Late st Contact Info) Description 07/14/2024 2:15 PM EDT Office Visit [facility] [address] [place], [place] [phone] Praful Robles MD [address] [place], [place] [phone] documented as of this encounter Visit Diagnoses Not on filedocumented in this encounter Care Teams Pilot Captain Relationship Specialty Start Date End Date Praful Robles MD [address] [place] [address] [phone] PCP - General Internal Medicine 11/08/14 documented as of this encounter
--- OUTSIDE RECORDS SUMMARY | 2024-06-02 07:47 | XMS_ITS ---
Author Organization [facility] Address [address] [place] [phone] Care Team Providers Care Quarter Seamer Name Role Phone Emiliano Mcfarland MD, Praful Primary Care Provide Edu Parra [phone] REASON FOR VISIT Pt no show Encounters Encounter Location Date Provider Diagnosis [facility] [address] [place] [phone] 03/02/2024 Edu Yanez PLAN OF TREATMENT No Information
--- OUTSIDE RECORDS SUMMARY | 2024-06-02 07:47 | XMS_ITS | Clinical Summary ---
Author Organization [facility] Address [address] [place] [address] Phone Care Team Providers Care Routing Machine Operator Name Role Phone Unavailable Primary Care Provider Unavailabl e Allergies Active Allergy Reactions Criticality Noted Date Comments Ciprofloxacin 12/17/2020 Medications acetaminophen (TYLENOL) 325 MG tablet Take by mouth every 6 (six) hours if needed for mild pain Active docusate sodium (COLACE) 100 MG capsule Take 100 mg by mouth 2 (two) times a day Active oxyCODONE-aceta minophen (PERCOCET) 10-325 MG per tablet Take 1 tablet by mouth every 4 (four) hours if needed for moderate pain Active oxyCODONE-ibupr ofen (COMBUNOX) 5-400 MG per tablet Take 1 tablet by mouth every 6 (six) hours if needed for moderate pain Active fluticasone-amada meterol (ADVAIR DISKUS) 500-50 MCG/DOSE diskus inhaler Inhale 1 puff 2 (two) times a day Rinse mouth with water after use to reduce aftertaste and incidence of candidiasis. Do not swallow. Active ipratropium-alb uterol (Combivent Respimat) 20-100 MCG/ACT inhaler Inhale 1 puff 4 (four) times a day Active glipiZIDE (GLUCOTROL XL) 5 MG 24 hr tablet Take 5 mg by mouth 1 (one) time each day Do not crush, chew, or split. Active metFORMIN (GLUCOPHAGE) 500 MG tablet Take 500 mg by mouth 2 (two) times a day with meals Active amLODIPine-ator vastatin (CADUET) 10-10 MG per tablet Take 1 tablet by mouth 1 (one) time each day Active fluticasone (FLONASE) 50 MCG/ACT nasal spray Administer 1 spray into each nostril 1 (one) time each day Active omeprazole (PriLOSEC) [address] capsule Take 20 mg by mouth 1 (one) time each day Do not crush or chew. Active oxybutynin XL (DITROPAN-XL) 5 MG 24 hr tablet Take 5 mg by mouth 1 (one) time each day Do not crush, chew, or split. Active Social History Tobacco Use Types Packs/Day Years Used Date Smoking Tobacco: Never Assessed Sex and Gender Information Value Date Recorded Sex Assigned at Not on file Legal Sex Male 10:17 AM EDT Gender Identity Not on file Sexual Orientation Not on file Plan of Treatment Health Maintenance Due Date Last Done Comments Pneumococcal Vaccine: 65+ Ye ars (1 of 1 - PCV) 2009 Influenza Vaccine (#1) 2023 Hepatitis B Vaccine Aged Out No longe r eligible based on patient's age to complete this topic Insurance [employer] [id number] [facility]
--- OUTSIDE RECORDS SUMMARY | 2024-06-02 07:47 | XMS_ITS | Patient Health Record ---
Author Organization [facility] Address [address] [place] [phone] Care Team Providers Care Civil Engineering Design Draftsperson Name Role Phone Emiliano Mcfarland MD, Praful Primary Care Provide r Unavailable Edu Yanez Unavailable [phone] ALLERGIES No Known Allergies REASON FOR REFERRAL No Information MEDICATIONS Medication SIG (Take, Route, Frequency, Duration) Notes Start Date End Date Status amLODIPine Besylate 5 MG TAKE 1 TABLET BY MOUTH EVERY MORNING Oral for 90 E782,Unavailabl e Active glipiZIDE ER 5 MG TAKE 1 TABLET BY MOUTH EVERY MORNING Oral for 30 Active Aspirin Adult Low Strength 81 MG TAKE 1 TABLET BY MOUTH EVERY MORNING Oral for 90 Active Atorvastatin Calcium 80 MG TAKE 1 TABLET BY MOUTH EVERY EVENING Oral for 90 E782,Unavailabl e Active Carvedilol 12.5 MG TAKE 1 TABLET BY MOUTH TWICE DAILY IN THE MORNING AND IN THE EVENING WITH FOOD Oral for 30 I10,Unavailable Active Omeprazole 20 MG TAKE 1 CAPSULE BY MOUTH EVERY MORNING WITH MEALS Oral for 90 K219,Unavailabl e Active Brilinta 90 MG TAKE 1 TABLET BY MOUTH TWICE DAILY IN THE MORNING AND IN THE EVENING Oral for 90 I7140,Unavailab le Active metFORMIN HCl ER 500 MG TAKE 2 TABLETS B Y MOUTH TWICE DAILY IN THE MORNING AND EVENING Oral for 90 E119,Unavailabl e Active SOCIAL HISTORY Tobacco Use: Social History Observation Description Date Details (start date - stop date) Never Smoker NA - NA Sex Assigned At : Social History Observation Description Sex Assigned At Unknown Tobacco Use/Smoking Question Answer Notes Patient is a nonsmoker Alcohol Screen Question Answer Notes Did you have a drink containing alcohol in the p ast year? No Points 0 Interpretation Negative PROBLEMS Problem Type ICD Code Onset Dates Problem Status W/U Status Risk SNOMED Code Notes Problem Anemia, unspecified type (D64.9) Active confirmed 242128542 Problem History of adenomatous polyp of colon (Z86.010) Active confirmed 507918549 Encounters Encounter Location Date Provider Diagnosis [facility] [address] [place] [phone] 06/30/2023 Edu Yanez [facility] [address] [place] [phone] 11/03/2023 Edu Yanez [facility] [address] [place] [phone] 03/02/2024 Edu Yanez [facility] [address] [place] [phone] 06/26/2023 Edu Yanez [facility] [address] [place] [phone] 11/03/2023 Edu Yanez [facility] [address] [place] [phone] 03/02/2024 Edu Yanez PLAN OF TREATMENT No Information Insurance Providers Payer Name Payer Address Payer Phone Subscriber Number Group Number Insured Name Patient Relationship to Insured Coverage Start Date Coverage End Date [facility] [address] [address] [place] [address] [id number] BINTA MULLINS Self - patient is the insured MEDICAL (GENERAL) HISTORY Medical History History ICD Code anemia hx of tubular adenoma malignant tumor of prostate /prostatecto my /- dr. Martínez hyperlipidemia hx of lung nodules hypertension diabetes mellitus COPD Surgical History Surgery Date(Month/Year) prostectomy 12/06/2008 penile prostesis -dr betancourt
--- OUTSIDE RECORDS SUMMARY | 2024-06-02 07:47 | XMS_ITS | Encounter Summary ---
Author Organization [employer] Address [address] [facility] [address] [place] [address] Care Team Providers Care Oilfield Plant And Field Operator Name Role Phone Praful Robles MD Primary Care Provide r Reason for Visit * Reason Onset Date Comments Med Refill Results 02/18/2023 Encounter Details Date Type Department Care Team (Late st Contact Info) Description 02/18/2023 Refill [facility] [address] [place] [address] Praful Robles MD [address] [place] [address] Abdominal aortic aneurysm (AAA) without rupture, unspecified part ([facility]) Social History Tobacco Use Types Packs/Day Years Used Date Smoking Tobacco: Never Passive Smoke Exposure: Never Smokeless Tobacco: Never Housing Stability Answer Date Recorded What is [...] the past 12 months, has t he [employer], [employer], oil or water [employer] threatened to shut off services in your [...] encounter Miscellaneous Notes * Telephone Encounter - Darlyn Barger RN - 02/24/2023 9:27 AM EST Telephone call placed to cards office in regards to message below. No answer, left voicemail. * Telephone Encounter - Loraine Nolasco RN - 02/18/2023 2:43 PM EDT Faxed as below. Telephone call placed to [facility]. Spoke with RN who stated will print results and place on Dr Maloney's desk for review. She states they are not in office today but will be tomorrow. She looked over results and stated can wait for Dr Maloney to review tomorrow. 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 There is mild interim increase in the patient's abdominal aortic aneurysm by 4 mm. Please fax report to the office of vascular surgeon Dr Jorge Maloney and discuss needed follow up. Ptis illiterate, we need to schedule any appointment for him. Please let me know what Dr maloney says after he reviews the CT scan documented in this encounter Plan of Treatment Upcoming Encounters Date Type Department Care Team (Late st Contact Info) Description 07/14/2024 2:15 PM EDT Office Visit [facility] [address] [place] [address] Praful Robles MD [address] [place] [address] documented as of this encounter Visit Diagnoses Diagnosis Abdominal aortic aneurysm (AAA) without rupture, unspecified part (CMS/HCC) documented in this encounter Care Teams Oilfield Plant And Field Operator Relationship Specialty Start Date End Date Praful Robles MD [address] [place] [id number] PCP - General Internal Medicine 11/08/14 documented as of this encounter
--- OUTSIDE RECORDS SUMMARY | 2024-06-02 07:47 | XMS_ITS ---
Author Name Nidia Arauz NP Address [address] [place] [address] Phone [phone] [facility] Care Team Providers Care Wort Extractor Name Role Phone Nidia Arauz Unavailable [phone] Unavailable Unavailable Unavailable Unavailable Unavailable [phone] Unavailable Unavailable [phone] [facility] Unavailable [phone] Unavailable Unavailable [phone] Unavailable Unavailable [phone] Unavailable Unavailable Unavailable Orders, [facility] Unavailable [phone] [facility] Unavailable [phone] Reason for Referral Not Available Allergies, adverse reactions, alerts Allergen Type Reaction Severity Status Onset Date Cipro Allergy to substance (disorder) rash Unknown Active N/A Lisinopril Allergy to substance (disorder) Angioedema Severe Active N/A Oxybutynin Allergy to substance (disorder) Unknown Unknown Active N/A History of medication use Medication Class Instructions Start Date End Date Fluticasone-Salmeterol 250-5 0 MCG/ACT Aerosol Powder Breath Activated INHALE 1 PUFF BY MOUTH TWICE DAILY TWICE DAILY IN THE MORNING AND IN THE EVENING 12 HOURS APART RINSE MOUTH AFTER USING. 2021-03-05 No Data Available Docusate Sodium 100 mg Cap TAKE 1 CAPSUL E BY MOUTH AT BEDTIME 2021-05-13 2022-02-20 Fluticasone Propionate 50 MCG/ACT Suspension INSTILL 1 SPRAY IN EACH NOSTRIL TWICE DAILY 2021-05-13 No Data Available glipiZIDE ER 5 mg Tab ER 24hr TAKE 1 TAB LET BY MOUTH EVERY MORNING 2021-08-12 No Data Available Omeprazole 20 mg Cap delayed rel TAKE 1 CAPSULE BY MOUTH EVERY MORNING WITH MEALS 2021-04-10 No Data Available OneTouch Ultra Strip TEST BLOOD SUGAR 3 TIMES A DAY 2021-07-11 No Data Available OneTouch UltraSoft Lancets Miscellaneous USE TO TEST BLOOD SUGAR THREE TIMES DAILY 2020-12-18 No Data Available Oxybutynin Chloride 5 mg Tab TAKE 1 TABL ET BY MOUTH TWICE DAILY IN THE MORNING AND IN THE EVENING 2021-06-11 2022-04-30 traZODone 100 mg Tab TAKE 1 TABLET BY MO UTH EVERY EVENING 2021-07-11 2022-04-30 diazePAM 2 mg Tab TAKE 1 TABLET BY RAFI TH TWICE A DAY NEEDED FOR MUSCLE PAIN 2021-10-03 2022-04-30 amLODIPine Besylate 5 mg Tab Take 1 tablet daily. 2020 No Data Available Aspirin Low Dose 81 mg Tab delayed rel TAKE 1 TABLET BY MOUTH EVERY MORNING 2021-07-12 No Data Available Latanoprost 0.005 % Solution INSTILL 1 D ROP IN EACH EYE ONCE DAILY AT BEDTIME 2021-01-28 No Data Available metFORMIN ER 500 mg Tab ER 24hr TAKE 2 TABLETS BY MOUTH TWICE DAILY 2021-04-10 No Data Available Cyclobenzaprine 5 mg Tab TAKE 1 TABLET B Y MOUTH AT BEDTIME NEEDED FOR MUSCLE SPASMS 2021-10-08 No Data Available Mkieqfqu-Atkntknev-WM 3.5-81201-7 Solution INSTILL 4 DROPS IN THE LEFT EAR EVERY 8 HOURS FOR 10 DAYS DIRECTED 2021-11-05 No Data Available Clotrimazole-Betamethasone 1-0.05 % Crm APPLY TO THE AFFECTED AREA(S) EVERY TWELVE HOURS NEEDED 2022-01-28 No Data Available Bisacodyl EC 5 mg Tab delaye d rel TAKE 2 TABLETS BY MOUTH AT NOON THE DAY BEFORE COLONOSCOPY 2022-01-30 2022-02-20 Polyethylene Glycol 3350 17 GM/SCOOP Powder MIX WITH WATER AND DRINK DIRECTED 2022-01-30 2022-02-20 Combivent Respimat 20-100 MCG/ACT Aerosol Solution Inhalation BID 2022-02-20 No Data Available Aspirin EC 81 mg Tab delayed rel take 1 tablet by mouth daily 2022-02-20 No Data Available Icy Hot 16% Menthol Icy Hot Patch 2022-02-202022-04 Narcan 4 mg/0.1ML Liquid Nasal use 1 spr ay in one nostril in the event of opioid overdose. Call 911 after use 2022-02-28 No Data Available Percocet 5/325 mg Tab 1 to 2 tablets ora lly every 6 hours as needed for pain 2022-02-28 2022-04-30 Talking Glucometer kit with lancets and strips Use twice daily. Is illiterate and hearing impaired. Needs talking glucometer ([place] available) 2022-02-28 No Data Available Ibuprofen 600 mg Tab 1 tab Q6H PRN Pain 2022-03-25 2 Lidocaine 5 % Patch 1 patch topically to affected area daily remove after 12 hours PRN Pain 2022-03-25 No Data Available Acetaminophen Extra Strength 500 mg Tab TAKE 2 TABLETS BY MOUTH 4 TIMES A DAY NEEDED FOR PAIN 2022-02-26 No Data Available oxyCODONE 5 mg Tab TAKE 1 TABLET BY RAFI TH EVERY 6 HOURS NEEDED FOR PAIN 2022-02-26 No Data Available traMADol 50 mg Tab TAKE 1 TABLET BY RAFI TH EVERY TWELVE HOURS NEEDED 2022-03-06 No Data Available Medbox Status USE DIRECTED 2022-03-18 2022-04-30 Atorvastatin Calcium 80 mg Tab MICHEL 1 T ABLETA POR LA BOCA CADA ANGELICA A LA HORA DE DORMIR 2022-04-17 No Data Available Brilinta 90 mg Tab MICHEL 1 TABLETA POR LA BOCA DOS VECES AL ANEGLICA 2022-04-17 No Data Available Carvedilol 12.5 mg Tab MICHEL 1 TABLETA P OR LA BOCA DOS VECES AL ANGELICA 2022-04-17 No Data Available Clotrimazole 1 % Crm APPLY TOPICALLY TO AFFECTED AREA(S) (TOENAILS) TWICE DAILY 2021-08-12 No Data Available Medbox Status USE DIRECTED 2022-03-18 No Data Eugenia ilable traZODone 100 mg Tab TAKE 1 TABLET BY MO UTH EVERY EVENING AFTER MEALS 2022-03-10 No Data Available One-Daily Multi-Vitamin Tab TAKE 1 TABLE T BY MOUTH EVERY MORNING 2022-07-31 No Data Available Loperamide 2 mg Cap TAKE 1 CAPSULE BY MO UTH FOUR TIMES DAILY NEEDED FOR DIARRHEA 2022-08-12 No Data Available Myrbetriq 50 mg Tab ER 24hr TAKE 1 TABLE T BY MOUTH EVERY MORNING 2022-08-13 No Data Available MULTIVITAMIN TABLET TAKE 1 TABLET BY RAFI TH EVERY MORNING 2023-07-23 No Data Available predniSONE 20 mg Tab TAKE 1 TABLET BY MO UTH EVERY DAY FOR 5 DAYS 2023-12-23 No Data Available Lumigan 0.01 % Solution INSTILL 1 DROP I N EACH EYE EVERY EVENING 2023-09-07 No Data Available Problem List Problem Status Onset Date Resolved Date Opioid use Resolved 2022-02-28 2022-04-30 Other problems related to [facility] and other health care Active 2023-06-30 N/A Vision impairment Active 2022-02-28 N/A S/P endovascular aneurysm repair Active N/A Illiterate Active 2022-02-28 N/A History of prostate cancer Active 2022-02-20 N /A Muscle spasm Resolved 2022-02-20 2024-01-11 Chronic back pain Active 2022-02-17 N/A OAB (overactive bladder) Active 2022-02-20 N/A Glaucoma Active 2022-02-20 N/A COPD (chronic obstructive pulmonary disease) Active 2022-02-20 N/A GERD (gastroesophageal reflux disease) Active 11-03-03 N/A Insomnia Active 2022-02-20 N/A Hyperlipidemia associated wi th type 2 diabetes mellitus Active 2022-04-30 N/A Thrombophilia Active 2022-04-30 N/A Hypertension Active 2022-02-20 N/A Abdominal aortic aneurysm (AAA) without rupture Active 2024-01-21 N/A Encounters Encounters Type Facility Date of Service Diagnosis/Co mplaint No Data Available [facility] ([place] Dorsalgia, unspecifiedOther chronic pain No Data Available [facility] [place] Dorsalgia, unspecifiedOther chronic pain Pain Assessment - Pain Documented on a Pain Scale (1125F) [facility] [place] Pain Assessment - Pain Documented on a Pain Scale (1125F) [facility] [place] Pain Assessment - Pain Documented on a Pain Scale (1125F) [facility] [place] Pain Assessment - Pain Documented on a Pain Scale (1125F) [facility] [place] Pain Assessment - Pain Documented on a Pain Scale (1125F) [facility] [place] Pain Assessment - Pain Documented on a Pain Scale (1125F) [facility] [place] Pain Assessment - Pain Documented on a Pain Scale (1125F) [facility] [place] Chronic obstructive pulmonar y disease, unspecifiedType 2 diabetes mellitus without complicationsDorsalgia, unspecifiedOther chronic painOveractive bladderUnspecified glaucomaOther muscle spasmGastro-esophageal reflux disease without esophagitisEssential (primary) hypertensionInsomnia, unspecifiedPersonal history of malignant neoplasm of prostateUnspecified asthma, uncomplicated No Data Available [facility] [place]2022 Other muscle spasmIlliteracy and low-level literacyUnspecified visual lossOpioid use, unspecified, uncomplicated No Data Available [facility] [place] 03[place]2022 Low back pain, unspecified Estab. patient 30-39min; chronic exacerbation, 2 stable chronic or 1 acute illness add add modifier 95 for video, (do not use for phone, instead use [id number]) [facility] [place]2022 Dorsalgia, unspecifiedOther chronic painOveractive bladderUnspecified glaucomaChronic obstructive pulmonary disease, unspecifiedOther muscle spasmType 2 diabetes mellitus with unspecified complicationsGastro-esophageal reflux disease without esophagitisType 2 diabetes mellitus with other circulatory complicationsHypertension secondary to endocrine disordersInsomnia, unspecifiedPersonal history of malignant neoplasm of prostateIlliteracy and low-level literacyUnspecified visual lossLow back pain, unspecifiedType 2 diabetes mellitus with other specified complicationHyperlipidemia, unspecifiedOther primary thrombophiliaOther specified postprocedural statesPersonal history of other diseases of the circulatory system Estab. patient 30-39min; chronic exacerbation, 2 stable chronic or 1 acute illness add add modifier 95 for video, (do not use for phone, instead use 05724-51) [facility] [place] Estab. patient 30-39min; chronic exacerbation, 2 stable chronic or 1 acute illness add add modifier 95 for video, (do not use for phone, instead use 63370-19) [facility] ([place] 04[place]/20[place] Estab. patient 30-39min; chronic exacerbation, 2 stable chronic or 1 acute illness add add modifier 95 for video, (do not use for phone, instead use 59952-30) [facility] [place] Estab. patient 30-39min; chronic exacerbation, 2 stable chronic or 1 acute illness add add modifier 95 for video, (do not use for phone, instead use 34548-93) [facility] [place] Estab. patient 30-39min; chronic exacerbation, 2 stable chronic or 1 acute illness add add modifier 95 for video, (do not use for phone, instead use 03248-32) [facility] [place] Estab. patient 30-39min; chronic exacerbation, 2 stable chronic or 1 acute illness add add modifier 95 for video, (do not use for phone, instead use 25051-23) [facility] [place] Estab. patient 30-39min; chronic exacerbation, 2 stable chronic or 1 acute illness add add modifier 95 for video, (do not use for phone, instead use 26839-16) [facility] [place] Estab. patient 30-39min; chronic exacerbation, 2 stable chronic or 1 acute illness add add modifier 95 for video, (do not use for phone, instead use 40095-09) [facility] [place] No Data Available [facility] [place]20[place] Type 2 diabetes mellitus wit hout complicationsDorsalgia, unspecifiedOther chronic painPersonal history of malignant neoplasm of prostateLow back pain, unspecified Estab. patient 30-39min; chronic exacerbation, 2 stable chronic or 1 acute illness add add modifier 95 for video, (do not use for phone, instead use 27782-28) [facility] [place]20[place] Chronic obstructive pulmonar y disease, unspecifiedAbdominal aortic aneurysm, without rupture, unspecifiedOther primary thrombophiliaType 2 diabetes mellitus with other circulatory complicationsHypertension secondary to endocrine disordersType 2 diabetes mellitus with other specified complicationHyperlipidemia, unspecifiedDorsalgia, unspecifiedOther chronic painOveractive bladderUnspecified glaucomaGastro-esophageal reflux disease without esophagitisInsomnia, unspecifiedOther problems related to medical facilities and other health carePersonal history of malignant neoplasm of prostateIlliteracy and low-level literacyUnspecified visual lossLong term (current) use of oral hypoglycemic drugsPersonal history of nicotine dependencePersonal history of other diseases of the circulatory systemOther specified postprocedural states Estab. patient 30-39min; chronic exacerbation, 2 stable chronic or 1 acute illness add add modifier 95 for video, (do not use for phone, instead use 62540-91) [facility] [place] Estab. patient 30-39min; chronic exacerbation, 2 stable chronic or 1 acute illness add add modifier 95 for video, (do not use for phone, instead use 70172-95) [facility] [place] Estab. patient 30-39min; chronic exacerbation, 2 stable chronic or 1 acute illness add add modifier 95 for video, (do not use for phone, instead use 66433-24) [facility] [place] Estab. patient 30-39min; chronic exacerbation, 2 stable chronic or 1 acute illness add add modifier 95 for video, (do not use for phone, instead use 79742-88) [facility] [place] Estab. patient 30-39min; chronic exacerbation, 2 stable chronic or 1 acute illness add add modifier 95 for video, (do not use for phone, instead use 26260-84) [facility] [place]20[place] Estab. patient 30-39min; chronic exacerbation, 2 stable chronic or 1 acute illness add add modifier 95 for video, (do not use for phone, instead use 43614-43) [facility] [place] Estab. patient 30-39min; chronic exacerbation, 2 stable chronic or 1 acute illness add add modifier 95 for video, (do not use for phone, instead use 36313-66) [facility] [place]20[place] Estab. patient 30-39min; chronic exacerbation, 2 stable chronic or 1 acute illness add add modifier 95 for video, (do not use for phone, instead use 23826-11) [facility] ([place] [place]/2024 Vital Signs Date of Collection Vitals 2022-02-20 09:03:51 Height - 167.64 cmWe ight - 68.04 kgBody Mass Index (BMI) - 24.21 kg/m2 2022-04-30 07:46:32 Height - 165.1 cmWei ght - 68.04 kgBody Mass Index (BMI) - 24.96 kg/m2BP Diastolic - 77.0 mm[Hg]BP Systolic - 136.0 mm[Hg]Heart Rate - 73.0 /min 2024-01-11 05:30:18 Weight - 62.6 kgBody Mass Index (BMI) - 22.96 kg/m2BP Diastolic - 70.0 mm[Hg]BP Systolic - 120.0 mm[Hg]Pain Scale - 4.0 {score} Social History Social History Social History Observation Description Effec tive Time Current Smoking Status Former smoker 2024-05-21 3 Sex Male History of Procedures Procedures Service Procedure code Service date Servicing provider Phone# No Data Available [id number] 2022-02-17 No Data Available No Data Available No Data Available [id number] 2022-02-18 No Data Available No Data Available Pain Assessment - Pain Documented on a Pain Scale (1125F) 1125F 2022-02-20 No Data Available No Data Eugenia ilable Medication List Documented (1159F) 1159F 2022-02-20 No Data Available No Data Eugenia ilable Medication Review by prescribing provider or pharmacist documented (1160F) 1160F 2022-02-20 No Data Available No Data Eugenia ilable Functional Status Assessed (1170F) 1170F 2022-02-20 No Data Available No Data Avail able Advance Care Directive Advance care planning discussion documented in the medical record (1158F) 1158F 2022-02-20 No Data Available No Data Availa ble BMI obtained (3008F) 3008F 2022-02-20 No Data Availab le No Data Available New patient, 30-44min 1 stable chronic or 2 minor; add modifier 95 for video, modifier 93 for phone 27352 2022-02-20 No Data Available No Data Available No Data Available [id number] 2022-02-28 No Data Available No Data Available No Data Available [id number] 2022-03-25 No Data Available No Data Available Estab. patient 30-39min; chronic exacerbation, 2 stable chronic or 1 acute illness add add modifier 95 for video, (do not use for phone, instead use 64528-43) 80890 2022-04-30 No Data Available No Data Availa ble Medication List Documented (1159F) 1159F 2022-04-30 No Data Available No Data Eugenia ilable Medication Review by prescribing provider or pharmacist documented (1160F) 1160F 2022-04-30 No Data Available No Data Eugenia ilable Functional Status Assessed (1170F) 1170F 2022-04-30 No Data Available No Data Avail able Pain Assessment - Pain Documented on a Pain Scale (1125F) 1125F 2022-04-30 No Data Available No Data Eugenia ilable Advance Care Directive Advance care planning discussion documented in the medical record (1158F) 1158F 2022-04-30 No Data Available No Data Availa ble BMI obtained (3008F) 3008F 2022-04-30 No Data Availab le No Data Available SBP 130-139 (3075F) 3075F 2022-04-30 No Data Availabl e No Data Available DBP <80 (3078F) 3078F 2022-04-30 No Data Available No Data Available No Data Available [id number] 2022-06-17 No Data Available No Data Available Estab. patient 30-39min; chronic exacerbation, 2 stable chronic or 1 acute illness add add modifier 95 for video, (do not use for phone, instead use 12074-66) 82434 2024-01-11 No Data Available No Data Availa ble Medication List Documented (1159F) 1159F 2024-01-11 No Data Available No Data Eugenia ilable Medication Review by prescribing provider or pharmacist documented (1160F) 1160F 2024-01-11 No Data Available No Data Eugenia ilable Pain Assessment - Pain Documented on a Pain Scale (1125F) 1125F 2024-01-11 No Data Available No Data Eugenia ilable BMI obtained (3008F) 3008F 2024-01-11 No Data Availab le No Data Available SBP < 130 (3074F) 3074F 2024-01-11 No Data Available No Data Available DBP <80 (3078F) 3078F 2024-01-11 No Data Available No Data Available Functional Status Assessed (1170F) 1170F 2024-01-11 No Data Available No Data Avail able Most recent A1c (HbA1c) or GMI level <7% (3044F) 3044F 2024-01-11 No Data Available No Data Availa ble Functional Status Functional Category Effective Dates Cognition Status: 2022-02-20 ADL: Bathing Independent , D ressing Independent , Eating Independent , Ambulation Needs Assistance , Transferring Independent and Toileting Needs Assistance 2022-02-20 Falls in last 6 Months: Yes 2022-02-20 Social Supports - son helps him with ADL s 2022-02-20 uses cane as needed 2022-02-20 son has to help him w/ some ADLs 2022-02 Mental Status Status Date AAO 2022-02-20 reports sometimes has hard time remember ing things 2022-02-20 Assessments Date of Service Assessments 2022-02-17 06:48:57 Follow up plan for a cute symptoms:Chronic back pain 2022-02-18 07:26:00 Follow up plan for a cute symptoms:Chronic back pain 2022-02-20 09:03:51 Chronic back painOAB (overactive bladder)GlaucomaCOPD (chronic obstructive pulmonary disease)Muscle spasmDM2 (diabetes mellitus, type 2)GERD (gastroesophageal reflux disease)HTN (hypertension)InsomniaHistory of prostate cancerAsthma 2022-02-28 14:13:08 Muscle spasm [M62.83 8]> diazepam prn Acute attack on 02/27, went to [facility] to lucidly explain diagnosisSays he had scans and thorough workup, was sent home w percocet.Safety precautions and risk of sedation discussed.Sending Narcan for percocet, educated re useIlliterate [Z55.0]> Cannot read or write in any language.Needs speaking glucometer.Ordered from pharmacy, included Dx of illiteracy.Vision impairment [H54.7]> Sees better with glasses, but not well. One eye has cataracts, the other has a lens that is blurry.Needs talking glucometer.Opioid use [F11.90]> Short-term Rx given at ER, 14 tabletsRisk of sedationprecautionsSending Narcan to pharmacy 2022-03-25 06:38:52 Follow up plan for a cute symptoms:Low back pain 2022-04-30 07:46:32 Chronic back painOAB (overactive bladder)GlaucomaCOPD (chronic obstructive pulmonary disease)Muscle spasmType 2 diabetes mellitus with complicationGERD (gastroesophageal reflux disease)Hypertension associated with type 2 diabetes mellitusInsomniaHistory of prostate cancerIlliterateVision impairmentLow back painHyperlipidemia associated with type 2 diabetes mellitusThrombophiliaS/P endovascular aneurysm repair 2022-06-17 08:35:13 Type 2 diabetes meryl itus with complicationChronic back painHistory of prostate cancerLow back pain 2024-01-11 05:30:18 Other problems relat ed to medical facilities and other health careHypertension associated with type 2 diabetes mellitusChronic back painOAB (overactive bladder)GlaucomaCOPD (chronic obstructive pulmonary disease)GERD (gastroesophageal reflux disease)InsomniaHistory of prostate cancerIlliterateVision impairmentHyperlipidemia associated with type 2 diabetes mellitusThrombophiliaS/P endovascular aneurysm repairAbdominal aortic aneurysm (AAA) without rupture Plan of Care Date of Service Plans 2022-02-17 06:48:57 Phone (patient, pare nt, or guardian); 11-20 minutes of medical discussion (no modifier 95)Continue to see PCP. Follow-up with [facility] as needed for any acute or disease education needs that may arise 10/11.02/17/22:- Chronic pain x years, not acute issue. - Unable to download fills or see what medications he is on, as pt does not know and even with it quality assurance analyst. Do not want to prescribe medication without knowing what he is taking currently.- Scheduled for [facility] 02/20 at 11am. 2022-02-18 07:26:00 Phone (patient, pare nt, or guardian); 11-20 minutes of medical discussion (no modifier 95)Continue to see PCP. Follow-up with [facility] as needed for any acute or disease education needs that may arise 10/11.02/17/22:- Chronic pain x years, not acute issue. - Unable to download fills or see what medications he is on, as pt does not know and even with it quality assurance analyst. Do not want to prescribe medication without knowing what he is taking currently.- Scheduled for [facility] 02/20 at 11am. 02/18/22:- Same coverstation with patient 02/18. - Likely needs imaging or follow up with who he has had imaging with in the past. Encouraged him to stand up and move around, as this is where he is most comfortable. - [facility] 02/20 11am. 2022-02-20 09:03:51 Medication Review by prescribing provider or pharmacist documented (1160F)Medication List Documented (1159F)Functional Status Assessed (1170F)Advance Care Directive Advance care planning discussion documented in the medical record (1158F)BMI obtained (3008F)Pain Assessment - Pain Documented (1125F)Televideo new patient, 30-44min 1 stable chronic or 2 minor; add modifier 95Continue to see PCP. Follow-up with [facility] as needed for any acute or disease education needs that may arise.02/17/22:- Chronic pain x years, not acute issue. 02/18/22:- Same converstation with patient 02/18. - Likely needs imaging or follow up with who he has had imaging with in the past. Encouraged him to stand up and move around, as this is where he is most comfortable. - [facility] 02/20 11am. - uses pain patch- Icy HotoxybutyninlatanoprostCombiventdiazepam prnglipizide metformin does not know how to use current glucometer- will schedule f/u appt with primary JOCELYNN .member wants another glucometer that reads the numbers for him- states his HH aid broke itomeprazoleamlodipinedoes not have a BP cuff, will order one for himtrazodone (pt states he takes this for pain and insomnia)follows with oncologistfluticasone 2022-02-28 14:13:08 Seeking medical yuri rds (task to CN)Call us if any changes - will ask friend or relative to program our ph # on his cell with an iconGet Narcan from pharmacyAsk pharmacy to fill glucometer Rx again, if any problem let us know.Son can read and can help him if necessary.FU PRNPRN or 2-4 weeks 2022-03-25 06:38:52 Phone (patient, pare nt, or guardian); 5-10 minutes of medical discussion (no modifier 95)Continue to see PCP. Follow-up with [facility] as needed for any acute or disease education needs that may arise 10/11.03/25/22:- Recommend taking Ibuprofen q6h x5h- Lidocaine patches q12h PRN- MRI, XR have now shown any obvious cause. Pain has been off and no for years. 2022-04-30 07:46:32 Pain Assessment - Pa in Documented (1125F)Medication Review by prescribing provider or pharmacist documented (1160F)Medication List Documented (1159F)Functional Status Assessed (1170F)Advance Care Directive Advance care planning discussion documented in the medical record (1158F)BMI obtained (3008F)SBP 130-139 (3075F)DBP <80 (3078F)Televideo 30-39min; chronic exacerbation, 2 stable chronic or 1 acute illness add modifier 95Continue to see PCP. Follow-up with [facility] as needed for any acute or disease education needs that may arise.02/17/22:- Chronic pain x years, not acute issue. 02/18/22:- Same conversation with patient 02/18. - Likely needs imaging or follow up with who he has had imaging with in the past. Encouraged him to stand up and move around, as this is where he is most comfortable. - [facility] 02/20 11am. - uses pain patch- Icy Hot 04/30/22 - Stable. No changes. Continue to monitor.oxybutynin 04/30/22 - Stable. No longer taking oxybutynin. Continue to monitor.latanoprost04/30/22 - Stable. No changes. Continue to monitor.Combivent, Fluticasone, Salmeterol 04/30/22 - Stable. No changes. Continue to monitor.diazepam prn Acute attack on 02/27, went to [facility] to lucidly explain diagnosisSays he had scans and thorough workup, was sent home w percocet.Safety precautions and risk of sedation discussed.Sending Narcan04/30/22 - No longer using diazepam. Using lidocaine patches.SuspectedGlipizide, Metformin does not know how to use current glucometer- will schedule f/u appt with primary JOCELYNN .member wants another glucometer that reads the numbers for him- states his HH aid broke it04/30/22 - Stable. No changes. BGL - 151 (04/30/22)omeprazole 04/30/22 - Stable. No changes. Continue to monitor.SuspectedAmlodipine, Carvedilol, Metformin, GlipizideAvg BP: 04/30/22 - Stable. No changes. Continue to monitor. B/P 136/77 (04/30/22)Trazodone Pt states he takes this for pain and insomnia) 04/30/22 - Stable. No longer taking trazadone. Continue to monitor.follows with oncologist 04/30/22 - Stable. No changes. Continue to monitor.Cannot read or write in any language.Needs speaking glucometer.04/30/22 - Stable. No changes. Continue to monitor.Sees better with glasses, but not well. One eye has cataracts, the other has a lens that is blurry.04/30/2022 - Stable. No changes. Continue to monitor.03/25/22:- Recommend taking Ibuprofen q6h x5h- Lidocaine patches q12h PRN- MRI, XR have now shown any obvious cause. Pain has been off and no for years. 04/30/22 - Stable. No changes. Continue to monitor.Atorvastatin, Metformin, Glipizid04/30/22 - Stable. No changes. Continue to monitor.Brilinta 04/30/22 - Stable. No changes. Continue to monitor.Hospitalized 04/20/22F/U appt 05/01/22Needs daily wts. - scale is broken at home. - DME orderedOCN: CTA showed an incidental finding of a 5.7 x 6.2 CM AAA . He eventually underwent EVAR on 10/26/[address] Cardoza 2022-06-17 08:35:13 Televideo 20-29min; 1 stable chronic or 2 minor; add modifier 95Continue to see PCP. Follow-up with Isai as needed for any acute or disease education needs that may arise 10/11.05/17/2022 - will try to get him a talking glucometer - he is illiterate AND visually impaired- Chronic pain x years, not acute issue. 06/17/2022 - Lidocaine patches are helpingfollows with oncologist Has not gone for FU since the pandemic. Encouraging him to go for FU [place].06/17/2022 - got lidocaine patches - they help him 2024-01-11 05:30:18 Televideo 30-39min; chronic exacerbation, 2 stable chronic or 1 acute illness add modifier 95Functional Status Assessed (1170F)BMI obtained (3008F)Advance Care Directive Advance care planning discussion documented in the medical record (1158F)Advance care planning discussed and documented ? advance care plan or surrogate decision-maker was documented in the medical record. (1123F)Advance care planning discussed and documented in the medical record ? beneficiary/patient did not wish to or was unable to provide an advance care plan or name a surrogate decision-maker. (1124F)SBPDBPPain Assessment - Pain Documented (1125F)Continue to see PCP. Follow-up with [facility] as needed for any acute or disease education needs that may arise.When member to call: 1. If bp is elevated sbp>150; dbp>90 or symptomatic-h/a, dizziness, cp, sob. 2. if there is a fall 3. if BS >300 or BS<90 or symptomatic; i.e., dizzy, off balance , shaky, general weakness. 4. if UTI symptoms arise-urinary frequency, dysuria, low abd pain. 5. if pain in knees increases/ or joint pain increased Please remember to call [facility] to see PCP. Follow-up with [facility] as needed for any acute or disease education needs that may arise 10/11.what should be done when the member calls: see each individual diagnosis for contingency planHTN: Amlodipine, Carvedilol, DM: Glipizide, Metformin Hgb A1c 10/01/2023 : 6.1does not know how to use current glucometer- will schedule f/u appt with primary JOCELYNN .member wants another glucometer that reads the numbers for him- states his HH aid broke itfs: 110-126Has glucometer, BP machine he is illiterate AND visually impaired*Suggest stopping sulfonylurea (glipizide) or switching to an alternative class with a more favorable risk? benefit ratio, such as a lower risk of hypoglycemia. Note sent to PCP 08/2022RX: lidocain patch- Chronic pain x years, not acute issue. - Encouraged him to stand up and move around, as this is where he is most comfortable.oxybutynin Stable. No longer taking oxybutynin. Continue to monitor.latanoprostStable. No changes. Continue to monitor.last eye exam ombivent, Fluticasone, Salmeterol - Stable. No changes. Continue to monitor.- 1. Encourage Pneumococcal vaccine and flu2. Avoid triggers 3. May use saline nasal irrigation4. Wash hands and clothing when coming from outdoors5. Stay hydrated and eat healthy balanced diet6. Encourage smoking cessation if smoking7. Cont to f/u with PCP or pulmonary and notify CB of any changes8. Consider Singular and OTC antihistamine if not already takingomeprazole - Stable. No changes. Continue to monitor. Encourage small, frequent meals, paced eating, sitting upright during and 2 hours after meals, avoiding alcohol, caffeine, fatty, fried or spicy foods, and other triggersTrazodone implementing good sleep hygiene practices, such as maintaining a regular sleep schedule and creating a restful sleeping environment, along with cognitive-behavioral therapy for insomnia (CBT-I) if necessary. Additionally, the patient will be monitored for underlying medical or psychological conditions that may contribute to sleep disturbancesfollows with oncologist - Stable. No changes. Continue to monitor.Has not gone for FU since the pandemic. Encouraging him to go for FU.Cannot read or write in any language.Needs speaking glucometer. Stable. No changes. Continue to monitor.Sees better with glasses, but not well. 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 No changes. Continue to monitor.Saw opthalmologist in Novembertorvastatin, Metformin, GlipizideDiscussed adopting a heart-healthy diet low in saturated fats and cholesterol, incorporating regular physical activity to help lower LDL cholesterol and raise HDL cholesterol levels, and understanding the importance of adhering to prescribed medications if diet and exercise alone are insufficient. Patients educated on the importance of regular lipid profile monitoring to track progress and adjust management strategies as needed.Brilinta strict adherence to the prescribed anticoagulant regimen to prevent further thrombotic events, along with regular monitoring of coagulation parameters and follow-up appointments. Additionally, patient education on recognizing signs of bleeding and thromboembolism, as well as lifestyle modifications to reduce risk factors, will be emphasized.OCN: CTA showed an incidental finding of a 5.7 x 6.2 CM AAA . He eventually underwent EVAR on 10/26/[address] Padilla portal notes member with diagnosis that includes Abdominal aortic aneurysm (AAA) without rupture, unspecified part as seen on imaging study 10/01/23continues atorvastatinCTscan 12/2022 notes, There is mild interim increase in the patient's abdominal aortic aneurysm by 4 mm. Continued imaging surveillance may be indicated. Goals Date Goal 2022-02-20 Follow-up with Davina paez as needed 2022-04-30 Remember to keep all appointments with your PCP. 2022-04-30 Call if you have que stions or concerns before you go to the ER. 2022-04-30 Discussed how to con tact Isai via phone or tablet. 2022-04-30 DME request - scale and pulse oximeter 2024-01-11 At least 50% of time spent counseling patient, discussing diagnosis, treatment plan, compliance, and coordinating follow-up care. Health Concerns Date Concern 2024-01-11 Visit completed usin g audio/video.Patient/Guardian agreed to visit via telehealth. Today, patient has chief complaint of: follow up care and comprehensive review.Reviewed Allergies, Medications, Active Medical conditions, past medical/surgical history, Social history. 2024-01-11 Most recent hospital stay(s) or ER visit(s) and precipitating factors: (use <.>1111F if completing PH visit); in the ED several months ago due to the foot wound. Now completely healed 2024-01-11 Open HEDIS Measure maximino dickerson:
--- OUTSIDE RECORDS SUMMARY | 2024-06-02 07:47 | XMS_ITS | Encounter Summary ---
Author Organization [employer] [facility] Address [address] [place] [address] 7t [place] [address] Care Team Providers Care Electric Truck Driver Name Role Phone Praful Robles MD Primary Care Provide r Encounter Details Date Type Department Care Team (Late st Contact Info) Description 06/24/2022 Abstract [facility] [address] [place] [address] [phone] Praful Robles MD [address] [place] [address] [phone] Social History Tobacco Use Types Packs/Day Years Used Date Smoking Tobacco: Never Smokeless Tobacco: Never Depression Answer Date Recorded Patient Health Questionnaire-2 Score 0 04/29/2022 Sex and Gender Information Value Date Recorded Sex Assigned at Male 02/17/2022 10:16 AM EDT Legal Sex Male 10:16 AM EDT Gender Identity Male 02/17/2022 10:16 AM EDT Sexual Orientation Choose not to disclose 2021 10:16 AM EDT documented as of this encounter Plan of Treatment Upcoming Encounters Date Type Department Care Team (Late st Contact Info) Description 07/14/2024 2:15 PM EDT Office Visit [facility] [address] [place] [phone] Praful Robles MD [address] [place] [address] [phone] documented as of this encounter Visit Diagnoses Not on filedocumented in this encounter Care Teams Electric Truck Driver Relationship Specialty Start Date End Date Praful Robles MD [address] [place] [phone] PCP - General Internal Medicine 11/08/14 documented as of this encounter
--- OUTSIDE RECORDS SUMMARY | 2024-06-02 07:47 | XMS_ITS | Encounter Summary ---
Author Organization [employer] [facility] Address [address] [place] [address] 7 [place] [address] Care Team Providers Care Chummer Name Role Phone Praful Robles MD Primary Care Provide r Encounter Details Date Type Department Care Team (Late st Contact Info) Description 09/24/2022 [facility] Information Management [address] [place] [address] Praful Robles MD [address] [place], [place] [phone] Social History Tobacco Use Types Packs/Day Years Used Date Smoking Tobacco: Never Passive Smoke Exposure: Never Smokeless Tobacco: Never Depression Answer Date [...] Description 07/14/2024 2:15 PM EDT Office Visit [facility] [address] [place] [address] Praful Robles MD [address] [place], [place] [phone] documented as of this encounter Visit Diagnoses Not on filedocumented in this encounter Care Teams Chummer Relationship Specialty Start Date End Date Praful Robles MD [address] [place] [address] PCP - General Internal Medicine 11/08/14 documented as of this encounter
--- OUTSIDE RECORDS SUMMARY | 2024-06-02 07:47 | XMS_ITS | Encounter Summary ---
Author Organization [employer] Address [address] [facility] 7t [place] [address] Care Team Providers Care Horse Race Starter Name Role Phone Praful Robles MD Primary Care Provide r Reason for Visit * Reason Onset Date Comments Letter for School/Work 03/20/2022 Encounter Details Date Type Department Care Team ([facility] st Contact Info) Description 03/20/2022 Telephone [facility] [address] [place] [address] Praful Robles MD [address] [place] [address] Letter for School/Work Social History Tobacco Use Types Packs/Day Years Used Date Smoking Tobacco: Never Assessed Depression Answer Date Recorded Patient Health Questionnaire-9 Score 4 10/01/2023 Patient Health Questionnaire-9 Score 4 10/01/2023 Last PHQ-9: Questionnaire Data Not on file 0 10/01/2023 Housing Stability Answer Date Recorded What is your housing situation today? I have jeff obrien 10/01/[address] you li ve. Do you have problems with any of the following? None of the above 10/01/2023 Food Insecurity Answer Date Recorded Within the past 12 months, y ou worried that your food would run out before you got money to buy more: Never True 10/01/2023 Within the past 12 months,th e food you bought just didn't last and you didn't have enough money to get more: Never True Transportation Answer Date Recorded In the past 12 months, has l ack of transportation kept you from medical appts, meetings, work or from getting things needed for daily living? No 10/01/2023 Utilities Answer Date Recorded In the past 12 months, has t he electric, gas, oil or water company threatened to shut off services in your home? No 10/01/2023 Depression Answer Date Recorded Patient Health Questionnaire-2 Score 1 10/01/2023 Sex and Gender Information Value Date Recorded Sex Assigned at Male 02/17/2022 10:16 AM EDT Legal Sex Male 10:16 AM EDT Gender Identity Male 02/17/2022 10:16 AM EDT Sexual Orientation Choose not to disclose 2021 10:16 AM EDT COVID-19 Exposure Response Date Recorded In the last 10 days, have angelita herrera been in contact with someone who was confirmed or suspected to have Coronavirus/COVID-19? No / Unsure 09/30/2022 11:21 AM EDT documented as of this encounter Miscellaneous Notes * Telephone Encounter - Lissperico Cortez - 04/01/2022 12:09 PM EST Tc from [place] ([facility]) stating housing denied his housing form due to lack of information from the provider . Please contact pt for further questions and information . (South Korean speaker) documented in this encounter Plan of Treatment Upcoming Encounters Date Type Department Care Team (Late st Contact Info) Description 07/14/2024 2:15 PM EDT Office Visit [facility] [address] [place] [address] Praful Robles MD [address] [place] [address] documented as of this encounter Visit Diagnoses Not on filedocumented in this encounter Care Teams Horse Race Starter Relationship Specialty Start Date End Date Praful Robles MD [address] [place] [phone] PCP - General Internal Medicine 11/08/14 documented as of this encounter
--- OUTSIDE RECORDS SUMMARY | 2024-06-02 07:47 | XMS_ITS | Encounter Summary ---
Author Organization [employer] Address [address] [facility] 7t [place] [address] Care Team Providers Care Cane Feeder Name Role Phone Praful Robles MD Primary Care Provide r Reason for Referral * Consultation (Routine) - Authorized Specialty Diagnoses / Procedures Referred By Contcari t Referred To Contact Psychiatry / Behavioral Health Diagnoses Depressive disorder Praful Robles MD [address] [place] [address] Phone: tel: fax: Referral ID Status Reason Start Date Expiration Date Visits Requested Visits Authorized [id number] Authorized Specialty Services Required 05/30/2024 05/30/2025 1 1 Reason for Visit * Reason Onset Date Comments Call Back Request 05/30/2024 Encounter Details Date Type Department Care Team ([facility] st Contact Info) Description 05/30/2024 Telephone [facility] [address] [place], [place] [phone] Praful Robles MD [address] [place], [place] [phone] Call Back Request Social History Tobacco Use Types Packs/Day Years Used Date Smoking Tobacco: Never Passive Smoke Exposure: Never Smokeless Tobacco: Never Alcohol Use Standard Drinks/Week Comments Not Currently 0 (1 standard drink = 0.6 oz pur e alcohol) Depression Answer Date Recorded Patient Health Questionnaire-9 [...] encounter Miscellaneous Notes * Telephone Encounter - Mali Gan RN - 05/30/2024 3:57 PM EST Returned call to Ana, director case at [facility]. She stated the diagnosis code M51.369 is not recognized by their system, advised her that no other code listed for this. She then asked for confirmation of COPD diagnosis, advised he on file and confirmed code she already had. No further questions. * Telephone Encounter - Bambi Hall - 05/30/2024 3:33 PM EST Tc from Ana requesting speak with Mali regarding message below. [phone] * Telephone Encounter - Mali Gan RN - 05/30/2024 1:55 PM EST Telephone call returned to Ana, Bottom Painter at [facility]. Ana confirmed that she increased pt's FINISH SPECIALIST hours. She reports he had a in the family recently and is reporting daily depression. Advised her referral can be made to [facility] team here to outreach to pt. Ana asking to confirm diagnoses on file for annual report. Asked about: - osteoarthritis: confirmed M19.019 - low back pain: confirmed M51.369 - depression: F32.A. Ana stated the state doesn't like this diagnosis code and asked for PCP to comment on any others. No further questions. * Telephone Encounter - Dennis Donovan - 05/30/2024 1:04 PM EST Tc from Ana from [facility] informing pt FINISH SPECIALIST hours , also requesting a callback so follow up on some diagnoses. Sincere [phone] documented in this encounter Plan of Treatment Upcoming Encounters Date Type Department Care Team (Late st Contact Info) Description 07/14/2024 2:15 PM EDT Office Visit [facility] [address] [place] [phone] Praful Robles MD [address] [place] [phone] Scheduled Referrals Name Type Priority Associated Diagnoses Order Schedule Referral to Behavioral Health Psychiatry Outpatient Referral Routine Depressive disorder Expected: 05/30/2024 (Approximate), Expires: 05/30/2025 documented as of this encounter Visit Diagnoses Diagnosis Depressive disorder Depressive disorder, not elsewhere classified documented in this encounter Additional Health Concerns Assessment Noted Time PHQ-9 Depression Total Score: 4 10/01/19 24 9:54 AM EDT documented as of this encounter Care Teams Cane Feeder Relationship Specialty Start Date End Date Praful Robles MD [address] [place] [phone] PCP - General Internal Medicine 11/08/14 documented as of this encounter
--- OUTSIDE RECORDS SUMMARY | 2024-06-02 07:47 | XMS_ITS | Encounter Summary ---
Author Organization [employer] [facility] Address [address] [place] [address] 7[address] [place] [address] Care Team Providers Care Inspector Clip On Sunglasses Name Role Phone Praful Robles MD Primary Care Provide r Encounter Details Date Type Department Care Team (Late st Contact Info) Description 04/22/2022 Orders Only [facility] [address] [place] [phone] Liliya Martin, RN Social History Tobacco Use Types Packs/Day Years [...] Description 07/14/2024 2:15 PM EDT Office Visit [facility] [address] [place] [phone] Praful Robles MD [address] [place] [phone] documented as of this encounter Visit Diagnoses Not on filedocumented in this encounter Care Teams Inspector Clip On Sunglasses Relationship Specialty Start Date End Date Praful Robles MD [address] [place] [phone] PCP - General Internal Medicine 11/08/14 documented as of this encounter
--- OUTSIDE RECORDS SUMMARY | 2024-06-02 07:47 | XMS_ITS | Clinical Summary ---
Author Organization [employer] Address [address] [place] [address] Care Team Providers Care Per Diem Registered Nurse Name Role Phone Praful Robles MD Primary Care Provide r Allergies Active Allergy Reactions Criticality Noted Date Comments Ciprofloxacin 12/17/2020 Lisinopril Angioedema High 01/30/2015 Oxybutynin 04/22/2022 Medications albuterol (2.5 MG/3ML) 0.083% nebulizer solution Inhale 3 mL in the morning and 3 mL at noon and 3 mL in the evening. 08/08/19 17 Active clotrimazole-beta methasone (Lotrisone) cream APPLY TO THE AFFECTED AREA(S) EVERY TWELVE HOURS NEEDED 01/29/20 22 Active traMADol (Ultram) 50 MG tablet Take 1 tablet by mouth in the morning and 1 tablet in the evening. 11/16/19 21 Active triamcinolone (Kenalog) 0.1 % cream Apply topically every 12 (twelve) hours. 07/15/19 18 Active clotrimazole-beta methasone (Lotrisone) cream Apply topically twice a day. 01/29/20 22 Active Brilinta 90 MG tabletIndications :Abdominal aortic aneurysm (AAA) without rupture, unspecified part (CMS/HCC) Take 1 tablet (90 mg) by mouth 2 times daily. Take 1 tablet by mouth twice a day 180 tablet 2 04/22/19 23 Active acetaminophen (Tylenol) 325 MG tabletIndications :Pain Take 1.5 tablets (487.5 mg) by mouth every 6 (six) hours if needed for moderate pain. 60 tablet 3 11/21/19 23 Active Lancets (onetouch ultrasoft) lancetsIndication s:Type 2 diabetes mellitus without complication, without long-term current use of insulin ([facility]) 1 each by Other route before breakfast, before lunch, and before evening meal. 100 each 02/06/20 23 Active Multiple Vitamin (Multivitamin) tabletIndications :Type 2 diabetes mellitus without complication, without long-term current use of insulin ([facility]) TAKE 1 TABLET BY MOUTH EVERY MORNING 30 tablet 11 07/23/19 24 Active Aspirin Adult Low Strength 81 MG EC tablet TAKE 1 TABLET BY MOUTH EVERY MORNING 90 tablet 3 08/18/19 24 Active metFORMIN XR (Glucophage-XR) 500 MG 24 hr tabletIndications :Type 2 diabetes mellitus without complication, without long-term current use of insulin ([facility]) Take 1 tablet (500 mg) by mouth 2 times daily. Do not crush, chew, or split. 360 tablet 5 09/28/19 24 Active metFORMIN XR (Glucophage-XR) 500 MG 24 hr tabletIndications :Type 2 diabetes mellitus without complication, without long-term current use of insulin ([facility]) Do not crush, chew, or split. 360 tablet 5 09/28/19 24 Active amLODIPine (Norvasc) 5 MG tabletIndications :Mixed hyperlipidemia,Es sential hypertension TAKE 1 TABLET BY MOUTH EVERY MORNING 90 tablet 2 09/28/19 24 Active atorvastatin (Lipitor) 80 MG tabletIndications :Mixed hyperlipidemia TAKE 1 TABLET BY MOUTH EVERY EVENING 90 tablet 2 09/28/19 24 Active OneTouch Ultra Test test strip TEST BLOOD SUGAR 3 TIMES A DAY 50 strip 11 12/24/19 24 Active Fluticasone-Salme terol 250-50 MCG/ACT aerosol powderIndications :Chronic obstructive pulmonary disease, unspecified COPD type ([facility]) INHALE 1 PUFF BY MOUTH EVERY TWELVE HOURS. RINSE MOUTH AFTER USING. 60 each 3 02/11/20 24 Active omeprazole (PriLOSEC) [address] capsuleIndication s:Gastroesophagea l reflux disease without esophagitis TAKE 1 CAPSULE BY MOUTH EVERY MORNING WITH MEALS 90 capsule 1 03/10/20 24 Active carvedilol (Coreg) 12.5 MG tabletIndications :Essential hypertension TAKE 1 TABLET BY MOUTH TWICE DAILY IN THE MORNING AND IN THE EVENING WITH FOOD 60 tablet 5 03/10/20 24 Active lidocaine (Lidoderm) 5 % patchIndications: Degeneration of lumbar intervertebral disc APPLY 1 PATCH TOPICALLY TO SKIN, LEAVE ON FOR 12 HOURS AND OFF FOR 12 HOURS DIRECTED 30 patch 3 03/10/20 24 Active glipiZIDE XL (Glucotrol XL) 5 MG 24 hr tablet TAKE 1 TABLET BY MOUTH EVERY MORNING 30 tablet 3 03/15/20 24 Active Combivent Respimat 20-100 MCG/ACT inhalerIndication s:Chronic obstructive pulmonary disease, unspecified COPD type (CMS/HCC) INHALE 1 PUFF BY MOUTH FOUR TIMES DAILY MAY TAKE ADDITIONAL PUFFS NEEDED DO NOT EXCEED 6 PUFFS DAILY 4 g 6 03/29/20 24 Active traZODone (Desyrel) 50 MG tabletIndications :Sleep disturbance TAKE 1/2 TABLET BY MOUTH AT BEDTIME 15 tablet 1 04/06/20 24 Active fluticasone (Flonase) 50 MCG/ACT nasal sprayIndications: Seasonal allergies INHALE 1 SPRAY IN EACH NOSTRIL TWICE DAILY DIRECTED 16 g 3 05/10/19 25 Active fluticasone (Flonase) 50 MCG/ACT nasal sprayIndications: Seasonal allergies USE 1 SPRAY IN EACH NOSTRIL TWICE DAILY DIRECTED 16 g 3 01/15/20 24 2024 Discontinued Active Problems Problem Noted Date Diagnosed Date Onychomycosis 01/28/2024 Assessment & Plan (01/28/2024 4:10 PM EDT): Exam indicative of this Terbinafine sent , referral to Podiatry Iron deficiency anemia 11/20/2022 Assessment & Plan (04/05/2024 11:33 AM EST): Pt has anemia and elevated ESR. SPEP suggestive of inflamation only Unclear etiology. Normal B12 and Folate Hematology consult , last seen 03/18/2024 Assessment & Plan (02/26/2023 9:59 AM EST): Pt has anemia and elevated ESR. SPEP suggestive of inflamation only Unclear etiology. Normal B12 and Folate Hematology consult 12/24/2022 work up in progress recommended 3 month follow up Assessment & Plan (11/20/2022 10:14 AM EDT): Pt has anemia and elevated ESR. SPEP suggestive of inflamation only Unclear etiology. Normal B12 and Folate Plan: hematology consult Abnormal computed tomography of kidney Assessment & Plan (11/20/2022 10:04 AM EDT): CTA chest showed incidental finding of a non specific focal hypoatenuation in the upper pole of the right kidney, measuring higher than simple fluid attenuation. Renal U/S was ordered and showed Bilateral renal cysts. No suspicious features. Nonobstructing left renal calculi. No hydronephrosis. Assessment & Plan (09/30/2022 11:23 AM EDT): CTA chest showed incidental finding oa non specifica focal hypoatenuation in the upper pole of the right kidney, measuring higher than simple fluid attenuation. Renal U/S recommended Will order Weight loss 09/30/2022 Assessment & Plan (01/28/2024 9:13 AM EDT): Pt's weight stabilized at 143 Work up so far revealed anemia with an elevated ESR. SPEP suggestive of inflammation only He is s/p prostatectomy for a remote Hx of prostate cancer Unfortunately he missed again his appointment with GI for his Colonoscopy ( had appointment with Dr Yanez 11/03/2023). Seen by Hematology 05/2023 they recommended that if his Hgb continues to decline in goes below 10 would advise Procrit therapy for ACD, was stage 3 kidney disease. He was supposed to follow up in 6 months. Continue Ensure for now CT of Abdomen to rule out pancreatic mass negative 01/2023 Assessment & Plan (02/26/2023 10:45 AM EST): Pt's weight down to 142 Work up so far revealed anemia with an elevated ESR. SPEP suggestive of inflammation only He is s/p prostatectomy for a remote Hx of prostate cancer and is Awaiting a GI appointment for his Colonoscopy ( has appointment with Dr Yanez March 03 at 1 PM). Seen by Hematology 12/24/2022 work up in progress Continue Ensure for now Await GI consult for colonoscopy CT of Abdomen to rule out pancreatic mass negative Assessment & Plan (11/20/2022 12:44 PM EDT): Pt had lost > 5 lbs unintentionally according to his report, since last visit he regained 1 lb Work up so far revealed anemia with an elevated ESR. SPEP suggestive of inflammation only He is s/p prostatectomy for a remote Hx of prostate cancer and is Awaiting a GI appointment for his Colonoscopy ( has appointment with Dr Yanez February). Plan: Hematology consult. Continue Ensure for now Await GI consult for colonoscopy CT of Abdomen to rule out pancreatic mass F/u after testing Primary insomnia 04/29/2022 Assessment & Plan (04/29/2022 8:11 AM EST): Pt with persistent c/o difficulty sleeping, discussed sleep hygiene habits On Trazodone 100 mg po qhs Plan: Continue current regimen Hx of syphilis 04/29/2022 Assessment & Plan (04/29/2022 8:12 AM EST): Pt had a negative quantitative RPR with a POSITIVE TPEIA... Suggestive of previous Infection with Syphilis Pt reports being treated when he was in his 20es I had referred pt to Dr Hooks for evaluation ID specialists. she reviewed the lab results and stated that there was NO need to treat again since he was already treated in the past and his RPR quant was negative. Ataxic gait 04/29/2022 Assessment & Plan (04/05/2024 11:34 AM EST): Previous visit pt c/o difficulty walking, feeling like he falls towards the right side for months he has fallen a couple of times Previous Neuro exam with no red flags aside from a titubeic ataxic gait Pt was referred to PT and I recommended a Brain MRI that was done 05/24/2021 and showed: IMPRESSION: 1. 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 2. Small focus of left temporal pole encephalomalacia unchanged from previous CT, possibly secondary to remote trauma. Correlate with patient's clinical history. 3. Avtb-wh-cpvnedky generalized diffuse brain parenchymal volume loss somewhat progressed from previous CT with associated third and lateral ventriculomegaly without definite hydrocephalus. No disproportionate cerebellar volume loss. Patient was referred to Neurology but it appears he did not go. The appointment was for March 13 2024 Assessment & Plan (01/28/2024 4:09 PM EDT): Previous visit pt c/o difficulty walking, feeling like he falls towards the right side for months he has fallen a couple of times Previous Neuro exam with no red flags aside from a titubeic ataxic gait Pt was referred to PT and I recommended a Brain MRI that was done 05/24/2021 and showed: IMPRESSION: 1. 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 2. Small focus of left temporal pole encephalomalacia unchanged from previous CT, possibly secondary to remote trauma. Correlate with patient's clinical history. 3. Aeaf-md-elnzqiob generalized diffuse brain parenchymal volume loss somewhat progressed from previous CT with associated third and lateral ventriculomegaly without definite hydrocephalus. No disproportionate cerebellar volume loss. Patient was referred to Neurology but it appears he did not go. Referred again today Assessment & Plan (04/29/2022 8:17 AM EST): Previous visit pt c/o difficulty walking, feeling like he falls towards the right side for months he has fallen a couple of times Previous Neuro exam with no red flags aside from a titubeic ataxic gait Pt was referred to PT and I recommended a Brain MRI that was done 05/24/2021 and showed: IMPRESSION: 1. 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 2. Small focus of left temporal pole encephalomalacia unchanged from previous CT, possibly secondary to remote trauma. Correlate with patient's clinical history. 3. Qvwx-oq-srbxbbmz generalized diffuse brain parenchymal volume loss somewhat progressed from previous CT with associated third and lateral ventriculomegaly without definite hydrocephalus. No disproportionate cerebellar volume loss. Pt told me previously that he went to see Neurologist, records requested, but not received S/P endovascular aneurysm repair 04/29/2022 Assessment & Plan (01/28/2024 9:06 AM EDT): Hx of a 5.7 x 6.2 CM AAA . He eventually underwent EVAR on 10/26/[address] Cardoza referred to a different vascular surgeon since Dr Cardoza no longer takes his insurance. Pt seen by Dr Jorge Campuzano 06/06/2021 recommended 1 year f/u Ct of Abdomen and Pelvis done 12/2022 for weight loss showed: A type I endoleak is suspected adjacent to the proximal iliac graft margins. There is mild interim increase in the patient's abdominal aortic aneurysm by 4 mm. Continued imaging surveillance may be indicated. Patient is under the care of Dr. Campuzano, last seen 02/2023 he recommended a 6 month follow up for surveillance Assessment & Plan (10/01/2023 9:57 AM EDT): Hx of a 5.7 x 6.2 CM AAA . He eventually underwent EVAR on 10/26/[address] Cardoza referred to a different vascular surgeon since Dr Cardoza no longer takes his insurance. Pt seen by Dr Jorge Campuzano 06/06/2021 recommended 1 year f/u Ct of Abdomen and Pelvis done 12/2022 for weight loss showed: A type I endoleak is suspected adjacent to the proximal iliac graft margins. There is mild interim increase in the patient's abdominal aortic aneurysm by 4 mm. Continued imaging surveillance may be indicated. Patient is under the care of Dr. Campuzano, last seen 02/2023 he recommended a 6 month follow up for surveillance Assessment & Plan (02/26/2023 9:52 AM EST): Hx of a 5.7 x 6.2 CM AAA . He eventually underwent EVAR on 10/26/[address] Cardoza referred to a different vascular surgeon since Dr Cardoza no longer takes his insurance. Pt seen by Dr Jorge Campuzano 06/06/2021 recommended 1 year f/u Ct of Abdomen and Pelvis done 12/2022 for weight loss showed: A type I endoleak is suspected adjacent to the proximal iliac graft margins. There is mild interim increase in the patient's abdominal aortic aneurysm by 4 mm. Continued imaging surveillance may be indicated. Message sent to Dr. Campuzano's office Vascular appointment is scheduled for 03/09 at 10:15 am. Pt has been notified of appointment today to make sure he does not miss it Assessment & Plan (04/29/2022 8:19 AM EST): CTA showed an incidental finding of a 5.7 x 6.2 CM AAA . He eventually underwent EVAR on 10/26/[address] Cardoza referred to a different vascular surgeon since Dr Cardoza no longer takes his insurance. Pt seen by Dr Jorge Campuzano 06/06/2021 recommended 1 year f/u NSTEMI (non-ST elevated myocardial infarction) 0 04/29/2022 Assessment & Plan (07/30/2022 2:01 PM EDT): Patient presented to [facility] on 04/15/22 due to chest pain, discharged 04/17/2022 Found to have NSTEMI and transferred to [facility]. ECHO demonstrated new wall motion abnormality and patient taken to blood and plasma laboratory assistant on 04/16/22. Patient now s/p PADMINI to mid proximal RCA. Patient started on Atorvastatin, Brilinta (to continue for 1 year) and Carvedilol. Amlodipine was decreased to 5 mg daily. Patient to continue taking low dose Aspirin. Nabumetone discontinued due to increased risk of bleeding with DAPT. Pt was recently seen by Residential Appraiser Dr Westbrook 07/15/2022 Assessment & Plan (04/29/2022 10:07 AM EST): Patient presented to [facility] on 04/15/22 due to chest pain, discharged 04/17/2022 Found to have NSTEMI and transferred to [facility]. ECHO demonstrated new wall motion abnormality and patient taken to blood and plasma laboratory assistant on 04/16/22. Patient now s/p PADMINI to mid proximal RCA. Patient started on Atorvastatin, Brilinta (to continue for 1 year) and Carvedilol. Amlodipine was decreased to 5 mg daily. Patient to continue taking low dose Aspirin. Nabumetone discontinued due to increased risk of bleeding with DAPT. Patient discharged home to follow up with Cardiology. Patient has cardiac rehabilitation scheduled. Today patient denies any more chest pain and reports only pain they have is from the surgery. Currently using Tylenol and Motrin for pain Pt tells me he has an upcoming cardiology appointment on May 01 and one with the Cardiac Rehab Program Has a [employer] BOOK[employer]EE[employer], rollator walker recommended to help with ambulation Difficulty walking 04/29/2022 Assessment & Plan (04/29/2022 9:58 AM EST): Pt with chronic low back pain and ataxic gait 1. Does the patient have a mobility limitation that significantly impairs their ability to participate in any or all mobility related activities of daily living (MRADLs) such as toileting, feeding, dressing, grooming and bathing in customary locations in the home? Yes 2. Can the patient? s mobility limitation be sufficiently resolved with the use of a cane or crutch? No 3. Will the functional mobility deficit be sufficiently resolved with the use of a walker? Yes 4. Is the patient able to safely use the walker? Yes 5. If a walker with wheels is needed, does the patient have upper body weakness which prevents them from picking up the walker? No 6. If a walker with wheels is needed, does the patient have limited use of one hand, neurological disorders or severe obesity? N/A Neck pain 04/22/2022 Degeneration of lumbar intervertebral disc 04/22 Assessment & Plan (10/01/2023 10:10 AM EDT): Patient chronic low back pain Patient is onGabapentin which he uses for his Diabetic Neuropathy jt Pain medications. I had recommended a muscle relaxant and a NCS of his lower extremities to r/o lumbar radiculopathy as well as plain films of LS spine. PT was also evaluated at [facility] in July but it appears pt had been c/o neck pain and not low back pain, They obtained an MRI that showed multilevel degenerative disc disease. They prescribed Lidoderm patches. NCS done confirmed mild chronic L4-L5 radiculopathy Pt has been taking Tramadol to help with his neck and low back pain Pt was last seen at [facility] 04/08/2019 Previous visit he was referred to PT, Added Acetaminophen and a muscle relaxant. Pt needed a letter of support for a handicapped accessible apartment Pt is interested in a scooter, would like to be referred to PT for w motorized scooter evaluation Assessment & Plan (04/29/2022 8:04 AM EST): Patient chronic low back pain Patient is onGabapentin which he uses for his Diabetic Neuropathy jt Pain medications. I had recommended a muscle relaxant and a NCS of his lower extremities to r/o lumbar radiculopathy as well as plain films of LS spine. PT was also evaluated at [facility] in July but it appears pt had been c/o neck pain and not low back pain, They obtained an MRI that showed multilevel degenerative disc disease. They prescribed Lidoderm patches. NCS done confirmed mild chronic L4-L5 radiculopathy Pt has been taking Tramadol to help with his neck and low back pain Pt was last seen at [facility] 04/08/2019 Previous visit he was referred to PT, Added Acetaminophen and a muscle relaxant. Pt needed a letter of support for a handicapped accessible apartment Abdominal aortic aneurysm without rupture 2022 Assessment & Plan (10/01/2023 9:55 AM EDT): CTA showed an incidental finding of a 5.7 x 6.2 CM AAA . He eventually underwent EVAR on 10/26/[address] Cardoza referred to a different vascular surgeon since Dr Cardoza no longer takes his insurance. Pt seen by Dr Jorge Campuzano 03/19/2024 recommended 6 month f/u Assessment & Plan (11/20/2022 10:07 AM EDT): CTA showed an incidental finding of a 5.7 x 6.2 CM AAA . He eventually underwent EVAR on 10/26/[address] Cardoza referred to a different vascular surgeon since Dr Cardoza no longer takes his insurance. Pt seen by Dr Jorge Campuzano 06/06/2021 recommended 1 year f/u Osteoarthritis of acromioclavicular joint 2015 Tubular adenoma 01/30/2015 Assessment & Plan (04/05/2024 11:39 AM EST): Pt with Hx of multiple tubular adenomas, Overdue for colorectal Ca screen, last one 2013 Back in February 2020 patient was referred back to GI. Pt had Cardiac clearance but cancelled colonoscopy . Had appointment with GI November 02/2024, pt missed appointment again. Placed a new referral , discussed in great detail with him and his grand son the importance of having study done to prevent deadly conditions such as colon cancer. Pt verbalized understanding and promised not to miss it. Patienttells me he has not heard from them Assessment & Plan (01/28/2024 4:08 PM EDT): Pt with Hx of multiple tubular adenomas, Overdue for colorectal Ca screen, last one 2013 Back in February 2020 patient was referred back to GI. Pt had Cardiac clearance but cancelled colonoscopy . Had appointment with GI November 02/2024, pt missed appointment again. Placed a new referral , discussed in great detail with him and his grand son the importance of having study done to prevent deadly conditions such as colon cancer. Pt verbalized understanding and promised not to miss it. Assessment & Plan (10/01/2023 10:15 AM EDT): Pt with Hx of multiple tubular adenomas, Overdue for colorectal Ca screen, last one 2013 Back in February 2020 patient was referred back to GI. Pt had Cardiac clearance but cancelled colonoscopy . Has appointment with GI November 02/2024 Assessment & Plan (02/26/2023 10:45 AM EST): Pt with Hx of multiple tubular adenomas, Overdue for colorectal Ca screen, last one 2013 Back in February 2020 patient was referred back to GI. Pt had Cardiac clearance but cancelled colonoscopy . Has appointment with GI 03/03/at 1 PM Assessment & Plan (11/20/2022 9:21 AM EDT): Pt with Hx of multiple tubular adenomas, Overdue for colorectal Ca screen, last one 2013 Back in February 2020 patient was referred back to GI. Pt had Cardiac clearance but cancelled colonoscopy . Patient referred to Dr Yanez Assessment & Plan (09/30/2022 11:44 AM EDT): Pt with Hx of multiple tubular adenomas, Overdue for colorectal Ca screen, last one 2013 Back in February 2020 patient was referred back to GI. Pt had Cardiac clearance but cancelled colonoscopy . I asked my MA to contact them to reschedule Assessment & Plan (07/30/2022 1:51 PM EDT): Pt with Hx of multiple tubular adenomas, Overdue for colorectal Ca screen, last one 2013 Back in February 2020 patient was referred back to GI. Pt had Cardiac clearance but cancelled colonoscopy. Last visit I asked my MA to contact them to reschedule Assessment & Plan (04/29/2022 8:09 AM EST): Pt with Hx of multiple tubular adenomas, Overdue for colorectal Ca screen, last one 2013 Back in February 2020 patient was referred back to GI. Pt had Cardiac clearance but cancelled colonoscopy . I have asked my MA to contact them to reschedule Essential hypertension 01/30/2015 Assessment & Plan (04/05/2024 11:35 AM EST): Pt here for a f/u Patient with Hypertension currently controlled on a regimen of: Norvasc 10 mg po daily, Off Lisinopril Given adequate blood pressure control will continue with current medical regimen. Most recent Bun and Creatinine done on: 02/02/2024 within normal limits. patient advised to adhere to a low sodium diet, encouraged about medication compliance, counseled about weight loss. Assessment & Plan (01/28/2024 9:06 AM EDT): Pt here for a f/u Patient with Hypertension currently controlled on a regimen of: Norvasc 10 mg po daily, Off Lisinopril Given adequate blood pressure control will continue with current medical regimen. Most recent Bun and Creatinine done on: 09/04/2023 within normal limits. Repeat BMP patient advised to adhere to a low sodium diet, encouraged about medication compliance, counseled about weight loss. Assessment & Plan (10/01/2023 9:56 AM EDT): Pt here for a f/u Patient with Hypertension currently controlled on a regimen of: Norvasc 10 mg po daily, Off Lisinopril Given adequate blood pressure control will continue with current medical regimen. Most recent electrolytes, Bun and Creatinine done on: 09/04/2023 within normal limits. patient advised to adhere to a low sodium diet, encouraged about medication compliance, counseled about weight loss. Assessment & Plan (02/26/2023 10:00 AM EST): Pt here for a f/u Patient with Hypertension currently controlled on a regimen of: Norvasc 10 mg po daily, Off Lisinopril Given adequate blood pressure control will continue with current medical regimen. Most recent electrolytes, Bun and Creatinine done on: 08/11/2022 within normal limits. Will repeat patient advised to adhere to a low sodium diet, encouraged about medication compliance, counseled about weight loss. Assessment & Plan (11/20/2022 9:19 AM EDT): Pt here for a f/u Patient with Hypertension currently controlled on a regimen of: Norvasc 10 mg po daily, Off Lisinopril Given adequate blood pressure control will continue with current medical regimen. Most recent electrolytes, Bun and Creatinine done on: 08/11/2022 within normal limits patient advised to adhere to a low sodium diet, encouraged about medication compliance, counseled about weight loss. Assessment & Plan (07/30/2022 1:59 PM EDT): Pt here for a f/u Patient with Hypertension currently controlled on a regimen of: Norvasc 10 mg po daily, Off Lisinopril Given adequate blood pressure control will continue with current medical regimen. Most recent electrolytes, Bun and Creatinine done on: 10/08/2021 , will repeat patient advised to adhere to a low sodium diet, encouraged about medication compliance, counseled about weight loss. Assessment & Plan (04/29/2022 8:06 AM EST): Pt here for a f/u Patient with Hypertension currently controlled on a regimen of: Norvasc 10 mg po daily, Off Lisinopril Given adequate blood pressure control will continue with current medical regimen. Most recent electrolytes, Bun and Creatinine done on: 10/08/2021 patient advised to adhere to a low sodium diet, encouraged about medication compliance, counseled about weight loss. Mixed hyperlipidemia 01/30/2015 Assessment & Plan (11/20/2022 9:23 AM EDT): Patient with elevated lipids. Most recent lipid profile from: 08/07/2022 shows a total cholesterol of: 120 triglycerides of: 67 HDL of: 42 and LDL of: 64 Lipids at target Currently not on a regimen because of chronic elevation of his CPK advised to try to adhere to a low cholesterol diet, counseled and educated about diet and exercise, Patient encouraged to come up with a personal goal for weight loss. Pt has yet to have the Lipid profile I asked previous visit Assessment & Plan (09/30/2022 9:06 AM EDT): Patient with elevated lipids. Most recent lipid profile from: 12/29/2019 shows a total cholesterol of: 183 triglycerides of: 148 HDL of: 43 and LDL of: 114 Currently not on a regimen because of chronic elevation of his CPK advised to try to adhere to a low cholesterol diet, counseled and educated about diet and exercise, Patient encouraged to come up with a personal goal for weight loss. Pt has yet to have the Lipid profile I asked previous visit Will repeat Lipid profile, pt did not do it Assessment & Plan (07/30/2022 1:51 PM EDT): Patient with elevated lipids. Most recent lipid profile from: 12/29/2019 shows a total cholesterol of: 183 triglycerides of: 148 HDL of: 43 and LDL of: 114 Currently not on a regimen because of chronic elevation of his CPK advised to try to adhere to a low cholesterol diet, counseled and educated about diet and exercise, Patient encouraged to come up with a personal goal for weight loss. Pt has yet to have the Lipid profile I asked previous visit Will repeat Lipid profile, pt did not do it Assessment & Plan (04/29/2022 8:07 AM EST): Patient with elevated lipids. Most recent lipid profile from: 12/29/2019 shows a total cholesterol of: 183 triglycerides of: 148 HDL of: 43 and LDL of: 114 Currently not on a regimen because of chronic elevation of his CPK advised to try to adhere to a low cholesterol diet, counseled and educated about diet and exercise, Patient encouraged to come up with a personal goal for weight loss. Pt has yet to have the Lipid profile I asked previous visit Will repeat Lipid profile Multiple nodules of lung 01/30/2015 Assessment & Plan (11/20/2022 9:17 AM EDT): Here for a f/u Pt has Hx of multiple pulmonary nodules. Chest CT done on 08/06/2013 showed a left lower base 1 cm rounded opacity for which a repeat Chest Ct was recommended. Chest CT was repeated on 02/27/2015 and showed REGRESSING lll nodule favoring a benign etiology. Repeat on 07/27/2017 showed several stable bilateral lung nodules most consistent with benign etiology as well as Upper lobe emphysema Pt had a CTA of head and neck in the ER 07/09/2018 that showed: Incidentally noted 6 mm nodules within the right middle lobe and in the left upper lobe as well as Severe emphysema. Repeat Chest CT 12/30/2018 raised a question of a suspicious nodule for which he ended up having a PET CT 01/28/2019 that aside from a reactive lymph node was otherwise unremarkable Repeat Chest CT 10/2020 showed emphysema, fissural nodules in the right lower lung, small unchanged juxtapleural nodule in the LLL Previous visit I recommended a repeat Chest CT, unfortunately was not done. Pt was seen in the ER with c/o chest pain 09/12/2022 and as part of his work up he had a CTA that showed:new cluster of pulmonary nodules in the left upper lobe short term follow up was recommended Pt was referred to Pulmonology Dr Tucker seen 10/31/2022 He recommended repeat CTA in 6 months Assessment & Plan (09/30/2022 11:21 AM EDT): Here for a f/u Pt has Hx of multiple pulmonary nodules. Chest CT done on 08/06/2013 showed a left lower base 1 cm rounded opacity for which a repeat Chest Ct was recommended. Chest CT was repeated on 02/27/2015 and showed REGRESSING lll nodule favoring a benign etiology. Repeat on 07/27/2017 showed several stable bilateral lung nodules most consistent with benign etiology as well as Upper lobe emphysema Pt had a CTA of head and neck in the ER 07/09/2018 that showed: Incidentally noted 6 mm nodules within the right middle lobe and in the left upper lobe as well as Severe emphysema. Repeat Chest CT 12/30/2018 raised a question of a suspicious nodule for which he ended up having a PET CT 01/28/2019 that aside from a reactive lymph node was otherwise unremarkable Repeat Chest CT 10/2020 showed emphysema, fissural nodules in the right lower lung, small unchanged juxtapleural nodule in the LLL Previous visit I recommended a repeat Chest CT, unfortunately was not done. Pt was seen in the ER with c/o chest pain 09/12/2022 and as part of his work up he had a CTA that showed:new cluster of pulmonary nodules in the left upper lobe short term follow up was recommended Will refer to Pulmonology Assessment & Plan (07/30/2022 1:56 PM EDT): Here for a f/u Pt has Hx of multiple pulmonary nodules. Chest CT done on 08/06/2013 showed a left lower base 1 cm rounded opacity for which a repeat Chest Ct was recommended. Chest CT was repeated on 02/27/2015 and showed REGRESSING lll nodule favoring a benign etiology. Repeat on 07/27/2017 showed several stable bilateral lung nodules most consistent with benign etiology as well as Upper lobe emphysema Pt had a CTA of head and neck in the ER 07/09/2018 that showed: Incidentally noted 6 mm nodules within the right middle lobe and in the left upper lobe as well as Severe emphysema. Repeat Chest CT 12/30/2018 raised a question of a suspicious nodule for which he ended up having a PET CT 01/28/2019 that aside from a reactive lymph node was otherwise unremarkable Repeat Chest CT 10/2020 showed emphysema, fissural nodules in the right lower lung, small unchanged juxtapleural nodule in the LLL Previous visit I recommended a repeat Chest CT, unfortunately was not done, will schedule again Assessment & Plan (04/29/2022 8:15 AM EST): Here for a f/u Pt has Hx of multiple pulmonary nodules. Chest CT done on 08/06/2013 showed a left lower base 1 cm rounded opacity for which a repeat Chest Ct was recommended. Chest CT was repeated on 02/27/2015 and showed REGRESSING lll nodule favoring a benign etiology. Repeat on 07/27/2017 showed several stable bilateral lung nodules most consistent with benign etiology as well as Upper lobe emphysema Pt had a CTA of head and neck in the ER 07/09/2018 that showed: Incidentally noted 6 mm nodules within the right middle lobe and in the left upper lobe as well as Severe emphysema. Repeat Chest CT 12/30/2018 raised a question of a suspicious nodule for which he ended up having a PET CT 01/28/2019 that aside from a reactive lymph node was otherwise unremarkable Repeat Chest CT 10/2020 showed emphysema, fissural nodules in the right lower lung, small unchanged juxtapleural nodule in the LLL Previous visit I recommended a repeat Chest CT, unfortunately was not done Malignant tumor of prostate 04/01/2012 Assessment & Plan (10/01/2023 9:59 AM EDT): S/P radical prostatectomy 12/06/2008 Under the care of Dr Carrasquillo last seen 05/2023 Assessment & Plan (09/30/2022 11:43 AM EDT): S/P radical prostatectomy 12/06/2008 Pt no longer follows with Dr Martínez. last note on record from 07/07/2011. He used to follow with Dr Bjorn RANGEL who recently performed a penile prosthesis. Assessment & Plan (04/29/2022 8:12 AM EST): S/P radical prostatectomy 12/06/2008 Pt no longer follows with Dr Martníez. last note on record from 07/07/2011. He now follows with Dr Bjorn RANGEL who recently performed a penile prosthesis. Type 2 diabetes mellitus wit hout complication, without long-term current use of insulin 04/01/2012 Assessment & Plan (01/28/2024 9:12 AM EDT): Pt here for a f/u regarding his diabetes Today DM controlled He is on a regimen of: Glipizide XR 5 mg po daily and Metformin XR 500 mg 2 tabs po BID Hgb A1c 01/28/2024 : 5.8 Plan: Continue current regimen Eye exam was done 03/09/2017 Microalbumin 12/29/2019 was 2.5 Pt is no longer on an EJ inhibitor Foot check risk of zero Pt on Asa 81 mg po daily Pt advised to: adhere to diabetic diet check your blood sugars regularly check your feet on a daily basis Assessment & Plan (10/01/2023 9:58 AM EDT): Pt here for a f/u regarding his diabetes Today DM controlled He is on a regimen of: Glipizide XR 5 mg po daily and Metformin XR 500 mg 2 tabs po BID Hgb A1c 10/01/2023 : 6.1 Plan: Continue current regimen Eye exam was done 03/09/2017 Microalbumin 12/29/2019 was 2.5 Pt is no longer on an EJ inhibitor Foot check risk of zero Pt on Asa 81 mg po daily Pt advised to: adhere to diabetic diet check your blood sugars regularly check your feet on a daily basis Assessment & Plan (02/26/2023 9:57 AM EST): Pt here for a f/u regarding his diabetes Today DM controlled He is on a regimen of: Glipizide XR 5 mg po daily and Metformin XR 500 mg 2 tabs po BID Hgb A1c 02/26/2023: Plan: Continue current regimen Eye exam was done 03/09/2017 Microalbumin 12/29/2019 was 2.5 Pt is no longer on an EJ inhibitor Foot check risk of zero Pt on Asa 81 mg po daily Pt advised to: adhere to diabetic diet check your blood sugars regularly check your feet on a daily basis Assessment & Plan (11/20/2022 9:20 AM EDT): Pt here for a f/u regarding his diabetes Today DM controlled He is on a regimen of: Glipizide XR 5 mg po daily and Metformin XR 500 mg 2 tabs po BID Hgb A1c 07/30/2022: 5.8 Plan: Continue current regimen Eye exam was done 03/09/2017 Microalbumin 12/29/2019 was 2.5 Pt is no longer on an EJ inhibitor Foot check risk of zero Pt on Asa 81 mg po daily Pt advised to: adhere to diabetic diet check your blood sugars regularly check your feet on a daily basis Assessment & Plan (07/31/2022 9:39 AM EDT): Pt here for a f/u regarding his diabetes Today DM controlled He is on a regimen of: Glipizide XR 5 mg po daily and Metformin XR 500 mg 2 tabs po BID Hgb A1c 07/30/2022: 5.8 Plan: Continue current regimen Eye exam was done 03/09/2017 Microalbumin 12/29/2019 was 2.5 Pt is no longer on an EJ inhibitor Foot check risk of zero Pt on Asa 81 mg po daily Pt advised to: adhere to diabetic diet check your blood sugars regularly check your feet on a daily basis Assessment & Plan (04/29/2022 8:05 AM EST): Pt here for a f/u His diabetes has been controlled, on a regimen of: Glipizide XR 5 mg po daily and Metformin XR 500 mg 2 tabs po BID Hgb A1c 01/28/2022 was: 5.6 Plan: Continue current regimen Eye exam was done 03/09/2017 Microalbumin 12/29/2019 was 2.5 Pt is no longer on an EJ inhibitor Foot check risk of zero Pt on Asa 81 mg po daily Pt advised to: adhere to diabetic diet check your blood sugars regularly check your feet on a daily basis Mantoux: positive 01/09/2012 Depressive disorder 01/09/2012 Assessment & Plan (04/29/2022 8:09 AM EST): Doing well Patient denies any suicidal ideation or thoughts, He follows with a psychotherapist at [facility] Patient has crisis numbers and knows to use them if needed Chronic obstructive lung disease 01/09/2012 Assessment & Plan (10/01/2023 9:54 AM EDT): Doing well No recent exacerbations Currently denies any sob or recent exacerbation. Pt has been using Combivent with good results Pt was referred to Pulmonology Dr Tucker seen 05/14/2023 CT chest 04/22/2023 showed: Multiple pulmonary nodules are unchanged when compared to 09/12/2022. 2. Underlying emphysematous changes with some fibrotic changes at the apices, unchanged. 3. Moderate coronary artery calcifications. 4. Partially visualized abdominal aortic stent graft. He recommended repeat CTA in 6 months PFTs 11/06/2022 at [facility] [place] showed Mod obstructive vent defect with positive bronchodilator response and decreased diffusion capacity suggestive of Emphysema Assessment & Plan (11/20/2022 4:52 PM EDT): Doing well No recent exacerbations Currently denies any sob or recent exacerbation. Pt has been using Combivent with good results Pt was referred to Pulmonology Dr Tucker seen 10/31/2022 He recommended repeat CTA in 6 months PFTs 11/06/2022 at [facility] [place] showed Mod obstructive vent defect with positive bronchodilator response and decreased diffusion capacity suggestive of Emphysema Assessment & Plan (09/30/2022 11:22 AM EDT): Doing well No recent exacerbations Currently denies any sob or recent exacerbation. Pt has been using Combivent. Given new CT Chest findings will refer to Pulmonology Assessment & Plan (04/29/2022 8:13 AM EST): Doing well No recent exacerbations Currently denies any sob or recent exacerbation. Pt has been using Combivent. Encounters Date Type Department Care Team Description 05/30/2024 Telephone [facility] [address] [place] [address] Praful Robles MD Call Back Request 05/05/2024 Refill [facility] [address] [place] [address] Sonia Morales ANP Seasonal allergies 05/04/2024 Telephone [facility] [address] [place] [address] Praful Robles MD June Recall 04/15/2024 Orders Only [facility] External Provider, [facility] 04/06/2024 Refill [facility] [address] [place] [address] Armando Hernandez MD Sleep disturbance 04/05/2024 11:15 AM EST Office Visit [facility] [address] [place] [address] Praful Robles MD Type 2 diabetes mellitus without complication, without long-term current use of insulin ([facility]) (Primary Dx); Essential hypertension; Iron deficiency anemia, unspecified iron deficiency anemia type; Ataxic gait; Tubular adenoma 04/05/2024 Travel 03/30/2024 Telephone [facility] [address] [place] [address] Praful Robles MD Chart Prep 03/27/2024 Refill [facility] [address] [place] [address] Sonia Morales ANP Chronic obstructive pulmonary disease, unspecified COPD type (CMS/HCC) 03/14/2024 Refill [facility] [address] [facility] [address] Name, MD Armando 03/10/2024 Refill [facility] [address] [place] [address] Praful Robles MD Essential hypertension; Degeneration of lumbar intervertebral disc 03/09/2024 Refill [facility] [address] [facility] [place] [address] Praful Robles MD Gastroesophageal reflux disease without esophagitis from Last 3 Months Immunizations Name Administration Dates Next Due DTaP 03/27/2019 Influenza High-dose Quadriva lent Preservative Free 02/26/2023,01/28/2022,02/16/2020 Influenza injectable quadriv alent preservative free 02/09/2017 Influenza, High Dose Seasona l, Preservative Free 01/28/2024,03/28/2019 Influenza, IIV3, injectable 03/15/2018,1 ,01/30/2015,01/13,02/21/2011 Influenza, Split (incl. imani fied surface antigen) 01/27/2013,01/09/2012 Moderna Covid-19 Vaccine 12+ 03/21/2021,06/30/19 21,06/01/2020 Pfizer Covid-19 Vaccine 12+ 01/28/2024 Pneumococcal Conjugate PCV 13 01/30/2015 Pneumococcal Polysaccharide PPSV23 06/01/2012 Td (adult), unspecified 01/24/2002 Tdap 03/25/2021,04/14/2012 Zoster, live 05/01/2015 Social History Tobacco Use Types Packs/Day Years Used Date Smoking Tobacco: Never Passive Smoke Exposure: Never Smokeless Tobacco: Never Tobacco Cessation:Counseling Given: Not Answered Alcohol Use Standard Drinks/Week Comments Not Currently [...] not to disclose 2021 10:16 AM EDT Last Filed Vital Signs Vital Sign Reading Time Taken Comments Blood Pressure 144/86 04/05/2024 11:35 AM EST Pulse 68 04/05/2024 11:20 AM EST Temperature 36.4 ??C (97.5 ??F) 04/05/2024 11:[address] Respiratory Rate 20 04/05/2024 11:20 AM EST Oxygen Saturation 98% 04/05/2024 11:20 AM EST Inhaled Oxygen Concentration - - Weight 65.3 kg (144 lb) 04/05/2024 11:20 AM EST Height 167.6 cm (5' 6 ) 04/05/2024 11:20 AM EST Body Mass Index 23.24 04/05/2024 11:20 AM EST Plan of Treatment Upcoming Encounters Date Type Department Care Team (Late st Contact Info) Description 07/14/2024 2:15 PM EDT Office Visit [facility] [address] [place], [place] [phone] Praful Robles MD [address] [place], [place] [phone] Health Maintenance Due Date Last Done Comments Diabetes: Foot Exam 1954 Eye Exam 1955 Hepatitis C Screening 1962 Zoster Vaccines (2 of 3) 06/26/2015 05/01/2015 RSV Patients and Patients Aged 60 years or older (1 - 1-dose 75+ series) 09/02/2019 Diabetes: Urine Protein Screening 12/28/2020 12/29/2019 Diabetes: Hemoglobin A1C 07/28/2024 024, 10/01/2023, 02/26/2023, Additional history exists Depression Screening 09/30/2024 10/01/2023, 10/01/19 24 SDOH Screening 09/30/2024 10/01/2023 Lipid Panel 02/01/2025 02/02/2024, 11/0 12/2022, 08/07/2022, Additional history exists Alcohol/Substance Use Screening 04/05/2025 04/05/2024 Tobacco Screening 04/05/2025 04/05/2024 DTaP/Tdap/Td Vaccines (4 - Td or Tdap) 03/25/2031 03/25/2021, 03/27/2019, 04/14/2012, Additional history exists Pneumococcal Vaccine: 50+ Years Completed 01/30/2015, 06/01/2012 COVID-19 Vaccine Completed 01/28/2024, 05/2020, 06/29/2020, Additional history exists Influenza Vaccine Completed 01/28/2024, , 01/28/2022, Additional history exists HIB Vaccines Aged Out No longer eligi ble based on patient's age to complete this topic HPV Vaccines Aged Out No longer eligi ble based on patient's age to complete this topic Hepatitis A Vaccines Aged Out No long er eligible based on patient's age to complete this topic Hepatitis B Vaccines Aged Out No long er eligible based on patient's age to complete this topic IPV Vaccines Aged Out No longer eligi ble based on patient's age to complete this topic Meningococcal Vaccine Aged Out No cheryl za eligible based on patient's age to complete this topic RSV under 20 months Aged Out No longe r eligible based on patient's age to complete this topic Rotavirus Vaccines Aged Out No longer eligible based on patient's age to complete this topic Procedures Procedure Name Priority Date/Time Associated Diagnosis Comments CT CHEST WO CONTRAST Routine 04/18/2024 2:22 PM EST POCT GLUCOSE Routine 04/05/2024 11:26 AM EST Type 2 diabetes mellitus without complication, without long-term current use of insulin (CMS/HCC) LIPID PANEL, STANDARD Routine 02/02/2024 11:55 AM EDT Type 2 diabetes mellitus without complication, without long-term current use of insulin (CMS/HCC) POCT GLYCATED HEMOGLOBIN, TOTAL Routine 01/28/2024 9:10 AM EDT Type 2 diabetes mellitus without complication, without long-term current use of insulin (CMS/HCC) ALBUMIN, RANDOM URINE W/CREATININE Routine 12/29/2019 9:22 AM EDT from Last 3 Months or Most Recently Relevant to Health Maintenance Results * CT Chest w/o Contrast (04/18/2024 2:22 PM EST) Anatomical Region Laterality Modality Body, Chest Computed Tomogra phy 04/18/2024 2:22 PM EST Narrative 04/18/2024 2:24 PM EST ? [facility] ?[address] ?[place] [address] ? CT Scan Report ? Signed with Addenda ? Patient: Álvaro Johnson ?MR#: [id number] ? : 1945 ?Acct:[id number] ? Age/Sex: 78 / M ?ADM Date: 12/27/24 ? Loc: HO.CT ? Attending Dr: Andrea Hicks MD ? Ordering Physician: Andrea Hicks MD ?? Date of Service: 04/15/24 ?? Procedure(s): CT chest wo IV con ?? Accession Number(s): [id number] ? cc: Praful Fajardo MD; Andrea Hicks MD ? Report Number: ?? [id number]: Total DLP = ??130.00 mGy-cm ?ADDENDUM ?? 04/18/2024 14:22:24 ? ADDENDUM: ?? ADDENDUM: ?? Additional prior made available for comparison. ? COMPARISON: CT abdomen and pelvis wo/w dated 02/03/23 at 10:59 EDT ? FINDINGS: ?? When compared with prior imaging, partially visualized masslike opacity in ?? the midabdomen corresponds with the known abdominal aortic aneurysm seen ?? on prior imaging. When compared at the same levels and accounting for ?? differences in technique (contrast versus noncontrast), this appears ?? similar in size and appearance to prior imaging. No further specific ?? follow-up imaging recommendations. ? This document has been electronically signed by: Hesham Mcarthur MD on ?? 04/25/2024 16:54:08 ? Addendum Dictated By: ?Hesham Mcarthur MD ? Addendum Signed By: ? <Electronically signed by Hesham Mcarthur MD in [place]> ?04/25/24 1654 ?? Addendum Cosigned By: ? DD/ ? TD/TT: 04/25/2410/12/1653 ? CLINICAL HISTORY: R91.8 - Other nonspecific abnormal finding of lung field ? CT chest without IV contrast. ? COMPARISON: CT chest dated 04/22/23 at 07:55 EST ? FINDINGS: ?? Visualized thyroid is unremarkable. ?? No supraclavicular or axillary lymphadenopathy. ?? Ascending aorta and main pulmonary artery are normal in caliber. Small ?? pericardial effusion. Coronary artery calcifications and/or stents present ?? within the LAD, circumflex and RCA. ?? Normal esophagus. Multiple normal-sized mediastinal lymph nodes. ? Cholelithiasis present within the gallbladder. No pericholecystic ?? inflammatory changes. Partially visualized stent/graft along the upper ?? abdominal aorta. Stent present within the likely SMA extending through an ?? ill-defined masslike region. ?? Partially visualized moderate right hydronephrosis. ? No pleural effusion. No consolidation. Mild upper lobe predominant ?? subpleural interalobular septal thickening with likely small amount of ?? honeycombing anteriorly in the upper lobes, [id number]. Mild ?? paraseptal emphysema at the lung apices. ?? Trachea and central airways are clear. No significant bronchial wall ?? thickening. No bronchiectasis. ?? Linear scarring along the posterior left lower lobe, similar to prior ?? imaging. ?? Small bilateral pulmonary nodules redemonstrated. For example right lower ?? lobe 4 mm pulmonary nodule (series 5, image 339), stable. ?? Left lower lobe 6 mm pulmonary nodule (series 5, image 493), previously ?? measured 5 mm. ?? Left upper lobe subpleural cluster of pulmonary nodules measuring up to 3 ?? mm (series 5, image 146), less well-defined from prior imaging. ?? Right upper lobe subpleural 3 mm pulmonary nodule (series 5, image 222), ?? stable. ?? Right middle lobe 3 mm pulmonary nodule (series 5, image 311), stable. ?? Right middle lobe 4 mm pulmonary nodule (series 5, image 354), stable. ? Mild spondylosis. No acute fracture or suspicious bone lesion. ? IMPRESSION: ?? 1. Stable appearance of multiple bilateral pulmonary nodules measuring up ?? to 6 mm in the left lower lobe. No new pulmonary nodule identified. ?? 2. Apical predominant emphysema with mild subpleural fibrosis, similar to ?? prior imaging. ?? 3. Coronary artery atherosclerosis. ?? 4. Partially visualized upper abdominal aortic stent and likely SMA stent ?? extending through masslike opacity within the midabdomen. This was outside ?? the field of view on prior imaging. Recommend correlation with clinical ?? history and prior imaging of the abdomen if available. If none available, ?? recommend CT of the abdomen and pelvis with contrast for further ?? characterization. ? This document has been electronically signed by: Hesham Mcarthur MD on ?? 04/18/2024 14:22:24 ? Dictated By: ?Hesham Mcarthur MD ? Signed By: ?<Electronically signed by Hesham Mcarthur MD in OV> ?04/18/24 1423 ? DD/ 1422 ? TD/TT: 04/18/241421 ? Extrusion Line Operator: ? Procedure Note Chandan Espinoza - 04/25/[address] [address] [address] Scan Report Signed with Saleem Patient: Rae Johnson#: [id number] : 5Acct:[id number] Age/Sex: 78 / MADM Date: 04/15/24 Loc: HO.CT Attending Dr: Andrea Hicks MD Ordering Physician: Andrea Hicks MD Date of Service: 04/15/24 Procedure(s): CT chest wo IV con Accession Number(s): [id number] cc: Praful Fajardo MD; Andrea Hicks MD Report Number: [id number]: Total DLP = 130.00 mGy-cm ADDENDUM 04/18/2024 14:22:24 ADDENDUM: ADDENDUM: Additional prior made available for comparison. COMPARISON: CT abdomen and pelvis wo/w dated 02/03/23 at 10:59 EDT FINDINGS: When compared with prior imaging, partially visualized masslike opacity in the midabdomen corresponds with the known abdominal aortic aneurysm seen on prior imaging. When compared at the same levels and accounting for differences in technique (contrast versus noncontrast), this appears similar in size and appearance to prior imaging. No further specific follow-up imaging recommendations. This document has been electronically signed by: Hesham Mcarthur MD on 04/25/2024 16:54:08 Addendum Dictated By: Hesham Mcarthur MD Addendum Signed By: <Electronically signed by Hesham Mcarthur MD in OV> 04/25/241653 Addendum Cosigned By: DD/ TD/TT: 04/25/2410/12/1653 CLINICAL HISTORY: R91.8 - Other nonspecific abnormal finding of lung field CT chest without IV contrast. COMPARISON: CT chest dated 04/22/23 at 07:55 EST FINDINGS: Visualized thyroid is unremarkable. No supraclavicular or axillary lymphadenopathy. Ascending aorta and main pulmonary artery are normal in caliber. Small pericardial effusion. Coronary artery calcifications and/or stents present within the LAD, circumflex and RCA. Normal esophagus. Multiple normal-sized mediastinal lymph nodes. Cholelithiasis present within the gallbladder. No pericholecystic inflammatory changes. Partially visualized stent/graft along the upper abdominal aorta. Stent present within the likely SMA extending through an ill-defined masslike region. Partially visualized moderate right hydronephrosis. No pleural effusion. No consolidation. Mild upper lobe predominant subpleural interalobular septal thickening with likely small amount of honeycombing anteriorly in the upper lobes, xlarm-mhecvek-pumk-left. Mild paraseptal emphysema at the lung apices. Trachea and central airways are clear. No significant bronchial wall thickening. No bronchiectasis. Linear scarring along the posterior left lower lobe, similar to prior imaging. Small bilateral pulmonary nodules redemonstrated. For example right lower lobe 4 mm pulmonary nodule (series 5, image 339), stable. Left lower lobe 6 mm pulmonary nodule (series 5, image 493), previously measured 5 mm. Left upper lobe subpleural cluster of pulmonary nodules measuring up to 3 mm (series 5, image 146), less well-defined from prior imaging. Right upper lobe subpleural 3 mm pulmonary nodule (series 5, image 222), stable. Right middle lobe 3 mm pulmonary nodule (series 5, image 311), stable. Right middle lobe 4 mm pulmonary nodule (series 5, image 354), stable. Mild spondylosis. No acute fracture or suspicious bone lesion. IMPRESSION: 1. Stable appearance of multiple bilateral pulmonary nodules measuring up to 6 mm in the left lower lobe. No new pulmonary nodule identified. 2. Apical predominant emphysema with mild subpleural fibrosis, similar to prior imaging. 3. Coronary artery atherosclerosis. 4. Partially visualized upper abdominal aortic stent and likely SMA stent extending through masslike opacity within the midabdomen. This was outside the field of view on prior imaging. Recommend correlation with clinical history and prior imaging of the abdomen if available. If none available, recommend CT of the abdomen and pelvis with contrast for further characterization. This document has been electronically signed by: Hesham Mcarthur MD on 04/18/2024 14:22:24 Dictated By: Hesham Mcarthur MD Signed By: <Electronically signed by Hesham Mcarthur MD in OV> 04/18/24 1423 DD/ 1422 TD/TT: 04/18/24 1422 Extrusion Line Operator: [facility] External Provider IMG CT PROCEDURES Edited Result - Final * POCT Glucose (04/05/2024 11:26 AM EST) Glucose Blood, POC 107 60 - 200 mg/dL QC Media Lot # [id number] Lot# Expiration Date [id number] Blood Capillary blood specimen / Unknown 04/05/2024 11:26 AM EST Praful Mcfarland MD POINT OF CARE TEST EN TER/EDIT ORDERABLES Final Result * Lipid Panel, Standard (02/02/2024 11:55 AM EDT) Triglycerides 60 <150 mg/dL [facility] Comment:Desirable Triglyceri de: less than 150 mg/dLBorderline High Triglyceride 150-199 mg/dLHigh Triglyceride: 200-499 mg/dLVery High Triglyceride: greater than or equal to 5OO mg/dL Cholesterol 120 <200 mg/dL [facility] Comment:Desirable Cholestero l: less than 200 mg/dLBorderline High Cholesterol: 200-239 mg/dLHigh Cholesterol: greater than 239 mg/dL LDL Cholesterol Calculated 67 <100 mg/dL [facility] Comment:Desirable LDL: less than 100 mg/dLNear Optimal/Above Optimal LDL: 110- 129 mg/dLBorderline High LDL: 130-159 mg/dLHigh LDL: 160-189 mg/dLVery High LDL: greater than or equal to 190 mg/dL HDL Cholesterol 41 >40 mg/dL [facility] Comment:Desirable HDL: great er than 40 mg/dL Note: This HDL assay may give artificially low results in patients with liver disease. Blood Venous blood specimen / Unknown 02/02/2024 11:55 AM EDT 02/02/2024 1:27 PM EDT Praful Mcfarland MD LAB BLOOD ORDERABLES Final Result [facility] [address] [place] [phone] * POCT HGB A1C (01/28/2024 9:10 AM EDT) Hemoglobin A1C 5.8 4.0 - 6.0 % QC Media Lot # [id number] Lot# Expiration Date ,720,598 Blood 01/28/2024 9:10 AM EDT Praful Mcfarland MD POINT OF CARE TEST EN TER/EDIT ORDERABLES Final Result * ALBUMIN, RANDOM URINE W/CREATININE (12/29/2019 9:22 AM EDT) Creatinine, Urine 224 20 - 320 mg/dL [facility] Microalbumin Urine 2.5 See Note: mg/dL [facility] Comment: Reference Range: ?? Reference Range Not established Microalb/Creat Ratio 11 <30 mcg/mg creat [facility] Comment: ?? The ADA defines abnormalities in albumin excretion as follows: ?? Category ? Result (mcg/mg creatinine) ?? Normal ?<30 Microalbuminuria ? 30-299 ?? Clinical albuminuria ?? > OR = 300 ?? The ADA recommends that at least two of three specimens collected within a 3-6 month period be abnormal before considering a patient to be within a diagnostic category. 12/29/2019 9:22 AM EDT us Praful Mcfarland MD LAB URINE ORDERABLES Final Result [facility] [address] from Last 3 Months or Most Recently Relevant to Health Maintenance Insurance [id number] Care Teams Per Diem Registered Nurse Relationship Specialty Start Date End Date Praful Robles MD [address] [place] [id number] PCP - General Internal Medicine 11/08/14
--- OUTSIDE RECORDS SUMMARY | 2024-06-02 07:47 | XMS_ITS ---
Author Organization [facility] Address [address] [place] [phone] Care Team Providers Care Calculating Machine Mechanic Name Role Phone Emiliano Mcfarland MD, Praful Primary Care Provide Edu Parra Unavailable [phone] REASON FOR VISIT Patient presents today for a colon screening Encounters Encounter Location Date Provider Diagnosis [facility] [address] [place] [phone] 03/02/2024 Edu Yanez PLAN OF TREATMENT No Information
--- OUTSIDE RECORDS SUMMARY | 2024-06-02 07:47 | XMS_ITS | Encounter Summary ---
Author Organization [facility] [facility] Address [address] [facility] 7t [place] [address] Care Team Providers Care Hot Dip Galvanizer Name Role Phone Praful Robles MD Primary Care Provide r Reason for Visit * Reason Comments Med Refill Encounter Details Date Type Department Care Team (Late st Contact Info) Description 01/20/2023 Refill [facility] [address] [place] [address] Aixa Rosales MD [address] [place], [place] [phone] Essential hypertension; Mixed hyperlipidemia Social History Tobacco Use Types Packs/Day Years [...] Description 07/14/2024 2:15 PM EDT Office Visit [facility] [address] [place], [place] [phone] Praful Robles MD [address] [place], [place] [phone] documented as of this encounter Visit Diagnoses Diagnosis Essential hypertension Unspecified essential hypertension Mixed hyperlipidemia documented in this encounter Care Teams Hot Dip Galvanizer Relationship Specialty Start Date End Date Praful Robles MD [address] [place] [address] PCP - General Internal Medicine 11/08/14 documented as of this encounter
--- OUTSIDE RECORDS SUMMARY | 2024-06-02 07:48 | XMS_ITS | Encounter Summary ---
Author Organization [employer] Address [address] [facility] [address] [place] [address] Care Team Providers Care Environmental Coordinator Name Role Phone Praful Robles MD Primary Care Provide r Reason for Visit * Reason Comments Med Refill Encounter Details Date Type Department Care Team ([facility] st Contact Info) Description 05/05/2024 Refill [facility] [address] [place] [address] Sonia Morales ANP [address] [place] [address] Seasonal allergies Social History Tobacco Use Types Packs/Day Years [...] Description 07/14/2024 2:15 PM EDT Office Visit [facility] [address] [place] [address] Praful Robles MD [address] [place] [address] documented as of this encounter Visit Diagnoses Diagnosis Seasonal allergies Allergic rhinitis, cause unspecified documented in this encounter Additional Health Concerns Assessment Noted Time PHQ-9 Depression Total Score: 4 10/01/19 24 9:54 AM EDT documented as of this encounter Care Teams Environmental Coordinator Relationship Specialty Start Date End Date Praful Robles MD [address] [place] [address] PCP - General Internal Medicine 11/08/14 documented as of this encounter
--- OUTSIDE RECORDS SUMMARY | 2024-06-02 07:48 | XMS_ITS | Encounter Summary ---
Author Organization [employer] Address [address] [facility] [address] [place] [address] Care Team Providers Care Process Control Tech Name Role Phone Praful Robles MD Primary Care Provide r Reason for Visit * Reason Onset Date Comments June Recall 05/04/2024 Encounter Details Date Type Department Care Team ([facility] st Contact Info) Description 05/04/2024 Telephone [facility] [address] [place], [place] [phone] Praful Robles MD [address] [place], [place] [phone] June Recall Social History Tobacco Use Types Packs/Day Years [...] encounter Miscellaneous Notes * Telephone Encounter - Jody Harris [place] - 05/04/2024 3:08 PM EST T/C- Independent Living Advisor Left Voice Mail to return call to schedule an appointment. Recall letter sent. Appointment: Follow Up Note: HTN Month: June With: Emiliano Please schedule appointment if Patient calls Back. documented in this encounter Plan of Treatment Upcoming Encounters Date Type Department Care Team (Late st Contact Info) Description 07/14/2024 2:15 PM EDT Office Visit [facility] [address] [place] [address] Praful Robles MD [address] [place] [address] documented as of this encounter Visit Diagnoses Not on filedocumented in this encounter Additional Health Concerns Assessment Noted Time PHQ-9 Depression Total Score: 4 10/01/19 24 9:54 AM EDT documented as of this encounter Care Teams Process Control Tech Relationship Specialty Start Date End Date Praful Robles MD [address] [place] [address] PCP - General Internal Medicine 11/08/14 documented as of this encounter
--- OUTSIDE RECORDS SUMMARY | 2024-06-02 07:48 | XMS_ITS ---
Author Organization [facility] [facility] Address [address] [place] [phone] Care Team Providers Care Supervisor Newspaper Deliveries Name Role Phone Emiliano Mcfarland MD, Praful Primary Care Provide Edu Parra Unavailable [phone] Encounters Encounter Location Date Provider Diagnosis [facility] [address] [place] [phone] 11/03/2023 Edu Yanez PLAN OF TREATMENT No Information
== END 2024-06-02 07:46 | disposition home or self-care (01) ==
LOC: HO.CT 07:45
PROVIDERS: PCP Internal Medicine; Visit Provider Psychiatry & Neurology Neurology
DX: G30.9 Alzheimer's disease, unspecified (principal)
CPT/HCPCS: 70450

== ENCOUNTER → 2024-06-02 07:49 | Outpatient (BNV) | payer OTHER, SELFPAY | PROVIDERS: PCP Internal Medicine; Visit Provider Radiology Diagnostic Radiology | DX: G30.9 Alzheimer's disease, unspecified (principal) | CPT/HCPCS: 70450 ==

== ENCOUNTER 2024-06-13 09:35 | Day surgery (SDC) | payer OTHER, SELFPAY ==
[2024-06-09 11:40] VITALS: BMI 22.9
[2024-06-13 09:54] VITALS: BMI 22.4
[2024-06-13 10:06] VITALS: BMI 22.4
--- NOTE | 2024-06-13 10:17 | PC.NURSE ---
UNKNONW LAST DOSE OF ASA AND BRILANTA. CALLED PATIENTS SON AND LEFT A VOICEMAIL. PATIENT STATES HIS SON USUALLY GIVES HIM THE MEDS AND HES TAKES THEM FROM A BLISTER PACK. OKAY TO PROCEED PER MD PADILLA. AWARE OF THE UNKNOWN LAST DOSE.
[2024-06-13 10:24] VITALS: BP 204/96; PULSE 67; RESP 16; TEMP 36.9; O2SAT 97
--- NOTE | 2024-06-13 10:40 | HO.ANESPROP2 ---
HPI - Anesthesia Eval Consult details Narrative: for cysto, botox PMFSH Active Problems Active Problems: All Active Problems Normochromic normocytic anemia (Acute) Pulmonary nodules (Acute) Asthma-COPD overlap syndrome (Acute) Erectile dysfunction (Acute) AAA (abdominal aortic aneurysm) without rupture (Acute) COVID-19 (Acute) Prostate cancer (Acute) Overactive bladder (Acute) Lipoma of back (Acute) Prostate disease (Acute) Lower back pain (Acute) Diabetes (Acute) Arthralgia (Acute) Past Medical History Medical History AAA (abdominal aortic aneurysm) History of COVID-19 History of prostate cancer GERD (gastroesophageal reflux disease) Depression Asthma High cholesterol HTN (hypertension) Lipoma of back Lower back pain Prostate disease Diabetes Arthralgia Family History Family History Mother History of esophageal cancer Family history of problems with anesthesia: No Surgical History Surgical History S/P AAA (abdominal aortic aneurysm) repair S/P excision of lipoma History of cataract extraction Hx of colonoscopy Hx of cystoscopy History of penile implant History of prostate surgery History of Problems with Anesthesia: No Social History Social History Household Members: Significant Other Alcohol intake: never Patient Tobacco Use Status: Former Tobacco user Tobacco use type: Cigar Use of substances other than those prescribed or required for medical reasons: No Are you DNR?: No Advance Directives: No Advance Directives Information Provided: Yes Recently lost weight without trying: No Nutrition Risks: No Nutritional Risk Poor oral hygiene: No service: No Current occupational status: retired Meds Allergies Allergy/AdvReac Type Severity Reaction Status Date / Time ciprofloxacin [Ciprofloxacin] Allergy Mild RASH Verified 03/10/24 14:11 Home Medications ?Medication ?Instructions ?Recorded ?Confirmed ?Last Taken ?Type albuterol sulfate 2.5 mg/3 mL 2.5 mg inhalation Q4-6H PRN 04/09/20 03/10/24 Unknown History (0.083 %) solution for nebulization Wheezing amlodipine 10 mg tablet 10 mg PO DAILY 04/09/20 03/10/24 Unknown History aspirin 81 mg tablet,delayed 81 mg PO DAILY 04/09/20 03/10/24 Unknown History release blood-glucose meter #1 ea 04/09/20 03/10/24 Unknown History fluticasone 250 mcg-salmeterol 50 1 inh inhalation BID 04/09/20 03/10/24 Unknown History mcg/dose blistr powdr for inhalation (Advair Diskus) fluticasone propionate 50 1 spray intranasal BID 04/09/20 03/10/24 Unknown History mcg/actuation nasal spray,suspension (Flonase Allergy Relief) gabapentin 600 mg tablet 600 mg PO TID 04/09/20 03/10/24 Unknown History ipratropium 20 mcg-albuterol 100 1 puff inhalation Q4H 04/09/20 03/10/24 Unknown History mcg/actuation mist for inhalation (Combivent Respimat) lancets 28 gauge (TRUEplus Lancets) #100 ea 04/09/20 03/10/24 Unknown History omeprazole 20 mg capsule,delayed 20 mg PO DAILY 04/09/20 03/10/24 Unknown History release trazodone 50 mg tablet 25 mg PO BEDTIME PRN Sleep 04/09/20 03/10/24 Unknown History glipizide 5 mg tablet, extended 5 mg PO DAILY 05/09/21 03/10/24 Unknown History release 24 hr metformin 500 mg tablet,extended 1,000 mg PO BID 05/09/21 03/10/24 Unknown History release 24 hr blood sugar diagnostic (OneTouch #10 ea 06/06/21 03/10/24 Unknown History Ultra Test strips) lancets (OneTouch UltraSoft #100 ea 06/06/21 03/10/24 Unknown History Lancets) latanoprost 0.005 % eye drops 1 drp ophthalmic (eye) QPM 06/06/21 03/10/24 Unknown History clotrimazole-betamethasone 1 1 appl topical Q12H PRN Rash 02/12/22 03/10/24 Unknown History %-0.05 % topical cream amlodipine 5 mg tablet 5 mg PO QAM 09/18/23 03/10/24 Unknown History atorvastatin 80 mg tablet 80 mg PO QPM 09/18/23 03/10/24 Unknown History carvedilol 12.5 mg tablet 12.5 mg PO DAILY 09/18/23 03/10/24 Unknown History lancets 30 gauge (OneTouch #100 ea 09/18/23 03/10/24 Unknown History UltraSoft 2 Lancet) multivitamin 1 tab PO QAM 09/18/23 03/10/24 Unknown History ticagrelor 90 mg tablet (Brilinta) 90 mg PO QAM 09/18/23 03/10/24 Unknown History Exam Height,Weight and Vital Signs: Height 5 ft 7 in Weight 64.8 kg Last Vital Signs Temp 98.5 F 06/13/24 10:24 Pulse 67 06/13/24 10:24 Resp 16 06/13/24 10:24 BP 204/96 H 06/13/24 10:24 Pulse Ox 97 06/13/24 10:24 O2 Del Method Room Air 06/13/24 10:24 Airway Mallampati Class: I TM Dist: >3cm Neck ROM: Full Denture: Upper and Lower Heart: ok Lungs: ok Assessment and Plan Assessment Anesthesia Assessment: Anesthesia Plan Discussed and Chart Reviewed Final Anesthetic Review Family History of Problems with Anesthesia: No History of Problems with Anesthesia: No NPO: Yes ASA Class: III Final Preanesthetic Review: No Changes in Pt Med Stat, Meds/Allgs Chart Reviewed, Consent Obtained/Reviewed and Anes Risks/Benef Reviewed Patient Risk: Intermediate Procedure Risk: Low Anesthetic Plan Anesthetic Plan: GA and Agree w/ Assess. and Plan Disposition: Standard PACU
[2024-06-13] MEDS: Lactated Ringers 1,000 ML 50 ML IVCONT (10:45)
[2024-06-13] MEDS: ceFAZolin Sodium/Dextrose,Iso 2 GM/50 ML PIGGYBACK IV (10:46)
--- NOTE | 2024-06-13 10:46 | MHC.SHP ---
Pre-Procedural Eval Section A - 24 Hr Update-Section A only Date of Service: 06/13/24 The patient is an INPATIENT: No Changes since office visit: No Cold of Flu in the past 2 weeks, No New Medical Problems, No Changes in Medication and No Patient answered all questions The patient has been examined within 24 hours of the surgical procedure. The History & Physical has been completed within 30 days and I have reviewed it.: Yes Section B - Complete if H&P > 30 days Chief Complaint: Overactive bladder Details of Present Illness: For Botox injection in bladder. Montserratian translation provided. Allergies: Allergies Allergy/AdvReac Type Severity Reaction Status Date / Time ciprofloxacin [Ciprofloxacin] Allergy Mild RASH Verified 03/10/24 14:11 Review of Systems Sugical H&P ROS: Negative: Constitution, Cardiovascular, Respiratory, Neurological, Psychiatric, Hem-Onc, Allergic/Immunologic, Gastrointestinal, Genitourinary, Musculoskeletal, Integumentary, Endocrine and Eyes/Ears/Nose/Throat Exam Surgical H&P Exam: Normal: HEENT, Normal: Heart, Normal: Lungs, Normal: Extremities, Normal: Abdomen, Normal: Skin and Normal: Neurological Plan Diagnosis/Plan: Unchanged (Cystoscopy Botox injection) I have reviewed the history and physical and performed a pertinent physical examination on my patient. No changes have occurred unless specified. Time Spent With Patient Time: Total time managing care of this patient today ____ minutes.
[2024-06-13 10:56] LABS: Glucose, Whole Blood 132 mg/dL (60-115)
--- NOTE | 2024-06-13 11:15 | W.PM.OPN ---
Operative Note Operative Note Date of Service: 06/13/24 Narrative: PreOperative Diagnosis: Overactive bladder with failure of medications Post Operative Diagnosis: Overactive bladder with failure of medications, small bladder neck stricture Procedure: Cystoscopy with injection 100 units Botox intra detrusor muscle, dilation bladder neck stricture Surgeon: Dr Santy Carrasquillo Anesthesia: Sedation Indications for procedure: Is a very pleasant 78-year-old male. Prior history prostatectomy. Known bladder neck small stricture. Baseline diabetes. Has persistent urgency and frequency. Has failed oral medications. At office cystoscopy has effective emptying with minimal urethral rotation on cough. For cystoscopy and Botox injection. Is aware of the risks and benefits particularly related to urinary retention and possible infection. Procedure: After informed consent was verified the patient was brought to the operating room and placed in a supine position. Anesthesia was administered per protocol. Cystoscopy performed with 22 Zimbabwean cystoscope. Anterior and posterior urethra normal. Absent prostate. Small bladder neck stricture dilated with 22 Zimbabwean cystoscope. Bladder was emptied of urine. Bladder was refilled. Using 100 units of Botox mixed in 10 cc of normal saline injections were placed at the back wall of the bladder. 0.5cc placed at each injection site. Injections were placed in a grid 5 across and for high. Injections were placed from the inferior to superior position. Trabeculations on the bladder wall with targeted for each injection site. Penile prosthetic was cycled and remains functional Procedure was tolerated well. Patient was extubated and transferred in stable condition to the recovery area. Pathology: None Drains: None
[2024-06-13 11:23] VITALS: BP 144/79; PULSE 72; RESP 18; TEMP 36.6; O2SAT 97
[2024-06-13 11:25] VITALS: BP 143/83; PULSE 73; RESP 16; O2SAT 97
[2024-06-13] MEDS: Phenazopyridine HCL 100 MG TABLET PO (11:27)
[2024-06-13 11:30] VITALS: BP 167/98; PULSE 71; RESP 18; O2SAT 97
[2024-06-13 11:35] VITALS: BP 187/90; PULSE 63; RESP 18; O2SAT 97
[2024-06-13 11:47] VITALS: BP 181/91; PULSE 61; RESP 18; TEMP 36.4; O2SAT 97
== END 2024-06-13 12:20 | disposition home or self-care (01) ==
PROVIDERS: PCP Internal Medicine; Visit Provider Urology
PROC: 3E0K8GC Introduction of Other Therapeutic Substance into Genitourinary Tract, Via Natural or Artificial Opening Endoscopic (ICD-10-PCS; CPT 52287; principal; 2024-06-13 11:50)
DX: N32.81 Overactive bladder (principal); N32.0 Bladder-neck obstruction; N32.89 Other specified disorders of bladder; R39.15 Urgency of urination; R35.0 Frequency of micturition; N52.9 Male erectile dysfunction, unspecified; Z96.0 Presence of urogenital implants; Z85.46 Personal history of malignant neoplasm of prostate; Z90.79 Acquired absence of other genital organ(s); I10 Essential (primary) hypertension; E78.00 Pure hypercholesterolemia, unspecified; E11.9 Type 2 diabetes mellitus without complications; J45.909 Unspecified asthma, uncomplicated; F32.A Depression, unspecified; Z79.82 Long term (current) use of aspirin; Z79.899 Other long term (current) drug therapy; Z88.1 Allergy status to other antibiotic agents; Z87.891 Personal history of nicotine dependence
CPT/HCPCS: 52287; 82947; J0585; J0690; J2003; J2704; J3010

== ENCOUNTER → 2024-06-13 09:35 | Outpatient (BNV) | payer OTHER, SELFPAY | PROVIDERS: PCP Internal Medicine; Visit Provider Urology | DX: N32.81 Overactive bladder (principal) | CPT/HCPCS: 52287 ==

== ENCOUNTER → 2024-06-28 10:01 | Outpatient (BNVA) | payer OTHER, SELFPAY | PROVIDERS: PCP Internal Medicine; Visit Provider Urology | DX: N32.81 Overactive bladder (principal) | CPT/HCPCS: 51798 ==

== ENCOUNTER 2024-10-13 12:30 | Emergency (ER) | payer OTHER, SELFPAY ==
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
[2024-10-13 12:47] VITALS: BP 173/89; PULSE 61; RESP 18; TEMP 36.4; O2SAT 98; BMI 24.2
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
[2024-10-13 14:59] VITALS: BP 198/96; PULSE 77; RESP 16; O2SAT 99
[2024-10-13 16:29] VITALS: BP 191/87; PULSE 65; RESP 16; TEMP 36.9; O2SAT 97
[2024-10-13 16:48] VITALS: BP 191/87; PULSE 65; RESP 16; TEMP 36.9; O2SAT 97
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
== END 2024-10-13 16:48 | disposition home or self-care (01) ==
PROVIDERS: Emergency Provider Emergency Medicine; PCP Internal Medicine
DX: S39.012A Strain of muscle, fascia and tendon of lower back, initial encounter (principal); S16.1XXA Strain of muscle, fascia and tendon at neck level, initial encounter; V43.52XA Car driver injured in collision with other type car in traffic accident, initial encounter; M54.2 Cervicalgia; M79.641 Pain in right hand; R07.81 Pleurodynia; R51.9 Headache, unspecified; I10 Essential (primary) hypertension; E11.9 Type 2 diabetes mellitus without complications; Y93.9 Activity, unspecified; Y92.410 Unspecified street and highway as the place of occurrence of the external cause; Y99.8 Other external cause status; Z79.84 Long term (current) use of oral hypoglycemic drugs; Z79.899 Other long term (current) drug therapy
CPT/HCPCS: 70450; 71111; 72100; 72125; 73130; 99283; 99284

== ENCOUNTER → 2024-10-13 12:55 | Outpatient (BNV) | payer OTHER, SELFPAY | PROVIDERS: Emergency Provider Emergency Medicine; PCP Internal Medicine; Visit Provider Radiology Diagnostic Radiology | DX: M47.812 Spondylosis without myelopathy or radiculopathy, cervical region (principal); J43.8 Other emphysema; R51.9 Headache, unspecified; R07.81 Pleurodynia; M54.50 Low back pain, unspecified; M19.041 Primary osteoarthritis, right hand; V89.2XXA Person injured in unspecified motor-vehicle accident, traffic, initial encounter | CPT/HCPCS: 70450; 71111; 72100; 72125 ==

== ENCOUNTER 2025-02-07 11:25 | Outpatient (AMB) | payer OTHER, SELFPAY ==
--- NOTE | 2025-02-07 11:30 | A.OFFVIS_ITS ---
Vital Signs 02/07/25 11:37 Height 5 ft 6 in Weight 137 lb BMI 22.1 BP 164/74 H Blood Pressure Location Rt brachial Position Sitting Pulse 64 Pulse Source Pulse Oximeter Pulse Oximetry (%) 98 Oxygen Delivery Method Room Air Intake Visit Reasons: COLO Screen Intake Note: NEW PATIENT for recall colo screening. Last in 2014 w/ Dr. Sanchez. Chief Complaint; C.O. GERD + esophageal pain w/ dysphagia intermittently. Pt states his omeprazole is no longer as helpful as it was previously. Dance Hall Host/Hostess Required: Yes Dance Hall Host/Hostess Services: Dance Hall Host/Hostess Present Dance Hall Host/Hostess Name: Mario [phone] Accompanied by: Self / Same As Patient Allergies ciprofloxacin (Ciprofloxacin) Allergy (Mild, Verified 02/07/25 11:30) RASH HPI HPI COLO Screen: Details: LAST VISIT: 1) GERD (gastroesophageal reflux disease): Code(s): K21.9 - Gastro-esophageal reflux disease without esophagitis Qualifiers: Esophagitis presence: without esophagitis Qualified Code(s): K21.9 - Gastro-esophageal reflux disease without esophagitis Plan: Patient reports postprandial dyspepsia. He reports that happens with certain food. Patient will be sent for upper endoscopy, he is on PPI, will evaluate for H pylori. Patient denies dysphagia, odynophagia, nausea or vomiting (2) Constipation: Code(s): K59.00 - Constipation, unspecified Qualifiers: Constipation type: unspecified constipation type Qualified Code(s): K59.00 - Constipation, unspecified Plan: Patient reports that he moves his bowels daily, however he reports that he does not feel like he empties fully. Reports that he feels distended by the end of the day. I will send him script for fiber and stool softener. Patient denies melena, hematochezia, unintentional weight loss or ribbon like stools. I will see him after colonoscopy (3) Screen for colon cancer: Code(s): Z12.11 - Encounter for screening for malignant neoplasm of colon Plan: 75-year-old male is here today for pre colonoscopy screening.? Patient had history of tubular adenoma that was diagnosed in 2013.? Patient is overdue for colonoscopy.? ?He denies any melena, hematochezia, unintentional weight loss or ribbon like stool.? Patient denies any cardiac or respiratory issues.? Patient has acid reflux and dyspepsia.? Denies odynophagia or dysphagia.? I will send him for upper endoscopy.? Patient has a history of constipation I will send him script for fiber and stool softener. Denies any issues with anesthesia in the past. Denies any history of infective diseases in the past or present. Patient is on low-dose aspirin. Denies history of sleep apnea. Patient recently underwent AAA repair at [facility]. Discussed at length the pre- procedure,? prep, diet & medications as well as what to expect prior, during and after the procedure.?? Stressed the importance of good bowel prep. ?Recommended the use of Vaseline or Calmoseptine OTC & baby wipes with bowel movements to promote comfort.? ?Patient verbalizes understanding and agrees to plan of care.? She was given the opportunity to ask questions and all questions answered.? We will see her after the procedure. TODAY'S VISIT: Patient is here today to discuss going for colonoscopy. As mentioned above patient was seen in the office in 2020 and was supposed to be booked for colonoscopy. Unsure why colonoscopy was never booked. Patient denies any changes since last visit. Patient reports that he is unable to read or write. Instructions given to him will be read by his son who will help him with understanding and help to prep. Patient denies any cardiac or respiratory symptoms. Reports dry throat and inflamed tonsils. Patient has never seen ENT in the past. Occasional trouble swallowing certain foods specially solids. [facility] Medical History AAA (abdominal aortic aneurysm) History of COVID-19 History of prostate cancer GERD (gastroesophageal reflux disease) Depression Asthma High cholesterol HTN (hypertension) Lipoma of back Lower back pain Prostate disease Diabetes Arthralgia Surgical History S/P AAA (abdominal aortic aneurysm) repair S/P excision of lipoma History of cataract extraction Hx of colonoscopy Hx of cystoscopy History of penile implant History of prostate surgery Family History Mother History of esophageal cancer Social History Household Members: Significant Other Alcohol intake: never Patient Tobacco Use Status: Former Tobacco user Tobacco use type: Cigar service: No Current occupational status: retired Physical Exam Vital Signs: Last Vital Signs Pulse 64 02/07/25 11:37 BP 164/74 H 02/07/25 11:37 Pulse Ox 98 02/07/25 11:37 Oxygen Delivery Method Room Air 02/07/25 11:37 BMI result Body Mass Index 22.1 Const General: healthy appearing, no acute distress and well developed Nutritional Appearance: well nourished Orientation/consciousness: patient oriented x3 Resp Effort & Inspection: normal respiratory effort, able to speak in complete sentences, no tracheal deviation and symmetric chest movement Auscultation: clear to auscultation bilaterally Cardio Rate: regular rate GI Inspection: Yes normal to inspection and No distended Palpation (GI): Soft to palpation, not firm, nontender and No hepatosplenomegaly present Auscultation: normal bowel sounds General: Yes no CVA tenderness Back/Spine/Pelvis Back: no CVA tenderness Skin General skin exam: elasticity normal, turgor normal and dry skin Neuro General: patient oriented x3 Psych Appearance: grossly normal Mental Status: mental status grossly normal Assessment & Plan Assessment & Plan (1) Screen for colon cancer: Code(s): Z12.11 - Encounter for screening for malignant neoplasm of colon (2) Dysphagia: Code(s): R13.10 - Dysphagia, unspecified Qualifiers: Dysphagia type: oropharyngeal phase Qualified Code(s): R13.12 - Dysphagia, oropharyngeal phase Plan Referral to ENT.. Patient denies having any epigastric pain or acid reflux. Will hold off on doing endoscopy unless his symptoms worsen may after the proc edure. What to expect before colonoscopy discussed with patient. Stressed the importance of good bowel prep and clear liquid diet day before procedure. Patient is agreeable to this plan and verbalizes understanding of instructions. He was given the opportunity to ask questions and all questions answered. Thank you for allowing me to participate in his care Orders: Referrals GI Procedure Notification Z12.11 - Encounter for screening for malignant neoplasm of colon Ear/Nose/Throat Referral R13.10 - Dysphagia, unspecified Medications: New bisacodyl (Dulcolax (bisacodyl)) take 4 tabs at noon the day before your colonoscopy 20 mg (4 x 5 mg) PO ONCE 4 tabs 0RF constipation 1 day Z12.11 - Encounter for screening for malignant neoplasm of colon polyethylene glycol 3350 (Miralax) As directed by gastroenterology department at [facility] 238 grams PO ONCE 238 grams 0RF Z12.11 - Encounter for screening for malignant neoplasm of colon Coding Level of Care Code New Pt Level 3 (06611) Diagnoses Screen for colon cancer Z12.11 Oropharyngeal dysphagia R13.12 Dysphagia type: oropharyngeal phase Time Spent (min) 40 Comment 30 minutes spent with patient and additional 10 minutes spent reviewing his records
[2025-02-07 11:37] VITALS: BP 164/74; PULSE 64; O2SAT 98; BMI 22.1
== END 2025-02-07 12:30 | disposition home or self-care (01) ==
LOC: HO.HGI 11:26
PROVIDERS: PCP Internal Medicine; Visit Provider Nurse Practitioner Family
DX: Z01.818 Encounter for other preprocedural examination (principal); Z12.11 Encounter for screening for malignant neoplasm of colon; Z86.0101 Personal history of adenomatous and serrated colon polyps; R13.12 Dysphagia, oropharyngeal phase
CPT/HCPCS: 99203

== ENCOUNTER → 2025-02-07 11:25 | Outpatient (BNVA) | payer OTHER, SELFPAY | PROVIDERS: PCP Internal Medicine; Visit Provider Nurse Practitioner Family | DX: Z12.11 Encounter for screening for malignant neoplasm of colon (principal); R13.12 Dysphagia, oropharyngeal phase; N32.81 Overactive bladder; Z79.899 Other long term (current) drug therapy | CPT/HCPCS: 99202; 99203; 99212 ==

== ENCOUNTER 2025-02-07 14:21 | Outpatient (AMB) | payer OTHER, SELFPAY ==
--- OUTSIDE RECORDS SUMMARY | 2023-11-03 05:30 | XMS_ITS ---
Author Organization [facility] Address [address] [place] [phone] Care Team Providers Care Senior Qc Technician Name Role Phone Emiliano Mcfarland MD, [facility] Primary Care Provide Edu Parra [phone] REASON FOR VISIT Patient presents today for a discuss colonoscopy Encounters Encounter Location Date Provider Diagnosis [facility] [address] [place] [phone] 11/03/2023 Edu Yanez Plan Of Treatment No Information Progress Notes * REBECCA MULLINSHENRIOB:1945 (79 yo M)Acc No.[id number]:11/03/2023 Progress Notes Patient: BINTA BOLTON Provider: Kylah Yanez MD :1945 A ge:78 Y S ex:Male Date:11/03/2023 Address:[address] [place], [place] [phone] Pcp:Praful grajeda MD Subjective: * Chief Complaints: * 1 . Patient presents today for a discuss colonoscopy. * Medical History: Objective: * Vitals: Assessment: Plan: * Treatment: * * The named appointment provid er may or may not be the originator of this progress note, and it is not deemed complete until electronically signed by the appointment provider. Sign off status: Pending * Provider: Kylah Yanez MD Date: 0 11/03/2023 Generated for Alisoni ng/Faduniag/eTransmitting on: 07:27 PM EDT
--- OUTSIDE RECORDS SUMMARY | 2024-03-02 09:40 | XMS_ITS ---
Author Organization [facility] Address [address] [place] [id number] Care Team Providers Care Customer Care Voice Consultant Name Role Phone Emiliano Mcfarland MD, Praful Primary Care Provide Edu Parra [phone] REASON FOR VISIT Patient presents today for a colon screening Encounters Encounter Location Date Provider Diagnosis [facility] [address] [place] [id number] 03/02/2024 Edu Yanez Plan Of Treatment No Information Progress Notes * REBECCA MULLINSHENRIOB:1945 (79 yo M)Acc No.[id number]:03/02/2024 Progress Notes Patient: BINTA BOLTON Provider: Kylah Yanez MD :1945 A ge:78 Y S ex:Male Date:03/02/2024 Address:[address] [place], [place] [id number] Pcp:Praful grajeda MD Subjective: * Chief Complaints: * 1 . Patient presents today for a colon screening. * Medical History: Objective: * Vitals: Assessment: Plan: * Treatment: * * The named appointment provid er may or may not be the originator of this progress note, and it is not deemed complete until electronically signed by the appointment provider. Sign off status: Pending * Provider: Kylah Yanez MD Date: 05/02/2023 Generated for Alisoni ng/Faduniag/eTransmitting on: 07:28 PM EDT
--- NOTE | 2025-02-07 15:31 | A.OFFVIS_ITS ---
Intake Visit Reasons: med follow up Allergies ciprofloxacin (Ciprofloxacin) Allergy (Mild, Verified 02/07/25 11:30) RASH HPI Comments Details: Álvaro is a very pleasant male. He is a patient of Dr. Fajardo. 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 Prescription provided. 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 mildly elevated postvoid residual Background diabetes PFSH Medical History AAA (abdominal aortic aneurysm) History of COVID-19 History of prostate cancer GERD (gastroesophageal reflux disease) Depression Asthma High cholesterol HTN (hypertension) Lipoma of back Lower back pain Prostate disease Diabetes Arthralgia Surgical History S/P AAA (abdominal aortic aneurysm) repair S/P excision of lipoma History of cataract extraction Hx of colonoscopy Hx of cystoscopy History of penile implant History of prostate surgery Family History Mother History of esophageal cancer Social History Household Members: Significant Other Alcohol intake: never Patient Tobacco Use Status: Former Tobacco user Tobacco use type: Cigar service: No Current occupational status: retired Review of Systems Const Denies chills and Denies fever(s) Card Reports no additional complaints and Denies syncope Resp Denies cough GI Denies abdominal pain and Denies heartburn Reports as per HPI and Denies change in libido Neuro Denies syncope Psych Denies change in libido Endo Denies change in libido Physical Exam Const General: cooperative, healthy appearing, comfortable and no acute distress Orientation/consciousness: patient oriented x3 HEENT Face and sinus: Yes normal facial exam Mouth: moist mucous membranes Neck Neck: Yes normal visual inspection, Yes full ROM and Yes trachea midline Chest Chest palpation & inspection: normal inspection of the chest Resp Effort & Inspection: normal respiratory effort, able to speak in complete sentences and no respiratory distress GI Inspection: Yes normal to inspection Back/Spine/Pelvis Cervical Spine: normal cervical lordosis Thoracic/Lumbar Spine: thoracic and lumbar spine normal to inspection Skin General skin exam: no rashes or lesions noted Neuro General: patient oriented x3, gait normal, tone normal and moves all extremities Extrem General: Yes normal to inspection and Yes capillary refill normal Assessment & Plan Assessment & Plan (1) Overactive bladder: Code(s): N32.81 - Overactive bladder Category: Medical Plan Gemtesa Six-month follow-up PSA Orders: Orders Prostate Specific Antigen 6 Months C61 - Malignant neoplasm of prostate Medications: Changed From mirabegron ER 50 mg PO DAILY 90 days 90 tabs 0RF N32.81 - Overactive bladder To vibegron (Gemtesa) 75 mg PO DAILY 90 tabs 1RF 90 days N32.81 - Overactive bladder Discontinued fesoterodine ER Discontinued Reason: Patient Completed Course 8 mg PO DAILY 90 days 90 tabs 1RF N32.81 - Overactive bladder Patient Instructions: This note is constructed using voice recognition software. While every effort has been made to ensure accuracy insurance agency sales manager errors may have been included. Imaging studies, laboratory and physical exam results were discussed and reviewed in detail. No major barriers to patient understanding were identified. An opportunity to ask questions regarding the treatment plan was provided. All questions were answered. The patient expressed understanding and agreement with the above treatment plan. The patient is aware they should contact our office by phone for worsening of their current condition or the appearance of new urologic symptoms. Compliance is encouraged with any medications and followup testing that is ordered. It is a privilege to participate in the urologic care of your patient. If you have any questions or concerns regarding treatment for the above conditions, or other urologic issues, please do not hesitate to contact me. The office telephone contact is [phone]. Sincerely, Dr Santy Carrasquillo MD, [facility] - Urology Compassionate Specialist Care for the Genitourinary System Coding Level of Care Code Est Pt Level 4 (57074) Complex EM visit Add On G2211 Diagnoses Overactive bladder N32.81
--- OUTSIDE RECORDS SUMMARY | 2025-02-07 19:27 | XMS_ITS ---
Author Name heidirussell DELANEY, MRS. Gentile Address [address] [place] [address] Phone [phone] [facility] Care Team Providers Care Edger Technician Name Role Phone Krupa Hernandez Unavailable [phone] Unavailable Unavailable [phone] HILL HENRIQUEZ Unavailable [phone] Reason for Referral Not Available Allergies, adverse reactions, alerts Allergen Type Reaction Severity Status Onset Date Lisinopril Allergy to substance (disorder) Angioedema Severe Active N/A Ciprofloxacin Allergy to substance (disorder) rash Unkn own Active N/A Oxybutynin Allergy to substance (disorder) rash Unknown Active N/A History of medication use [...] FOR MUSCLE SPASMS 2021-10-08 No Data Available Oavdyxbw-Yyacrhjsg-GP 3.5-02670-5 Solution INSTILL 4 DROPS IN THE LEFT [...] illiterate and hearing impaired. Needs talking glucometer (Finnish available) 2022-02-28 No Data Available Ibuprofen 600 [...] 2022-03-18 2022-04-30 Atorvastatin Calcium 80 mg Tab MIHCEL 1 T ABLETA POR LA BOCA CADA ANGELICA A LA HORA DE DORMIR 2022-04-17 No Data Available Brilinta 90 mg Tab MICHEL 1 TABLETA POR LA BOCA DOS VECES AL ANGELICA 2022-04-17 No Data Available Carvedilol 12.5 mg [...] EYE EVERY EVENING 2023-09-07 No Data Available Escitalopram Oxalate 5 mg Tab TAKE 1 TAB LET BY MOUTH EVERY MORNING 2024-08-17 No Data Available Problem List Problem Status Onset Date Resolved Date Synopsis Opioid use Resolved 2022-02-28 2022-04-30 Short-term Rx given at ER, 14 tabletsRisk of sedationprecautionsSending Narcan to pharmacy Vision impairment Active 2022-02-28 N/A Sees be tter with glasses, but not well. 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 No changes. Continue to monitor.Saw opthalmologist in NovemberECCAno changesf/up with PCPfall precautions S/P endovascular aneurysm repair Active 2022-04-30 N/A OCN: CTA showed an incidental finding of a 5.7 x 6.2 CM AAA . He eventually underwent EVAR on 10/26/[address] Cardoza01/02/25ECCAno changesf/up with PCP Illiterate Active 2022-02-28 N/A Cannot read or write in any language.Needs speaking glucometer. Stable. No changes. Continue to monitor.01/02/25ECCAno changesf/up with PCP History of prostate cancer Active 2022-02-20 N/A follows with onc ologist - Stable. No changes. Continue to monitor.Has not gone for FU since the pandemic. Encouraging him to go for FU.01/02/25ECCAno changesf/up with PCP/oncology Muscle spasm Resolved 2022-02-20 2024-01-11 Unable to lobito cidly explain diagnosisSays he had scans and thorough workup, was sent home w percocet.Safety precautions and risk of sedation discussed.Sending NarcanNo longer using diazepam. Using lidocaine patches Chronic back pain Active 2022-02-17 N/A RX: lid ocain patch- Chronic pain x years, not acute issue. - Encouraged him to stand up and move around, as this is where he is most comfortable. 01/02/25lidocaine, ECCAno changesf/up with PCP OAB (overactive bladder) Active 2022-02-20 N/A oxybutynin Stabl e. No longer taking oxybutynin. Continue to monitor.01/02/25myrbetriqECCAno changesf/up with PCPmember is requesting diapers size M, and wipes; changes 3x/day; task placed Glaucoma Active 2022-02-20 N/A latanoprostSta ble. No changes. Continue to monitor.last eye exam /ECCAlatanoprost, lumiganno changesf/up with opthopth 2024.Adhere to Medications. You may need to take a variety of eyedrops throughout the day to manage your glaucoma. Maintain a schedule to take the proper dosage on time. COPD (chronic obstructive pulmonary disease) Active 2022-02-20 N/A Combivent, Fl uticasone, Salmeterol - Stable. No changes. Continue to monitor.- 1. Encourage Pneumococcal vaccine and flu2. Avoid triggers 3. May use saline nasal irrigation4. Wash hands and clothing when coming from outdoors5. Stay hydrated and eat healthy balanced diet6. Encourage smoking cessation if smoking7. Cont to f/u with PCP or pulmonary and notify CB of any changes8. Consider Singular and OTC antihistamine if not already taking01/02/25combivent respimat, flonase, Fluticasone,-Salmeterol ECCAno changesf/up with PCP.Importance of small meals, medication compliance, breathing techniques, and weight loss. GERD (gastroesophageal reflux disease) Active 2022-02-20 N/A omeprazole - Sta ble. No changes. Continue to monitor. Encourage small, frequent meals, paced eating, sitting upright during and 2 hours after meals, avoiding alcohol, caffeine, fatty, fried or spicy foods, and other triggers01/02/25PPIECCAno changesf/up with PCPavoid trigger foods like spicy or fatty foods, eat smaller meals, and avoid lying down immediately after eating. Insomnia,Anxiety Active 2022-02-20 N/A Trazodon e implementing good sleep hygiene practices, such as maintaining a regular sleep schedule and creating a restful sleeping environment, along with cognitive-behavioral therapy for insomnia (CBT-I) if necessary. Additionally, the patient will be monitored for underlying medical or psychological conditions that may contribute to sleep disturbances01/02/25trazodone , escitalopram ECCAno changesf/up with PCPsupportivedoes not see psych Hyperlipidemia associated with type 2 diabetes mellitus Active 2022-04-30 N/A Atorvastatin , Metformin, GlipizideDiscussed adopting a heart-healthy diet low in saturated fats and cholesterol, incorporating regular physical activity to help lower LDL cholesterol and raise HDL cholesterol levels, and understanding the importance of adhering to prescribed medications if diet and exercise alone are insufficient. Patients educated on the importance of regular lipid profile monitoring to track progress and adjust management strategies as needed.01/02/25rx; statin, MetforminECCAFBG 105 per membe r9/25stableHgb A1c 07/14/2024: 5.7; OC.Patient education the importance of diabetic diet, exercise, medication compliance. Patient education on hypoglycemia and hyperglycemia signs and symptoms. Monitor daily BGL. Patient to assess feet daily for any cuts or wounds and to notify pcp or [facility] as soon as possible Thrombophilia Active 2022-04-30 N/A Brilinta st rict adherence to the prescribed anticoagulant regimen to prevent further thrombotic events, along with regular monitoring of coagulation parameters and follow-up appointments. Additionally, patient education on recognizing signs of bleeding and thromboembolism, as well as lifestyle modifications to reduce risk factors, will be emphasized.01/02/25brillintaECCA no changesf/up with PCP Hypertensive heart disease with heart failure Active 2022-02-20 N/A HTN: Amlodipine, Carvedilol, DM: Glipizide, Metformin Hgb A1c 10/01/2023 : 6.1does not know how to use current glucometer- will schedule f/u appt with primary JOCELYNN .member wants another glucometer that reads the numbers for him- states his HH aid broke itfs: 110-126Has glucometer, BP machine he is illiterate AND visually impaired*Suggest stopping sulfonylurea (glipizide) or switching to an alternative class with a more favorable risk b enefit ratio, such as a lower risk of hypoglycemia. Note sent to PCP RX: brillinta, amlodipine, carvedilol,ASAECCABp monitor: less than 140/90stablef/up with PCP.Monitor BP routinely, low salt diet, exercise as tolerable, and continue f/u care with PCP. Blood Pressure 135/79 07/14/2024 145, 5'5; OC Abdominal aortic aneurysm (AAA) without rupture Active 2024-01-21 N/A MD portal notes member with diagnosis that includes Abdominal aortic aneurysm (AAA) without rupture, unspecified part as seen on imaging study 10/01/23continues atorvastatinCTscan 12/2022 notes, There is mild interim increase in the patient's abdominal aortic aneurysm by 4 mm. Continued imaging surveillance may be indicated. 01/02/25ECCAno changesf/up with PCPCT; 2023 per pt Other problems related to medical facilities and other health care Active 2025-01-02 N/A FALL CONTINGE NCY PLANMember to call for the following symptoms: Vertigo/ WeaknessPlanned intervention: Encourage extra fluid intake / Assess for change in mental status and provide reassurance if none (patient's Baseline is stable with cane_) / Review importance of sitting for two to three minutes prior to standing after laying down CKD (chronic kidney disease) stage 3, GFR 30-59 ml/min,Type 2 diabetes mellitus with chronic kidney disease Active 2025-01-02 N/A Estimated Glomer ular Filt Rate 49 02/10 OC; no recent one found01/02/25stable.Avoid nephrotoxic medications (NSAIDS, high dose Gabapentin, Baclofen, Fleet Enema, Morphine/Codeine) BMI 24.0-24.9, adult Active 2025-01-02 N/A .Pat ient educated on the importance of diet compliance or modifications and exercise as tolerated Encounters Encounters Type Facility Date of Service Diagnosis/Co mplaint No Data Available [facility], ([place]) [place]/2022 Dorsalgia, unspecifiedOther chronic pain No Data Available [facility]18[place]2022 Dorsalgia, unspecifiedOther chronic pain Pain Assessment - Pain Documented on a Pain Scale (1125F) [facility] ([place] 02[place]20/2022 Pain Assessment - Pain Documented on a Pain Scale (1125F) [facility]2022 Pain Assessment - Pain Documented on a Pain Scale (1125F) [facility]2022 Pain Assessment - Pain Documented on a Pain Scale (1125F) [facility] 02/[place]/2022 Pain Assessment - Pain Documented on a Pain Scale (1125F) [facility] 02/20/2022 Pain Assessment - Pain Documented on a Pain Scale (1125F) [facility] 02/[place]2022 Pain Assessment - Pain Documented on a Pain Scale (1125F) [facility] 02/20/2022 Chronic obstructive pulmonar y disease, unspecifiedType 2 diabetes mellitus without complicationsDorsalgia, unspecifiedOther chronic painOveractive bladderUnspecified glaucomaOther muscle spasmGastro-esophageal reflux disease without esophagitisEssential (primary) hypertensionInsomnia, unspecifiedPersonal history of malignant neoplasm of prostateUnspecified asthma, uncomplicated No Data Available [facility] ([place]) 02/28/2022 Other muscle spasmIlliteracy and low-level literacyUnspecified visual lossOpioid use, unspecified, uncomplicated No Data Available [facility] 03/25/2022 Low back pain, unspecified Estab. patient 30-39min; chronic exacerbation, 2 stable chronic or 1 acute illness add add modifier 95 for video, (do not use for phone, instead use 81516-47) [facility] ([place] 04[place]30/2022 Dorsalgia, unspecifiedOther chronic painOveractive bladderUnspecified [...] (do not use for phone, instead use 35741-92) [facility] ([place] 04[place]/20[place] Estab. patient 30-39min; chronic exacerbation, 2 stable chronic or 1 acute illness add add modifier 95 for video, (do not use for phone, instead use 21117-67) [facility] 04/30/2022 Estab. patient 30-39min; chronic exacerbation, 2 stable chronic or 1 acute illness add add modifier 95 for video, (do not use for phone, instead use 55172-75) [facility] ([place] 04[place]30/20[place] Estab. patient 30-39min; chronic exacerbation, 2 stable chronic or 1 acute illness add add modifier 95 for video, (do not use for phone, instead use 82921-61) [facility] 04[place]/20[place] Estab. patient 30-39min; chronic exacerbation, 2 stable chronic or 1 acute illness add add modifier 95 for video, (do not use for phone, instead use 01134-12) [facility] 04[place]30/20[place] Estab. patient 30-39min; chronic exacerbation, 2 stable chronic or 1 acute illness add add modifier 95 for video, (do not use for phone, instead use 01083-09) [facility] 04/30/2022 Estab. patient 30-39min; chronic exacerbation, 2 stable chronic or 1 acute illness add add modifier 95 for video, (do not use for phone, instead use 02187-93) [facility] ([place] 04/30/2022 Estab. patient 30-39min; chronic exacerbation, 2 stable chronic or 1 acute illness add add modifier 95 for video, (do not use for phone, instead use 65660-06) [facility] 04/30/2022 No Data Available [facility] 06/17/2022 Type 2 diabetes mellitus wit hout complicationsDorsalgia, unspecifiedOther chronic painPersonal history of malignant neoplasm of prostateLow back pain, unspecified Estab. patient 30-39min; chronic exacerbation, 2 stable chronic or 1 acute illness add add modifier 95 for video, (do not use for phone, instead use 56505-78) [facility] ([place] 01/11/2024 Chronic obstructive pulmonar y disease, [...] (do not use for phone, instead use 02101-20) [facility] [place] 01/11/2024 Estab. patient 30-39min; chronic exacerbation, 2 stable chronic or 1 acute illness add add modifier 95 for video, (do not use for phone, instead use 20799-78) [facility] [place] 01/11/2024 Estab. patient 30-39min; chronic exacerbation, 2 stable chronic or 1 acute illness add add modifier 95 for video, (do not use for phone, instead use 36423-59) [facility] 01/11/2024 Estab. patient 30-39min; chronic exacerbation, 2 stable chronic or 1 acute illness add add modifier 95 for video, (do not use for phone, instead use 14984-40) [facility] [place] 01/11/2024 Estab. patient 30-39min; chronic exacerbation, 2 stable chronic or 1 acute illness add add modifier 95 for video, (do not use for phone, instead use 79292-78) [facility] [place] 01/11/2024 Estab. patient 30-39min; chronic exacerbation, 2 stable chronic or 1 acute illness add add modifier 95 for video, (do not use for phone, instead use 10837-37) [facility] [place] 01/11/2024 Estab. patient 30-39min; chronic exacerbation, 2 stable chronic or 1 acute illness add add modifier 95 for video, (do not use for phone, instead use 84943-29) [facility] [place] 01/11/2024 Estab. patient 30-39min; chronic exacerbation, 2 stable chronic or 1 acute illness add add modifier 95 for video, (do not use for phone, instead use 64195-05) [facility] [place] 01/11/2024 Estab. patient 10-29min; 1 minor problem; add add modifier 95 for video, modifier 93 for phone [facility] [place] 01/02/2025 Type 2 diabetes mellitus wit h other specified complicationHyperlipidemia, unspecifiedHyp hrt & chr kdny dis w hrt fail and stg 1-4/unsp chr kdnyHeart failure, unspecifiedDorsalgia, unspecifiedOther chronic painOveractive bladderUnspecified glaucomaChronic obstructive pulmonary disease, unspecifiedGastro-esophageal reflux disease without esophagitisInsomnia, unspecifiedAnxiety disorder, unspecifiedPersonal history of malignant neoplasm of prostateIlliteracy and low-level literacyUnspecified visual lossOther primary thrombophiliaOther specified postprocedural statesAbdominal aortic aneurysm, without rupture, unspecifiedOther problems related to medical facilities and other health careType 2 diabetes mellitus with diabetic chronic kidney diseaseChronic kidney disease, stage 3 unspecifiedLong term (current) use of oral hypoglycemic drugsPersonal history of nicotine dependence Estab. patient 10-29min; 1 minor problem; add add modifier 95 for video, modifier 93 for phone [facility] ([place] 01/02/2025 Estab. patient 10-29min; 1 minor problem; add add modifier 95 for video, modifier 93 for phone [facility] [place] 01/02/2025 Estab. patient 10-29min; 1 minor problem; add add modifier 95 for video, modifier 93 for phone [facility] [place] 01/02/2025 Estab. patient 10-29min; 1 minor problem; add add modifier 95 for video, modifier 93 for phone [facility] [place] 01/02/2025 Estab. patient 10-29min; 1 minor problem; add add modifier 95 for video, modifier 93 for phone [facility] [place] 01/02/2025 Estab. patient 10-29min; 1 minor problem; add add modifier 95 for video, modifier 93 for phone [facility] [place] 01/02/2025 Estab. patient 10-29min; 1 minor problem; add add modifier 95 for video, modifier 93 for phone [facility]/02/20[place] Estab. patient 10-29min; 1 minor problem; add add modifier 95 for video, modifier 93 for phone [facility] 01/02/2025 Estab. patient 10-29min; 1 minor problem; add add modifier 95 for video, modifier 93 for phone [facility] 01/02/2025 Vital Signs Date of Collection Vitals 2022-02-20 [...] - 120.0 mm[Hg]Pain Scale - 4.0 {score} 2025-01-02 10:13:51 Height - 165.1 cmWei ght - 65.77 kgBody Mass Index (BMI) - 24.13 kg/m2BP Diastolic - 79.0 mm[Hg]BP Systolic - 135.0 mm[Hg]Pain Scale - 5.0 {score} Social History Social History Social History Observation Description Effec tive Time Current Smoking Status Former smoker 2025-01-19 1 Sex Male Gender identity Man History of Procedures Procedures Service Procedure code Service date Servicing provider Phone# No Data Available [id number] 2022-02-17 No Data Available No Data Available No Data Available [id number] 2022-02-18 No Data Available No Data Available [...] 95 for video, modifier 93 for phone [id number] 2022-02-20 No Data Available No Data Available No Data Available [id number] 2022-02-28 No Data Available No Data Available No Data Available [id number] 2022-03-25 No Data Available No Data Available Estab. patient 30-39min; chronic exacerbation, 2 stable chronic or 1 acute illness add add modifier 95 for video, (do not use for phone, instead use 91526-12) 12523 2022-04-30 No Data Available No Data Availa [...] Available No Data Available No Data Available [id number] 2022-06-17 No Data Available No Data Available Estab. patient 30-39min; chronic exacerbation, 2 stable chronic or 1 acute illness add add modifier 95 for video, (do not use for phone, instead use 94128-80) [id number] 2024-01-11 No Data Available No Data Availa [...] No Data Available No Data Availa ble Estab. patient 10-29min; 1 minor problem; add add modifier 95 for video, modifier 93 for phone [id number] 2025-01-02 No Data Available No Data Availa ble Medication List Documented (1159F) 1159F 2025-01-02 No Data Available No Data Eugenia ilable Medication Review by prescribing provider or pharmacist documented (1160F) 1160F 2025-01-02 No Data Available No Data Eugenia ilable Functional Status Assessed (1170F) 1170F 2025-01-02 No Data Available No Data Avail able Advance Care Directive Advance care planning discussion documented in the medical record (1158F) 1158F 2025-01-02 No Data Available No Data Availa ble Advance care planning discussed and documented advance care plan or surrogate decision-maker was documented in the medical record. (1123F) 1123F 2025-01-02 No Data Available No Data Availa ble Pain Assessment - Pain Documented on a Pain Scale (1125F) 1125F 2025-01-02 No Data Available No Data Eugenia ilable SBP 130-139 (3075F) 3075F 2025-01-02 No Data Availabl e No Data Available DBP <80 (3078F) 3078F 2025-01-02 No Data Available No Data Available Most recent A1c (HbA1c) or GMI level <7% (3044F) 3044F 2025-01-02 No Data Available No Data Availa ble Functional Status Functional Category Effective Dates Cognition Status: Oriented to Person, Pl nir and Time 2025-01-02 ADL: Bathing Needs Assistanc e , Dressing Needs Assistance , Eating Independent , Ambulation Needs Assistance , Transferring Needs Assistance and Toileting Independent 2025-01-02 IADL: Medication Needs Assistance , Hous ework Needs Assistance 2025-01-02 How many falls within the last 6 months? yes 2025-01-02 Do you feel unsteady on your feet? No 20 12-01-15 Near falls within the last 6 months? no 2025-01-02 Do you worry about falling? No 2024-12-19 5 DME used with ambulation: [employer] 08-26-14 Social Supports - # of Inter actions with Friends/Family in a typical week: daily 2025-01-02 Mental Status Status Date AAO times 3 2025-01-02 Assessments Date of Service Assessments 2022-02-17 06:48:57 [...] aneurysm repairAbdominal aortic aneurysm (AAA) without rupture 2025-01-02 10:13:51 Hyperlipidemia assoc iated with type 2 diabetes mellitusHypertensive heart disease with heart failureChronic back painOAB (overactive bladder)GlaucomaCOPD (chronic obstructive pulmonary disease)GERD (gastroesophageal reflux disease)Insomnia,AnxietyHistory of prostate cancerIlliterateVision impairmentThrombophiliaS/P endovascular aneurysm repairAbdominal aortic aneurysm (AAA) without ruptureOther problems related to medical facilities and other health careCKD (chronic kidney disease) stage 3, GFR 30-59 ml/min,Type 2 diabetes mellitus with chronic kidney diseaseBMI 24.0-24.9, adult Plan of Care Date of Service Plans [...] pt does not know and even with neonatal doctor. Do not want to prescribe medication without knowing what he is taking currently.- Scheduled for [facility] 02/20 at 11am. 2022-02-18 07:26:00 Phone (patient, pare nt, or guardian); 11-20 minutes of medical discussion (no modifier 95)Continue to see PCP. Follow-up with [facility] as needed for any acute or disease education needs that may arise /.02/17/22:- Chronic pain x years, not acute issue. - Unable to download fills or see what medications he is on, as pt does not know and even with neonatal doctor. Do not want to prescribe medication without knowing what he is taking currently.- Scheduled for [facility] 02/20 at 11am. 02/18/22:- Same coverstation with patient 02/18. - Likely needs imaging or follow up with who he has had imaging with in the past. Encouraged him to stand up and move around, as this is where he is most comfortable. - [facility] 02/20 11am. 2022-02-20 09:03:51 Medication Review by [...] is where he is most comfortable. - [facility] 02/20 11am. - uses pain patch- Icy HotoxybutyninlatanoprostCombiventdiazepam prnglipizide metformin does not know how to use current glucometer- will schedule f/u appt with primary JOCELYNN .member wants another glucometer that reads the numbers for him- states his HH aid broke itomeprazoleamlodipinedoes not have a BP cuff, will order one for himtrazodone (pt states he takes this for pain and insomnia)follows with oncologistsierra 2022-02-28 14:13:08 Seeking medical yuri rds (task [...] prn Acute attack on 02/27, went to ERUnable to lucidly explain diagnosisSays he had scans [...] record (1158F)Advance care planning discussed and documented advance care plan or surrogate decision-maker was documented in the medical record. (1123F)Advance care planning discussed and documented in the medical record beneficiary/patient did not wish to or was unable to provide an advance care plan or name a surrogate decision-maker. (1124F)SBPDBPPain Assessment - Pain Documented (1125F)Continue to see PCP. Follow-up with Isai as [...] joint pain increased Please remember to call CBContinue to see PCP. Follow-up with Isai as [...] an alternative class with a more favorable risk b enefit ratio, such as a lower risk of [...] mm. Continued imaging surveillance may be indicated. 2025-01-02 10:13:51 Medication Review by prescribing provider or pharmacist documented (1160F)Medication List Documented (1159F)Functional Status Assessed (1170F)Advance Care Directive Advance care planning discussion documented in the medical record (1158F)Advance care planning discussed and documented advance care plan or surrogate decision-maker was documented in the medical record. (1123F)SBP 130-139 (3075F)Estab. patient 20-29min; 1 stable chronic or 2 minor; add add modifier 95 for video, modifier 93 for phoneDBP <80 (3078F)Most recent A1c (HbA1c) or GMI level <7% (3044F)Pain Assessment - Pain Documented on a Pain Scale (1125F)BMI obtained (3008F)Continue to see PCP. Follow-up with [facility] as needed for any acute or disease education needs that may arise.Atorvastatin, Metformin, GlipizideDiscussed adopting a heart-healthy diet low in saturated fats and cholesterol, incorporating regular physical activity to help lower LDL cholesterol and raise HDL cholesterol levels, and understanding the importance of adhering to prescribed medications if diet and exercise alone are insufficient. Patients educated on the importance of regular lipid profile monitoring to track progress and adjust management strategies as needed.01/02/25rx; statin, MetforminECCAFBG 105 per membe r01/12stableHgb A1c 07/14/2024: 5.7; OC.Patient education the importance of diabetic diet, exercise, medication compliance. Patient education on hypoglycemia and hyperglycemia signs and symptoms. Monitor daily BGL. Patient to assess feet daily for any cuts or wounds and to notify pcp or [facility] as soon as possibleHTN: Amlodipine, Carvedilol, DM: Glipizide, Metformin Hgb A1c 10/01/2023 : 6.1does not know how to use current glucometer- will schedule f/u appt with primary JOCELYNN .member wants another glucometer that reads the numbers for him- states his HH aid broke itfs: 110-126Has glucometer, BP machine he is illiterate AND visually impaired*Suggest stopping sulfonylurea (glipizide) or switching to an alternative class with a more favorable risk b enefit ratio, such as a lower risk of hypoglycemia. Note sent to PCP RX: brillinta, amlodipine, carvedilol,ASAECCABp monitor: less than 140/90stablef/up with PCP.Monitor BP routinely, low salt diet, exercise as tolerable, and continue f/u care with PCP. Blood Pressure 135/79 07/14/2024 145, 5'5; OCRX: lidocain patch- Chronic pain x years, not acute issue. - Encouraged him to stand up and move around, as this is where he is most comfortable. 01/02/25lidocaine, ECCAno changesf/up with PCPoxybutynin Stable. No longer taking oxybutynin. Continue to monitor.01/02/25myrbetriqECCAno changesf/up with PCPmember is requesting diapers size M, and wipes; changes 3x/day; task placedlatanoprostStable. No changes. Continue to monitor.last eye exam ECCAlatanoprost, lumiganno changesf/up with opthopth 2024.Adhere to Medications. You may need to take a variety of eyedrops throughout the day to manage your glaucoma. Maintain a schedule to take the proper dosage on time.Combivent, Fluticasone, Salmeterol - Stable. No changes. Continue [...] Singular and OTC antihistamine if not already taking01/02/25combivent respimat, flonase, Fluticasone,-Salmeterol ECCAno changesf/up with PCP.Importance of small meals, medication compliance, breathing techniques, and weight loss.omeprazole - Stable. No changes. Continue to monitor. Encourage small, frequent meals, paced eating, sitting upright during and 2 hours after meals, avoiding alcohol, caffeine, fatty, fried or spicy foods, and other triggers01/02/25PPIECCAno changesf/up with PCPavoid trigger foods like spicy or fatty foods, eat smaller meals, and avoid lying down immediately after eating.Trazodone implementing good sleep hygiene practices, such as maintaining a regular sleep schedule and creating a restful sleeping environment, along with cognitive-behavioral therapy for insomnia (CBT-I) if necessary. Additionally, the patient will be monitored for underlying medical or psychological conditions that may contribute to sleep disturbances01/02/25trazodone , escitalopram ECCAno changesf/up with PCPsupportivedoes not see psychfollows with oncologist - Stable. No changes. Continue to monitor.Has not gone for FU since the pandemic. Encouraging him to go for FU.01/02/25ECCAno changesf/up with PCP/oncologyCannot read or write in any language.Needs speaking glucometer. Stable. No changes. Continue to monitor.01/02/25ECCAno changesf/up with PCPSees better with glasses, but not well. 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 No changes. Continue to monitor.Saw opthalmologist in NovemberECCAno changesf/up with PCPfall precautionsBrilinta strict adherence to the prescribed anticoagulant regimen to prevent further thrombotic events, along with regular monitoring of coagulation parameters and follow-up appointments. Additionally, patient education on recognizing signs of bleeding and thromboembolism, as well as lifestyle modifications to reduce risk factors, will be emphasized.01/02/25brillintaECCAno changesf/up with PCPOCN: CTA showed an incidental finding of a 5.7 x 6.2 CM AAA . He eventually underwent EVAR on 10/26/[address] Cardoza01/02/25ECCAno changesf/up with PCPMD portal notes member with diagnosis that includes Abdominal aortic aneurysm (AAA) without rupture, unspecified part as seen on imaging study 10/01/23continues atorvastatinCTscan 12/2022 notes, There is mild interim increase in the patient's abdominal aortic aneurysm by 4 mm. Continued imaging surveillance may be indicated. 01/02/25ECCAno changesf/up with PCPCT; 2023 per ptFALL CONTINGENCY PLANMember to call for the following symptoms: Vertigo/ WeaknessPlanned intervention: Encourage extra fluid intake / Assess for change in mental status and provide reassurance if none (patient's Baseline is stable with cane_) / Review importance of sitting for two to three minutes prior to standing after laying downEstimated Glomerular Filt Rate 49 02/10 OC; no recent one found01/02/25stable.Avoid nephrotoxic medications (NSAIDS, high dose Gabapentin, Baclofen, Fleet Enema, Morphine/Codeine).Patient educated on the importance of diet compliance or modifications and exercise as toleratedfollow up with PCP/specialistsAt least 50% of time spent counseling patient, discussing diagnosis, treatment plan, compliance, and coordinating follow-up care Goals Date Goal 2022-02-20 Follow-up with Davina paez as needed 2022-04-30 Remember to keep all appointments with your PCP. 2022-04-30 Call if you have que stions or concerns before you go to the ER. 2022-04-30 Discussed how to con tact [facility] via phone or tablet. 2022-04-30 DME request - scale and pulse oximeter 2024-01-11 At least 50% of time spent counseling patient, discussing diagnosis, treatment plan, compliance, and coordinating follow-up care. 2025-01-02 .Remember to keep al l appointments with your PCP and specialists. Call CB 24/7 if you have questions or concerns. Discussed how to contact [facility] via phone or tablet. CB 24/7 phone number provided. Health Concerns Date Concern 2025-01-02 Patient/Guardian agr eed to visit via telehealth. Today, patient has chief complaint of: annual visit.Visit completed via:[x] audio and video;Informed verbal consent was obtained from this patient to communicate and provide care using virtual and other telecommunications tools. This patient has been explained the risks, if any, related to the encounter. I explained that care provided through video or audio communication cannot replace the need for physical examination or an in-person visit for some disorders or urgent problems. 2025-01-02 Concerns for today's visit:No acute concerns or needs.Reviewed allergies, medications, active medical conditions, past medical and surgical history, social history. 2025-01-02 Most recent hospital stay or ER visit:No ER visits or hospitalizations documented in [facility] in last year.Member denies ER visits or hospitalizations in last year.Discussed our goal of helping the member have more days at home rather than in the ER or the hospital. 2025-01-02 Open HEDIS Measures: No open measures 2025-01-02 spoke to member
--- OUTSIDE RECORDS SUMMARY | 2025-02-07 19:27 | XMS_ITS | Encounter Summary ---
Author Organization [employer] Address [address] [place] [address] Care Team Providers Care Enterostomal Therapy Nurse Name Role Phone Praful Robles MD Primary Care Provide r Reason for Visit * Reason Comments Med Refill Encounter Details Date Type Department Care Team (Late st Contact Info) Description 06/21/2024 Refill [facility] MEDICINE [address] [place] [address] Praful Robles MD [address] [place] [address] Sleep disturbance Social History Tobacco Use Types Packs/Day Years [...] Care Team (Late st Contact Info) Description 02/20/2025 9:30 AM EST Office Visit [facility] OPTOMETRY [address] [place] [address] Jessa Milian, OD [address] [place] [address] documented as of this encounter Visit Diagnoses Diagnosis Sleep disturbance Unspecified sleep disturbance documented in this encounter Additional Health Concerns Assessment Noted Time PHQ-9 Depression Total Score: 4 10/01/19 24 9:54 AM EDT documented as of this encounter Care Teams Enterostomal Therapy Nurse Relationship Specialty Start Date End Date Praful Robles MD [address] [place] [address] PCP - General Internal Medicine 11/08/14 documented as of this encounter
--- OUTSIDE RECORDS SUMMARY | 2025-02-07 19:27 | XMS_ITS | Encounter Summary ---
Author Organization [employer] Address [address] [place] [address] [address] [place] [address] Care Team Providers Care Office Clerk Name Role Phone Praful Robles MD Primary Care Provide r Encounter Details Date Type Department Care Team (Late st Contact Info) Description 09/24/2022 [facility] Health Information Management [address] [place] [address] Praful Robles MD [address] [place] [address] Social History Tobacco Use Types Packs/Day Years [...] Description 02/20/2025 9:30 AM EST Office Visit [facility] [address] [place], [place] [phone] Jessa Milian OD [address] [place], [place] [phone] documented as of this encounter Visit Diagnoses Not on filedocumented in this encounter Care Teams Office Clerk Relationship Specialty Start Date End Date Praful Robles MD [address] [place] [address] PCP - General Internal Medicine 11/08/14 documented as of this encounter
--- OUTSIDE RECORDS SUMMARY | 2025-02-07 19:27 | XMS_ITS | Encounter Summary ---
Author Organization [employer] [facility] Address [address] [place] [address] [address] [place] [address] Care Team Providers Care Machine Bender Name Role Phone Praful Robles MD Primary Care Provide r Encounter Details Date Type Department Care Team (Late st Contact Info) Description 04/22/2022 Orders Only [facility] [address] [place] [address] Liliya Martin, RN Social History Tobacco Use [...] Description 02/20/2025 9:30 AM EST Office Visit [facility] [address] [place] [address] Jessa Milian, OD [address] [place] [address] documented as of this encounter Visit Diagnoses Not on filedocumented in this encounter Care Teams Machine Bender Relationship Specialty Start Date End Date Praful Robles MD [address] [place] [address] PCP - General Internal Medicine 11/08/14 documented as of this encounter
--- OUTSIDE RECORDS SUMMARY | 2025-02-07 19:27 | XMS_ITS | Clinical Summary ---
Author Organization [employer] Address [address] [facility] 7t [place] [address] Care Team Providers Care Senior Clinical Study Manager Name Role Phone Praful Robles MD Primary [...] complication, without long-term current use of insulin (HCC) 1 each by Other route before breakfast, before lunch, and before evening meal. 100 each 11 02/06/20 23 Active metFORMIN XR (Glucophage-XR) 500 MG 24 hr tabletIndications :Type 2 diabetes mellitus without complication, without long-term current use of insulin (HCC) Take 1 tablet (500 mg) by mouth 2 times daily. Do not crush, chew, or split. 360 tablet 5 09/28/19 24 Active OneTouch Delica Lancets 33G misc TEST BLOOD SUGAR 3 TIMES A DAY 100 each 11 06/07/19 25 Active atorvastatin (Lipitor) 80 MG tabletIndications :Mixed hyperlipidemia TAKE 1 TABLET BY MOUTH EVERY EVENING 90 tablet 2 07/06/19 25 Active amLODIPine (Norvasc) 5 MG tabletIndications :Mixed hyperlipidemia,Es sential hypertension TAKE 1 TABLET BY MOUTH EVERY MORNING 90 tablet 2 07/06/19 25 Active Multiple Vitamin (Multivitamin) tabletIndications :Type 2 diabetes mellitus without complication, without long-term current use of insulin (HCC) TAKE 1 TABLET BY MOUTH EVERY MORNING [...] MORNING 90 tablet 3 08/18/19 25 Active omeprazole (PriLOSEC) [address] capsuleIndication s:Gastroesophagea l reflux disease without esophagitis TAKE 1 CAPSULE BY MOUTH EVERY MORNING WITH MEALS 90 capsule 1 09/16/19 25 Active carvedilol (Coreg) 12.5 MG tabletIndications :Essential hypertension TAKE 1 TABLET BY MOUTH TWICE DAILY IN THE MORNING AND IN THE EVENING 60 tablet 5 09/17/19 25 Active fluticasone (Flonase) 50 MCG/ACT nasal sprayIndications: Seasonal allergies INHALE 1 SPRAY IN EACH NOSTRIL TWICE DAILY DIRECTED 16 g 3 10/19/19 25 Active Combivent Respimat 20-100 MCG/ACT inhalerIndication s:Chronic obstructive pulmonary disease, unspecified COPD type (CMS/HCC) ([facility]) INHALE 1 PUFF 4 TIMES A DAY, MAY TAKE ADDITIONAL PUFFS NEEDED. (MAX OF 6 PUFFS PER DAY) 4 g 6 11/09/19 25 Active Fluticasone-Salme terol 250-50 MCG/ACT aerosol powderIndications :Chronic obstructive pulmonary disease, unspecified COPD type (CMS/HCC) ([facility]) INHALE 1 PUFF BY MOUTH EVERY TWELVE HOURS. RINSE MOUTH AFTER USING. 60 each 3 11/18/19 25 Active OneTouch Ultra Test test strip USE DIRECTED TO TEST BLOOD SUGAR THREE TIMES DAILY 50 strip 11 11/23/19 25 Active traZODone (Desyrel) 50 MG tabletIndications :Sleep disturbance TAKE 1/2 TABLET BY MOUTH AT BEDTIME 15 tablet 1 12/13/19 25 Active metFORMIN XR (Glucophage-XR) 500 MG 24 hr tabletIndications :Type 2 diabetes mellitus without complication, without long-term current use of insulin ([facility]) TAKE 2 TABLETS BY MOUTH TWICE DAILY IN THE MORNING AND EVENING 360 tablet 1 12/16/19 25 Active glipiZIDE XL (Glucotrol XL) 5 MG 24 hr tablet Take 1 tablet (5 mg) by mouth in the morning. 30 tablet 3 12/17/19 25 Active escitalopram (Lexapro) 5 MG tabletIndications :Depressive disorder TAKE 1 TABLET BY MOUTH EVERY MORNING 30 tablet 1 02/07/20 25 Active escitalopram (Lexapro) 5 MG tabletIndications :Depressive disorder TAKE 1 TABLET BY MOUTH EVERY MORNING 30 tablet 1 12/13/19 25 2024 Discontinued Active Problems Problem Noted Date [...] trauma. Correlate with patient's clinical history. 3. Uksk-or-jqlrxlvj generalized diffuse brain parenchymal volume loss somewhat [...] trauma. Correlate with patient's clinical history. 3. Dndm-bu-sbypjfzx generalized diffuse brain parenchymal volume loss somewhat [...] trauma. Correlate with patient's clinical history. 3. Qwgi-jd-qlfxwpqu generalized diffuse brain parenchymal volume loss somewhat [...] (07/30/2022 2:01 PM EDT): [place] [facility] [place] due to chest pain, discharged 04/17/2022 Found to have NSTEMI and transferred to [facility]. ECHO demonstrated new wall motion abnormality and patient taken to dock or pier laborer on 04/16/22. Patient now s/p PADMINI to mid proximal RCA. Patient started on Atorvastatin, Brilinta (to continue for 1 year) and Carvedilol. Amlodipine was decreased to 5 mg daily. Patient to continue taking low dose Aspirin. Nabumetone discontinued due to increased risk of bleeding with DAPT. Pt was recently seen by Pharmacist Assistant Dr Westbrook 07/15/2022 Assessment & Plan (04/29/2022 10:07 AM EST): Patient [place] [facility] [place] due to chest pain, discharged 04/17/2022 Found to have NSTEMI and transferred to [facility]. ECHO demonstrated new wall motion abnormality and patient taken to dock or pier laborer on 04/16/22. Patient now s/p PADMINI to [...] with the Cardiac Rehab Program Has a DIRECTOR OF CONSERVATION, rollator walker recommended to help with ambulation [...] LS spine. PT was also evaluated at [facility] in July but it appears pt had been c/o neck pain and not low back pain, They obtained an MRI that showed multilevel degenerative disc disease. They prescribed Lidoderm patches. NCS done confirmed mild chronic L4-L5 radiculopathy Pt has been taking Tramadol to help with his neck and low back pain Pt was last seen at [facility] 04/08/2019 Previous visit he was referred [...] LS spine. PT was also evaluated at [facility] in July but it appears pt had been c/o neck pain and not low back pain, They obtained an MRI that showed multilevel degenerative disc disease. They prescribed Lidoderm patches. NCS done confirmed mild chronic L4-L5 radiculopathy Pt has been taking Tramadol to help with his neck and low back pain Pt was last seen at [facility] 04/08/2019 Previous visit he was referred [...] 2015 Tubular adenoma 01/30/2015 Assessment & Plan (01/19/2025 2:19 PM EDT): Pt with Hx of multiple tubular adenomas, Overdue for colorectal Ca screen, last one 2013 Back in February 2020 patient was referred back to GI. Pt had Cardiac clearance but cancelled colonoscopy . Had appointment with GI November 02/2024, pt missed appointment again. Pt had an appointment in June but apparently his appointment was cancelled and rescheduled for 11/01/2024 Now he has Gastroenterology Pending appointment on 02/07 Assessment & Plan (07/14/2024 3:12 PM EDT): [...] reschedule Essential hypertension 01/30/2015 Assessment & Plan (01/19/2025 2:18 PM EDT): Pt here for a f/u Patient with Hypertension currently controlled on a regimen of: Norvasc 10 mg po daily, Off Lisinopril Given adequate blood pressure control will continue with current medical regimen. Most recent Bun and Creatinine done on: Lab Results Component Value Date NA 146 (H) 02/02/2024 NA 145 02/26/2023 K 4.6 02/02/2024 K 4.7 02/26/2023 CL 111 (H) 02/02/2024 CL 110 (H) 02/26/2023 BUN 19 (H) 02/02/2024 BUN 18 (H) 09/04/2023 CREATININE 1.39 02/02/2024 CREATININE 1.20 09/04/2023 within normal limits. Will repeat BMP patient advised to adhere to a low sodium diet, encouraged about medication compliance, counseled about weight loss. Assessment & Plan (04/05/2024 11:35 AM EST): [...] loss. Mixed hyperlipidemia 01/30/2015 Assessment & Plan (01/19/2025 2:19 PM EDT): Patient with elevated lipids. Most recent lipid profile from: Lab Results Component Value Date TRIG 60 02/02/2024 TRIG 68 02/26/2023 CHOL 120 02/02/2024 CHOL 113 02/26/2023 LDLCHOLCAL 67 02/02/2024 LDLCHOLCAL 57 02/26/2023 HDL 41 02/02/2024 HDL 43 02/26/2023 Lipids at target, will repeat Lipid profile Currently not on a regimen because of chronic elevation of his CPK advised to try to adhere to a low cholesterol diet, counseled and educated about diet and exercise, Patient encouraged to come up with a personal goal for weight loss. Assessment & Plan (07/14/2024 3:06 PM EDT): [...] use of insulin 04/01/2012 Assessment & Plan (01/19/2025 2:35 PM EDT): Pt here for a f/u regarding his diabetes Today DM controlled He is on a regimen of: Glipizide XR 5 mg po daily and Metformin XR 500 mg 2 tabs po BID Hgb A1c 01/19/2025: 6.0 from 5.7 Plan: Continue current regimen Eye exam was done 03/09/2017 Microalbumin 12/29/2019 was 2.5 Pt is no longer on an EJ inhibitor Foot check risk of zero Pt on Asa 81 mg po daily Pt advised to: adhere to diabetic diet check your blood sugars regularly check your feet on a daily basis Assessment & Plan (07/14/2024 3:05 PM EDT): [...] 01/09/2012 Depressive disorder 01/09/2012 Assessment & Plan (01/19/2025 2:28 PM EDT): Feeling better He no longer follows with a psychotherapist Seen by our welfare service aide and started on Lexapro with good results Will continue Patient has crisis numbers and knows to use them if needed Assessment & Plan (07/14/2024 3:15 PM EDT): Feeling depressed He was referred to our welfare service aide for evaluation has an appointment 08/17 Patient denies any suicidal ideation or thoughts, He no longer follows with a psychotherapist , will refer to our [facility] team Patient has crisis numbers and knows to use them if needed Assessment & Plan (04/29/2022 8:09 AM EST): Doing well Patient denies any suicidal ideation or thoughts, He follows with a psychotherapist at [facility] Patient has crisis numbers and knows to use them if needed Other emphysema 01/09/2012 Assessment & Plan (07/14/2024 3:03 PM [...] CTA in 6 months PFTs [place]06[place]20[place] [facility] [place] showed Mod obstructive vent [...] CTA in 6 months PFTs 11/06/2022 [place] [facility] [place] showed Mod obstructive vent [...] CTA in 6 months PFTs 11/06/2022 [place] [facility] showed Mod obstructive vent [...] organization. Date Type Department Care Team Description 02/05/2025 Refill [facility] [address] [place] [address] Praful Robles MD Depressive disorder 01/19/2025 3:00 PM EDT Office Visit [facility] [address] [place] [address] Praful Robles MD Type 2 diabetes mellitus without complication, without long-term current use of insulin (HCC) (Primary Dx); Essential hypertension; Tubular adenoma; Mixed hyperlipidemia; Depressive disorder; Encounter for immunization; Other emphysema (HCC) 01/19/2025 Travel 01/18/2025 Telephone [facility] [address] [place] [address] Praful Robles MD chART PREP 12/30/2024 Telephone [facility] [address] [place] [address] Praful Robles MD Durable Medical Equipment (BOOST) 12/16/2024 Refill [facility] [address] [place] [address] Praful Robles MD 12/15/2024 Refill [facility] [address] [place] [address] Praful Robles MD Type 2 diabetes mellitus without complication, without long-term current use of insulin (CMS/HCC) 12/10/2024 Refill [facility] [address] [place] [address] Praful Robles MD Depressive disorder; Sleep disturbance 11/25/2024 Telephone [facility] [address] [place] [address] Praful Robles MD fax 11/21/2024 Refill [facility] [address] [place] [address] Praful Robles MD 11/17/2024 Refill [facility] [address] [place] [address] Praful Robles MD Chronic obstructive pulmonary disease, unspecified COPD type (CMS/HCC) 11/07/2024 Refill [facility] [address] [place] [address] Praful Robles MD Chronic obstructive pulmonary disease, unspecified COPD type (CMS/HCC) from Last 3 Months Immunizations Immunization Administration Dates Next Due DTaP 03/27/2019 Influenza High-dose Quadriva lent Preservative Free 02/26/2023,01/28/2022,02/16/2020 Influenza injectable quadriv alent preservative free 02/09/2017 Influenza, High Dose Seasona l, Preservative Free 01/19/2025,01/28/2024,03/28/2019 Influenza, IIV3, injectable 03/15/2018,1 ,01/30/2015,01/13,02/21/2011 Influenza, Split [...] Answer Date Recorded Patient Health Questionnaire-9 Score 8 01/19/2025 Patient Health Questionnaire-9 Score 8 01/19/2025 Last PHQ-9: Questionnaire Data Not on file 1 Housing Stability Answer Date Recorded What is your housing situation today? I have jeffjavier obrien 01/19/[address] you li ve. Do you have problems with any of the following? None of the above 01/19/2025 Food Insecurity Answer Date Recorded Within the past 12 months, y ou worried that your food would run out before you got money to buy more: Never True 01/19/2025 Within the past 12 months,th e food you bought just didn't last and you didn't have enough money to get more: Never True 05/2024 Transportation Answer Date Recorded In the past 12 months, has l ack of transportation kept you from medical appts, meetings, work or from getting things needed for daily living? No 01/19/2025 Utilities Answer Date Recorded In the past 12 months, has t he electric, gas, oil or water company threatened to shut off services in your home? No 01/19/2025 Depression Answer Date Recorded Patient Health Questionnaire-2 Score 2 01/19/2025 Internet Access Answer Date Recorded Internet Access Q1 Yes 01/19/2025 Internet Access Q2 Not on file 01/19/2025 Sex and Gender Information Value Date Recorded Sex Assigned at Male 02/17/2022 10:16 AM EDT Legal Sex Male 10:16 AM EDT Gender Identity Male 02/17/2022 10:16 AM EDT Sexual Orientation Choose not to disclose 2021 10:16 AM EDT Last Filed Vital Signs Vital Sign Reading Time Taken Comments Blood Pressure 138/84 01/19/2025 2:27 PM EDT Pulse 60 01/19/2025 2:22 PM EDT Temperature 36.3 C (97.4 F) 01/19/2025 2:22 PM EDT Respiratory Rate 18 01/19/2025 2:22 PM EDT Oxygen Saturation 98% 07/14/2024 2:41 PM EDT Inhaled Oxygen Concentration - - Weight 62.6 kg (138 lb) 01/19/2025 2:22 PM EDT Height 165.1 cm (5' 5 ) 01/19/2025 2:22 PM EDT Body Mass Index 22.96 01/19/2025 2:22 PM EDT Plan of Treatment Upcoming Encounters Date Type Department Care Team (Late st Contact Info) Description 02/20/2025 9:30 AM EST Office Visit [facility] [address] [place] [address] Jessa Milian, OD [address] [place] [address] Health Maintenance Due Date Last Done Comments Diabetes: Foot Exam 1954 RSV Patients and Patients Aged 60 years or older (1 - 1-dose 75+ series) 09/02/2019 Diabetes: Urine Protein Screening 12/28/2020 12/29/2019 Zoster Vaccines (3 of 3) 08/29/2024 07/04/2024, 04/20 COVID-19 Vaccine ( season) 2024 01/28/2024, 03/21/2021, 06/29/2020, Additional history exists Lipid Panel 02/01/2025 02/02/2024, 11/0 12/2022, 08/07/2022, Additional history exists Alcohol/Substance Use Screening 04/05/2025 04/05/2024 Diabetes: Hemoglobin A1C 07/20/2025 025, 07/14/2024, 01/28/2024, Additional history exists Tobacco Screening 08/17/2025 08/17/2024 Depression Screening 01/19/2026 01/19/2025, 01/20/20 SDOH Screening 01/19/2026 01/19/2025 Eye Exam 08/18/2026 08/18/2024, 050 04/2024, 08/18/2024, Additional history exists DTaP/Tdap/Td Vaccines (4 - Td or Tdap) 03/25/2031 03/25/2021, 03/27/2019, 04/14/2012, Additional history exists Pneumococcal Vaccine: 50+ Years Completed 01/30/2015, 06/01/2012 Influenza Vaccine Completed 01/19/2025, , 02/26/2023, Additional history exists HIB Vaccines Aged Out [...] Procedure Name Priority Date/Time Associated Diagnosis Comments POCT GLYCATED HEMOGLOBIN, TOTAL Routine 01/19/2025 2:35 PM EDT Type 2 diabetes mellitus without complication, without long-term current use of insulin ([facility]) POCT GLUCOSE Routine 01/19/2025 2:23 PM EDT Type 2 diabetes mellitus without complication, without long-term current use of insulin ([facility]) LIPID PANEL, STANDARD Routine 02/02/2024 11:55 AM EDT Type 2 diabetes mellitus without complication, without long-term current use of insulin ([facility]/HCC) ALBUMIN, RANDOM URINE W/CREATININE Routine 12/29/2019 9:22 AM EDT from Last 3 Months or Most Recently Relevant to Health Maintenance Results * (ABNORMAL) POCT Hgb A1c (01/19/2025 2:35 PM EDT) Hemoglobin A1C 6.0(A) 4.0 - 5.7 % QC Media Lot # [id number] Lot# Expiration Date Blood 01/19/2025 2:35 PM EDT us Praful Mcfarland MD POINT OF CARE TEST EN TER/EDIT ORDERABLES Final Result * POCT Glucose (01/19/2025 2:23 PM EDT) Glucose Blood, POC 91 60 - 200 mg/dL QC Media Lot # [id number] Lot# Expiration Date 726 Blood Capillary blood specimen / Unknown 01/19/2025 2:23 PM EDT us Praful Mcfarland MD POINT OF CARE TEST EN TER/EDIT ORDERABLES Final Result * Lipid Panel, Standard (02/02/2024 11:55 AM EDT) Triglycerides 60 <150 mg/dL [facility] Comment:Desirable Triglyceri de: less than 150 mg/dLBorderline High Triglyceride 150-199 mg/dLHigh Triglyceride: 200-499 mg/dLVery High Triglyceride: greater than or equal to 5OO mg/dL Cholesterol 120 <200 mg/dL [facility] Comment:Desirable Cholestero l: less than 200 mg/dLBorderline High Cholesterol: 200-239 mg/dLHigh Cholesterol: greater than 239 mg/dL LDL Cholesterol Calculated 67 <100 mg/dL [facility] Comment:Desirable LDL: less than 100 mg/dLNear Optimal/Above Optimal LDL: 110- 129 mg/dLBorderline High LDL: 130-159 mg/dLHigh LDL: 160-189 mg/dLVery High LDL: greater than or equal to 190 mg/dL HDL Cholesterol 41 >40 mg/dL [facility] Comment:Desirable HDL: great er than 40 mg/dL Note: This HDL assay may give artificially low results in patients with liver disease. Blood Venous blood specimen / Unknown 02/02/2024 11:55 AM EDT 02/02/2024 1:27 PM EDT Praful Mcfarland MD LAB BLOOD ORDERABLES Final Result [facility] [address] [place] [address] [phone] * ALBUMIN, RANDOM URINE W/CREATININE (12/29/2019 9:22 [...] a diagnostic category. 12/29/2019 9:22 AM EDT Praful Mcfarland MD LAB URINE ORDERABLES Final Result [facility] [address] from Last 3 Months or Most Recently Relevant to Health Maintenance Insurance [facility] DUAL COMPLETE Care Teams Senior Clinical Study Manager Relationship Specialty Start Date End Date Praful Robles MD [address] [place] [id number] PCP - General Internal Medicine 11/08/14
--- OUTSIDE RECORDS SUMMARY | 2025-02-07 19:27 | XMS_ITS | Patient Health Record ---
Author Organization [facility] Address [address] [place] [id number] Care Team Providers Care Yarn Mercerizer Operator Name Role Phone Emiliano Mcfarland MD, Praful Primary Care Provide r Unavailable Edu Yanez Unavailable [phone] Allergies No Known Allergies Reason For Referral No Information Medications Medication SIG (Take, Route, Frequency, Duration) Notes Start Date End Date Status amLODIPine Besylate 5 MG TAKE 1 TABLET BY MOUTH EVERY MORNING Oral; Duration: 90 E782,Unavailabl e Active glipiZIDE ER 5 MG TAKE 1 TABLET BY MOUTH EVERY MORNING Oral; Duration: 30 Active Aspirin Adult Low Strength 81 MG TAKE 1 TABLET BY MOUTH EVERY MORNING Oral; Duration: 90 Active Atorvastatin Calcium 80 MG TAKE 1 TABLET BY MOUTH EVERY EVENING Oral; Duration: 90 E782,Unavailabl e Active Carvedilol 12.5 MG TAKE 1 TABLET BY MOUTH TWICE DAILY IN THE MORNING AND IN THE EVENING WITH FOOD Oral; Duration: 30 I10,Unavailable Active Omeprazole 20 MG TAKE 1 CAPSULE BY MOUTH EVERY MORNING WITH MEALS Oral; Duration: 90 K219,Unavailabl e Active Brilinta 90 MG TAKE 1 TABLET BY MOUTH TWICE DAILY IN THE MORNING AND IN THE EVENING Oral; Duration: 90 I7140,Unavailab le Active metFORMIN HCl ER 500 MG TAKE 2 TABLETS B Y MOUTH TWICE DAILY IN THE MORNING AND EVENING Oral; Duration: 90 E119,Unavailabl e Active Social History Tobacco Use: Social History Observation Description Date Details (start date - stop date) Never Smoker NA - NA Tobacco Use/Smoking Question Answer Notes Patient is a nonsmoker Alcohol Screen Question Answer Notes Did you have a drink containing alcohol in the p ast year? No Points 0 Interpretation Negative Problems Problem Type SNOMED Code ICD Code Onset Dates Problem Status W/U Status Risk Notes Problem History of adenomatous polyp of colon (768369204) History of adenomatous polyp of colon (Z86.010) Active confirmed Problem Anemia (015136468) Anemia, unspecified type (D64.9) Active confirmed Encounters Encounter Location Date Provider Diagnosis [facility] [address] [place] [address] 03/02/2024 Edu Yanez Plan Of Treatment No Information Insurance Providers Payer Name Payer Address Payer Phone Subscriber Number Group Number Insured Name Patient Relationship to Insured Coverage Start Date Coverage End Date [facility] [address] [address] [place] [address] [id number] BINTA MULLINS Self - patient is the insured Medical (General) History Medical History History ICD Code anemia hx of tubular adenoma malignant tumor of prostate /prostatecto my /- dr. Martínez hyperlipidemia hx of lung nodules hypertension diabetes mellitus COPD Surgical History Surgery Date(Month/Year) prostectomy 12/06/2008 penile prostesis -dr betancourt
--- OUTSIDE RECORDS SUMMARY | 2025-02-07 19:28 | XMS_ITS | Encounter Summary ---
Author Organization [employer] Address [address] [facility] [address] [place] [address] Care Team Providers Care Utility Tech Name Role Phone Praful Robles MD Primary Care Provide r Reason for Visit * Reason Onset Date Comments Med Refill Results 02/18/2023 Encounter Details Date Type Department Care Team (Late st Contact Info) Description 02/18/2023 Refill [facility] [address] [place] [address] Praful Robles MD [address] [place] [address] Abdominal aortic aneurysm (AAA) without rupture, unspecified part (CMS/HCC) Social History Tobacco Use Types Packs/Day Years [...] Faxed as below. Telephone call placed to [facility]. Spoke with RN who stated [...] Description 02/20/2025 9:30 AM EST Office Visit [facility] [address] [place], [place] [phone] Jessa Milian, OD [address] [place], [place] [phone] documented as of this encounter Visit Diagnoses Diagnosis Abdominal aortic aneurysm (AAA) without rupture, unspecified part (CMS/HCC) documented in this encounter Care Teams Utility Tech Relationship Specialty Start Date End Date Praful Robles MD [address] [place] [address] PCP - General Internal Medicine 11/08/14 documented as of this encounter
--- OUTSIDE RECORDS SUMMARY | 2025-02-07 19:28 | XMS_ITS | Encounter Summary ---
Author Organization [email or web address] Address [address] [place] [address] 7[address] [place] [address] Care Team Providers Care Automatic Oven Operator Name Role Phone Praful Robles MD Primary Care Provide r Reason for Visit * Reason Comments Med Refill Encounter Details Date Type Department Care Team (Late st Contact Info) Description 01/20/2023 Refill [facility] [address] [place] [address] Aixa Rosales MD [address] [place] [address] Essential hypertension; Mixed hyperlipidemia Social History Tobacco [...] Description 02/20/2025 9:30 AM EST Office Visit [facility] [address] [place], [place] [phone] Jessa Milian, OD [address] [place], [place] [phone] documented as of this encounter Visit Diagnoses Diagnosis Essential hypertension Unspecified essential hypertension Mixed hyperlipidemia documented in this encounter Care Teams Automatic Oven Operator Relationship Specialty Start Date End Date Praful Robles MD [address] [place] [address] PCP - General Internal Medicine 11/08/14 documented as of this encounter
--- OUTSIDE RECORDS SUMMARY | 2025-02-07 19:28 | XMS_ITS | Clinical Summary ---
Author Organization [facility] Address [address] [place] [address] Phone Care Team Providers Care Shopper'S Aide Name Role Phone Unavailable Primary Care Provider [...] Due Date Last Done Comments Pneumococcal Vaccine: 50+ Ye ars (1 of 1 - PCV) 1994 Influenza Vaccine (#1) 2024 Hepatitis B Vaccine Aged Out No longe r eligible based on patient's age to complete this topic Insurance [place] PAT[place] [id number] [facility]
--- OUTSIDE RECORDS SUMMARY | 2025-02-07 19:28 | XMS_ITS | Encounter Summary ---
Author Organization [employer] Address [address] [place] [address] Care Team Providers Care Hvac Sales Engineer Name Role Phone Praful Robles MD Primary Care Provide r Reason for Visit * Reason Onset Date Comments Nurse Triage 09/03/2023 Encounter Details Date Type Department Care Team ([facility] st Contact Info) Description 09/03/2023 Telephone [facility] MEDICINE [address] [place] [address] Praful Robels MD [address] [place] [address] Nurse Triage Social History Tobacco Use Types [...] t he electric, gas, oil or water [employer] threatened to shut off services in your [...] 09/03/2023 2:34 PM EDT Called back Zach [facility] nurse [phone] RE: Pt. Depression and occasional sadness. Pt. [...] so she wanted PCP to be aware. [facility] nurse statesthat pt. Does have a RX. For Trazadone 50mg 1/2 tablet at bedtime that pt. States he takes. I did notify [facility] nurse that pt. Does have upcoming appt with PCP on 10/01/23. I called pt. Via [email or web address] ski production supervisor [phone] [place]. No answer. Franchise Development Manager left message on pt. Voice mail to please call back [facility] nurses at [phone]. Franchise Development Manager called back x2. Call rang and then went to [employer] again. Franchise Development Manager left second message. Will send this note to [facility] nurses to check in with pt. Protocol Used: Depression (Adult) Pt. Has Hx. Of Depression. * Telephone Encounter - Nader Bartolo - 09/03/2023 1:46 PM EDT Symptoms: Depression, Lethargic (Tired), Loss of Appetite, Sleeping Difficulty Outcome: Schedule an urgent appointment (within 4 hours) or talk to a nurse or provider soon Reason: Getting worse The caller accepted this outcome documented in this encounter Plan of Treatment Upcoming Encounters Date Type Department Care Team (Late st Contact Info) Description 02/20/2025 9:30 AM EST Office Visit [facility] OPTOMETRY [address] [place], [place] [phone] Jessa Milian, OD [address] [place] [address] documented as of this encounter Visit Diagnoses Not on filedocumented in this encounter Care Teams Hvac Sales Engineer Relationship Specialty Start Date End Date Praful Robles MD [address] [place], [place] [phone] PCP - General Internal Medicine 11/08/14 documented as of this encounter
--- OUTSIDE RECORDS SUMMARY | 2025-02-07 19:28 | XMS_ITS | Encounter Summary ---
Author Organization [employer] Address [address] [place] [address] [address] [place] [address] Care Team Providers Care Customer Consultant Name Role Phone Praful Robles MD Primary Care Provide r Encounter Details Date Type Department Care Team (Late st Contact Info) Description 06/24/2022 Abstract [facility] MEDICINE [address] [place] [address] Praful Robles MD [address] [place] [address] Social History Tobacco Use Types Packs/Day Years [...] Description 02/20/2025 9:30 AM EST Office Visit [facility] OPTOMETRY [address] [place] [address] Jessa Milian OD [address] [place] [address] documented as of this encounter Visit Diagnoses Not on filedocumented in this encounter Care Teams Customer Consultant Relationship Specialty Start Date End Date Praful Robles MD [address] [place] [address] PCP - General Internal Medicine 11/08/14 documented as of this encounter
--- OUTSIDE RECORDS SUMMARY | 2025-02-07 19:28 | XMS_ITS | Encounter Summary ---
Author Organization [employer] Address [address] [address] [place] [address] Care Team Providers Care Making Machine Catcher Name Role Phone Praful Robles MD Primary Care Provide r Reason for Visit * Reason Comments Med Refill Encounter Details Date Type Department Care Team (Late st Contact Info) Description 02/05/2025 Refill [facility] MEDICINE [address] [place] [address] Praful Robels MD [address] [place] [address] Depressive disorder Social History Tobacco Use Types Packs/Day Years [...] housing situation today? I have jeff obrien 01/19/[address] you [...] Upcoming Encounters Date Type Department Care Team ([facility] st Contact Info) Description 02/20/2025 9:30 AM EST Office Visit [facility] OPTOMETRY [address] [place] [address] Jessa Milian, OD [address] [place] [address] documented as of this encounter Visit Diagnoses Diagnosis Depressive disorder Depressive disorder, not elsewhere classified documented in this encounter Additional Health Concerns Assessment Noted Time PHQ-9 Depression Total Score: 8 01/20/20 25 3:02 PM EDT documented as of this encounter Care Teams Making Machine Catcher Relationship Specialty Start Date End Date Praful Robles MD [address] [place] [phone] PCP - General Internal Medicine 11/08/14 documented as of this encounter
== END 2025-02-07 15:37 | disposition home or self-care (01) ==
LOC: HO.HUSH 14:22
PROVIDERS: PCP Internal Medicine; Visit Provider Urology
DX: N32.81 Overactive bladder (principal)
CPT/HCPCS: 99214; G2211

== ENCOUNTER 2025-03-09 10:35 | Emergency (ER) | payer OTHER, SELFPAY ==
--- OUTSIDE RECORDS SUMMARY | 2023-11-03 04:30 | XMS_ITS ---
Author Organization [facility] Address [address] [place] [phone] Care Team Providers Care Keyboard Instrument Tuner Name Role Phone Emiliano Mcfarland MD, [facility] Primary Care Provide Edu Parra [phone] REASON FOR VISIT Patient presents today for a discuss colonoscopy Encounters Encounter Location Date Provider Diagnosis [facility] [address] [place] [id number] 11/03/2023 Edu Yanez Plan Of Treatment No Information Progress Notes * REBECCA MULLINSHENRIOB:1945 (79 yo M)Acc No.[id number]:11/03/2023 Progress Notes Patient: BINTA BOLTON Provider: Kylah Yanez MD :1945 A ge:78 Y S ex:Male Date:11/03/2023 Address:[address] [place], [place] [id number] Pcp:Praful grajeda MD Subjective: * Chief Complaints: * P atient presents today for a discuss colonoscopy Billing Information: * Procedure Codes: * The named appointment provid er may or may not be the originator of this progress note, and it is not deemed complete until electronically signed by the appointment provider. Sign off status: Pending * Provider: Kylah Yanez MD Date: 0 11/03/2023 Generated for Lorie robledo/Chitra/eTransmitting on: 1 05/09/2024 05:49 PM EST
--- OUTSIDE RECORDS SUMMARY | 2024-03-02 08:40 | XMS_ITS ---
Author Organization [facility] Address [address] [place] [id number] Care Team Providers Care Fuel Truck Driver Name Role Phone Emiliano Mcfarland MD, Praful Primary Care Provide Edu Parra [phone] REASON FOR VISIT Patient presents today for a colon screening Encounters Encounter Location Date Provider Diagnosis [facility] [address] [place] [id number] 03/02/2024 Edu Ynaez Plan Of Treatment No Information Progress Notes * REBECCA MULLINSHENRIOB:1945 (79 yo M)Acc No.[id number]:03/02/2024 Progress Notes Patient: BINTA BOLTON Provider: Kylah Yanez MD :1945 A ge:78 Y S ex:Male Date:03/02/2024 Address:[address] [place], [place] [id number] Pcp:Praful grajeda MD Subjective: * Chief Complaints: * P atient presents today for a colon screening Billing Information: * Procedure Codes: * The named appointment provid er may or may not be the originator of this progress note, and it is not deemed complete until electronically signed by the appointment provider. Sign off status: Pending * Provider: Kylah Yanez MD Date: 05/02/2023 Generated for Lorie robledo/Chitra/eTransmitting on: 05/09/2024 05:49 PM EST
--- NOTE | ~2025-03-09 | MR_ITS ---
CLINICAL HISTORY: headache, CKD, DM, cant dose CT angio, aneurysm? MR ANGIOGRAPHY HEAD WITHOUT GADOLINIUM Comparison: CT/REG/MD/SR - CT HEAD WITHOUT IV CONTRAST - 03/09/25 11:04 EST Findings Intracranial internal carotid arteries are patent. Vertebrobasilar system is patent. Mild dolichoectasia of the basilar artery. No aneurysmal dilatation. Cerebral arteries are patent. Visualized cerebellar arteries are patent. No restricted diffusion to suggest an acute infarct or ischemia. IMPRESSION: 1. No large vessel occlusion. 2. No intracranial aneurysm. This document has been electronically signed by: Jade Feliciano DO on 03/09/2025 18:52:19
--- NOTE | ~2025-03-09 | CT_ITS ---
EXAMINATION: CT HEAD WITHOUT CONTRAST CLINICAL INFORMATION: Brain hurt COMPARISON: 10/13/2024. 06/02/2024. MR brain 05/24/2021. TECHNIQUE: Contiguous axial imaging was performed from the skull base to vertex without intravenous administration of contrast. This CT examination was performed using dose optimization techniques as appropriate, variously including the following: *Automated exposure control *Adjustment of mA and/or kV according to patient size (this includes techniques or standardized protocols for targeted exams where dose is matched to indication/reason for exam; i.e. extremities or head) *Use of iterative reconstruction technique FINDINGS: There is no evidence of intracranial hemorrhage or extra-axial fluid collection. There is no mass effect, or edema. No CT evidence of acute territorial infarct. Ventricles, sulci, and cisterns are normal in size and configuration for patient age. No hydrocephalus. No midline shift. Negative hyperdense MCA sign. Negative insular ribbon sign. Patchy periventricular and deep white matter hypoattenuation is consistent with mild to moderate small vessel ischemic changes. Normal pituitary. Mild atheromatous calcification of the bilateral carotid siphons and V4 segments vertebral arteries bilaterally. Globes and orbital contents image normally. There is a right lens replacement. No extracranial soft tissue abnormalities. The paranasal sinuses, mastoid air cells, and tympanic cavities are normally aerated. No suspicious bony abnormalities. There are no acute fractures evident. There are probable old nasal bone fractures. CT/CT head/brain wo IV con IMPRESSION: No acute intracranial abnormality. No acute fracture evident. Electronically signed by: Johann Campos MD 03/09/2025 11:20 AM [facility]
[2025-03-09 10:47] VITALS: BP 132/73; PULSE 71; RESP 20; TEMP 36.9; O2SAT 97; BMI 21.5
--- NOTE | 2025-03-09 10:54 | ECG_ITS ---
Test Reason : DOESNT FEEL GOOD Blood Pressure : */* mmHG Vent. Rate : 67 BPM Atrial Rate : 67 BPM P-R Int : 122 ms QRS Dur : 96 ms QT Int : 404 ms P-R-T Axes : 70 14 -4 degrees QTcB Int : 426 ms Normal sinus rhythm Normal ECG When compared with ECG of 11-Sep-2022 20:11, No significant change was found Referred By: Daniel Loredo Electronically Signed By: LEO GARCIA
--- NOTE | 2025-03-09 10:54 | ED.GENADULT ---
HPI - General Adult General Chief complaint: General Medical Stated complaint: dizziness, back pain Time Seen by Provider: 03/09/25 12:28 Source: patient, family ( Son), old records reviewed and incinerator operator Mode of arrival: ambulatory Limitations: no limitations History of Present Illness ED Provider: DR. Andrews HPI narrative: 79-year-old male came in for evaluation of multiple symptoms, patient been having on and off headache for the past week, headache last for sometimes then go away with no clear aggravating or relieving factor, no fever, no chills, no blurry vision, no double vision, no neck stiffness, no sick contacts, no recent travel. No chest pain, no abdominal pain. Patient also been complaining of generalized body ache, no known sickness in the family or at home no sore throat, no cough, no fever, no chills. Patient also been having issue with his both feet and toes need to see a property clerk. Related Data Home Medications ?Medication ?Instructions ?Recorded ?Confirmed albuterol sulfate 2.5 mg/3 mL 2.5 mg inhalation Q4-6H PRN 04/09/20 03/10/24 (0.083 %) solution for nebulization Wheezing aspirin 81 mg tablet,delayed 81 mg PO DAILY 04/09/20 03/10/24 release blood-glucose meter #1 ea 04/09/20 03/10/24 fluticasone 250 mcg-salmeterol 50 1 inh inhalation BID 04/09/20 03/10/24 mcg/dose blistr powdr for inhalation (Advair Diskus) fluticasone propionate 50 1 spray intranasal BID 04/09/20 03/10/24 mcg/actuation nasal spray,suspension (Flonase Allergy Relief) gabapentin 600 mg tablet 600 mg PO TID 04/09/20 03/10/24 ipratropium 20 mcg-albuterol 100 1 puff inhalation Q4H 04/09/20 03/10/24 mcg/actuation mist for inhalation (Combivent Respimat) lancets 28 gauge (TRUEplus Lancets) #100 ea 04/09/20 03/10/24 omeprazole 20 mg capsule,delayed 20 mg PO DAILY 04/09/20 03/10/24 release trazodone 50 mg tablet 25 mg PO BEDTIME PRN Sleep 04/09/20 03/10/24 glipizide 5 mg tablet, extended 5 mg PO DAILY 05/09/21 03/10/24 release 24 hr metformin 500 mg tablet,extended 1,000 mg PO BID 05/09/21 03/10/24 release 24 hr blood sugar diagnostic (OneTouch #10 ea 06/06/21 03/10/24 Ultra Test strips) lancets (OneTouch UltraSoft #100 ea 06/06/21 03/10/24 Lancets) latanoprost 0.005 % eye drops 1 drp ophthalmic (eye) QPM 06/06/21 03/10/24 clotrimazole-betamethasone 1 1 appl topical Q12H PRN Rash 02/12/22 03/10/24 %-0.05 % topical cream amlodipine 5 mg tablet 5 mg PO QAM 09/18/23 03/10/24 atorvastatin 80 mg tablet 80 mg PO QPM 09/18/23 03/10/24 carvedilol 12.5 mg tablet 12.5 mg PO DAILY 09/18/23 03/10/24 lancets 30 gauge (OneTouch #100 ea 09/18/23 03/10/24 UltraSoft 2 Lancet) multivitamin 1 tab PO QAM 09/18/23 03/10/24 ticagrelor 90 mg tablet (Brilinta) 90 mg PO QAM 09/18/23 03/10/24 escitalopram oxalate 5 mg tablet 5 mg PO QAM 02/07/25 Previous Rx's ?Medication ?Instructions ?Recorded lidocaine 5 % topical patch 1 patch topical DAILY #15 ea 03/23/20 (Lidoderm) psyllium husk 0.52 gram capsule 0.52 g PO DAILY #30 caps 11/21/20 (Metamucil) valacyclovir 1 gram tablet 1,000 mg PO BID #14 tabs 07/20/21 (Valtrex) acetaminophen 325 mg tablet 650 mg (2 x 325 mg) PO Q6H PRN 09/12/22 (Tylenol) fever or pain #14 tabs bisacodyl 5 mg tablet,delayed 20 mg (4 x 5 mg) PO ONCE 02/07/25 release (Dulcolax (bisacodyl)) constipation 1 day #4 tabs polyethylene glycol 3350 17 238 g PO ONCE #238 grams 02/07/25 gram/dose oral powder (Miralax) vibegron 75 mg tablet (Gemtesa) 75 mg PO DAILY 90 days #90 tabs 02/07/25 diphenhydramine HCl 25 mg capsule 25 mg PO TID PRN itching #14 caps 03/09/25 (Benadryl) Allergies Allergy/AdvReac Type Severity Reaction Status Date / Time ciprofloxacin (Ciprofloxacin) Allergy Mild RASH Verified 03/09/25 10:53 Review of Systems Review of Systems: All other systems are reviewed and are negative Constitutional: Reports as per HPI and Reports no additional constitutional complaints Eyes: Reports as per HPI and Reports no additional eye complaints Reports system reviewed and no additional complaints, except as documented Cardiovascular: Reports as per HPI and Reports no additional cardiovascular complaints Respiratory: Reports as per HPI and Reports no additional respiratory complaints Gastrointestinal: Reports as per HPI and Reports no additional gastrointestinal complaints Genitourinary: Reports no additional female genitourinary complaints Musculoskeletal: Reports no additional musculoskeletal complaints Skin/Breast: Reports system reviewed and no additional complaints, except as docu Psychiatric: Reports no additional psychiatric complaints Endocrine: Reports no additional endocrine complaints Hematologic/Lymphatic: Reports no additional hematologic/lymphatic complaints Allergic/Immunologic: Reports no additional allergic/immunologic complaints Reports system reviewed and no additional complaints, except as documented and Reports Abnormal speech present [facility] Past Medical History Medical History AAA (abdominal aortic aneurysm) History of COVID-19 History of prostate cancer GERD (gastroesophageal reflux disease) Depression Asthma High cholesterol HTN (hypertension) Lipoma of back Lower back pain Prostate disease Diabetes Arthralgia Surgical History S/P AAA (abdominal aortic aneurysm) repair S/P excision of lipoma History of cataract extraction Hx of colonoscopy Hx of cystoscopy History of penile implant History of prostate surgery Family History Family History Mother History of esophageal cancer Social History Social History Household Members: Significant Other Alcohol intake: never Patient Tobacco Use Status: Former Tobacco user Tobacco use type: Cigar Smoked in Last 30 Days: No Advance Directives: No Advance Directives Information Provided: Yes Do you have a plan to hurt others: No Plan service: No Current occupational status: retired Physical Exam ED Vital Signs: Vital Signs - 24 hr 03/09/25 10:47 03/09/25 12:13 03/09/25 16:27 Temperature 98.4 F 97.8 F Pulse Rate 71 68 65 Respiratory Rate 20 15 17 Blood Pressure 132/73 147/84 H 160/85 H Pulse Oximetry 97 95 97 Oxygen Delivery Method Room Air Room Air Room Air 03/09/25 18:31 Temperature 97.8 F Pulse Rate 66 Respiratory Rate 16 Blood Pressure 170/82 H Pulse Oximetry 98 Oxygen Delivery Method Room Air BMI result Body Mass Index 21.5 Vital signs have been reviewed and appear to be correct. Blood pressure elevated. Heart rate normal. Respiratory rate normal. Temperature normal. Oxygen saturation normal. Appearance: Alert. Oriented X3. No acute distress. Head: Normal external exam. Normocephalic. Atraumatic. No Cisneros signs noted. No raccoon eyes noted Eyes: PERRLA. EOMI. Conjunctiva and sclera normal. Eyelids normal. ENT: TM's Normal. Pharynx normal. Uvula midline. Moist mucous membranes. No trismus noted. No drooling noted. No muffled voice noted. Neck: Normal inspection. Neck supple. FROM. No adenopathy. Thyroid Normal. No meningeal signs. No neck mass noted. CVS: Normal heart rate and rhythm. Heart sound normal. No murmurs noted. Pulses normal throughout. Respiratory: No respiratory distress. Painless inspiration. Breath sounds normal. No wheezes/rales/rhonchi noted. Chest nontender. No accessory muscle usage noted or decreased air movement noted. Abdomen: Soft and nontender. Bowel sounds normal in all 4 quadrants. No distention noted. No organomegaly noted. No visible injury noted. Back: No CVA tenderness. Full range of motion noted. Skin: Skin warm and dry. Normal skin color. Normal skin turgor. No rashes/lesions/lacerations noted. Extremities: No lower extremity edema. Extremities exhibit normal range of motion. Extremities nontender. Neuro: Mental status: Normal attention, orientation, memory, and affect. Cranial nerves: Pupils are equal, round and reactive to light, EOMI, visual hale are fall, face is symmetric, facial sensations are normal. Motor examination normal muscle tone, strength to 4 extremities. DTR are +2, planter's are flexor. Sensory exam; normal coordination, no ataxia, gait stable. Cerebellar exam: [id number]-uc-iief and hkqt-cj-kuao is normal. Extrapyramidal system: No tremors, no rigidity with normal facial expressions. Pronator drift not present. Course Course Course Narrative: RMLyudmila: 79 year male history of diabetes, hypertension, presents to ED for headache, brain hurts, total body pain, generalized itching, and toes a crack in. Labs ordered' Reevaluation(s) Reevaluation #1: Intermittent headache, CT head is negative for intracranial bleed, MR angio of the brain has ruled out intracerebral cerebral vascular aneurysms. Sed rate is 25 which is slightly elevated but not specific for pathognomonic, normal CRP. Time: 19:02 Medical Decision Making Differential Diagnosis Differential Diagnoses: The differential diagnosis associated with the presentation includes ( SAH, temporal arteritis, cerebral aneurysms, electrolyte derangement, severe anemia.) Admission/Observation Consideration of admission/observation: Escalation of care including admission/observation considered Lab Data MDM Lab Attestation statement: I reviewed the patient's lab results. 03/09/25 11:22 03/09/25 11:22 Labs: Lab Results 03/09/25 Range/Units 11:22 WBC 5.9 (4.8-10.8) X10*3/uL RBC 3.55 L (4.60-5.80) X10*6/uL Hgb 10.0 L (14.0-18.0) g/dl Hct 31.7 L (42.0-52.0) % MCV 89.3 (80.0-98.0) fL MCH 28.2 (27.0-33.0) pg MCHC 31.5 (31.0-36.0) g/dl RDW 15.4 (11.0-16.0) % Plt Count 223 (160-400) X10*3/uL MPV 11.3 (9.4-12.4) fL Immature Gran % (Auto) 0.2 (0.0-0.4) % Neut % (Auto) 62.0 (45-73) % Lymph % (Auto) 24.9 (20-40) % Nicollet % (Auto) 8.9 (2-11) % Eos % (Auto) 3.7 (0-4) % Baso % (Auto) 0.3 (0-2) % Lymph # (Auto) 1.5 (1.2-4.9) X10*3/uL Nicollet # (Auto) 0.5 (0.1-1.2) X10*3/uL Eos # (Auto) 0.2 (0.0-0.4) X10*3/uL Baso # (Auto) 0.0 (0.0-0.2) X10*3/uL Abs Immat Gran (auto) 0.01 (0.00-0.03) X10*3/uL Absolute Neuts (auto) 3.7 (2.0-8.3) x10*3/uL Absolute Nucleated RBC 0.000 (0.0-0.012) X10*3/uL Nucleated RBC % (auto) 0.0 (0.0-0.2) /100WBC ESR 25 H (0-15) MM/HR Sodium 144 (135-145) mmol/L Potassium 4.7 (3.3-5.1) mmol/L Chloride 113 H (96-108) mmol/L Carbon Dioxide 27 (22-29) mmol/L Anion Gap 9 L (12-20) BUN 27 H (9-16) mg/dL Creatinine 1.96 H (0.5-1.4) mg/dL Estim Creat Clear Calc 25.6 Estimated GFR 33 Random Glucose 120 H (60-115) mg/dL Calcium 9.4 D (8.4-10.2) mg/dL Magnesium 1.9 (1.6-2.6) mg/dL Total Bilirubin 0.3 (0.0-1.0) mg/dL AST 23 (5-37) U/L ALT 16 (0-40) U/L Alkaline Phosphatase 129 H (39-117) U/L Total Creatine Kinase 181 H (38-174) U/L Troponin I High Sens 3.7 (<3.5-35.0) ng/L C-Reactive Protein 0.22 (< or = 0.50) mg/dL Total Protein 6.9 (6.5-8.0) g/dL Albumin 3.9 (3.5-5.0) g/dL Lipase 56 (8-78) U/L COVID-19 (ELMER) Negative (Negative) COVID-19 Clin Com See Note Influenza Type A (ERLIN) Negative (Negative) Influenza Type B (ERLIN) Negative (Negative) Influenza A & B Note See Note Independent Interpretation I performed an independent interpretation of an: CT Scan ( Head CT: No acute intracranial abnormality.) and MRI ( Brain MRA:. No large vessel occlusion. 2. No intracranial aneurysm.) Radiology Impression Discussion of test interpretation with radiology: I have reviewed the radiologist's reading. Discharge Plan Discharge Clinical Impression: Headache, Pruritus Patient Disposition: Home, Self-Care Instructions: Acute Headache (ED) Prescriptions: New diphenhydramine HCl [Benadryl] 25 mg capsule 25 mg PO TID PRN (Reason: itching) Qty: 14 0RF No Action lidocaine [Lidoderm] 5 % adhesive patch,medicated 1 patch topical DAILY Qty: 15 0RF Rx Instructions: leave on most painful area for up to 12 hrs valacyclovir [Valtrex] 1 gram tablet 1,000 mg PO BID Qty: 14 0RF acetaminophen [Tylenol] 325 mg tablet 650 mg PO Q6H PRN (Reason: fever or pain) Qty: 14 0RF (DME) lancets [TRUEplus Lancets] 28 gauge misc See Rx Instructions .ROUTE .MEDSUPPLY Qty: 100 Rx Instructions: As directed albuterol sulfate 2.5 mg /3 mL (0.083 %) solution for nebulization 2.5 mg inhalation Q4-6H PRN (Reason: Wheezing) trazodone 50 mg tablet 25 mg PO BEDTIME PRN (Reason: Sleep) gabapentin 600 mg tablet 600 mg PO TID aspirin 81 mg tablet,delayed release (DR/EC) 81 mg PO DAILY omeprazole 20 mg capsule,delayed release(DR/EC) 20 mg PO DAILY (DME) blood-glucose meter Kit See Rx Instructions .ROUTE .MEDSUPPLY Qty: 1 Rx Instructions: As directed Combivent Respimat 20-100 mcg/actuation mist 1 puff inhalation Q4H fluticasone propionate [Flonase Allergy Relief] 50 mcg/actuation spray,suspension 1 spray intranasal BID Rx Instructions: administer into each nostril fluticasone propion-salmeterol [Advair Diskus] 250-50 mcg/dose blister with device 1 inh inhalation BID psyllium husk [Metamucil] 0.52 gram capsule 0.52 g PO DAILY Qty: 30 4RF Rx Instructions: Gonzales 1 tableta al mediodia con un vaso de agua lleno. metformin 500 mg tablet extended release 24 hr 1,000 mg PO BID glipizide 5 mg tablet extended release 24hr 5 mg PO DAILY (DME) lancets [OneTouch UltraSoft Lancets] Misc See Rx Instructions Not Applicable TID Qty: 100 Rx Instructions: As directed (DME) OneTouch Ultra Test Strip See Rx Instructions Not Applicable TID Qty: 10 Rx Instructions: As directed latanoprost 0.005 % drops 1 drp ophthalmic (eye) QPM clotrimazole-betamethasone 1-0.05 % cream 1 appl topical Q12H PRN (Reason: Rash) multivitamin Tablet 1 tab PO QAM atorvastatin 80 mg tablet 80 mg PO QPM carvedilol 12.5 mg tablet 12.5 mg PO DAILY amlodipine 5 mg tablet 5 mg PO QAM Brilinta 90 mg tablet 90 mg PO QAM (DME) lancets [OneTouch UltraSoft 2 Lancet] 30 gauge misc See Rx Instructions .ROUTE QID Qty: 100 Rx Instructions: As directed escitalopram oxalate 5 mg tablet 5 mg PO QAM bisacodyl [Dulcolax (bisacodyl)] 5 mg tablet,delayed release (DR/EC) 20 mg PO ONCE 1 Days Qty: 4 0RF Rx Instructions: take 4 tabs at noon the day before your colonoscopy polyethylene glycol 3350 [Miralax] 17 gram/dose powder 238 g PO ONCE Qty: 238 0RF Rx Instructions: As directed by gastroenterology department at [facility] Gemtesa 75 mg tablet 75 mg PO DAILY 90 Days Qty: 90 1RF Referrals: Praful Fajardo MD [Primary Care Provider, Medical] Interventions: ED Discharge Assessment Last Done: 03/09/25 19:29 Discharge Date/Time: 03/09/25 19:30 Print Language: Finnish
[2025-03-09 11:30] LABS: MANUAL DIFF FLAG NO
[2025-03-09 11:36] LABS: Hematocrit 31.7 % (42.0-52.0); Hemoglobin 10.0 g/dl (14.0-18.0); Imm Gran Abs Auto 0.01 X10*3/uL (0.00-0.03); Imm Gran Pct Auto 0.2 % (0.0-0.4); Lymphocytes Absolute Auto 1.5 X10*3/uL (1.2-4.9); Mean Corpuscular HGB Conc 31.5 g/dl (31.0-36.0); Mean Corpuscular Hemoglobin 28.2 pg (27.0-33.0); Mean Corpuscular Volume 89.3 fL (80.0-98.0); NRBC Abs Auto 0.000 X10*3/uL (0.0-0.012); NRBC Pct Auto 0.0 /100WBC (0.0-0.2); Platelet Count 223 X10*3/uL (160-400); Red Blood Count 3.55 X10*6/uL (4.60-5.80); White Blood Count 5.9 X10*3/uL (4.8-10.8)
[2025-03-09 11:49] LABS: Alanine Aminotransferase 16 U/L (0-40); Albumin Level 3.9 g/dL (3.5-5.0); Alkaline Phosphatase 129 U/L (39-117); Anion Gap 9 (12-20); Aspartate Amino Transferase 23 U/L (5-37); Blood Urea Nitrogen 27 mg/dL (9-16); Calcium 9.4 mg/dL (8.4-10.2); Carbon Dioxide 27 mmol/L (22-29); Chloride 113 mmol/L (96-108); Creatinine Clr Calc Pharmacy 25.6; Estimated Glomerular Filt Rate 33; IDNOW Serial# 55D5AD1C; Influenza B2 Negative (Negative); Lipase 56 U/L (8-78); Magnesium 1.9 mg/dL (1.6-2.6); Potassium 4.7 mmol/L (3.3-5.1); Sodium 144 mmol/L (135-145); Total Protein 6.9 g/dL (6.5-8.0)
--- NOTE | 2025-03-09 11:50 | PC.NURSE ---
Patient presented to the ED with headaches ongoing for several days and generalized itching. A&0x3, blurriness in right eye due to previous surgery, PERRLA, no other neuro deficits. VSS. Labs drawn CTH done.
[2025-03-09 11:56] LABS: Troponin-I High Sensitivity 3.7 ng/L (<3.5-35.0)
[2025-03-09 12:13] VITALS: BP 147/84; PULSE 68; RESP 15; O2SAT 95
[2025-03-09 12:16] LABS: COVID-19 Test Negative (Negative); IDNOW Serial# 58CA691E
[2025-03-09 13:40] LABS: Erythrocyte Sedimentation Rate 25 MM/HR (0-15)
--- NOTE | 2025-03-09 14:13 | PC.NURSE ---
mri form completed and faxed, done with [place] [employer]
[2025-03-09 16:27] VITALS: BP 160/85; PULSE 65; RESP 17; TEMP 36.6; O2SAT 97
--- NOTE | 2025-03-09 17:00 | PC.NURSE ---
Patient down to MRI via stretcher.
--- OUTSIDE RECORDS SUMMARY | 2025-03-09 17:49 | XMS_ITS | Patient Health Record ---
Author Organization [facility] Address [address] [place] [id number] Care Team Providers Care Captain'S Assistant Name Role Phone Emiliano Mcfarland MD, Praful Primary Care Provide r Unavailable Edu Yanez Unavailable [phone] Allergies No Known Allergies Reason For Referral No Information Medications Medication SIG (Take, Route, Frequency, Duration) Notes Start Date End Date Status amLODIPine Besylate 5 MG Tablet TAKE 1 TABLET BY MOUTH EVERY MORNING Oral; Duration: E782,Unavailabl e Active glipiZIDE ER 5 MG Tablet Extended Release 24 Hour TAKE 1 TABLET BY MOUTH EVERY MORNING Oral; Duration: 30 Active Aspirin Adult Low Strength 81 MG Tablet Delayed Release TAKE 1 TABLET BY MOUTH EVERY MORNING Oral; Duration: 90 Active Atorvastatin Calcium 80 MG Tablet TAKE 1 TABLET BY MOUTH EVERY EVENING Oral; Duration: 90 E782,Unavailabl e Active Carvedilol 12.5 MG Tablet TAKE 1 TABLET BY MOUTH TWICE DAILY IN THE MORNING AND IN THE EVENING WITH FOOD Oral; Duration: 30 I10,Unavailable Active Omeprazole 20 MG Capsule Delayed Release TAKE 1 CAPSULE BY MOUTH EVERY MORNING WITH MEALS Oral; Duration: 90 K219,Unavailabl e Active Brilinta 90 MG Tablet TAKE 1 TABLET BY MOUTH TWICE DAILY IN THE MORNING AND IN THE EVENING Oral; Duration: 90 I7140,Unavailab le Active metFORMIN HCl ER 500 MG Tablet Extended Release 24 Hour TAKE 2 TABLETS BY MOUTH TWICE DAILY IN THE MORNING AND EVENING Oral; Duration: 90 E119,Unavailabl e Active Social History Tobacco Use: Social History Observation Description Date Details (start date - stop date) Never Smoker NA - NA Social History Drugs/Alcohol: Social Info Question Answer Notes Alcohol Screen Did you have a drink containing alcohol in the past year? No Points 0 Interpretation Negative Tobacco Use: Social Info Question Answer Notes Tobacco Use/Smoking Patient is a nonsmoker Additional Details Category Social Info Options Details Miscellaneous: Occupation: retired Problems Problem Type SNOMED Code ICD Code Onset Dates Problem Status W/U Status Risk Notes Problem History of adenomatous polyp of colon (351483034) History of adenomatous polyp of colon (Z86.010) Active confirmed Problem Anemia (928983255) Anemia, unspecified type (D64.9) Active confirmed Plan Of Treatment No Information Insurance Providers Payer Name Payer Address Payer Phone Subscriber Number Group Number Insured Name Patient Relationship to Insured Coverage Start Date Coverage End Date [facility] [address] [address] [place] [address] [id number] BINTA MULLINS Self - patient is the insured Medical (General) History Medical History History ICD Code anemia hx of tubular adenoma malignant tumor of prostate /prostatecto my /- dr. Martínez hyperlipidemia hx of lung nodules hypertension diabetes mellitus COPD Surgical History Surgery Date(Month/Year) prostectomy 12/06/2008 penile prostesis -dr betancourt
--- OUTSIDE RECORDS SUMMARY | 2025-03-09 17:49 | XMS_ITS | Encounter Summary ---
Author Organization [employer] Address [address] [place] [address] 7 [place] [address] Care Team Providers Care Nuclear Scientist Name Role Phone Praful Robles MD Primary Care Provide r Encounter Details Date Type Department Care Team (Late st Contact Info) Description 09/24/2022 [facility] Health Information Management [address] [place] [address] Praful Robles MD [address] [place] [address] Social History Tobacco Use Types Packs/Day Years [...] Care Team (Late st Contact Info) Description 03/23/2025 11:30 AM EST Office Visit [facility] [address] [place], [place] [phone] Jessa Milian OD [address] [place] [address] 05/04/2025 2:00 PM EST Office Visit [facility] [address] [place], [place] [phone] Praful Robles MD [address] [place] [address] documented as of this encounter Visit Diagnoses Not on filedocumented in this encounter Care Teams Nuclear Scientist Relationship Specialty Start Date End Date Praful Robles MD [address] [place] [address] PCP - General Internal Medicine 11/08/14 documented as of this encounter
--- OUTSIDE RECORDS SUMMARY | 2025-03-09 17:49 | XMS_ITS ---
Author Name heidirussell DELANEY, MRS. Gentile Address [address] [place] [address] Phone [phone] [facility] Care Team Providers Care Assistant Bookkeeper Name Role Phone Krupa Hernandez Unavailable [phone] Unavailable Unavailable [phone] HILL HENRIQUEZ Unavailable Reason for Referral Not Available Allergies, adverse [...] FOR MUSCLE SPASMS 2021-10-08 No Data Available Qqydrirz-Mnomtnriu-GZ 3.5-96273-6 Solution INSTILL 4 DROPS IN THE LEFT [...] illiterate and hearing impaired. Needs talking glucometer (Northern Irish available) 2022-02-28 No Data Available Ibuprofen 600 [...] MOUTH EVERY MORNING 2024-08-17 No Data Available Polyethylene Glycol 3350 17 GM/SCOOP Powder MIX WITH WATER DIRECTED THEN FOLLOW INSTRUCTION SHEET GIVEN TO YOU AT YOUR DOCTOR'S OFFICE DIRECTED. 2025-02-07 No Data Available Gemtesa 75 mg Tab TAKE 1 TABLET BY RAFI TH EVERY DAY 2025-02-07 No Data Available Bisacodyl EC 5 mg Tab delaye d rel TAKE 4 TABLETS BY MOUTH ONCE AT NOON THE DAY BEFORE YOUR COLONOSCOPY 2025-02-07 No Data Available Triamcinolone Acetonide 0.1 % Crm 1 application topically to affected area BID 2025-03-07 No Data Available Problem List Problem Status [...] taking oxybutynin. Continue to monitor.01/02/25myrbetriqECCAno changesf/up with PCP is requesting diapers size M, and wipes; [...] compliance or modifications and exercise as tolerated Atopic dermatitis, unspecified type Active 2025-03-07 N/A Triamcinolone o rderedF/u with PCP. Encounters Encounters Type Facility Date of Service Diagnosis/Co mplaint No Data Available [facility] ([place]) 02/17/2022 Dorsalgia, unspecifiedOther chronic pain No Data Available [facility] [place]2022 Dorsalgia, unspecifiedOther chronic pain Pain Assessment - Pain Documented on a Pain Scale (1125F) [facility] [place] 02[place]20/2022 Pain Assessment - Pain Documented on a Pain Scale (1125F) [facility] [place] 02/20/2022 Pain Assessment - Pain Documented on a Pain Scale (1125F) [facility] [place] 02/20/2022 Pain Assessment - Pain Documented on a Pain Scale (1125F) [facility] [place] 02/20/2022 Pain Assessment - Pain Documented on a Pain Scale (1125F) [facility] [place] 02/20/2022 Pain Assessment - Pain Documented on a Pain Scale (1125F) [facility] [place] 02/20/2022 Pain Assessment - Pain Documented on a Pain Scale (1125F) [facility] [place] 02/20/2022 Chronic obstructive pulmonar y disease, unspecifiedType 2 diabetes mellitus without complicationsDorsalgia, unspecifiedOther chronic painOveractive bladderUnspecified glaucomaOther muscle spasmGastro-esophageal reflux disease without esophagitisEssential (primary) hypertensionInsomnia, unspecifiedPersonal history of malignant neoplasm of prostateUnspecified asthma, uncomplicated No Data Available [facility] [place] 02/28/2022 Other muscle spasmIlliteracy and low-level literacyUnspecified visual lossOpioid use, unspecified, uncomplicated No Data Available [facility] [place] 03/25/2022 Low back pain, unspecified Estab. patient 30-39min; chronic exacerbation, 2 stable chronic or 1 acute illness add add modifier 95 for video, (do not use for phone, instead use 56082-07) [facility] [place] 04/30/2022 Dorsalgia, unspecifiedOther chronic painOveractive bladderUnspecified [...] (do not use for phone, instead use 50823-42) [facility] [place] 04/30/2022 Estab. patient 30-39min; chronic exacerbation, 2 stable chronic or 1 acute illness add add modifier 95 for video, (do not use for phone, instead use 83873-88) [facility] [place] 04/30/2022 Estab. patient 30-39min; chronic exacerbation, 2 stable chronic or 1 acute illness add add modifier 95 for video, (do not use for phone, instead use 70029-30) [facility] [place] 04/30/2022 Estab. patient 30-39min; chronic exacerbation, 2 stable chronic or 1 acute illness add add modifier 95 for video, (do not use for phone, instead use 28444-00) [facility] [place] 04/30/2022 Estab. patient 30-39min; chronic exacerbation, 2 stable chronic or 1 acute illness add add modifier 95 for video, (do not use for phone, instead use 00861-10) [facility] [place] 04/30/2022 Estab. patient 30-39min; chronic exacerbation, 2 stable chronic or 1 acute illness add add modifier 95 for video, (do not use for phone, instead use 59480-12) [facility] [place] 04/30/2022 Estab. patient 30-39min; chronic exacerbation, 2 stable chronic or 1 acute illness add add modifier 95 for video, (do not use for phone, instead use 42713-18) [facility] [place] 04/30/2022 Estab. patient 30-39min; chronic exacerbation, 2 stable chronic or 1 acute illness add add modifier 95 for video, (do not use for phone, instead use 96885-16) [facility] [place] 04/30/2022 No Data Available [facility] [place] 06/17/2022 Type 2 diabetes mellitus wit hout complicationsDorsalgia, unspecifiedOther chronic painPersonal history of malignant neoplasm of prostateLow back pain, unspecified Estab. patient 30-39min; chronic exacerbation, 2 stable chronic or 1 acute illness add add modifier 95 for video, (do not use for phone, instead use 19370-28) [facility] [place] 01/11/2024 Chronic obstructive pulmonar y disease, unspecifiedAbdominal [...] (do not use for phone, instead use 89219-93) [facility] [place] 01/11/2024 Estab. patient 30-39min; chronic exacerbation, 2 stable chronic or 1 acute illness add add modifier 95 for video, (do not use for phone, instead use 52064-58) [facility] [place] 01/11/2024 Estab. patient 30-39min; chronic exacerbation, 2 stable chronic or 1 acute illness add add modifier 95 for video, (do not use for phone, instead use 41340-53) [facility] [place] 01/11/2024 Estab. patient 30-39min; chronic exacerbation, 2 stable chronic or 1 acute illness add add modifier 95 for video, (do not use for phone, instead use 56033-41) [facility] [place] 01/11/2024 Estab. patient 30-39min; chronic exacerbation, 2 stable chronic or 1 acute illness add add modifier 95 for video, (do not use for phone, instead use 74485-95) [facility] [place] 01/11/2024 Estab. patient 30-39min; chronic exacerbation, 2 stable chronic or 1 acute illness add add modifier 95 for video, (do not use for phone, instead use 56256-25) [facility] [place] 01/11/2024 Estab. patient 30-39min; chronic exacerbation, 2 stable chronic or 1 acute illness add add modifier 95 for video, (do not use for phone, instead use 86208-02) [facility] [place] 01/11/2024 Estab. patient 30-39min; chronic exacerbation, 2 stable chronic or 1 acute illness add add modifier 95 for video, (do not use for phone, instead use 89154-03) [facility] [place] 01/11/2024 Estab. patient 10-29min; 1 minor problem; add add modifier 95 for video, modifier 93 for phone [facility] [place] 01/02/2025 Type 2 diabetes mellitus wit h [...] 95 for video, modifier 93 for phone [facility] [place] 01/02/2025 Estab. patient 10-29min; 1 minor problem; add add modifier 95 for video, modifier 93 for phone [facility] [place] 01/02/2025 Estab. patient 10-29min; 1 minor problem; add add modifier 95 for video, modifier 93 for phone [facility] [place] 01/02/2025 Estab. patient 10-29min; 1 minor problem; add add modifier 95 for video, modifier 93 for phone [facility] [place] 01/02/2025 Estab. patient 10-29min; 1 minor problem; add add modifier 95 for video, modifier 93 for phone [facility] [place] 01/02/2025 Estab. patient 10-29min; 1 minor problem; add add modifier 95 for video, modifier 93 for phone [facility] [place] 01/02/2025 Estab. patient 10-29min; 1 minor problem; add add modifier 95 for video, modifier 93 for phone [facility] [place] 01/02/2025 Estab. patient 10-29min; 1 minor problem; add add modifier 95 for video, modifier 93 for phone [facility] [place] 01/02/2025 Estab. patient 10-29min; 1 minor problem; add add modifier 95 for video, modifier 93 for phone [facility] [place] 01/02/2025 Estab. patient 10-29min; 1 minor problem; add add modifier 95 for video, modifier 93 for phone [facility] [place] 03/07/2025 Atopic dermatitis, unspecifi ed Vital Signs Date of Collection Vitals 2022-02-20 [...] tive Time Current Smoking Status Former smoker 2025-02-19 0 Sex Male Gender identity Man History of Procedures Procedures Service Procedure code Service date Servicing provider Phone# No Data Available [id number] 2022-02-17 No Data Available No Data Available No Data Available [id number] 2022-02-18 No Data Available No Data Available [...] 95 for video, modifier 93 for phone [id number] 2022-02-20 No Data Available No Data Available No Data Available [id number] 2022-02-28 No Data Available No Data Available No Data Available [id number] 2022-03-25 No Data Available No Data Available Estab. patient 30-39min; chronic exacerbation, 2 stable chronic or 1 acute illness add add modifier 95 for video, (do not use for phone, instead use 63228-56) [id number] 2022-04-30 No Data Available No Data Availa [...] Available No Data Available No Data Available [id number] 2022-06-17 No Data Available No Data Available Estab. patient 30-39min; chronic exacerbation, 2 stable chronic or 1 acute illness add add modifier 95 for video, (do not use for phone, instead use 95459-24) [id number] 2024-01-11 No Data Available No Data Availa [...] 95 for video, modifier 93 for phone 46477 2025-01-02 No Data Available No Data Availa [...] 95 for video, modifier 93 for phone [id number] 2025-03-07 No Data Available No Data Availa ble [...] you feel unsteady on your feet? No 12-01-15 Near falls within the last 6 months? no 2025-01-02 Do you worry about falling? No 2024-12-19 5 DME used with ambulation: [employer] 08-26-14 Social Supports - # of Inter actions with Friends/Family in a typical week: daily 2025-01-02 Mental Status Status Date AAO times 3 2025-01-02 Assessments Date of Service Assessments 2022-02-17 06:48:57 Follow up plan for andrew smith symptoms:Chronic back pain 2022-02-18 07:26:00 Follow up [...] mellitus with chronic kidney diseaseBMI 24.0-24.9, adult 2025-03-07 15:15:20 Atopic dermatitis, u nspecified type Plan of Care Date of Service Plans [...] pt does not know and even with business executive. Do not want to prescribe medication without [...] pt does not know and even with business executive. Do not want to prescribe medication without knowing what he is taking currently.- Scheduled for [facility] 02/20 at 11am. 02/18/22:- Same coverstation with patient 02/18. - Likely needs imaging or follow up with who he has had imaging with in the past. Encouraged him to stand up and move around, as this is where he is most comfortable. - [facility] 02/20 11am. 2022-02-20 09:03:51 Medication Review by prescribing provider or pharmacist documented (1160F)Medication List Documented (1159F)Functional Status Assessed (1170F)Advance Care Directive Advance care planning discussion documented in the medical record (1158F)BMI obtained (3008F)Pain Assessment - Pain Documented (1125F)Televideo new patient, 30-44min 1 stable chronic or 2 minor; add modifier 95Continue to see PCP. Follow-up with [facility] as [...] Documented (1125F)Continue to see PCP. Follow-up with [facility] as [...] call CBContinue to see PCP. Follow-up with [facility] as [...] No changes. Continue to monitor.last eye exam 4Combivent, Fluticasone, Salmeterol - Stable. No changes. Continue [...] No changes. Continue to monitor.Saw opthalmologist in November4Atorvastatin, Metformin, GlipizideDiscussed adopting a heart-healthy diet low [...] taking oxybutynin. Continue to monitor.01/02/25myrbetriqECCAno changesf/up with PCPmagdaer is requesting diapers size M, and wipes; [...] after laying downEstimated Glomerular Filt Rate 49 10/ OC; no recent one found01/02/25stable.Avoid nephrotoxic medications (NSAIDS, high dose Gabapentin, Baclofen, Fleet Enema, Morphine/Codeine).Patient educated on the importance of diet compliance or modifications and exercise as toleratedfollow up with PCP/specialistsAt least 50% of time spent counseling patient, discussing diagnosis, treatment plan, compliance, and coordinating follow-up care 2025-03-07 15:15:20 Estab. patient 10-29 min; 1 minor problem; add add modifier 95 for video, modifier 93 for phoneContinue to see PCP. Follow-up with [facility] as needed for any acute or disease education needs that may arise 10/11.Triamcinolone orderedF/u with PCP. Goals Date Goal 2022-02-20 Follow-up with [facility] pa[facility] as needed 2022-04-30 Remember to keep all appointments with your PCP. 2022-04-30 Call if you have que stions or concerns before you go to the ER. 2022-04-30 Discussed how to con tact [facility] via phone or tablet. 2022-04-30 DME request - scale and pulse oximeter 2024-01-11 At least 50% of time spent counseling patient, discussing diagnosis, treatment plan, compliance, and coordinating follow-up care. 2025-01-02 .Remember to keep al l appointments with your PCP and specialists. Call CB 10/11 if you have questions or concerns. Discussed how to contact [facility] via phone or tablet. CB 10/11 phone number provided. Health Concerns Date Concern 2025-03-07 Patient/Guardian agr eed to visit via telehealth.Visit completed via:[ ] audio and video; [x] audio only 2025-03-07 Concerns for today's visit:C/o feeling itchy all over and has a rash all over his body with some bleeding for 2-3 months. Patient is a poor historian.States that alcohol helps with the itching. Also taking a cream OTC, but unable to specify the name due to his inability to read. Also called for serious illness conversation. 2025-03-07 Most recent hospital stay or ER visit:No ER visits or hospitalizations documented in [facility] in 90 days.Member denies ER visits or hospitalizations in last 90 days. 2025-03-07 Open HEDIS Measures: No open measures 2025-03-07 Advance Care Plannin g ConversationDate of Conversation: 03/07/2025Life Limiting Diagnosis: Diagnosis: COPDCurrently on Hospice NoCode Status: YES CPR: Attempt ResuscitationGoals of Care: Yes to CPR and Curative Treatments: Attempt to sustain life by all medically effective meansNutrition goals: No decision made about nutrition today; not discussedDo you have a Durable Power of Industrial Analyst for Healthcare, or Healthcare Proxy Or Guardianship? Yes, preferred proxy but not named POAIf so, Who? Son, Alan Porras you have a written Advance Directive? Has no formal documentationOther details of discussion: SIC: Goal: Unknown. Plan is to leave it in the hand of God. Family gives him strength. Wants to be fully informed as well as family.Today's plan: Repeat discussion in 6 months.1123F : AD or surrogate was documented in the medical record.
--- OUTSIDE RECORDS SUMMARY | 2025-03-09 17:49 | XMS_ITS | Encounter Summary ---
Author Organization [employer] Address [address] [place] [address] [address] [place] [address] Care Team Providers Care Bread Icer Name Role Phone Praful Robles MD Primary Care Provide r Encounter Details Date Type Department Care Team (Late st Contact Info) Description 04/22/[address] [facility] [address] [place] [phone] Liliya Martin, RN Social History Tobacco Use [...] Description 03/23/2025 11:30 AM EST Office Visit [facility] [address] [place] [address] Jessa Milian, OD [address] [place] [address] 05/04/2025 2:00 PM EST Office Visit [facility] [address] [place] [phone] Praful Robles MD [address] [place] [address] documented as of this encounter Visit Diagnoses Not on filedocumented in this encounter Care Teams Bread Icer Relationship Specialty Start Date End Date Praful Robles MD [address] [place] [address] PCP - General Internal Medicine 11/08/14 documented as of this encounter
--- OUTSIDE RECORDS SUMMARY | 2025-03-09 17:49 | XMS_ITS | Clinical Summary ---
Author Organization [employer] Address [address] [place] [address] Care Team Providers Care Foundry Superintendant Name Role Phone Praful Robles MD Primary [...] BY MOUTH EVERY MORNING 30 tablet 11 5 11:21 AM EST 07/15/19 25 Active lidocaine (Lidoderm) 5 % patchIndications: Degeneration of lumbar intervertebral disc APPLY 1 PATCH TOPICALLY TO SKIN, LEAVE ON FOR 12 HOURS AND OFF FOR 12 HOURS DIRECTED 30 patch 3 07/15/19 25 Active Aspirin Low Dose 81 MG EC tablet TAKE 1 TABLET BY MOUTH EVERY MORNING 90 tablet 3 5 11:21 AM EST 08/18/19 25 Active carvedilol (Coreg) 12.5 MG tabletIndications :Essential hypertension TAKE 1 TABLET BY MOUTH TWICE DAILY IN THE MORNING AND IN THE EVENING 60 tablet 5 5 11:21 AM EST 09/17/19 25 Active fluticasone (Flonase) 50 MCG/ACT nasal sprayIndications: Seasonal allergies INHALE 1 SPRAY IN EACH NOSTRIL TWICE DAILY DIRECTED 16 g 3 5 11:21 AM EST 10/19/19 25 Active Combivent Respimat 20-100 MCG/ACT inhalerIndication s:Chronic obstructive pulmonary disease, unspecified COPD type (CMS/HCC) ([facility]) INHALE 1 PUFF 4 TIMES A DAY, MAY TAKE ADDITIONAL PUFFS NEEDED. (MAX OF 6 PUFFS PER DAY) 4 g 6 11/09/19 25 Active Fluticasone-Salme terol 250-50 MCG/ACT aerosol powderIndications :Chronic obstructive pulmonary disease, unspecified COPD type (CMS/HCC) ([facility]) INHALE 1 PUFF BY MOUTH EVERY TWELVE HOURS. RINSE MOUTH AFTER USING. 60 each 3 11/18/19 25 Active OneTouch Ultra Test test strip USE DIRECTED TO TEST BLOOD SUGAR THREE TIMES DAILY 50 strip 11 11/23/19 25 Active traZODone (Desyrel) 50 MG tabletIndications :Sleep disturbance TAKE 1/2 TABLET BY MOUTH AT BEDTIME 15 tablet 1 5 11:20 AM EST 12/13/19 25 Active metFORMIN XR (Glucophage-XR) 500 MG 24 hr tabletIndications :Type 2 diabetes mellitus without complication, without long-term current use of insulin ([facility]) TAKE 2 TABLETS BY MOUTH TWICE DAILY IN THE MORNING AND EVENING 360 tablet 1 12/16/19 25 Active glipiZIDE XL (Glucotrol XL) 5 MG 24 hr tablet Take 1 tablet (5 mg) by mouth in the morning. 30 tablet 3 5 11:21 AM EST 12/17/19 25 Active escitalopram (Lexapro) 5 MG tabletIndications :Depressive disorder TAKE 1 TABLET BY MOUTH EVERY MORNING 30 tablet 1 5 11:20 AM EST 02/07/20 25 Active omeprazole (PriLOSEC) [address] capsuleIndication s:Gastroesophagea l reflux disease without esophagitis TAKE 1 CAPSULE BY MOUTH EVERY MORNING BEFORE MEALS 90 capsule 1 03/07/20 25 Active omeprazole (PriLOSEC) [address] capsuleIndication s:Gastroesophagea l reflux disease without esophagitis TAKE 1 CAPSULE BY MOUTH EVERY MORNING WITH MEALS 90 capsule 1 09/16/19 25 2024 Discontinued Active Problems Problem Noted [...] trauma. Correlate with patient's clinical history. 3. Faqr-ql-[id number] generalized diffuse brain parenchymal volume loss somewhat [...] trauma. Correlate with patient's clinical history. 3. Rjqr-zg-hlokzapb generalized diffuse brain parenchymal volume loss somewhat [...] trauma. Correlate with patient's clinical history. 3. Zgbs-jg-srzlzint generalized diffuse brain parenchymal volume loss somewhat [...] (07/30/2022 2:01 PM EDT): Patient presented to [facility] on 04/15/22 due to chest pain, discharged 04/17/2022 Found to have NSTEMI and transferred to [facility]. ECHO demonstrated new wall motion abnormality and patient taken to cardiac cath technician on 04/16/22. Patient now s/p PADMINI to mid proximal RCA. Patient started on Atorvastatin, Brilinta (to continue for 1 year) and Carvedilol. Amlodipine was decreased to 5 mg daily. Patient to continue taking low dose Aspirin. Nabumetone discontinued due to increased risk of bleeding with DAPT. Pt was recently seen by Cableway Operator Dr Westbrook 07/15/2022 Assessment & Plan (04/29/2022 10:07 AM EST): Patient presented to [facility] on 04/15/22 due to chest pain, discharged 04/17/2022 Found to have NSTEMI and transferred to [facility]. ECHO demonstrated new wall motion abnormality and patient taken to cardiac cath technician on 04/16/22. Patient now s/p PADMINI to [...] with the Cardiac Rehab Program Has a STRAND GALVANIZER, rollator walker recommended to help with ambulation [...] LS spine. PT was also evaluated at [facility] in July but it appears pt had been c/o neck pain and not low back pain, They obtained an MRI that showed multilevel degenerative disc disease. They prescribed Lidoderm patches. NCS done confirmed mild chronic L4-L5 radiculopathy Pt has been taking Tramadol to help with his neck and low back pain Pt was last seen at [facility] 04/08/2019 Previous visit he was referred to PT, Added Acetaminophen and a muscle relaxant. Pt needed a letter of support for a handicapped accessible apartment Pt is interested in a scooter, would like to be referred to PT for w [employer] scooter evaluation Assessment & Plan (04/29/2022 8:04 AM EST): Patient chronic low back pain Patient is onGabapentin which he uses for his Diabetic Neuropathy jt Pain medications. I had recommended a muscle relaxant and a NCS of his lower extremities to r/o lumbar radiculopathy as well as plain films of LS spine. PT was also evaluated at [facility] in July but it appears pt had been c/o neck pain and not low back pain, They obtained an MRI that showed multilevel degenerative disc disease. They prescribed Lidoderm patches. NCS done confirmed mild chronic L4-L5 radiculopathy Pt has been taking Tramadol to help with his neck and low back pain Pt was last seen at [facility] 04/08/2019 Previous visit he was referred [...] follows with a psychotherapist Seen by our center aisle cashier and started on Lexapro with good results Will continue Patient has crisis numbers and knows to use them if needed Assessment & Plan (07/14/2024 3:15 PM EDT): Feeling depressed He was referred to our center aisle cashier for evaluation has an appointment 08/17 Patient [...] CTA in 6 months PFTs 11/06/2022 at [facility] showed Mod obstructive vent defect with positive [...] CTA in 6 months PFTs 11/06/2022 at [facility] showed Mod obstructive vent defect with positive bronchodilator response and decreased diffusion capacity suggestive of Emphysema Assessment & Plan (11/20/2022 4:52 PM EDT): Doing well No recent exacerbations Currently denies any sob or recent exacerbation. Pt has been using Combivent with good results Pt was referred to Pulmonology Dr Tucker seen 10/31/2022 He recommended repeat CTA in 6 months PFTs 11/06/2022 at [facility] showed Mod obstructive vent defect with positive [...] organization. Date Type Department Care Team Description 03/09/2025 Orders Only [facility] External Provider, [facility] 03/07/2025 Refill [facility] [address] [place] [address] Praful Robles MD Gastroesophageal reflux disease without esophagitis 02/14/2025 Telephone [facility] [address] [place] [address] Praful Robles MD April recall 02/05/2025 Refill [facility] [address] [place] [address] Praful Robles MD Depressive disorder 01/19/2025 3:00 PM EDT Office Visit [facility] [phone] Praful Robles MD Type 2 diabetes mellitus without complication, without long-term current use of insulin ([facility]) (Primary Dx); Essential hypertension; Tubular adenoma; Mixed hyperlipidemia; Depressive disorder; Encounter for immunization; Other emphysema ([facility]) 01/19/2025 Travel 01/18/2025 Telephone [facility] [address] Praful Robles MD chART PREP 12/30/2024 Telephone [facility] [address] [place] [address] Praful Robles MD Durable Medical Equipment (BOOST) 12/16/2024 Refill [facility] [address] [place] [address] Praful Robles MD 12/15/2024 Refill [facility] [address] [place] [address] Praful Robles MD Type 2 diabetes mellitus without complication, without long-term current use of insulin ([facility]) 12/10/2024 Refill [facility] [address] [place] [address] Praful Robles MD Depressive disorder; Sleep disturbance from Last 3 Months Immunizations Immunization Administration [...] Description 03/23/2025 11:30 AM EST Office Visit [facility] [address] [place] [address] Jessa Milian, OD [address] [place], [place] [phone] 05/04/2025 2:00 PM EST Office Visit [facility] [address] [place] [address] Praful Robles MD [address] [place] [address] Health Maintenance Due Date Last Done Comments [...] 08/17/2025 08/17/2024 Depression Screening 01/19/2026 01/19/2025, 01/20/20 25 SDOH Screening 01/19/2026 01/19/2025 Eye Exam 08/18/2026 08/18/2024, 04/2024, 08/18/2024, Additional [...] Procedure Name Priority Date/Time Associated Diagnosis Comments SED RATE BY MODIFIED WESTERGREN Routine 03/09/2025 11:22 AM EST C-REACTIVE PROTEIN Routine 03/09/2025 11 :22 AM EST COVID-19 ID NOW (LERNER) Routine 03/09/2025 11:22 AM EST HIGH SENSITIVITY TROPONIN I Routine 03/09/2025 11:22 AM EST LIPASE Routine 03/09/2025 11:22 AM EST CREATINE KINASE, TOTAL Routine 11:22 AM EST MAGNESIUM Routine 03/09/2025 11:22 AM EST COMPREHENSIVE METABOLIC PANEL Routine 03/09/2025 11:22 AM EST CBC WITH AUTO DIFFERENTIAL Routine 03/09/2025 11:22 AM EST INFLUENZA A B2 ID NOW (LERNER) Routine 03/09/2025 11:[address] HEAD WO CONTRAST Routine 03/09/2025 1 1:04 AM EST POCT GLYCATED HEMOGLOBIN, TOTAL Routine 01/19/2025 2:35 PM EDT Type 2 diabetes mellitus without complication, without long-term current use of insulin (HCC) POCT GLUCOSE Routine 01/19/2025 2:23 PM EDT Type 2 diabetes mellitus without complication, without long-term current use of insulin (HCC) LIPID PANEL, STANDARD Routine 02/02/2024 11:55 AM EDT Type 2 diabetes mellitus without complication, without long-term current use of insulin ([facility]) ALBUMIN, RANDOM URINE W/CREATININE Routine 12/29/2019 9:22 AM EDT from Last 3 Months or Most Recently Relevant to Health Maintenance Results * Influenza A B2 ID NOW (Lerner) (03/09/2025 11:22 AM EST) IDNOW SERIAL# [id number] [facility] Influenza A Negative Negative [facility] Influenza B2 Negative Negative [facility] Influenza A B2 Note See Note [facility] Comment:The Lerner ID NOW In fluenza A B2 test is used for thequalitative detection of influenza A and B from patientswith signs and symptoms of respiratory infection.Negative results do not preclude influenza virus infectionand should not be used as the sole basis for diagnosis,treatment or other patient management decisions.There is a risk of false negative results due to thepresence of variants in the viral targets of the assay, lowlevels of virus in the specimen and co- infection withRespiratory Syncytial Virus. 03/09/2025 11:2 2 AM EST 03/09/2025 11:28 AM EST us Generic External Data Provider LAB MICROBIOLOGY - GENERAL ORDERABLES Final Result Performing Organization Address City/State/[facility] Co de Phone Number [facility] [address] [place] [phone] * COVID-19 ID NOW (LERNER) (03/09/2025 11:22 AM EST) IDNOW SERIAL# [id number] [facility] COVID-19 TEST Negative Negative [facility] COVID-19 NOTE See Note [facility] Comment: Results are for the identification of SARS-CoV2 RNA. TheSARS-CoV2 RNA is generally detectable in respiratory samplesduring the acute phase of infection. Positive results areindicative of the presence of SARS-CoV-2 RNA; clinicalcorrelation with patient history and other diagnosticinformation is necessary to determine patient infectionstatus. Positive results do not rule out bacterial infectionor co- infection with other viruses.Testing facilities within the [place] and itsterritories are required to report all positive results tothe appropriate public health authorities.Negative results should be treated as presumptive and, ifinconsistent with clinical signs and symptoms or necessaryfor patient management, should be tested with differentauthorized or cleared molecular tests. Negative results donot preclude SARS-CoV2 RNA infection and should not be usedas the sole basis for patient management decisions. Negativeresults should be considered in the context of a patient'srecent exposures, history and the presence of clinical signsand symptoms consistent with COVID-19.This test has been authorized by the FDA under an EmergencyUse Authorization (EUA) for use by authorized laboratories.Testing performed on the Myrio ID NOW utilizing NAAT. 03/09/2025 11:2 2 AM EST 03/09/2025 11:28 AM EST [employer] External Data Provider LAB MOLECULAR ANGELICA GNOSTICS ORDERABLES Final Result Performing Organization Address [facility]/ZIP Co de Phone Number [facility] [address] [place] [phone] * High Sensitivity Troponin I (03/09/2025 11:22 AM EST) TROPONIN I HIGH SENSITIVITY 3.7 <3.5 - 35.0 ng/L [facility] Comment:The Lerner high sens itivity Troponin-I results should beused in conjunction with other diagnostic information suchas ECG, clinical observations and information, and patientsymptoms to aid in the diagnosis of ID. 03/09/2025 11:2 2 AM EST 03/09/2025 11:28 AM EST Generic External Data Provider LAB BLOOD ORDERAB LES Final Result Performing Organization Address [facility]/ZIP Co de Phone Number [facility] [address] [place] [phone] * (ABNORMAL) CBC auto differential (03/09/2025 11:22 AM EST) White Blood Count 5.9 4.8 - 10.8 X10*3/uL [facility] Red Blood Count 3.55(L) 4.60 - 5.80 X10*6/uL [facility] Hemoglobin 10.0(L) 14.0 - 18.0 g/dl [facility] Hematocrit 31.7(L) 42.0 - 52.0 % [facility] Mean Corpuscular Volume 89.3 80.0 - 98.0 fL [facility] Mean Corpuscular Hemoglobin 28.2 27.0 - 33.0 pg [facility] Mean Corpuscular HGB Conc 31.5 31.0 - 36.0 g/dl [facility] Red Cell Distribution Width 15.4 11.0 - 16.0 % [facility] Platelet Count 223 160 - 400 X10*3/uL [facility] Mean Platelet Volume 11.3 9.4 - 12.4 fL [facility] Neutrophils Percent Auto 62.0 45 - 73 % [facility] Imm Gran Pct Auto 0.2 0.0 - 0.4 % [facility] Lymphocytes Percent Auto 24.9 20 - 40 % [facility] Monocytes Percent Auto 8.9 2 - 11 % [facility] Eosinophils Percent Auto 3.7 0 - 4 % [facility] Basophils Percent Auto 0.3 0 - 2 % [facility] NRBC Pct Auto 0.0 0.0 - 0.2 /100WBC [facility] Neutrophils Absolute Auto 3.7 2.0 - 8.3 x10*3/uL [facility] Imm Gran Abs Auto 0.01 0.00 - 0.03 X10*3/uL [facility] Lymphocytes Absolute Auto 1.5 1.2 - 4.9 X10*3/uL [facility] Monocytes Absolute Auto 0.5 0.1 - 1.2 X10*3/uL [facility] Eosinophils Absolute Auto 0.2 0.0 - 0.4 X10*3/uL [facility] Basophils Absolute Auto 0.0 0.0 - 0.2 X10*3/uL [facility] NRBC Abs Auto 0.000 0.0 - 0.012 X10*3/uL [facility] 03/09/2025 11:2 2 AM EST 03/09/2025 11:28 AM EST Generic External Data Provider LAB BLOOD ORDERAB LES Final Result Performing Organization Address [facility] de Phone Number [facility] [address] [place] [phone] * (ABNORMAL) Sed Rate by Modified Kairen (03/09/2025 11:22 AM EST) Erythrocyte Sedimentation Rate 25(H) 0 - 15 MM/HR [facility] Comment:Patients with polycy themia and many hemoglobin abnormalitiesmay have depressed sed rates whereas patients with anemiamay have elevated sed rates. 03/09/2025 11:2 2 AM EST 03/09/2025 12:56 PM EST Generic External Data Provider LAB BLOOD ORDERAB LES Final Result Performing Organization Address [facility] Phone Number [facility] [address] [place] [phone] * C-reactive Protein (03/09/2025 11:22 AM EST) C Reactive Protein 0.22 < or = 0.50 mg/dL [facility] 03/09/2025 11:2 2 AM EST 03/09/2025 11:28 AM EST Generic External Data Provider LAB BLOOD ORDERAB LES Final Result Performing Organization Address [facility] Co de Phone Number [facility] [address] [place] [phone] * Magnesium (03/09/2025 11:22 AM EST) Pathologist [facility] Magnesium 1.9 1.6 - 2.6 mg/dL [facility] 03/09/2025 11:2 2 AM EST 03/09/2025 11:28 AM EST Generic External Data Provider LAB BLOOD ORDERAB LES Final Result Performing Organization Address City/[facility]/ZIP Co de Phone Number [facility] [address] [place] [phone] * Lipase (03/09/2025 11:22 AM EST) [facility] Lipase 56 8 - 78 U/L [facility] 03/09/2025 11:2 2 AM EST 03/09/2025 11:28 AM EST Generic External Data Provider LAB BLOOD ORDERAB LES Final Result Performing Organization Address City/[facility] Co de Phone Number [facility] [address] [place] [address] [phone] * (ABNORMAL) Creatine Kinase, Total (03/09/2025 11:22 AM EST) [facility] Creatine Kinase Total 181(H) 38 - 174 U/L [facility] 03/09/2025 11:2 2 AM EST 03/09/2025 11:28 AM EST Generic External Data Provider LAB BLOOD ORDERAB LES Final Result Performing Organization Address City/[facility] Co de Phone Number [facility] [address] [place] [phone] * (ABNORMAL) Comprehensive Metabolic Panel (03/09/2025 11:22 AM EST) [facility] Sodium 144 135 - 145 mmol/L [facility] Potassium 4.7 3.3 - 5.1 mmol/L [facility] Chloride 113(H) 96 - 108 mmol/L [facility] Carbon Dioxide 27 22 - 29 mmol/L [facility] Anion Gap 9(L) 12 - 20 [facility] Urea Nitrogen (BUN) 27(H) 9 - 16 mg/dL [facility] Creatinine, Serum 1.96(H) 0.5 - 1.4 mg/dL [facility] Creatinine Clr Calc Pharmacy 25.6 [facility] Comment:eGFR (calculated fro m the MDRD study equation) and eCrCl(calculated from the Cockcroft-Gault equation) are based ondifferent parameters and may not yield comparable results.If eCrCl result is absurd, please check patient'sheight/weight. Estimated Glomerular Filt Rate 33 [facility] Comment:Chronic Kidney Disea se: Estimated GFR < 60 mL/min/1.87e5Gvbxns Kidney Disease: Estimated GFR < 15 mL/min/1.73m2 Glucose 120(H) 60 - 115 mg/dL [facility] Calcium 9.4 8.4 - 10.2 mg/dL [facility] Bilirubin, Total 0.3 0.0 - 1.0 mg/dL [facility] Aspartate Amino Transferase 23 5 - 37 U/L [facility] Alanine Aminotransferase 16 0 - 40 U/L [facility] Total Protein 6.9 6.5 - 8.0 g/dL [facility] Albumin Level 3.9 3.5 - 5.0 g/dL [facility] Alkaline Phosphatase 129(H) 39 - 117 U/L [facility] 03/09/2025 11:2 2 AM EST 03/09/2025 11:28 AM EST us Generic External Data Provider LAB BLOOD ORDERAB LES Final Result [facility] [address] [place] [phone] * CT Head w/o Contrast (03/09/2025 11:04 AM EST) Anatomical Region Laterality Modality Head, Neck Computed Tomogra phy 03/09/2025 11:0 4 AM EST Narrative 03/09/2025 11:23 AM EST [address] [address] [address] Scan Report Signed Patient: Álvaro Johnson MR#: [id number] : 1945 Acct:[id number] Age/Sex: 79 / M ADM Date: 03/09/25 Loc: HO.ED Attending Dr: Ordering Physician: Daniel Loredo Date of Service: 03/09/25 Procedure(s): CT head/brain wo IV con Accession Number(s): [id number] cc: Daniel Loredo; Praful Fajardo MD Report Number: [id number]: Total DLP = 631.00 mGy-cm Reason for Exam: brain hurt EXAMINATION: CT HEAD WITHOUT CONTRAST CLINICAL INFORMATION: Brain hurt COMPARISON: 10/13/2024. 06/02/2024. MR brain 05/24/2021. TECHNIQUE: Contiguous axial imaging was performed from [...] evident. Electronically signed by: Johann Campos MD 03/09/2025 11:20 AM EST Dictated By: Johann Campos MD Signed By: <Electronically signed by Johann Campos MD in OV> 03/09/25 1120 DD/ 1104 TD/TT: 03/09/25 1111 Stump Blower: Procedure Note Donotuseinterpreter, Image - 03/09/[address] [address] [address] Scan Report Signed Patient: Rae Johnson#: [id number] : 5Acct:[id number] Age/Sex: 79 / MADM Date: 03/09/25 Loc: HO.ED Attending Dr: Ordering Physician: Daniel Loredo Date of Service: 03/09/25 Procedure(s): CT head/brain wo IV con Accession Number(s): [id number] cc: Daniel Loredo; Praful Fajardo MD Report Number: [id number]: Total DLP = 631.00 mGy-cm Reason for Exam: brain hurt EXAMINATION: CT HEAD WITHOUT CONTRAST CLINICAL INFORMATION: Brain hurt COMPARISON: 10/13/2024. 06/02/2024. MR brain 05/24/2021. TECHNIQUE: Contiguous axial imaging was performed from [...] evident. Electronically signed by: Johann Campos MD 03/09/2025 11:20 AM [facility] Dictated By: Johann Campos MD Signed By: <Electronically signed by Johann Campos MD in OV> 03/09/25 1120 DD/ 1104 TD/TT: 03/09/25 1111 Stump Blower: [facility] External Provider IMG CT PROCEDURES Final Result * (ABNORMAL) POCT Hgb A1c (01/19/2025 2:35 PM EDT) Hemoglobin A1C 6.0(A) 4.0 - 5.7 % QC Media Lot # [id number] Lot# Expiration Date 51 Blood 01/19/2025 2:35 PM EDT Result [facility] Praful Mcfarland MD POINT OF CARE TEST EN TER/EDIT ORDERABLES Final Result * POCT Glucose (01/19/2025 2:23 PM EDT) Glucose Blood, POC 91 60 - 200 mg/dL QC Media Lot # [id number] Lot# Expiration Date ,726 Blood Capillary blood specimen / Unknown 01/19/2025 2:23 PM EDT Result [facility] Praful Mcfarland MD POINT OF CARE TEST EN TER/EDIT ORDERABLES Final Result * Lipid Panel, Standard (02/02/2024 11:55 AM EDT) Triglycerides 60 <150 mg/dL [facility] Comment:Desirable Triglyceri de: less than 150 mg/dLBorderline High Triglyceride 150-199 mg/dLHigh Triglyceride: 200-499 mg/dLVery High Triglyceride: greater than or equal to 5OO mg/dL Cholesterol 120 <200 mg/dL [facility] Comment:Desirable Cholestero l: less than 200 mg/dLBorderline High Cholesterol: 200-239 mg/dLHigh Cholesterol: greater than 239 mg/dL LDL Cholesterol Calculated 67 <100 mg/dL [facility] Comment:Desirable LDL: less than 100 mg/dLNear Optimal/Above Optimal LDL: 110- 129 mg/dLBorderline High LDL: 130-159 mg/dLHigh LDL: 160-189 mg/dLVery High LDL: greater than or equal to 190 mg/dL HDL Cholesterol 41 >40 mg/dL [facility] Comment:Desirable HDL: great er than 40 mg/dL Note: This HDL assay may give artificially low results in patients with liver disease. Blood Venous blood specimen / Unknown 02/02/2024 11:55 AM EDT 02/02/2024 1:27 PM EDT us Praful Mcfarland MD LAB BLOOD ORDERABLES Final Result [facility] [address] [place] [address] [phone] * ALBUMIN, RANDOM URINE W/CREATININE (12/29/2019 [...] MD LAB URINE ORDERABLES Final Result [facility] [address] from Last 3 Months or Most Recently Relevant to Health Maintenance Insurance [facility] DUAL COMPLETE Care Teams Foundry Superintendant Relationship Specialty Start Date End Date Praful Robles MD [address] [place] [phone] PCP - General Internal Medicine 11/08/14
--- OUTSIDE RECORDS SUMMARY | 2025-03-09 17:49 | XMS_ITS | Encounter Summary ---
Author Organization [employer] Address 75 [facility] 7t [place] [address] Care Team Providers Care House Repairer Name Role Phone Praful Robles MD Primary Care Provide r Reason for Visit * Reason Comments Med Refill Encounter Details Date Type Department Care Team (Late st Contact Info) Description 06/21/2024 Refill [facility] MEDICINE [address] [place] [address] Praful Robles MD [address] [place] [address] Sleep disturbance Social History Tobacco Use Types [...] Description 03/23/2025 11:30 AM EST Office Visit [facility] OPTOM[facility] [address] [place] [address] Jessa Milian, OD 267 [place] [address] 05/04/2025 2:00 PM EST Office Visit [facility] MEDICINE [address] [place] [address] Praful Robels MD [address] [place] [address] documented as of this encounter Visit Diagnoses Diagnosis Sleep disturbance Unspecified sleep disturbance documented in this encounter Additional Health Concerns Assessment Noted Time PHQ-9 Depression Total Score: 4 10/01/19 24 9:54 AM EDT documented as of this encounter Care Teams House Repairer Relationship Specialty Start Date End Date Praful Robles MD [address] [place] [address] [phone] PCP - General Internal Medicine 11/08/14 documented as of this encounter
--- OUTSIDE RECORDS SUMMARY | 2025-03-09 17:50 | XMS_ITS | Encounter Summary ---
Author Organization [email or web address] Address 75 [facility] 7t [place] [address] Care Team Providers Care Stamps Or Coins Salesperson Name Role Phone Praful Robles MD Primary Care Provide r Reason for Visit * Reason Onset Date Comments Nurse Triage 09/03/2023 Encounter Details Date Type Department Care Team ([facility] st Contact Info) Description 09/03/2023 Telephone [facility] MEDICINE 230 [place] [address] Praful Robles MD [address] [place] [address] Nurse Triage Social History Tobacco Use Types [...] t he electric, gas, oil or water [employer] threatened to shut off services in your [...] 09/03/2023 2:34 PM EDT Called back [facility] [phone] RE: Pt. Depression and occasional sadness. Pt. [...] so she wanted PCP to be aware. [facility] nurse statesthat pt. Does have a RX. For Trazadone 50mg 1/2 tablet at bedtime that pt. States he takes. I did notify [facility] nurse that pt. Does have upcoming appt with PCP on 10/01/23. I called pt. Via [employer] certified court/medical interpreter [phone] [place]. No answer. Skiver Counter left message on pt. Voice mail to please call back [facility] nurses at [phone]. Skiver Counter called back x2. Call rang and then went to [facility] again. Skiver Counter left second message. Will send this note to [facility] nurses to check in with pt. [...] Description 03/23/2025 11:30 AM EST Office Visit [facility] OPTOMETRY [address] [place], [place] [phone] Jessa Milian, OD 267 [place] [address] 05/04/2025 2:00 PM EST Office Visit [facility] MEDICINE [address] [place] [address] Praful Robles MD 230 [place] [address] documented as of this encounter Visit Diagnoses Not on filedocumented in this encounter Care Teams Stamps Or Coins Salesperson Relationship Specialty Start Date End Date Praful Robles MD 230 [place], [place] [phone] PCP - General Internal Medicine 11/08/14 documented as of this encounter
--- OUTSIDE RECORDS SUMMARY | 2025-03-09 17:50 | XMS_ITS | Encounter Summary ---
Author Organization [employer] Address 75 [facility] 7t [place] [address] Care Team Providers Care Cigarette Catcher Name Role Phone Praful Robles MD Primary Care Provide r Reason for Visit * Reason Onset Date Comments Med Refill Results 02/18/2023 Encounter Details Date Type Department Care Team (Late st Contact Info) Description 02/18/2023 Refill [facility] MED[facility]INE 230 [place] [address] Praful Robles MD 230 [place] [address] Abdominal aortic aneurysm (AAA) without rupture, unspecified [...] Faxed as below. Telephone call placed to [facility]. Spoke with RN who stated [...] Description 03/23/2025 11:30 AM EST Office Visit [facility] OPTOMETRY [address] [place] [address] Jessa Milian, OD [address] [place] [address] 05/04/2025 2:00 PM EST Office Visit [facility] MEDIC[facility] 230 [place] [address] Praful Robles MD 230 [place] [address] documented as of this encounter Visit Diagnoses Diagnosis Abdominal aortic aneurysm (AAA) without rupture, unspecified part (CMS/[facility]) documented in this encounter Care Teams Cigarette Catcher Relationship Specialty Start Date End Date Praful Robles MD 230 [place], [place] [phone] PCP - General Internal Medicine 11/08/14 documented as of this encounter
--- OUTSIDE RECORDS SUMMARY | 2025-03-09 17:50 | XMS_ITS | Encounter Summary ---
Author Organization [employer] Address 75 [facility] 7t [place] [address] Care Team Providers Care Food Service Worker Hospital Name Role Phone Praful Robles MD Primary Care Provide r Encounter Details Date Type Department Care Team (Late st Contact Info) Description 03/09/2025 Orders Only [facility] External Provider, [facility] Social History Tobacco Use Types Packs/Day Years [...] Description 03/23/2025 11:30 AM EST Office Visit [facility] OPTOMETRY 267 [place], [place] [phone] Jessa Milian, OD 267 [place] [address] 05/04/2025 2:00 PM EST Office Visit [facility] MEDICINE 230 [place] [address] Praful Robles MD 230 [place] [address] documented as of this encounter Procedures Procedure Name Priority Date/Time Associated Diagnosis Comments INFLUENZA A B2 ID NOW ([employer]) Routine 03/09/2025 11:22 AM EST COVID-19 ID NOW (LERNER) Routine 03/09/2025 11:22 AM EST HIGH SENSITIVITY TROPONIN I Routine 03/09/2025 11:22 AM EST CBC WITH AUTO DIFFERENTIAL Routine 03/09/2025 11:22 AM EST SED RATE BY MODIFIED WESTERGREN Routine 03/09/2025 11:22 AM EST C-REACTIVE PROTEIN Routine 03/09/2025 11 :22 AM EST MAGNESIUM Routine 03/09/2025 11:22 AM EST LIPASE Routine 03/09/2025 11:22 AM EST CREATINE KINASE, TOTAL Routine 11:22 AM EST COMPREHENSIVE METABOLIC PANEL Routine 03/09/2025 11:[address] HEAD WO CONTRAST Routine 03/09/2025 1 1:04 AM EST documented in this encounter Results * (ABNORMAL) Sed Rate by Modified Westergren (03/09/2025 11:22 AM EST) Erythrocyte Sedimentation Rate 25(H) 0 - 15 MM/HR [facility] Comment:Patients with polycy themia and many hemoglobin abnormalitiesmay have depressed sed rates whereas patients with anemiamay have elevated sed rates. 03/09/2025 11:2 2 AM EST 03/09/2025 12:56 PM EST us Generic External Data Provider LAB BLOOD ORDERAB LES Final Result Performing Organization Address City/[facility]/ZIP Co de Phone Number [facility] [address] [place] [phone] * C-reactive Protein (03/09/2025 11:22 AM EST) Pathologist [facility] C Reactive Protein 0.22 < or = 0.50 mg/dL [facility] 03/09/2025 11:2 2 AM EST 03/09/2025 11:28 AM EST Generic External Data Provider LAB BLOOD ORDERAB LES Final Result Performing Organization Address City/[facility]/ZIP Co de Phone Number [facility] [address] [place] [phone] * COVID-19 ID NOW (LERNER) (03/09/2025 11:22 AM EST) IDNOW SERIAL# [id number] [facility] COVID-19 TEST Negative Negative [facility] COVID-19 NOTE See Note [facility] Comment: Results are for the identification of SARS-CoV2 RNA. TheSARS-CoV2 RNA is generally detectable in respiratory samplesduring the acute phase of infection. Positive results areindicative of the presence of SARS-CoV-2 RNA; clinicalcorrelation with patient history and other diagnosticinformation is necessary to determine patient infectionstatus. Positive results do not rule out bacterial infectionor co- infection with other viruses.Testing facilities within the [facility] and [facility] are required to report all positive results [...] use by authorized laboratories.Testing performed on the frooly ID NOW utilizing NAAT. 03/09/2025 11:2 2 AM EST 03/09/2025 11:28 AM EST us Generic External Data Provider LAB MOLECULAR ANGELICA GNOSTICS ORDERABLES Final Result [facility] [address] [place] [phone] * High Sensitivity Troponin I (03/09/2025 11:22 AM EST) TROPONIN I HIGH SENSITIVITY 3.7 <3.5 - 35.0 ng/L [facility] Comment:The Lerner high sens itivity Troponin-I results should beused in conjunction with other diagnostic information suchas ECG, clinical observations and information, and patientsymptoms to aid in the diagnosis of WI. 03/09/2025 11:2 2 AM EST 03/09/2025 11:28 AM EST us Generic External Data Provider LAB BLOOD ORDERAB LES Final Result Performing Organization Address [facility] Co de Phone Number [facility] [address] [place] [phone] * Lipase (03/09/2025 11:22 AM EST) Lipase 56 8 - 78 U/L [facility] 03/09/2025 11:2 2 AM EST 03/09/2025 11:28 AM EST us Generic External Data Provider LAB BLOOD ORDERAB LES Final Result Performing Organization Address [facility] Phone Number [facility] [address] [place] [phone] * (ABNORMAL) Creatine Kinase, Total (03/09/2025 11:22 AM EST) Creatine Kinase Total 181(H) 38 - 174 U/L [facility] 03/09/2025 11:2 2 AM EST 03/09/2025 11:28 AM EST us Generic External Data Provider LAB BLOOD ORDERAB LES Final Result Performing Organization Address [facility] de Phone Number [facility] [address] [place] [phone] * Magnesium (03/09/2025 11:22 AM EST) Magnesium 1.9 1.6 - 2.6 mg/dL [facility] 03/09/2025 11:2 2 AM EST 03/09/2025 11:28 AM EST us Generic External Data Provider LAB BLOOD ORDERAB LES Final Result Performing Organization Address [facility] Co de Phone Number [facility] [address] [place] [phone] * (ABNORMAL) Comprehensive Metabolic Panel (03/09/2025 11:22 AM EST) Sodium 144 135 - 145 mmol/L [facility] Potassium 4.7 3.3 - 5.1 mmol/L [facility] Chloride 113(H) 96 - 108 mmol/L [facility] Carbon Dioxide 27 22 - 29 mmol/L [facility] Anion Gap 9(L) 12 - 20 [facility] Urea Nitrogen (BUN) 27(H) 9 - 16 mg/dL [facility] Creatinine, Serum 1.96(H) 0.5 - 1.4 mg/dL [facility] Creatinine Clr Calc Pharmacy 25.6 [facility] Comment:eGFR (calculated fro m the MDRD study equation) and eCrCl(calculated from the Cockcroft-Gault equation) are based ondifferent parameters and may not yield comparable results.If eCrCl result is absurd, please check patient'sheight/weight. Estimated Glomerular Filt Rate 33 [facility] Comment:Chronic Kidney Disea se: Estimated GFR < 60 mL/min/1.43v4Qzooym Kidney Disease: Estimated GFR < 15 mL/min/1.73m2 Glucose 120(H) 60 - 115 mg/dL [facility] Calcium 9.4 8.4 - 10.2 mg/dL [facility] Bilirubin, Total 0.3 0.0 - 1.0 mg/dL [facility] Aspartate Amino Transferase 23 5 - 37 U/L [facility] Alanine Aminotransferase 16 0 - 40 U/L [facility] Total Protein 6.9 6.5 - 8.0 g/dL [facility] Albumin Level 3.9 3.5 - 5.0 g/dL [facility] Alkaline Phosphatase 129(H) 39 - 117 U/L [facility] 03/09/2025 11:2 2 AM EST 03/09/2025 11:28 AM EST us Generic External Data Provider LAB BLOOD ORDERAB LES Final Result Performing Organization Address City/[facility] Co de Phone Number [facility] [address] [place] [phone] * Influenza A B2 ID NOW ([facility]erner) (03/09/2025 11:22 AM EST) Pathologist [facility] IDNOW SERIAL# [id number] [facility] Influenza A Negative Negative [facility] Influenza B2 Negative Negative [facility] Influenza A B2 Note See Note [facility] Comment:The Lerner ID NOW In [...] GENERAL ORDERABLES Final Result Performing Organization Address [facility] Co de Phone Number [facility] [address] [place] [phone] * (ABNORMAL) CBC auto differential (03/09/2025 11:22 AM EST) Pathologist [facility] White Blood Count 5.9 4.8 - 10.8 X10*3/uL [facility] Red Blood Count 3.55(L) 4.60 - 5.80 X10*6/uL [facility] Hemoglobin 10.0(L) 14.0 - 18.0 g/dl [facility] Hematocrit 31.7(L) 42.0 - 52.0 % [facility] Mean Corpuscular Volume 89.3 80.0 - 98.0 fL [facility] Mean Corpuscular Hemoglobin 28.2 27.0 - 33.0 pg [facility] Mean Corpuscular HGB Conc 31.5 31.0 - 36.0 g/dl [facility] Red Cell Distribution Width 15.4 11.0 - 16.0 % [facility] Platelet Count 223 160 - 400 X10*3/uL [facility] Mean Platelet Volume 11.3 9.4 - 12.4 fL [facility] Neutrophils Percent Auto 62.0 45 - 73 % [facility] Imm Gran Pct Auto 0.2 0.0 - 0.4 % [facility] Lymphocytes Percent Auto 24.9 20 - 40 % [facility] Monocytes Percent Auto 8.9 2 - 11 % [facility] Eosinophils Percent Auto 3.7 0 - 4 % [facility] Basophils Percent Auto 0.3 0 - 2 % [facility] NRBC Pct Auto 0.0 0.0 - 0.2 /100WBC [facility] Neutrophils Absolute Auto 3.7 2.0 - 8.3 x10*3/uL [facility] Imm Gran Abs Auto 0.01 0.00 - 0.03 X10*3/uL [facility] Lymphocytes Absolute Auto 1.5 1.2 - 4.9 X10*3/uL [facility] Monocytes Absolute Auto 0.5 0.1 - 1.2 X10*3/uL [facility] Eosinophils Absolute Auto 0.2 0.0 - 0.4 X10*3/uL [facility] Basophils Absolute Auto 0.0 0.0 - 0.2 X10*3/uL [facility] NRBC Abs Auto 0.000 0.0 - 0.012 X10*3/uL [facility] 03/09/2025 11:2 2 AM EST 03/09/2025 11:28 AM EST us Generic External Data Provider LAB BLOOD ORDERAB LES Final Result [facility] [address] [place] [phone] * CT Head w/o Contrast (03/09/2025 11:04 AM EST) Anatomical Region Laterality Modality Head, Neck Computed Tomogra phy 03/09/2025 11:0 4 AM EST Narrative 03/09/2025 11:23 AM EST [address] [address] [address] Scan Report Signed Patient: Álvaro Johnson MR#: [id number] : 1945 Acct:[id number] Age/Sex: 79 / M ADM Date: 03/09/25 Loc: HO.ED Attending Dr: Ordering Physician: Daniel Loredo Date of Service: 03/09/25 Procedure(s): CT head/brain wo IV con Accession Number(s): [id number] cc: Daniel Loredo; Praful Fajardo MD Report Number: [id number]: Total DLP = 631.00 mGy-cm Reason for [...] by: Johann Campos MD 03/09/2025 11:20 AM [facility] Dictated By: Johann Campos MD Signed By: <Electronically signed by Johann Cmapos MD in OV> 03/09/25 1120 DD/ 1104 TD/TT: 03/09/25 1111 Supervisor Money Room: Procedure Note Donotuseinterpreter, Image - 03/09/[address] [place] [address] [address] Scan Report Signed Patient: Rae Johnson#: [id number] : 5Acct:[id number] Age/Sex: 79 / MADM Date: 03/09/25 Loc: HO.ED Attending Dr: Ordering Physician: Daniel Loredo Date of Service: 03/09/25 Procedure(s): CT head/brain wo IV con Accession Number(s): [id number] cc: Daniel Loredo; Praful Fajardo MD Report Number: [id number]: Total DLP = 631.00 mGy-cm Reason for [...] 03/09/25 1120 DD/ 1104 TD/TT: 03/09/25 1111 Supervisor Money Room: [facility] External Provider IMG CT PROCEDURES Final Result documented in this encounter Visit Diagnoses Not on filedocumented in this encounter Additional Health Concerns Assessment Noted Time PHQ-9 Depression Total Score: 8 01/20/20 25 3:02 PM EDT documented as of this encounter Care Teams Food Service Worker Hospital Relationship Specialty Start Date End Date Praful Robles MD [address] [place] [phone] PCP - General Internal Medicine 11/08/14 documented as of this encounter
--- OUTSIDE RECORDS SUMMARY | 2025-03-09 17:50 | XMS_ITS | Encounter Summary ---
Author Organization [employer] Address 75 [facility] 7t [place] [address] Care Team Providers Care Chief Of Service Name Role Phone Praful Robles MD Primary Care Provide r Reason for Visit * Reason Comments Med Refill Encounter Details Date Type Department Care Team (Late st Contact Info) Description 03/07/2025 Refill [facility] [address] [place], [place] [phone] Praful Robles MD [address] [place] [address] Gastroesophageal reflux disease without esophagitis Social History Tobacco Use Types Packs/Day Years [...] Description 03/23/2025 11:30 AM EST Office Visit [facility] OPTOMETRY [address] [place] [address] Jessa Milian, OD [address] [place] [address] 05/04/2025 2:00 PM EST Office Visit [facility] MEDICINE [address] [place] [address] Praful Robles MD [address] [place] [address] documented as of this encounter Visit Diagnoses Diagnosis Gastroesophageal reflux disease without esophagitis Esophageal reflux documented in this encounter Additional Health Concerns Assessment Noted Time PHQ-9 Depression Total Score: 8 01/20/20 25 3:02 PM EDT documented as of this encounter Care Teams Chief Of Service Relationship Specialty Start Date End Date Praful Robles MD [address] [place] [address] PCP - General Internal Medicine 11/08/14 documented as of this encounter
--- OUTSIDE RECORDS SUMMARY | 2025-03-09 17:50 | XMS_ITS | Encounter Summary ---
Author Organization [employer] Address [address] [place] [address] 7t [place] [address] Care Team Providers Care Dinkey Engine Operator Name Role Phone Praful Robles MD Primary Care Provide r Reason for Visit * Reason Comments Med Refill Encounter Details Date Type Department Care Team (Late st Contact Info) Description 01/20/2023 Refill [facility] MEDICINE [address] [place], [place] [phone] Aixa Rosales MD [address] [place], [place] [phone] Essential hypertension; Mixed hyperlipidemia Social History Tobacco [...] Description 03/23/2025 11:30 AM EST Office Visit [facility] OPTOMETRY [address] [place], [place] [phone] Jessa Milian, OD [address] [place] [address] 05/04/2025 2:00 PM EST Office Visit [facility] MEDICINE [address] [place], [place] [phone] Praful Robles MD 230 [facility] [place] [address] documented as of this encounter Visit Diagnoses Diagnosis Essential hypertension Unspecified essential hypertension Mixed hyperlipidemia documented in this encounter Care Teams Dinkey Engine Operator Relationship Specialty Start Date End Date Praful Robles MD [address] [place] [address] PCP - General Internal Medicine 11/08/14 documented as of this encounter
--- OUTSIDE RECORDS SUMMARY | 2025-03-09 17:50 | XMS_ITS | Encounter Summary ---
Author Organization [employer] Address [address] [place] [address] 7t [place] [address] Care Team Providers Care Awning Craftsperson Name Role Phone Praful Robles MD Primary Care Provide r Encounter Details Date Type Department Care Team (Late st Contact Info) Description 06/24/2022 Abstract [facility] MED[facility] [address] [place] [phone] Praful Robles MD [address] [place] [address] [phone] Social History Tobacco Use Types Packs/Day Years [...] Description 03/23/2025 11:30 AM EST Office Visit [facility] OPTOMETRY [address] [place] [address] Jessa Milian OD [address] [place] [address] 05/04/2025 2:00 PM EST Office Visit [facility] MEDICINE [address] [place] [address] Praful Robles MD [address] [place] [address] documented as of this encounter Visit Diagnoses Not on filedocumented in this encounter Care Teams Awning Craftsperson Relationship Specialty Start Date End Date Praful Robles MD [address] [place] [address] PCP - General Internal Medicine 11/08/14 documented as of this encounter
--- OUTSIDE RECORDS SUMMARY | 2025-03-09 17:50 | XMS_ITS | Clinical Summary ---
Author Organization [facility] Address [address] [place] [phone] Phone Care Team Providers Care In Mold Coater Name Role Phone Unavailable Primary Care Provider [...] to complete this topic Insurance [place]A PATEL [phone] [facility]
[2025-03-09 18:31] VITALS: BP 170/82; PULSE 66; RESP 16; TEMP 36.6; O2SAT 98
[2025-03-09 19:29] VITALS: BP 170/82; PULSE 66; RESP 16; TEMP 36.6; O2SAT 98
== END 2025-03-09 19:30 | disposition home or self-care (01) ==
PROVIDERS: Physician Assistant; Emergency Provider Emergency Medicine; PCP Internal Medicine
DX: L29.9 Pruritus, unspecified (principal); R51.9 Headache, unspecified; I10 Essential (primary) hypertension; E11.9 Type 2 diabetes mellitus without complications; Z79.899 Other long term (current) drug therapy; Z03.818 Encounter for observation for suspected exposure to other biological agents ruled out
CPT/HCPCS: 70450; 70544; 80053; 82550; 83690; 83735; 84484; 85025; 85652; 86140; 87502; 87635; 93005; 99284

== ENCOUNTER → 2025-03-09 10:54 | Outpatient (BNV) | payer OTHER, SELFPAY | PROVIDERS: PCP Internal Medicine; Visit Provider Radiology Diagnostic Radiology | DX: R51.9 Headache, unspecified (principal); E11.22 Type 2 diabetes mellitus with diabetic chronic kidney disease; N18.9 Chronic kidney disease, unspecified; G93.89 Other specified disorders of brain | CPT/HCPCS: 70450; 70544 ==

== ENCOUNTER → 2025-03-09 10:54 | Outpatient (BNV) | payer OTHER, SELFPAY | PROVIDERS: Emergency Provider Emergency Medicine; PCP Internal Medicine; Visit Provider Internal Medicine | DX: R51.9 Headache, unspecified (principal); E11.9 Type 2 diabetes mellitus without complications | CPT/HCPCS: 93010 ==